=== PATIENT | female | born 1960 | race American Indian/Alaskan Native ===

== ENCOUNTER 2016-04-06 14:23 | Outpatient (CLI) | payer BC ==
--- NOTE | 2016-04-06 15:44 | Mammography Report ---
BILATERAL MAMMOGRAM: FINDINGS: The breasts are almost entirely fat (<25% glandular). No mass, distortion, suspicious calcification, or skin change is seen. The findings are unchanged compared to prior study of June 2013 CAD was utilized. IMPRESSION: Negative mammogram. There is no mammographic evidence of malignancy. RECOMMENDATION: Follow-up per ACS guidelines. BI-RADS CATEGORY: 1 = Negative ACR BI-RADS MAMMOGRAPHIC CODES: 0 = Needs additional imaging evaluation; 1 = Negative; 2 = Benign; 3 = Probably benign; 4 = Suspicious; 5 = Malignant; 6 = Known biopsy-proven malignancy COMMENT: 1. Dense breast tissue, i.e., adenosis, fibrocystic changes, etc., may obscure an underlying neoplasm. 2. Approximately 10% of cancers are not detected with mammography. 3. A negative mammography report should not delay biopsy if a clinically suspicious mass is present. COMMENT: Patient follow-up letters are generated in [employer] Everytime.
== END 2016-04-06 14:24 | disposition home or self-care (01) ==
LOC: MAMMO 14:23
PROVIDERS: ATTEND Internal Medicine
DX: Z12.31 Encounter for screening mammogram for malignant neoplasm of breast (principal)
CPT/HCPCS: 77067; G0202

== ENCOUNTER 2016-04-16 08:42 | Outpatient (CLI) | payer BC ==
--- NOTE | 2016-04-16 13:59 | Treadmill Report ---
REASON FOR STUDY: New onset premature ventricular contractions. The patient exercised for 6 minutes of a Jabari protocol, completing stage 2 and achieving 7 mets. Peak heart rate was 160 beats per minute. Peak blood pressure was 168 systolic. The test was stopped for fatigue. There was no chest pain. There were no ST changes of ischemia. On the baseline ECG, there were occasional isolated uniform PVCs, but with exercise, no significant dysrhythmias were noted. CONCLUSION: 1. No chest pain with exercise. 2. No ST changes of ischemia. 3. No significant dysrhythmias. 4. This is a negative exercise ECG test. JOB# [id number] ARELY/NTS
--- NOTE | 2016-04-17 09:43 | Echocardiography Report ---
Transthoracic Echocardiogram Indication: PVC's BP: 168/99 Findings Left Ventricle: The left ventricular chamber size is normal. Mild concentric left ventricular hypertrophy is observed. Global left ventricular wall motion and contractility are within normal limits. Global left ventricular systolic function is normal. The estimated ejection fraction is 55-60%. The left ventricular diastolic filling pattern is consistent with pseudonormalization. Left Atrium: The left atrium is mildly dilated. Right Ventricle: The right ventricle is not well visualized. The right ventricular cavity size is normal. The right ventricular global systolic function is normal. Right Atrium: The right atrium is not well visualized. The right atrial cavity size is normal. The interatrial septum appears normal. Aortic Valve: The aortic valve is not well visualized. The aortic valve structure is normal. The aortic valve leaflets are mildly thickened. There is trace of aortic regurgitation. There is no evidence of aortic stenosis. Mitral Valve: The mitral valve leaflets appear myxomatous. The mitral valve leaflets are mildly thickened. There is mild mitral valve prolapse. There is trace of mitral regurgitation. There is no evidence of mitral stenosis. Tricuspid Valve: The tricuspid valve leaflets are normal. There is trace tricuspid regurgitation. The right ventricular systolic pressure is calculated at 34 mmHg. There is evidence of mild pulmonary hypertension. There is no tricuspid stenosis. Pulmonic Valve: The pulmonic valve is not well visualized. Pericardium: There is no pericardial effusion. Aorta: There is no dilatation of the aortic root. Venous: The inferior vena cava is not visualized. Measurements Chambers MM Name Value Normal Range Ao root diameter (MM) 3.4 cm (2 - 3.7) LA dimension (AP) MM 4.2 cm (1.9 - 4) LA:Ao ratio (MM) 1.24 ratio - AV cusp separation (MM) 1.8 cm (1.5 - 2.6) Chambers 2D Name Value Normal Range RVIDd (AP) 2D 3.45 cm (0.9 - 2.6) IVSd (2D) 1.45 cm (0.6 - 1.1) LVPWd (2D) 1.43 cm (0.6 - 1.1) IVS:LVPW ratio (2D) 1.01 ratio - LVIDd (2D) 4.56 cm (3.7 - 5.6) LVIDs (2D) 2.96 cm (2 - 3.8) LV FS (Teichholz) (2D) 35.1 % - LV FS (cube) (2D) 35.1 % - EF Teichholz (2D) 64.5 % - LA dimension (AP) 2D 4.3 cm (1.9 - 4) Volumes/Mass Name Value Normal Range LA ESV SP 4CH (MOD) 36 ml - LA ESV SP 2CH (MOD) 35 ml - LA ESV BP (MOD) 36 ml - LA ESV BP (MOD) index 13.7 ml/m2 - Diastolic/Systolic Function Name Value Normal Range MV E-wave Vmax 0.8 m/sec - MV deceleration time 148 msec - MV A-wave Vmax 0.74 m/sec - MV E:A ratio 1.1 ratio - LV septal e' Vmax 0.06 m/sec - LV lateral e' Vmax 0.06 m/sec - LV E:e' septal ratio 12.7 ratio - LV E:e' lateral ratio 12.9 ratio - Aortic Valve Name Value Normal Range AV VTI 31.1 cm - AV mean gradient 5 mmHg - LVOT diameter 2.1 cm - LVOT VTI 18.4 cm - LVOT mean gradient 2 mmHg - SV LVOT 64 ml - CARINE (continuity VTI) 2.05 cm2 - Mitral Valve Name Value Normal Range MV PHT 47 msec - MVA (PHT) 4.68 cm2 - Tricuspid Valve Name Value Normal Range TR Vmax 2.77 m/sec - TR peak gradient 31 mmHg - RAP 3 mmHg - RVSP 34 mmHg - Pulmonic Valve/Qp:Qs Name Value Normal Range PV Vmax 0.95 m/sec - PV peak gradient 4 mmHg - PV acceleration time 109 msec -
== END 2016-04-16 08:43 | disposition home or self-care (01) ==
LOC: CARD 08:42
PROVIDERS: ATTEND Internal Medicine
DX: I49.3 Ventricular premature depolarization (principal)
CPT/HCPCS: 93017; 93306

== ENCOUNTER 2016-05-31 11:56 | Emergency (ER) | payer BC, OTHER ==
[2016-05-31 12:33] LABS: Basophils % (Auto) 0.7 % (0.0-1.8); Eosinophils % (Auto) 1.5 % (0.0-4.3); Hemoglobin 14.7 gm/dl (10.1-14.3); Mean Corpuscular HGB Conc 33 % (30-34); Mean Corpuscular Hemoglobin 29 pg (28-32); Mean Corpuscular Volume 87 fl (79-97); Platelet Count 171 K/mm3 (140-440); Red Blood Count 5.16 M/mm3 (3.65-5.03); Red Cell Distribution Width 14.3 % (13.2-15.2)
[2016-05-31 13:23] LABS: Anion Gap 16 mmol/L; BUN/Creatinine Ratio 15.71; Blood Urea Nitrogen 11 mg/dL (7-17); Carbon Dioxide 28 mmol/L (22-30); Glucose 116 mg/dL (65-100); Potassium 3.8 mmol/L (3.6-5.0); Sodium 141 mmol/L (137-145)
[2016-05-31] MEDS ORDERED: TORADOL IM ONE (17:12)
[2016-05-31 18:07] VITALS: BP 129/59
--- NOTE | 2016-05-31 19:47 | Emergency Department Report ---
HPI - General Chief Complaint: Chest Pain Time Seen by Provider: 05/31/16 16:55 - HPI HPI: The patient is a 55-year-old female presents for evaluation of chest pain. The patient reports chest pain since 10 AM, midsternal in location, aching in quality, 8/10 in severity, constant since onset. The patient says that she received a stress test 1 month ago which was unremarkable. The patient denies trauma to the chest wall, fever, cough, dyspnea, syncope, hemoptysis, unilateral leg swelling, oral contraceptive use, recent immobilization, history of DVT or PE, recent cancer. ED Past Medical Hx - Past Medical History Previous Medical History?: Yes Hx Hypertension: Yes Hx Arthritis: Yes Additional medical history: anemia, sleep apnea, low vit d., back pain/injury - Surgical History Past Surgical History?: Yes Additional Surgical History: lap band 2011& tubal ligation - Social History Smoking Status: Never Smoker Substance Use Type: None - Medications Home Medications: Home Medications Medication Instructions Recorded Confirmed Last Taken Type Acetaminophen [Tylenol] 500 mg PO Q4HR PRN 05/31/16 05/31/16 Unknown History Hydrochlorothiazide [HCTZ] 25 mg PO QDAY 05/31/16 05/31/16 Unknown History traMADol [Ultram 50 MG tab] 50 mg PO Q6HR PRN #12 tablet 05/31/16 Unknown Rx ED Review of Systems ROS: Stated complaint: CHEST PAIN Other details as noted in HPI Constitutional: denies: fever ENT: denies: throat or neck pain Respiratory: denies: cough, shortness of breath Cardiovascular: reports chest pain Endocrine: denies unexplained weight loss or gain Gastrointestinal: denies: abdominal pain, nausea Genitourinary: denies: dysuria Musculoskeletal: denies: leg swelling Skin: denies: rash Neurological: denies: headache Hematological/Lymphatic: denies: easy bleeding or easy bruising Psych: denies sadness or hopelessness Physical Exam - Physical Exam Vital Signs: Vital Signs 05/31/16 05/31/16 05/31/16 12:04 14:17 14:18 Temperature 97.7 F Pulse Rate 92 H 83 82 Respiratory 24 Rate Blood Pressure 151/103 164/88 O2 Sat by Pulse 98 97 Oximetry 05/31/16 05/31/16 05/31/16 14:19 14:21 14:23 Temperature Pulse Rate 88 88 88 Respiratory 25 H 23 24 Rate Blood Pressure 164/88 164/88 164/88 O2 Sat by Pulse 97 98 98 Oximetry 05/31/16 05/31/16 05/31/16 14:24 14:25 14:27 Temperature Pulse Rate 95 H 86 Respiratory 12 24 20 Rate Blood Pressure 164/88 164/88 O2 Sat by Pulse 98 98 99 Oximetry 05/31/16 05/31/16 05/31/16 14:29 14:31 14:33 Temperature Pulse Rate 85 85 82 Respiratory 21 23 21 Rate Blood Pressure 164/88 164/88 164/88 O2 Sat by Pulse 98 99 99 Oximetry 05/31/16 05/31/16 05/31/16 14:35 14:37 14:39 Temperature Pulse Rate 83 83 84 Respiratory 21 22 21 Rate Blood Pressure 164/88 164/88 164/88 O2 Sat by Pulse 99 100 99 Oximetry 05/31/16 05/31/16 05/31/16 14:41 14:43 14:45 Temperature Pulse Rate 93 H 86 85 Respiratory 20 13 18 Rate Blood Pressure 164/88 164/88 164/88 O2 Sat by Pulse 100 99 98 Oximetry 05/31/16 05/31/16 05/31/16 14:47 14:49 14:51 Temperature Pulse Rate 93 H 89 87 Respiratory 17 22 22 Rate Blood Pressure 164/88 164/88 164/88 O2 Sat by Pulse 96 96 97 Oximetry 05/31/16 05/31/16 05/31/16 14:53 14:55 14:57 Temperature Pulse Rate 88 105 H 85 Respiratory 23 18 18 Rate Blood Pressure 164/88 164/88 164/88 O2 Sat by Pulse 97 97 98 Oximetry 05/31/16 05/31/16 05/31/16 14:59 15:00 15:01 Temperature Pulse Rate 87 87 83 Respiratory 25 H 19 23 Rate Blood Pressure 164/88 144/83 144/83 O2 Sat by Pulse 97 99 98 Oximetry 05/31/16 05/31/16 05/31/16 15:03 15:05 15:07 Temperature Pulse Rate 79 87 82 Respiratory 16 13 21 Rate Blood Pressure 144/83 144/83 144/83 O2 Sat by Pulse 98 98 97 Oximetry 05/31/16 05/31/16 05/31/16 15:09 15:11 15:13 Temperature Pulse Rate 86 84 84 Respiratory 24 22 16 Rate Blood Pressure 144/83 144/83 144/83 O2 Sat by Pulse 97 97 98 Oximetry 05/31/16 05/31/16 05/31/16 15:15 15:17 15:19 Temperature Pulse Rate 81 81 82 Respiratory 18 20 21 Rate Blood Pressure 144/83 144/83 144/83 O2 Sat by Pulse 97 97 96 Oximetry 05/31/16 05/31/16 05/31/16 15:21 15:23 15:25 Temperature Pulse Rate 81 89 86 Respiratory 21 16 22 Rate Blood Pressure 144/83 144/83 144/83 O2 Sat by Pulse 97 96 95 Oximetry 05/31/16 05/31/16 05/31/16 15:26 15:27 15:29 Temperature Pulse Rate 86 85 85 Respiratory 15 21 19 Rate Blood Pressure 144/83 144/83 144/83 O2 Sat by Pulse 96 96 95 Oximetry 05/31/16 05/31/16 05/31/16 15:31 15:33 15:35 Temperature Pulse Rate 82 85 83 Respiratory 18 21 22 Rate Blood Pressure 144/83 144/83 144/83 O2 Sat by Pulse 97 97 97 Oximetry 05/31/16 05/31/16 05/31/16 15:37 15:39 15:41 Temperature Pulse Rate 80 82 88 Respiratory 24 23 21 Rate Blood Pressure 144/83 144/83 144/83 O2 Sat by Pulse 97 98 97 Oximetry 05/31/16 05/31/16 05/31/16 15:47 15:49 15:51 Temperature Pulse Rate 82 87 Respiratory 26 H 25 H Rate Blood Pressure 144/83 144/83 144/83 O2 Sat by Pulse 91 99 98 Oximetry 05/31/16 05/31/16 05/31/16 15:53 15:55 15:57 Temperature Pulse Rate 84 86 86 Respiratory 23 25 H 22 Rate Blood Pressure 144/83 144/83 144/83 O2 Sat by Pulse 97 97 97 Oximetry 05/31/16 05/31/16 05/31/16 15:59 16:00 16:01 Temperature Pulse Rate 84 86 89 Respiratory 19 23 19 Rate Blood Pressure 144/83 138/81 138/81 O2 Sat by Pulse 98 77 L 100 Oximetry 05/31/16 05/31/16 05/31/16 16:03 16:05 16:07 Temperature Pulse Rate 87 83 89 Respiratory 23 22 22 Rate Blood Pressure 138/81 138/81 138/81 O2 Sat by Pulse 100 100 100 Oximetry 05/31/16 05/31/16 05/31/16 16:09 16:11 16:13 Temperature Pulse Rate 78 83 80 Respiratory 24 21 18 Rate Blood Pressure 138/81 138/81 138/81 O2 Sat by Pulse 100 100 100 Oximetry 05/31/16 05/31/16 05/31/16 16:15 16:17 16:19 Temperature Pulse Rate 81 82 81 Respiratory 14 21 17 Rate Blood Pressure 138/81 138/81 138/81 O2 Sat by Pulse 100 100 98 Oximetry 05/31/16 05/31/16 05/31/16 16:21 16:23 16:25 Temperature Pulse Rate 86 90 88 Respiratory 19 11 L 11 L Rate Blood Pressure 138/81 138/81 138/81 O2 Sat by Pulse 98 97 98 Oximetry 05/31/16 05/31/16 05/31/16 16:27 16:29 16:31 Temperature Pulse Rate 83 80 86 Respiratory 14 19 21 Rate Blood Pressure 138/81 138/81 138/81 O2 Sat by Pulse 99 96 96 Oximetry 05/31/16 05/31/16 05/31/16 16:33 16:35 16:37 Temperature Pulse Rate 86 83 81 Respiratory 21 21 25 H Rate Blood Pressure 138/81 138/81 144/83 O2 Sat by Pulse 97 97 99 Oximetry 05/31/16 05/31/16 05/31/16 16:39 16:41 16:43 Temperature Pulse Rate 101 H 87 83 Respiratory 20 24 22 Rate Blood Pressure 144/83 144/83 144/83 O2 Sat by Pulse 98 99 99 Oximetry 05/31/16 05/31/16 05/31/16 16:45 16:47 16:49 Temperature Pulse Rate 82 81 88 Respiratory 20 22 23 Rate Blood Pressure 144/83 144/83 144/83 O2 Sat by Pulse 100 100 100 Oximetry 05/31/16 05/31/16 05/31/16 16:51 16:53 16:55 Temperature Pulse Rate 82 79 81 Respiratory 24 23 27 H Rate Blood Pressure 144/83 144/83 144/83 O2 Sat by Pulse 100 100 100 Oximetry 05/31/16 05/31/16 05/31/16 16:57 16:59 17:01 Temperature Pulse Rate 78 84 85 Respiratory 19 28 H 24 Rate Blood Pressure 144/83 144/83 129/59 O2 Sat by Pulse 100 98 94 Oximetry 05/31/16 05/31/16 05/31/16 17:03 17:05 17:07 Temperature Pulse Rate 83 80 86 Respiratory 24 23 21 Rate Blood Pressure 129/59 129/59 129/59 O2 Sat by Pulse 97 98 99 Oximetry 05/31/16 05/31/16 05/31/16 17:09 17:11 17:13 Temperature Pulse Rate 81 81 85 Respiratory 22 19 17 Rate Blood Pressure 129/59 129/59 129/59 O2 Sat by Pulse 99 98 98 Oximetry 05/31/16 05/31/16 05/31/16 17:15 17:17 17:19 Temperature Pulse Rate 99 H 97 H 90 Respiratory 20 15 22 Rate Blood Pressure 129/59 129/59 129/59 O2 Sat by Pulse 92 89 97 Oximetry 05/31/16 05/31/16 05/31/16 17:21 17:23 17:25 Temperature Pulse Rate 88 85 79 Respiratory 28 H 25 H 23 Rate Blood Pressure 129/59 129/59 129/59 O2 Sat by Pulse 99 99 99 Oximetry 05/31/16 05/31/16 05/31/16 17:27 17:29 17:31 Temperature Pulse Rate 96 H 91 H 86 Respiratory 15 13 13 Rate Blood Pressure 129/59 129/59 129/59 O2 Sat by Pulse 98 97 99 Oximetry 05/31/16 05/31/16 05/31/16 17:33 17:35 17:37 Temperature Pulse Rate 86 84 83 Respiratory 22 23 21 Rate Blood Pressure 129/59 129/59 129/59 O2 Sat by Pulse 96 98 99 Oximetry 05/31/16 05/31/16 05/31/16 17:39 17:41 17:43 Temperature Pulse Rate 85 83 90 Respiratory 23 22 21 Rate Blood Pressure 129/59 129/59 129/59 O2 Sat by Pulse 100 98 99 Oximetry 05/31/16 05/31/16 05/31/16 17:45 17:47 17:49 Temperature Pulse Rate 88 87 82 Respiratory 19 22 22 Rate Blood Pressure 129/59 129/59 129/59 O2 Sat by Pulse 98 98 99 Oximetry 05/31/16 05/31/16 05/31/16 17:51 17:53 17:55 Temperature Pulse Rate 90 87 86 Respiratory 24 22 21 Rate Blood Pressure 129/59 129/59 129/59 O2 Sat by Pulse 98 99 98 Oximetry 05/31/16 05/31/16 17:57 17:59 Temperature Pulse Rate 90 81 Respiratory 24 20 Rate Blood Pressure 129/59 129/59 O2 Sat by Pulse 95 97 Oximetry Physical Exam: General: well-nourished, well-developed, no acute distress Head: Normocephalic, atraumatic Eyes: normal sclera ENT: Mucous membranes are pink and moist Neck: trachea midline, neck supple, No neck stiffness, no cervical adenopathy Respiratory: Breath sounds equal bilaterally, no wheezing, rales, or rhonchi Cardio: S1 and S2 present, no murmurs, rubs, gallops, capillary refill is brisk Abdomen: Normoactive bowel sounds, soft abdomen, no tenderness Musc: No pitting edema Skin: No rash Neuro: no facial drooping, normal speech Psych: Normal affect ED Course Vital Signs 05/31/16 05/31/16 05/31/16 12:04 14:17 14:18 Temperature 97.7 F Pulse Rate 92 H 83 82 Respiratory 24 Rate Blood Pressure 151/103 164/88 O2 Sat by Pulse 98 97 Oximetry 05/31/16 05/31/16 05/31/16 14:19 14:21 14:23 Temperature Pulse Rate 88 88 88 Respiratory 25 H 23 24 Rate Blood Pressure 164/88 164/88 164/88 O2 Sat by Pulse 97 98 98 Oximetry 05/31/16 05/31/16 05/31/16 14:24 14:25 14:27 Temperature Pulse Rate 95 H 86 Respiratory 12 24 20 Rate Blood Pressure 164/88 164/88 O2 Sat by Pulse 98 98 99 Oximetry 05/31/16 05/31/16 05/31/16 14:29 14:31 14:33 Temperature Pulse Rate 85 85 82 Respiratory 21 23 21 Rate Blood Pressure 164/88 164/88 164/88 O2 Sat by Pulse 98 99 99 Oximetry 05/31/16 05/31/16 05/31/16 14:35 14:37 14:39 Temperature Pulse Rate 83 83 84 Respiratory 21 22 21 Rate Blood Pressure 164/88 164/88 164/88 O2 Sat by Pulse 99 100 99 Oximetry 05/31/16 05/31/16 05/31/16 14:41 14:43 14:45 Temperature Pulse Rate 93 H 86 85 Respiratory 20 13 18 Rate Blood Pressure 164/88 164/88 164/88 O2 Sat by Pulse 100 99 98 Oximetry 05/31/16 05/31/16 05/31/16 14:47 14:49 14:51 Temperature Pulse Rate 93 H 89 87 Respiratory 17 22 22 Rate Blood Pressure 164/88 164/88 164/88 O2 Sat by Pulse 96 96 97 Oximetry 05/31/16 05/31/16 05/31/16 14:53 14:55 14:57 Temperature Pulse Rate 88 105 H 85 Respiratory 23 18 18 Rate Blood Pressure 164/88 164/88 164/88 O2 Sat by Pulse 97 97 98 Oximetry 05/31/16 05/31/16 05/31/16 14:59 15:00 15:01 Temperature Pulse Rate 87 87 83 Respiratory 25 H 19 23 Rate Blood Pressure 164/88 144/83 144/83 O2 Sat by Pulse 97 99 98 Oximetry 05/31/16 05/31/16 05/31/16 15:03 15:05 15:07 Temperature Pulse Rate 79 87 82 Respiratory 16 13 21 Rate Blood Pressure 144/83 144/83 144/83 O2 Sat by Pulse 98 98 97 Oximetry 05/31/16 05/31/16 05/31/16 15:09 15:11 15:13 Temperature Pulse Rate 86 84 84 Respiratory 24 22 16 Rate Blood Pressure 144/83 144/83 144/83 O2 Sat by Pulse 97 97 98 Oximetry 05/31/16 05/31/16 05/31/16 15:15 15:17 15:19 Temperature Pulse Rate 81 81 82 Respiratory 18 20 21 Rate Blood Pressure 144/83 144/83 144/83 O2 Sat by Pulse 97 97 96 Oximetry 05/31/16 05/31/16 05/31/16 15:21 15:23 15:25 Temperature Pulse Rate 81 89 86 Respiratory 21 16 22 Rate Blood Pressure 144/83 144/83 144/83 O2 Sat by Pulse 97 96 95 Oximetry 05/31/16 05/31/16 05/31/16 15:26 15:27 15:29 Temperature Pulse Rate 86 85 85 Respiratory 15 21 19 Rate Blood Pressure 144/83 144/83 144/83 O2 Sat by Pulse 96 96 95 Oximetry 05/31/16 05/31/16 05/31/16 15:31 15:33 15:35 Temperature Pulse Rate 82 85 83 Respiratory 18 21 22 Rate Blood Pressure 144/83 144/83 144/83 O2 Sat by Pulse 97 97 97 Oximetry 05/31/16 05/31/16 05/31/16 15:37 15:39 15:41 Temperature Pulse Rate 80 82 88 Respiratory 24 23 21 Rate Blood Pressure 144/83 144/83 144/83 O2 Sat by Pulse 97 98 97 Oximetry 05/31/16 05/31/16 05/31/16 15:47 15:49 15:51 Temperature Pulse Rate 82 87 Respiratory 26 H 25 H Rate Blood Pressure 144/83 144/83 144/83 O2 Sat by Pulse 91 99 98 Oximetry 05/31/16 05/31/16 05/31/16 15:53 15:55 15:57 Temperature Pulse Rate 84 86 86 Respiratory 23 25 H 22 Rate Blood Pressure 144/83 144/83 144/83 O2 Sat by Pulse 97 97 97 Oximetry 05/31/16 05/31/16 05/31/16 15:59 16:00 16:01 Temperature Pulse Rate 84 86 89 Respiratory 19 23 19 Rate Blood Pressure 144/83 138/81 138/81 O2 Sat by Pulse 98 77 L 100 Oximetry 05/31/16 05/31/16 05/31/16 16:03 16:05 16:07 Temperature Pulse Rate 87 83 89 Respiratory 23 22 22 Rate Blood Pressure 138/81 138/81 138/81 O2 Sat by Pulse 100 100 100 Oximetry 05/31/16 05/31/16 05/31/16 16:09 16:11 16:13 Temperature Pulse Rate 78 83 80 Respiratory 24 21 18 Rate Blood Pressure 138/81 138/81 138/81 O2 Sat by Pulse 100 100 100 Oximetry 05/31/16 05/31/16 05/31/16 16:15 16:17 16:19 Temperature Pulse Rate 81 82 81 Respiratory 14 21 17 Rate Blood Pressure 138/81 138/81 138/81 O2 Sat by Pulse 100 100 98 Oximetry 05/31/16 05/31/16 05/31/16 16:21 16:23 16:25 Temperature Pulse Rate 86 90 88 Respiratory 19 11 L 11 L Rate Blood Pressure 138/81 138/81 138/81 O2 Sat by Pulse 98 97 98 Oximetry 05/31/16 05/31/16 05/31/16 16:27 16:29 16:31 Temperature Pulse Rate 83 80 86 Respiratory 14 19 21 Rate Blood Pressure 138/81 138/81 138/81 O2 Sat by Pulse 99 96 96 Oximetry 05/31/16 05/31/16 05/31/16 16:33 16:35 16:37 Temperature Pulse Rate 86 83 81 Respiratory 21 21 25 H Rate Blood Pressure 138/81 138/81 144/83 O2 Sat by Pulse 97 97 99 Oximetry 05/31/16 05/31/16 05/31/16 16:39 16:41 16:43 Temperature Pulse Rate 101 H 87 83 Respiratory 20 24 22 Rate Blood Pressure 144/83 144/83 144/83 O2 Sat by Pulse 98 99 99 Oximetry 05/31/16 05/31/16 05/31/16 16:45 16:47 16:49 Temperature Pulse Rate 82 81 88 Respiratory 20 22 23 Rate Blood Pressure 144/83 144/83 144/83 O2 Sat by Pulse 100 100 100 Oximetry 05/31/16 05/31/16 05/31/16 16:51 16:53 16:55 Temperature Pulse Rate 82 79 81 Respiratory 24 23 27 H Rate Blood Pressure 144/83 144/83 144/83 O2 Sat by Pulse 100 100 100 Oximetry 05/31/16 05/31/16 05/31/16 16:57 16:59 17:01 Temperature Pulse Rate 78 84 85 Respiratory 19 28 H 24 Rate Blood Pressure 144/83 144/83 129/59 O2 Sat by Pulse 100 98 94 Oximetry 05/31/16 05/31/16 05/31/16 17:03 17:05 17:07 Temperature Pulse Rate 83 80 86 Respiratory 24 23 21 Rate Blood Pressure 129/59 129/59 129/59 O2 Sat by Pulse 97 98 99 Oximetry 05/31/16 05/31/16 05/31/16 17:09 17:11 17:13 Temperature Pulse Rate 81 81 85 Respiratory 22 19 17 Rate Blood Pressure 129/59 129/59 129/59 O2 Sat by Pulse 99 98 98 Oximetry 05/31/16 05/31/16 05/31/16 17:15 17:17 17:19 Temperature Pulse Rate 99 H 97 H 90 Respiratory 20 15 22 Rate Blood Pressure 129/59 129/59 129/59 O2 Sat by Pulse 92 89 97 Oximetry 05/31/16 05/31/16 05/31/16 17:21 17:23 17:25 Temperature Pulse Rate 88 85 79 Respiratory 28 H 25 H 23 Rate Blood Pressure 129/59 129/59 129/59 O2 Sat by Pulse 99 99 99 Oximetry 05/31/16 05/31/16 05/31/16 17:27 17:29 17:31 Temperature Pulse Rate 96 H 91 H 86 Respiratory 15 13 13 Rate Blood Pressure 129/59 129/59 129/59 O2 Sat by Pulse 98 97 99 Oximetry 05/31/16 05/31/16 05/31/16 17:33 17:35 17:37 Temperature Pulse Rate 86 84 83 Respiratory 22 23 21 Rate Blood Pressure 129/59 129/59 129/59 O2 Sat by Pulse 96 98 99 Oximetry 05/31/16 05/31/16 05/31/16 17:39 17:41 17:43 Temperature Pulse Rate 85 83 90 Respiratory 23 22 21 Rate Blood Pressure 129/59 129/59 129/59 O2 Sat by Pulse 100 98 99 Oximetry 05/31/16 05/31/16 05/31/16 17:45 17:47 17:49 Temperature Pulse Rate 88 87 82 Respiratory 19 22 22 Rate Blood Pressure 129/59 129/59 129/59 O2 Sat by Pulse 98 98 99 Oximetry 05/31/16 05/31/16 05/31/16 17:51 17:53 17:55 Temperature Pulse Rate 90 87 86 Respiratory 24 22 21 Rate Blood Pressure 129/59 129/59 129/59 O2 Sat by Pulse 98 99 98 Oximetry 05/31/16 05/31/16 17:57 17:59 Temperature Pulse Rate 90 81 Respiratory 24 20 Rate Blood Pressure 129/59 129/59 O2 Sat by Pulse 95 97 Oximetry ED Medical Decision Making - Lab Data Result diagrams: 05/31/16 12:21 05/31/16 12:21 - Medical Decision Making The patient was seen and examined by myself. The patient is placed on a surveillance monitor and continuous pulse ox. On initial evaluation, the patient was found to be in no distress. EKG was negative for findings suggestive of acute cardiac infarct. Labs and imaging are obtained. The patient was given an IM dose of Toradol for her pain. Chest x-ray is negative for pneumothorax, focal consolidation, pulmonary vascular congestion, pleural effusion, or other obvious acute cardiopulmonary disease process. Lab results were non-concerning including levels of 2 sets of troponin, WBC, electrolytes, renal function. The patient was reevaluated and reported that their symptoms were markedly improved. As the patient has a KASI risk score less than 2, and a well's score less than 2, the patient is at low risk of ACS or pulmonary emboli etiology of their symptoms. The patient is stable for discharge with outpatient follow-up. The patient is given follow-up and return instructions. The patient expressed understanding and agreed with the plan. The patient is discharged in stable condition. Critical care attestation.: If time is entered above; I have spent that time in minutes in the direct care of this critically ill patient, excluding procedure time. ED Disposition Clinical Impression: Acute chest pain Disposition: DISCHARGED TO HOME OR SELFCARE Is pt being admited?: No Does the pt Need Aspirin: No Condition: Stable Instructions: Chest Pain (ED) Referrals: PRIMARY CAREMD [Primary Care Provider] - 3-5 Days Time of Disposition: 18:16
--- NOTE | 2016-06-01 08:59 | XRay Report ---
PORTABLE CHEST: INDICATION: Chest pain. COMPARISON: 07/19/2013 FINDINGS: Portable, frontal chest radiograph demonstrates stable cardiomediastinal silhouette. Slight greater crowding of the lung markings centrally, presumed technical. No large pleural effusions or CHF. EKG leads. Demineralized bones with few degenerative changes. CONCLUSION: No significant acute chest process or interval change, as described. Thank you for the opportunity to participate in this patient's care.
== END 2016-05-31 18:28 | disposition home or self-care (01) ==
LOC: ED 11:56
DX: R07.2 Precordial pain (principal); I10 Essential (primary) hypertension; M19.90 Unspecified osteoarthritis, unspecified site; D64.9 Anemia, unspecified
CPT/HCPCS: 36415; 71010; 80048; 84484; 85025; 93005; 93010; 96372; 99285; J1885

== ENCOUNTER 2017-04-11 13:30 | Outpatient (CLI) | payer BC ==
--- NOTE | 2017-04-12 14:17 | Mammography Report ---
BILATERAL DIGITAL SCREENING MAMMOGRAM with CAD: 04/11/17 13:30:00 CLINICAL: Routine screening. COMPARISON:04/06/16 FINDINGS: The breasts are almost entirely fatty. No mass, architectural distortion or suspicious calcifications. IMPRESSION: No mammographic evidence of malignancy. BI-RADS CATEGORY: 1 - - Negative RECOMMENDATION: Routine mammographic screening in one year. COMMENT: Patient follow-up letters are generated by our [employer] application.
== END 2017-04-11 13:31 | disposition home or self-care (01) ==
LOC: MAMMO 13:30
PROVIDERS: ATTEND Internal Medicine
DX: Z12.31 Encounter for screening mammogram for malignant neoplasm of breast (principal); I10 Essential (primary) hypertension
CPT/HCPCS: 77067

== ENCOUNTER 2017-04-30 08:24 | Outpatient (CLI) | payer BC ==
--- NOTE | 2017-04-30 10:01 | Ultrasound Report ---
ULTRASOUND PELVIC COMPLETE ULTRASOUND TRANSVAGINAL HISTORY: Fibroid tumor. COMPARISON: None. TECHNIQUE: Transabdominal and transvaginal ultrasound with color doppler interrogation. FINDINGS: Uterus: The uterus is anteverted and measures 12 x 6 x 7 cm. At least 4 uterine fibroids are identified. A 3.9 cm submucosal fibroid is identified in the anterior fundal region. A 2.9 cm intramural fibroid is identified in the posterior fundal region. A 2.3 cm intramural fibroid is identified in the superior fundus. A 1.5 cm subserosal fibroid is identified in the anterior wall. The cervix is unremarkable. Endometrium: Slightly displaced by fibroids but within normal limits otherwise. 8.7 mm in thickness. Right ovary: Not visualized. Left ovary: Not visualized. No pelvic fluid or mass is identified. Normal color doppler interrogation. IMPRESSION: Uterine fibroid disease as outlined above. The ovaries were not visualized.
== END 2017-04-30 08:25 | disposition home or self-care (01) ==
LOC: US 08:24
PROVIDERS: ATTEND Internal Medicine Hematology & Oncology
DX: D25.0 Submucous leiomyoma of uterus (principal); D25.1 Intramural leiomyoma of uterus; D25.2 Subserosal leiomyoma of uterus
CPT/HCPCS: 76830; 76856

== ENCOUNTER 2017-05-14 10:02 | Outpatient (CLI) | payer BC | END 2017-05-14 10:03 | disposition home or self-care (01) | LOC: LABHHL 10:02 | PROVIDERS: ATTEND Obstetrics & Gynecology | DX: Z01.419 Encounter for gynecological examination (general) (routine) without abnormal findings (principal) | CPT/HCPCS: 36415 ==

== ENCOUNTER 2017-11-24 10:07 | Emergency (ER) | payer BC ==
--- NOTE | 2017-11-24 11:25 | Emergency Department Report ---
ED General Adult HPI - General Chief complaint: Dizziness Stated complaint: DIZZY/HEAD ACHE Time Seen by Provider: 11/24/17 11:05 Source: patient Mode of arrival: Ambulatory Limitations: No Limitations - History of Present Illness Initial comments: Patient is a 57-year-old female past medical history of anemia and sleep apnea who presents with vertigo. Patient states that the vertigo started on last night it occurred after she was coughing. Says the dizziness is moderate moving makes it worse and being still makes it better. She states that she feels like the room is spinning around. She denies this ever happening to her before. She says for last 3 days she's been having a cough and a runny nose that have been going on. She denies having any sick contacts she states she is nauseous but she has not vomited. Patient drinks but does not smoke. 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 - Related Data Home Medications Medication Instructions Recorded Confirmed Last Taken Acetaminophen [Tylenol] 500 mg PO Q4HR PRN 05/31/16 05/31/16 Unknown hydroCHLOROthiazide [HCTZ] 25 mg PO QDAY 05/31/16 05/31/16 Unknown Previous Rx's Medication Instructions Recorded Last Taken Type traMADol [Ultram 50 MG tab] 50 mg PO Q6HR PRN #12 tablet 05/31/16 Unknown Rx Benzonatate [Tessalon Perles] 100 mg PO Q8HR PRN #30 capsule 11/24/17 Unknown Rx Meclizine HCl [Meclizine CHEW] 25 mg PO Q6H PRN #30 tab.chew 11/24/17 Unknown Rx Allergies Allergy/AdvReac Type Severity Reaction Status Date / Time No Known Allergies Allergy Unverified 12/03/12 00:05 ED Review of Systems ROS: Stated complaint: DIZZY/HEAD ACHE Other details as noted in HPI Constitutional: denies: chills, fever Eyes: denies: eye pain, eye discharge, vision change ENT: denies: ear pain, throat pain Respiratory: cough. denies: shortness of breath, wheezing Cardiovascular: denies: chest pain, palpitations Endocrine: no symptoms reported Gastrointestinal: denies: abdominal pain, nausea, diarrhea Genitourinary: denies: urgency, dysuria, discharge Musculoskeletal: denies: back pain, joint swelling, arthralgia Skin: denies: rash, lesions Neurological: vertigo. denies: headache, weakness, paresthesias Psychiatric: denies: anxiety, depression Hematological/Lymphatic: denies: easy bleeding, easy bruising ED Past Medical Hx - Past Medical History Hx Hypertension: Yes Hx Arthritis: Yes Additional medical history: anemia, sleep apnea, low vit d., back pain/injury - Surgical History Additional Surgical History: lap band 2011& tubal ligation - Social History Smoking Status: Former Smoker Substance Use Type: Alcohol - Medications Home Medications: Home Medications Medication Instructions Recorded Confirmed Last Taken Type Acetaminophen [Tylenol] 500 mg PO Q4HR PRN 05/31/16 05/31/16 Unknown History hydroCHLOROthiazide [HCTZ] 25 mg PO QDAY 05/31/16 05/31/16 Unknown History traMADol [Ultram 50 MG tab] 50 mg PO Q6HR PRN #12 tablet 05/31/16 Unknown Rx Benzonatate [Tessalon Perles] 100 mg PO Q8HR PRN #30 capsule 11/24/17 Unknown Rx Meclizine HCl [Meclizine CHEW] 25 mg PO Q6H PRN #30 tab.chew 11/24/17 Unknown Rx ED Physical Exam - General Limitations: No Limitations General appearance: alert, in no apparent distress - Head Head exam: Present: atraumatic, normocephalic - Eye Eye exam: Present: normal appearance - ENT ENT exam: Present: mucous membranes moist - Neck Neck exam: Present: normal inspection - Respiratory Respiratory exam: Present: normal lung sounds bilaterally. Absent: respiratory distress - Cardiovascular Cardiovascular Exam: Present: regular rate, normal rhythm. Absent: systolic murmur, diastolic murmur, rubs, gallop - GI/Abdominal GI/Abdominal exam: Present: soft, normal bowel sounds - Extremities Exam Extremities exam: Present: normal inspection - Back Exam Back exam: Present: normal inspection - Neurological Exam Neurological exam: Present: alert, oriented X3 - Psychiatric Psychiatric exam: Present: normal affect, normal mood - Skin Skin exam: Present: warm, dry, intact, normal color. Absent: rash ED Course Vital Signs 11/24/17 10:31 Temperature 97.9 F Pulse Rate 81 Blood Pressure 192/100 O2 Sat by Pulse 95 Oximetry - Reevaluation(s) Reevaluation #1: 11/24/17 13:25 Patient is feeling better I'll send patient home with oral meclizine. ED Medical Decision Making - Lab Data Result diagrams: 11/24/17 12:02 11/24/17 12:02 Lab Results 11/24/17 11/24/17 Range/Units 12:02 12:02 WBC 6.6 (4.5-11.0) K/mm3 RBC 5.21 H (3.65-5.03) M/mm3 Hgb 15.3 H (10.1-14.3) gm/dl Hct 45.9 H (30.3-42.9) % MCV 88 (79-97) fl MCH 29 (28-32) pg MCHC 33 (30-34) % RDW 13.4 (13.2-15.2) % Plt Count 175 (140-440) K/mm3 Lymph % (Auto) 30.1 (13.4-35.0) % [place] % (Auto) 6.9 (0.0-7.3) % Eos % (Auto) 1.8 (0.0-4.3) % Baso % (Auto) 0.4 (0.0-1.8) % Lymph # 2.0 (1.2-5.4) K/mm3 [place] # 0.5 (0.0-0.8) K/mm3 Eos # 0.1 (0.0-0.4) K/mm3 Baso # 0.0 (0.0-0.1) K/mm3 Seg Neutrophils % 60.8 (40.0-70.0) % Seg Neutrophils # 4.0 (1.8-7.7) K/mm3 Sodium 140 (137-145) mmol/L Potassium 4.4 (3.6-5.0) mmol/L Chloride 102.5 (98-107) mmol/L Carbon Dioxide 26 (22-30) mmol/L Anion Gap 16 mmol/L BUN 6 L (7-17) mg/dL Creatinine 0.5 L (0.7-1.2) mg/dL Estimated GFR > 60 ml/min BUN/Creatinine Ratio 12 % Glucose 101 H (65-100) mg/dL Calcium 9.1 (8.4-10.2) mg/dL Total Bilirubin 0.40 (0.1-1.2) mg/dL AST 15 (5-40) units/L ALT 12 (7-56) units/L Alkaline Phosphatase 75 (35-129) units/L Troponin T < 0.010 (0.00-0.029) ng/mL Total Protein 7.0 (6.3-8.2) g/dL Albumin 3.9 (3.9-5) g/dL Albumin/Globulin Ratio 1.3 % - EKG Data -: EKG Interpreted by Me - EKG Data 11/24/17 12:53 EKG shows normal sinus rhythm no ST segment elevations no T-wave inversion no axis deviation. - Medical Decision Making Chief Medical diagnosis: Benign positional vertigo Differential medical diagnosis: Pneumonia, bronchitis, non-STEMI I will get EKG, CBC, BMP, oral pain medication and oral meclizine I will also get chest x-ray and troponin Blood work and x-ray looked unremarkable I will send patient home with follow- up with primary care provider. Discussed plan with patient and patient agrees with plan additional verbal discharge instructions were given. Critical care attestation.: If time is entered above; I have spent that time in minutes in the direct care of this critically ill patient, excluding procedure time. ED Disposition Clinical Impression: Benign positional vertigo Qualifiers: Laterality: left Qualified Code(s): H81.12 - Benign paroxysmal vertigo, left ear URI (upper respiratory infection) Qualifiers: URI type: unspecified viral URI Qualified Code(s): J06.9 - Acute upper respiratory infection, unspecified Disposition: DC-01 TO HOME OR SELFCARE Is pt being admited?: No Does the pt Need Aspirin: No Condition: Stable Instructions: Benign Paroxysmal Positional Vertigo (ED) Prescriptions: Benzonatate [Tessalon Perles] 100 mg PO Q8HR PRN #30 capsule PRN Reason: Cough Meclizine HCl [Meclizine CHEW] 25 mg PO Q6H PRN #30 tab.chew PRN Reason: Dizziness Referrals: ANDREE GARCIA MD [Referring] - 3-5 Days MARTITA AYALA MD [Staff Physician] - 3-5 Days
[2017-11-24] MEDS ORDERED: ANTIVERT PO ONE (11:31)
[2017-11-24] MEDS ORDERED: LIDOCAINE VISCOUS 2% PO ONE (11:31)
[2017-11-24] MEDS ORDERED: TYLENOL PO ONE (11:38)
[2017-11-24] MEDS ORDERED: MOTRIN PO ONE (11:38)
[2017-11-24] MEDS ORDERED: ZOFRAN ODT PO ONE (11:41)
[2017-11-24 12:13] LABS: Basophils % (Auto) 0.4 % (0.0-1.8); Eosinophils # (Auto) 0.1 K/mm3 (0.0-0.4); Eosinophils % (Auto) 1.8 % (0.0-4.3); Hematocrit 45.9 % (30.3-42.9); Hemoglobin 15.3 gm/dl (10.1-14.3); Lymphocytes % (Auto) 30.1 % (13.4-35.0); Mean Corpuscular HGB Conc 33 % (30-34); Mean Corpuscular Hemoglobin 29 pg (28-32); Mean Corpuscular Volume 88 fl (79-97); Monocytes # (Auto) 0.5 K/mm3 (0.0-0.8); Monocytes % (Auto) 6.9 % (0.0-7.3); Platelet Count 175 K/mm3 (140-440); Red Blood Count 5.21 M/mm3 (3.65-5.03); Red Cell Distribution Width 13.4 % (13.2-15.2)
[2017-11-24 12:36] LABS: Alanine Aminotransferase 12 units/L (7-56); Albumin 3.9 g/dL (3.9-5); BUN/Creatinine Ratio 12; Blood Urea Nitrogen 6 mg/dL (7-17); Calcium 9.1 mg/dL (8.4-10.2); Hemolysis Index 16
[2017-11-24] MEDS ORDERED: VALIUM PO ONE (13:10)
[2017-11-24 13:45] VITALS: BP 180/93
--- NOTE | 2017-11-24 13:54 | XRay Report ---
FINAL REPORT EXAM: XR CHEST ROUTINE 2V HISTORY: cough TECHNIQUE: Frontal and lateral views of the chest. PRIORS: None currently available. FINDINGS: Cardiac silhouette is within normal limits. There is no effusion. There is no pneumothorax. There is no consolidation. Mild bilateral perihilar peribronchial thickening with subtle airspace opacities. There are no suspicious osseous lesions. Degenerative changes in both shoulders. IMPRESSION: Pulmonary findings may represent pneumonia, bronchiolitis/bronchitis, reactive airway disease, interstitial pneumonitis, or pulmonary vascular congestion. Bronchitis/bronchiolitis, interstitial pneumonitis, and pulmonary vascular congestion favored.
== END 2017-11-24 14:10 | disposition home or self-care (01) ==
LOC: ED 10:07
DX: H81.12 Benign paroxysmal vertigo, left ear (principal); J06.9 Acute upper respiratory infection, unspecified; I10 Essential (primary) hypertension; M19.90 Unspecified osteoarthritis, unspecified site; D64.9 Anemia, unspecified; Z87.891 Personal history of nicotine dependence; Z98.51 Tubal ligation status; Z79.899 Other long term (current) drug therapy
CPT/HCPCS: 36415; 71046; 80053; 84484; 85025; 93005; 93010; Q0162

== ENCOUNTER 2017-12-01 15:19 | Emergency (ER) | payer BC ==
[2017-12-01 15:30] VITALS: BP 141/81
[2017-12-01] MEDS ORDERED: ATROVENT IH ONE (15:58)
[2017-12-01] MEDS ORDERED: SOLU-Medrol IV ONE (15:58)
[2017-12-01] MEDS ORDERED: NACL 0.9% 1000 ML 1,000 ML IV ONE (15:58)
[2017-12-01] MEDS ORDERED: PROVENTIL IH ONE (15:58)
--- NOTE | 2017-12-01 16:44 | XRay Report ---
FINAL REPORT PROCEDURE: XR CHEST ROUTINE 2V TECHNIQUE: PA and lateral chest radiographs were obtained. CPT 61779 HISTORY: cough congestion COMPARISON: No prior studies are available for comparison. FINDINGS: Heart: Normal. Mediastinum/Vessels: Normal. Lungs/Pleural space: No infiltrate, effusion, or pneumothorax. Bony thorax: No acute osseous abnormality. Other: IMPRESSION: No radiographic evidence of acute abnormality.
--- NOTE | 2017-12-01 16:50 | Emergency Department Report ---
Blank Doc - Documentation Documentation: Patient is a 57-year-old [place]ian female who is presenting with some dizziness that she states feels like she is off balance as well as shortness of breath and cough. Patient states is worse after exerting herself. Patient was seen here approximately a week ago for a presumed sinus infection was given a Z-Rishabh meclizine for vertigo type symptoms as well as Tessalon Perles. Patient states she is no longer feeling of a spinning sensation but just doesn't feel 100% well since she is continuing to cough. Patient states cough is nonproductive. On focused physical exam the patient has diffuse wheeze and tachycardia. Patient was sent to the treatment room for IV fluids chest x-ray and nebulizer treatment. Patient will be reassessed.
--- NOTE | 2017-12-01 18:39 | Emergency Department Report ---
ED Asthma HPI - General Chief Complaint: Dizziness Stated Complaint: UNBALANCED/COUGHING Time Seen by Provider: 12/01/17 15:53 Source: patient Mode of arrival: Ambulatory Limitations: No Limitations - History of Present Illness Initial Comments: This is a 57-year-old female nontoxic, well nourished in appearance, no acute signs of distress presents to the ED with c/o of acute wheezing and shortness of breathe. Patient stated that she just finished a course of Z-evi and Meclizine for vertigo. Patient stated has some dizziness but vertigo symptoms has subsided. Patient stated that she has seasonal allergies to pollen and has been outside that might have triggered her symptoms. Patient stated has a nonproductive cough. Patient denies any sick contact. Patient denies any recent travels, long car, recent hospital stays. Patient denies any calf pain or calf tenderness. Patient denies any chest pain, short of breath, fever, chills, nausea, vomiting, hemoptysis, numbness, tingling, headache or stiff neck. Patient denies any drug allergies. MD Complaint: wheezing -: days(s) (1) Severity: mild Context: none known Associated Symptoms: dry cough - Related Data Current Asthma Therapy: none Home Medications Medication Instructions Recorded Confirmed Last Taken Acetaminophen [Tylenol] 500 mg PO Q4HR PRN 05/31/16 05/31/16 Unknown hydroCHLOROthiazide [HCTZ] 25 mg PO QDAY 05/31/16 05/31/16 Unknown Previous Rx's Medication Instructions Recorded Last Taken Type traMADol [Ultram 50 MG tab] 50 mg PO Q6HR PRN #12 tablet 05/31/16 Unknown Rx Benzonatate [Tessalon Perles] 100 mg PO Q8HR PRN #30 capsule 11/24/17 Unknown Rx Meclizine HCl [Meclizine CHEW] 25 mg PO Q6H PRN #30 tab.chew 11/24/17 Unknown Rx ALBUTEROL Inhaler(NF) [VENTOLIN 2 puff IH Q4H PRN #1 inha 12/01/17 Unknown Rx Inhaler(NF)] Prednisone [predniSONE 10 mg 10 mg PO .TAPER #1 tab.ds.pk 12/01/17 Unknown Rx (6-Day Pack, 21 Tabs)] Allergies Allergy/AdvReac Type Severity Reaction Status Date / Time No Known Allergies Allergy Unverified 12/03/12 00:05 ED Review of Systems ROS: Stated complaint: UNBALANCED/COUGHING Other details as noted in HPI Constitutional: denies: chills, fever Eyes: denies: eye pain, eye discharge, vision change ENT: denies: ear pain, throat pain Respiratory: shortness of breath, wheezing. denies: cough Cardiovascular: denies: chest pain, palpitations Endocrine: no symptoms reported Gastrointestinal: denies: abdominal pain, nausea, diarrhea Genitourinary: denies: urgency, dysuria, discharge Musculoskeletal: denies: back pain, joint swelling, arthralgia Skin: denies: rash, lesions Neurological: denies: headache, weakness, paresthesias Psychiatric: denies: anxiety, depression Hematological/Lymphatic: denies: easy bleeding, easy bruising ED Past Medical Hx - Past Medical History Hx Hypertension: Yes Hx Arthritis: Yes Additional medical history: anemia, sleep apnea, low vit d., back pain/injury, vertigo - Surgical History Additional Surgical History: lap band 2011& tubal ligation - Social History Smoking Status: Former Smoker Substance Use Type: Alcohol - Medications Home Medications: Home Medications Medication Instructions Recorded Confirmed Last Taken Type Acetaminophen [Tylenol] 500 mg PO Q4HR PRN 05/31/16 05/31/16 Unknown History hydroCHLOROthiazide [HCTZ] 25 mg PO QDAY 05/31/16 05/31/16 Unknown History traMADol [Ultram 50 MG tab] 50 mg PO Q6HR PRN #12 tablet 05/31/16 Unknown Rx Benzonatate [Tessalon Perles] 100 mg PO Q8HR PRN #30 capsule 11/24/17 Unknown Rx Meclizine HCl [Meclizine CHEW] 25 mg PO Q6H PRN #30 tab.chew 11/24/17 Unknown Rx ALBUTEROL Inhaler(NF) [VENTOLIN 2 puff IH Q4H PRN #1 inha 12/01/17 Unknown Rx Inhaler(NF)] Prednisone [predniSONE 10 mg 10 mg PO .TAPER #1 tab.ds.pk 12/01/17 Unknown Rx (6-Day Pack, 21 Tabs)] ED Physical Exam - General Limitations: No Limitations General appearance: alert, in no apparent distress - Head Head exam: Present: atraumatic, normocephalic - Eye Eye exam: Present: normal appearance Pupils: Present: normal accommodation - ENT ENT exam: Present: mucous membranes moist - Neck Neck exam: Present: normal inspection, full ROM. Absent: tenderness, meningismus, lymphadenopathy - Respiratory Respiratory exam: Present: normal lung sounds bilaterally, wheezes (bilateral upper and lower lobes). Absent: respiratory distress, rales, rhonchi, stridor, chest wall tenderness, accessory muscle use, decreased breath sounds, prolonged expiratory - Cardiovascular Cardiovascular Exam: Present: regular rate, normal rhythm, normal heart sounds. Absent: irregular rhythm, systolic murmur, diastolic murmur, rubs, gallop - GI/Abdominal GI/Abdominal exam: Present: soft, normal bowel sounds - Extremities Exam Extremities exam: Present: normal inspection, full ROM, normal capillary refill - Back Exam Back exam: Present: normal inspection, full ROM - Neurological Exam Neurological exam: Present: alert, oriented X3, normal gait - Psychiatric Psychiatric exam: Present: normal affect, normal mood - Skin Skin exam: Present: warm, dry, intact, normal color. Absent: rash ED Course Vital Signs 12/01/17 12/01/17 12/01/17 15:26 16:09 17:05 Temperature 99.3 F Pulse Rate 129 H Pulse Rate [ 101 H Posterior Bilateral Throughout] Respiratory 20 16 Rate Respiratory 20 Rate [Posterior Bilateral Throughout] Blood Pressure 141/81 O2 Sat by Pulse 94 Oximetry 12/01/17 18:23 Temperature Pulse Rate Pulse Rate [ 103 H Posterior Bilateral Throughout] Respiratory Rate Respiratory 20 Rate [Posterior Bilateral Throughout] Blood Pressure O2 Sat by Pulse Oximetry - Reevaluation(s) Reevaluation #1: 12/01/17 18:35 Patient is speaking in full sentences with no signs of distress noted. - Consultations Consultation #1: 12/01/17 18:40 Patient has been consulted with Wendy Romo about patient history, physical exam, and xray and examined and screened patient and agrees to ED plan of care and discharge plan of care. ED Medical Decision Making - Medical Decision Making This is a 57-year-old female that presents with asthma exacerbation. Patient is stable and was examined by me. Chest x-ray has been obtained and dictated by the radiologist within normal limits. Patient is notified of the x-ray report with no questions noted by the patient. Patient did receive breathing and steroids in the ED which patient the symptoms has resolved and subsided. Posttreatment and there is no wheezing upon auscultation. Patient is discharged with albuterol and prednisone. Patient was referred to Follow-up with a primary care doctor in 3-5 days or if symptoms worsen and continue return to emergency room as soon as possible. At time of discharge, the patient does not seem toxic or ill in appearance. No acute signs of distress noted. Patient agrees to discharge treatment plan of care. No further questions noted by the patient. This chart is dictated with using [employer] Critical care attestation.: If time is entered above; I have spent that time in minutes in the direct care of this critically ill patient, excluding procedure time. ED Disposition Clinical Impression: Asthma exacerbation Qualifiers: Asthma severity: mild Asthma persistence: unspecified Qualified Code(s): J45.901 - Unspecified asthma with (acute) exacerbation Disposition: - TO HOME OR SELFCARE Is pt being admited?: No Does the pt Need Aspirin: No Condition: Stable Instructions: Asthma (ED), Prednisone (By mouth), Albuterol (By breathing) Additional Instructions: Follow-up with a primary care doctor in 3-5 days or if symptoms worsen and continue return to emergency room as soon as possible. Prescriptions: ALBUTEROL Inhaler(NF) [VENTOLIN Inhaler(NF)] 2 puff IH Q4H PRN #1 inha PRN Reason: shortness of breathe Prednisone [predniSONE 10 mg (6-Day Pack, 21 Tabs)] 10 mg PO .TAPER #1 tab.ds.pk Referrals: PRIMARY CARE, [Primary Care Provider] - 3-5 Days LUCIANO HWANG MD [Staff Physician] - 3-5 Days [facility] [Outside] - 3-5 Days [facility] [Outside] - 3-5 Days Forms: Work/School Release Form(ED)
== END 2017-12-01 20:08 | disposition home or self-care (01) ==
LOC: ED 15:19
DX: J45.901 Unspecified asthma with (acute) exacerbation (principal); I10 Essential (primary) hypertension; M19.90 Unspecified osteoarthritis, unspecified site; Z87.891 Personal history of nicotine dependence; Z98.51 Tubal ligation status
CPT/HCPCS: 71046; 94644; 96361; 96374; 99283; J2930; J7030

== ENCOUNTER 2018-08-30 09:22 | Emergency (ER) | payer BC ==
[2018-08-30] MEDS ORDERED: NORMODYNE PO ONE (10:12)
[2018-08-30] MEDS ORDERED: ECOTRIN PO ONE (10:12)
--- NOTE | 2018-08-30 10:30 | Emergency Department Report ---
ED Headache HPI - General Chief Complaint: Nosebleed Stated Complaint: HEADACHE/(L)NOSE BLEED Time Seen by Provider: 08/30/18 10:11 Source: patient - History of Present Illness Initial Comments: Mrs. Acosta is a very pleasant 57-year-old female with history of hypertension, severe obesity who presents with left throbbing headache and minor nosebleed from the left nostril. She noticed a throbbing headache. She then developed brief nosebleed improved with pressure. Has had HTN 2-3 years. Takes HCTZ 25 mg daily. Followed by PCP Dr. Eden. Normal SBP 160 mm Hg. 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 Timing/Duration: 1 hour Quality: mild Head Injury Location: frontal, other (lab) Recent Head Trauma: occasional headaches Associated Symptoms: other (hypertension nosebleed) Allergies/Adverse Reactions: Allergies No Known Allergies Allergy (Verified 08/30/18 09:28) Home Medications: Ambulatory Orders Acetaminophen [Tylenol] 500 mg PO Q4HR PRN 05/31/16 hydroCHLOROthiazide [HCTZ] 25 mg PO QDAY 05/31/16 traMADol [Ultram 50 MG tab] 50 mg PO Q6HR PRN #12 tablet 05/31/16 Benzonatate [Tessalon Perles] 100 mg PO Q8HR PRN #30 capsule 11/24/17 Meclizine HCl [Meclizine CHEW] 25 mg PO Q6H PRN #30 tab.chew 11/24/17 ALBUTEROL Inhaler(NF) [VENTOLIN Inhaler(NF)] 2 puff IH Q4H PRN #1 inha 12/01/17 Prednisone [predniSONE 10 mg (6-Day Pack, 21 Tabs)] 10 mg PO .TAPER #1 tab.ds.pk 12/01/17 amLODIPine [Norvasc] 5 mg PO DAILY #30 tab 08/30/18 ED Review of Systems ROS: Stated complaint: HEADACHE/(L)NOSE BLEED Other details as noted in HPI Comment: All other systems reviewed and negative Constitutional: denies: fever, malaise Respiratory: denies: cough Cardiovascular: denies: chest pain ED Past Medical Hx - Past Medical History Previous Medical History?: Yes Hx Hypertension: Yes Hx Arthritis: Yes Additional medical history: anemia, sleep apnea, low vit d., back pain/injury,vertigo - Surgical History Additional Surgical History: lap band 2011& tubal ligation - Family History Family history: diabetes, hypertension - Social History Smoking Status: Never Smoker Substance Use Type: None - Medications Home Medications: Home Medications Medication Instructions Recorded Confirmed Last Taken Type Acetaminophen [Tylenol] 500 mg PO Q4HR PRN 05/31/16 05/31/16 Unknown History hydroCHLOROthiazide [HCTZ] 25 mg PO QDAY 05/31/16 05/31/16 Unknown History traMADol [Ultram 50 MG tab] 50 mg PO Q6HR PRN #12 tablet 05/31/16 Unknown Rx Benzonatate [Tessalon Perles] 100 mg PO Q8HR PRN #30 capsule 11/24/17 Unknown Rx Meclizine HCl [Meclizine CHEW] 25 mg PO Q6H PRN #30 tab.chew 11/24/17 Unknown Rx ALBUTEROL Inhaler(NF) [VENTOLIN 2 puff IH Q4H PRN #1 inha 12/01/17 Unknown Rx Inhaler(NF)] Prednisone [predniSONE 10 mg 10 mg PO .TAPER #1 tab.ds.pk 12/01/17 Unknown Rx (6-Day Pack, 21 Tabs)] amLODIPine [Norvasc] 5 mg PO DAILY #30 tab 08/30/18 Unknown Rx ED Physical Exam - General Limitations: No Limitations General appearance: alert, in no apparent distress - Head Head exam: Present: atraumatic, normocephalic - Eye Eye exam: Present: normal appearance - ENT ENT exam: Present: mucous membranes moist - Neck Neck exam: Present: normal inspection, full ROM - Respiratory Respiratory exam: Present: normal lung sounds bilaterally. Absent: respiratory distress, wheezes, rales, rhonchi - Cardiovascular Cardiovascular Exam: Present: regular rate, normal rhythm, normal heart sounds. Absent: systolic murmur, diastolic murmur, rubs, gallop - GI/Abdominal GI/Abdominal exam: Present: soft, normal bowel sounds. Absent: distended, tende rness, guarding, rebound - Extremities Exam Extremities exam: Present: normal inspection - Back Exam Back exam: Present: normal inspection - Neurological Exam Neurological exam: Present: alert, oriented X3 - Psychiatric Psychiatric exam: Present: normal affect, normal mood - Skin Skin exam: Present: warm, dry, intact, normal color. Absent: rash ED Course Vital Signs 08/30/18 08/30/18 09:25 09:28 Temperature 97.6 F 97.6 F Pulse Rate 75 77 Respiratory 16 18 Rate Blood Pressure 184/110 Blood Pressure 184/110 [Right] O2 Sat by Pulse 98 Oximetry ED Medical Decision Making - Medical Decision Making Mrs. Mckinley presents with hypertensive urgency, tension headache and left nosebleed. Given aspirin for headache. Given labetalol for elevated blood pressure. Prescribed amlodipine 5 mg tablets. Strongly encouraged blood pressure rechecked by her primary physician within 2 weeks. Discharged home in stable condition. Critical care attestation.: If time is entered above; I have spent that time in minutes in the direct care of this critically ill patient, excluding procedure time. ED Disposition Clinical Impression: Hypertensive urgency, Tension headache, Left-sided nosebleed Disposition: -01 TO HOME OR SELFCARE Is pt being admited?: No Does the pt Need Aspirin: No Condition: Stable Instructions: Hypertension (ED) Prescriptions: amLODIPine [Norvasc] 5 mg PO DAILY #30 tab Referrals: PRIMARY CARE, [Referring] - 3-5 Days Forms: Work/School Release Form(ED)
[2018-08-30 11:11] VITALS: BP 125/65
== END 2018-08-30 11:09 | disposition home or self-care (01) ==
LOC: ED 09:22
DX: I10 Essential (primary) hypertension (principal); G44.209 Tension-type headache, unspecified, not intractable; R04.0 Epistaxis; M19.90 Unspecified osteoarthritis, unspecified site; Z98.51 Tubal ligation status
CPT/HCPCS: 99282

== ENCOUNTER 2018-11-14 15:03 | Emergency (ER) | payer BC ==
--- NOTE | 2018-11-14 15:13 | Event Note ---
ED Screening Note ED Screening Note: cc r foot pain someone stepped on it ambulatory This initial assessment/diagnostic orders/clinical plan/treatment(s) is/are subject to change based on patients health status, clinical progression and re- assessment by fellow clinical providers in the ED. Further treatment and workup at subsequent clinical providers discretion. Patient/guardian urged not to elope from the ED as their condition may be serious if not clinically assessed and managed. Initial orders include: xray
[2018-11-14 15:18] VITALS: BP 162/96
--- NOTE | 2018-11-14 15:42 | XRay Report ---
RIGHT FOOT, 3 VIEWS INDICATION: pain great toe and foot p being stepped on. COMPARISON: None. IMPRESSION: Subtle nondisplaced fracture is identified in the distal aspect of the proximal phalanx of the right great toe. Extension to the interphalangeal joint is noted. The remaining bony structure s in the right foot are intact. Mild degenerative changes are noted in the midfoot. Prominent spurs a t the insertion site of the plantar fascia and Achilles tendon. The soft tissues are unremarkable. Signer Name: Rc Abdalla Jr, MD Signed: 11/14/2018 3:37 PM Workstation Name: [id number]
--- NOTE | 2018-11-14 16:04 | Emergency Department Report ---
ED Lower Extremity HPI - General Chief Complaint: Extremity Injury, Lower Stated Complaint: RT FOOT PAIN/SWELLING Time Seen by Provider: 11/14/18 15:12 Source: patient Mode of arrival: Ambulatory Limitations: No Limitations - History of Present Illness Initial Comments: Mrs. Acosta is a very pleasant 57-year-old female with history of hypertension who presents with right toe pain. She recently returned from a cruise with family. A stranger stepped on her right great toe. Severe throbbing pain. Pain is manageable with Tylenol. Pain is manageable at rest and elevation. Pain is worse with ambulation. MD Complaint: foot injury -: Sudden, days(s) (several days ago) Injury: Toes: Right Type of Injury: blunt Place: other (cruise vacation) Severity: moderate Severity scale (0 -10): 6 Improves With: immobilization, rest Worsens With: weight bearing Context: direct blow Treatments Prior to Arrival: other (elevation Tylenol) - Related Data Home Medications Medication Instructions Recorded Confirmed Last Taken Acetaminophen [Tylenol] 500 mg PO Q4HR PRN 05/31/16 05/31/16 Unknown hydroCHLOROthiazide [HCTZ] 25 mg PO QDAY 05/31/16 05/31/16 Unknown Previous Rx's Medication Instructions Recorded Last Taken Type traMADol [Ultram 50 MG tab] 50 mg PO Q6HR PRN #12 tablet 05/31/16 Unknown Rx Benzonatate [Tessalon Perles] 100 mg PO Q8HR PRN #30 capsule 11/24/17 Unknown Rx Meclizine HCl [Meclizine CHEW] 25 mg PO Q6H PRN #30 tab.chew 11/24/17 Unknown Rx ALBUTEROL Inhaler(NF) [VENTOLIN 2 puff IH Q4H PRN #1 inha 12/01/17 Unknown Rx Inhaler(NF)] Prednisone [predniSONE 10 mg 10 mg PO .TAPER #1 tab.ds.pk 12/01/17 Unknown Rx (6-Day Pack, 21 Tabs)] amLODIPine [Norvasc] 5 mg PO DAILY #30 tab 08/30/18 Unknown Rx Allergies Allergy/AdvReac Type Severity Reaction Status Date / Time No Known Allergies Allergy Verified 08/30/18 09:28 ED Review of Systems ROS: Stated complaint: RT FOOT PAIN/SWELLING Other details as noted in HPI Constitutional: denies: fever, malaise Musculoskeletal: denies: back pain, joint swelling Neurological: denies: numbness, paresthesias Hematological/Lymphatic: denies: easy bleeding ED Past Medical Hx - Past Medical History Previous Medical History?: Yes Hx Hypertension: Yes Hx Arthritis: Yes Additional medical history: anemia, sleep apnea, low vit d., back pain/injury,vertigo - Surgical History Past Surgical History?: Yes Additional Surgical History: lap band 2011& tubal ligation - Social History Smoking Status: Never Smoker Substance Use Type: Alcohol - Medications Home Medications: Home Medications Medication Instructions Recorded Confirmed Last Taken Type Acetaminophen [Tylenol] 500 mg PO Q4HR PRN 05/31/16 05/31/16 Unknown History hydroCHLOROthiazide [HCTZ] 25 mg PO QDAY 05/31/16 05/31/16 Unknown History traMADol [Ultram 50 MG tab] 50 mg PO Q6HR PRN #12 tablet 05/31/16 Unknown Rx Benzonatate [Tessalon Perles] 100 mg PO Q8HR PRN #30 capsule 11/24/17 Unknown Rx Meclizine HCl [Meclizine CHEW] 25 mg PO Q6H PRN #30 tab.chew 11/24/17 Unknown Rx ALBUTEROL Inhaler(NF) [VENTOLIN 2 puff IH Q4H PRN #1 inha 12/01/17 Unknown Rx Inhaler(NF)] Prednisone [predniSONE 10 mg 10 mg PO .TAPER #1 tab.ds.pk 12/01/17 Unknown Rx (6-Day Pack, 21 Tabs)] amLODIPine [Norvasc] 5 mg PO DAILY #30 tab 08/30/18 Unknown Rx ED Physical Exam - General Limitations: No Limitations General appearance: alert, in no apparent distress - Head Head exam: Present: atraumatic, normocephalic - Respiratory Respiratory exam: Absent: respiratory distress - Neurological Exam Neurological exam: Present: alert, oriented X3 - Psychiatric Psychiatric exam: Present: normal affect, normal mood - Skin Skin exam: Present: warm, dry, intact, normal color - Other Other exam information: right Toe: Intact skin no laceration no edema and no deformity right foot: warm intact skin, moves all 5 toes ED Course Vital Signs 11/14/18 15:15 Temperature 98.2 F Pulse Rate 96 H Respiratory 18 Rate Blood Pressure 162/96 O2 Sat by Pulse 96 Oximetry ED Lower Extremity MDM - Radiology Data Radiology results: report reviewed Nondisplaced proximal phalanx fracture extending to the interphalangeal joint right great toe according to radiologist report - Medical Decision Making Fracture of the proximal phalanx right great big toe: Recommended rest and ice limited ambulation. Referred to instructor looping as needed. Also Referred to orthopedist surgeon. Critical care attestation.: If time is entered above; I have spent that time in minutes in the direct care of this critically ill patient, excluding procedure time. ED Disposition Clinical Impression: Fracture of right great toe Disposition: DC-01 TO HOME OR SELFCARE Is pt being admited?: No Does the pt Need Aspirin: No Condition: Stable Instructions: Toe Fracture (ED) Referrals: MAINOR CAMILO MD [Staff Physician] - as needed DALY MERINO DPM [Staff Physician] - as needed Forms: Work/School Release Form(ED)
== END 2018-11-14 16:51 | disposition home or self-care (01) ==
LOC: ED 15:03
DX: S92.414A Nondisplaced fracture of proximal phalanx of right great toe, initial encounter for closed fracture (principal); I10 Essential (primary) hypertension; M19.90 Unspecified osteoarthritis, unspecified site; Z98.51 Tubal ligation status; Z86.2 Personal history of diseases of the blood and blood-forming organs and certain disorders involving the immune mechanism; Z79.899 Other long term (current) drug therapy; W50.0XXA Accidental hit or strike by another person, initial encounter; Y93.89 Activity, other specified; Y92.62 Dock or shipyard as the place of occurrence of the external cause; Y99.8 Other external cause status

== ENCOUNTER 2019-04-06 13:46 | Emergency (ER) | payer BC ==
[2019-04-06 13:54] VITALS: BP 154/72
[2019-04-06] MEDS ORDERED: diphenhydrAMINE 50 MG/ML VIAL IV ONE ×3 (13:57→14:03)
[2019-04-06] MEDS ORDERED: SODIUM CHLORIDE 0.9% 1000 ML 1,000 ML IV ONE (13:57)
[2019-04-06] MEDS ORDERED: dexAMETHasone 4 MG/ML VIAL IV ONE (13:57)
[2019-04-06] MEDS ORDERED: FAMOTIDINE 20 MG/2 ML INJ IV ONE (13:57)
--- NOTE | 2019-04-06 13:57 | Emergency Department Report ---
Blank Doc - Documentation Documentation: 58-year-old female that presents with allergic reaction after eating red lobst er. No angioedema. This initial assessment/diagnostic orders/clinical plan/treatment(s) is/are subject to change based on patient's health status, clinical progression and re- assessment by fellow clinical providers in the ED. Further treatment and workup at subsequent clinical providers discretion. Patient/guardians urged not to elope from the ED as their condition may be serious if not clinically assessed and managed. Initial orders include: 1- Patient sent to [facility] for further evaluation and treatment 2- treatment ordered
[2019-04-06] MEDS ORDERED: dexAMETHasone 20 MG/5 ML VIAL IV ONE (14:03)
--- NOTE | 2019-04-06 15:35 | Emergency Department Report ---
ED General Adult HPI - General Chief complaint: Allergic Reaction Stated complaint: POSS ALLERGIC REACTION Time Seen by Provider: 04/06/19 13:56 Source: patient Mode of arrival: Ambulatory Limitations: No Limitations - History of Present Illness Initial comments: She presents to the emergency department with a chief complaint of an allergic reaction just prior to arrival. Patient states she was he was a red lobster was she's down multiple times in the past when she began to notice hives to her face and itchy throat. Patient denies any issues with breathing or swallowing. -: Sudden Severity scale (0 -10): 0 Improves with: none Worsens with: none Associated Symptoms: denies other symptoms Treatments Prior to Arrival: none - Related Data Home Medications Medication Instructions Recorded Confirmed Last Taken Acetaminophen [Tylenol] 500 mg PO Q4HR PRN 05/31/16 05/31/16 Unknown hydroCHLOROthiazide [HCTZ] 25 mg PO QDAY 05/31/16 05/31/16 Unknown Previous Rx's Medication Instructions Recorded Last Taken Type traMADoL [Ultram 50 MG tab] 50 mg PO Q6HR PRN #12 tablet 05/31/16 Unknown Rx Benzonatate [Tessalon Perles] 100 mg PO Q8HR PRN #30 capsule 11/24/17 Unknown Rx Meclizine HCl [Meclizine CHEW] 25 mg PO Q6H PRN #30 tab.chew 11/24/17 Unknown Rx ALBUTEROL Inhaler(NF) [VENTOLIN 2 puff IH Q4H PRN #1 inha 12/01/17 Unknown Rx Inhaler(NF)] Prednisone [predniSONE 10 mg 10 mg PO .TAPER #1 tab.ds.pk 12/01/17 Unknown Rx (6-Day Pack, 21 Tabs)] amLODIPine 5 mg PO DAILY #30 tab 08/30/18 Unknown Rx EPINEPHrine [Epipen 2-Rishabh] 0.3 mg IJ ONCE PRN #1 auto.injct 04/06/19 Unknown Rx predniSONE [Deltasone] 20 mg PO DAILY #15 tablet 04/06/19 Unknown Rx Allergies Allergy/AdvReac Type Severity Reaction Status Date / Time No Known Allergies Allergy Verified 04/06/19 13:48 ED Review of Systems ROS: Stated complaint: POSS ALLERGIC REACTION Other details as noted in HPI Comment: All other systems reviewed and negative Constitutional: denies: chills, fever Eyes: denies: eye pain, eye discharge, vision change ENT: denies: ear pain, throat pain Respiratory: denies: cough, shortness of breath, wheezing Cardiovascular: denies: chest pain, palpitations Endocrine: no symptoms reported Gastrointestinal: denies: abdominal pain, nausea, diarrhea Genitourinary: denies: urgency, dysuria, discharge Musculoskeletal: denies: back pain, joint swelling, arthralgia Skin: denies: rash, lesions Neurological: denies: headache, weakness, paresthesias Psychiatric: denies: anxiety, depression Hematological/Lymphatic: denies: easy bleeding, easy bruising ED Past Medical Hx - Past Medical History Previous Medical History?: Yes Hx Hypertension: Yes Hx Arthritis: Yes Additional medical history: anemia, sleep apnea, low vit d., back pain/injury,vertigo - Surgical History Past Surgical History?: Yes Additional Surgical History: lap band 2011& tubal ligation - Social History Smoking Status: Never Smoker Substance Use Type: None - Medications Home Medications: Home Medications Medication Instructions Recorded Confirmed Last Taken Type Acetaminophen [Tylenol] 500 mg PO Q4HR PRN 05/31/16 05/31/16 Unknown History hydroCHLOROthiazide [HCTZ] 25 mg PO QDAY 05/31/16 05/31/16 Unknown History traMADoL [Ultram 50 MG tab] 50 mg PO Q6HR PRN #12 tablet 05/31/16 Unknown Rx Benzonatate [Tessalon Perles] 100 mg PO Q8HR PRN #30 capsule 11/24/17 Unknown Rx Meclizine HCl [Meclizine CHEW] 25 mg PO Q6H PRN #30 tab.chew 11/24/17 Unknown Rx ALBUTEROL Inhaler(NF) [VENTOLIN 2 puff IH Q4H PRN #1 inha 12/01/17 Unknown Rx Inhaler(NF)] Prednisone [predniSONE 10 mg 10 mg PO .TAPER #1 tab.ds.pk 12/01/17 Unknown Rx (6-Day Pack, 21 Tabs)] amLODIPine 5 mg PO DAILY #30 tab 08/30/18 Unknown Rx EPINEPHrine [Epipen 2-Rishabh] 0.3 mg IJ ONCE PRN #1 auto.injct 04/06/19 Unknown Rx predniSONE [Deltasone] 20 mg PO DAILY #15 tablet 04/06/19 Unknown Rx ED Physical Exam - General Limitations: No Limitations General appearance: alert, in no apparent distress - Head Head exam: Present: atraumatic, normocephalic - Eye Eye exam: Present: normal appearance, PERRL, EOMI - ENT ENT exam: Present: mucous membranes moist - Neck Neck exam: Present: normal inspection - Respiratory Respiratory exam: Present: normal lung sounds bilaterally. Absent: respiratory distress, wheezes, rales, rhonchi - Cardiovascular Cardiovascular Exam: Present: regular rate, normal rhythm. Absent: systolic murmur, diastolic murmur, rubs, gallop - GI/Abdominal GI/Abdominal exam: Present: soft, normal bowel sounds. Absent: distended, tenderness - Extremities Exam Extremities exam: Present: normal inspection - Back Exam Back exam: Present: normal inspection - Neurological Exam Neurological exam: Present: alert, oriented X3, CN II-XII intact. Absent: motor sensory deficit - Psychiatric Psychiatric exam: Present: normal affect, normal mood - Skin Skin exam: Present: warm, dry, intact, normal color, other (hives present to the face, trunk, arms) ED Course Vital Signs 04/06/19 13:53 Temperature 97.7 F Pulse Rate 106 H Respiratory 16 Rate Blood Pressure 154/72 O2 Sat by Pulse 97 Oximetry Critical care attestation.: If time is entered above; I have spent that time in minutes in the direct care of this critically ill patient, excluding procedure time. ED Disposition Clinical Impression: Allergic reaction Disposition: - TO HOME OR SELFCARE Is pt being admited?: No Does the pt Need Aspirin: No Condition: Stable Instructions: Allergies (ED), Food Allergy (ED), Anaphylaxis (ED) Additional Instructions: return if worse or if you began to have difficulty swallowing or breathing Prescriptions: predniSONE [Deltasone] 20 mg PO DAILY #15 tablet EPINEPHrine [Epipen 2-Rishabh] 0.3 mg IJ ONCE PRN #1 auto.injct PRN Reason: Allergic Reaction Referrals: PRIMARY CARE, [Primary Care Provider] - 3-5 Days RUBI MARLOW MD [Staff Physician] - 3-5 Days [facility] [Provider Group] - 3-5 Days [facility] [Provider Group] - 3-5 Days Time of Disposition: 15:48
== END 2019-04-06 16:09 | disposition home or self-care (01) ==
LOC: ED 13:46
DX: T78.40XA Allergy, unspecified, initial encounter (principal); I10 Essential (primary) hypertension; M19.90 Unspecified osteoarthritis, unspecified site; Z98.51 Tubal ligation status; Z79.899 Other long term (current) drug therapy; X58.XXXA Exposure to other specified factors, initial encounter
CPT/HCPCS: 96361; 96374; 96375; 99282; J1100; J1200; J7030

== ENCOUNTER 2019-04-27 07:46 | Outpatient (CLI) | payer BC ==
[2019-04-27 08:09] LABS: Hematocrit 45.9 % (30.3-42.9); Hemoglobin 15.4 gm/dl (10.1-14.3); Mean Corpuscular HGB Conc 34 % (30-34); Mean Corpuscular Volume 87 fl (79-97); Platelet Count 157 K/mm3 (140-440); Red Blood Count 5.28 M/mm3 (3.65-5.03); Red Cell Distribution Width 14.1 % (13.2-15.2)
[2019-04-27 08:25] LABS: Alanine Aminotransferase 19 units/L (7-56); BUN/Creatinine Ratio 14; Blood Urea Nitrogen 10 mg/dL (7-17); Calcium 9.5 mg/dL (8.4-10.2); Chol/HDL Ratio 4.11 %; HDL Cholesterol 53 mg/dL (40-59); Hemolysis Index 4; Iron 95 ug/dL (37-170); LDL Cholesterol,Direct 161 mg/dL (50-130)
[2019-04-27 08:31] LABS: Erythrocyte Sedimentation Rate 5 mm/Hr (0-20)
[2019-04-27 08:46] LABS: Free T4 (Free Thyroxine) 1.38 ng/dL (0.76-1.46)
== END 2019-04-27 07:47 | disposition home or self-care (01) ==
LOC: LAB 07:46
PROVIDERS: ATTEND Internal Medicine Hematology & Oncology
DX: Z00.00 Encounter for general adult medical examination without abnormal findings (principal)
CPT/HCPCS: 36415; 80053; 80061; 82306; 82607; 83036; 83540; 84439; 84443; 85027; 85652

== ENCOUNTER 2019-05-06 07:19 | Outpatient (CLI) | payer BC ==
--- NOTE | 2019-05-06 08:57 | XRay Report ---
CHEST 2 VIEWS INDICATION / CLINICAL INFORMATION: ROUTINE PHYSICAL. COMPARISON: Previous exam on 12/01/17. FINDINGS: SUPPORT DEVICES: None. HEART / MEDIASTINUM: No significant abnormality. LUNGS / PLEURA: No significant pulmonary or pleural abnormality. No pneumothorax. ADDITIONAL FINDINGS: No significant additional findings. IMPRESSION: 1. No acute findings. No significant change from the prior study. Signer Name: Garrison Hall MD Signed: 05/06/2019 8:53 AM Workstation Name: [id number]
--- NOTE | 2019-05-06 10:07 | Mammography Report ---
DIGITAL SCREENING MAMMOGRAM WITH CAD, 05/06/2019 INDICATION: Routine screening mammography. TECHNIQUE: Digital bilateral 2D mammography was obtained in the craniocaudal and mediolateral obliq ue projections. This examination was interpreted with the benefit of Computer-Aided Detection analysi s. COMPARISON: 04/11/2017 FINDINGS: Breast Density: The breasts are almost entirely fatty. There is no evidence of dominant mass, suspicious calcifications or architectural distortion in eithe r breast. IMPRESSION: No mammographic evidence of malignancy. Follow up recommendation: Routine yearly BI-RADS Category 1: Negative. A "normal" or negative report should not discourage follow up or biopsy of a clinically significant f inding. A written summary of these findings will be mailed to the patient. The patient will be entered into a mammography reporting system which will generate a reminder letter for the patient's next appointmen t at the appropriate interval. The [employer] recommends yearly mammograms starting at age 40 and continuing as l yeimy as a woman is in good health. Breast MRI is recommended for women with an approximate 20-25% or greater lifetime risk of breast cancer, including women with a strong family history of breast or ova christiano cancer or who have been treated for Hodgkin's disease. Signer Name: Max Muñoz MD Signed: 05/06/2019 10:03 AM Workstation Name: [id number]
== END 2019-05-06 07:20 | disposition home or self-care (01) ==
LOC: MAMMO 07:19
PROVIDERS: ATTEND Internal Medicine Hematology & Oncology
DX: Z12.31 Encounter for screening mammogram for malignant neoplasm of breast (principal); Z00.8 Encounter for other general examination
CPT/HCPCS: 71046; 77067

== ENCOUNTER 2019-09-11 12:32 | Outpatient (CLI) | payer BC ==
[2019-09-11 12:59] LABS: Hematocrit 42.3 % (30.3-42.9); Hemoglobin 14.1 gm/dl (10.1-14.3); Mean Corpuscular HGB Conc 33 % (30-34); Mean Corpuscular Volume 89 fl (79-97); Platelet Count 166 K/mm3 (140-440); Red Blood Count 4.78 M/mm3 (3.65-5.03)
[2019-09-11 13:21] LABS: Alanine Aminotransferase 14 units/L (7-56); BUN/Creatinine Ratio 19; Blood Urea Nitrogen 13 mg/dL (7-17); Hemolysis Index 3; LDL Cholesterol,Direct 149 mg/dL (50-130)
[2019-09-11 13:32] LABS: Chol/HDL Ratio 4.36 %; HDL Cholesterol 46 mg/dL (40-59)
[2019-09-15 12:32] LABS: Vitamin D, 25-OH, D2 29 ng/mL
== END 2019-09-11 12:33 | disposition home or self-care (01) ==
LOC: LAB 12:32
PROVIDERS: ATTEND Internal Medicine Hematology & Oncology
DX: Z00.00 Encounter for general adult medical examination without abnormal findings (principal)
CPT/HCPCS: 36415; 80053; 80061; 82306; 83036; 85027

== ENCOUNTER 2019-12-24 06:27 | Emergency (ER) | payer BC ==
[2019-12-24 06:35] VITALS: BP 174/98
[2019-12-24 06:59] LABS: Bacteria,Urine 2+ /HPF (Negative); Bilirubin,Urine NEG (Negative); Blood,Urine NEG (Negative); Color,Urine Yellow (Yellow); Mucus,Urine FEW /HPF; Protein,Urine <15 mg/dL mg/dL (Negative); Urobilinogen,Urine < 2.0 mg/dL (<2.0)
[2019-12-24] MEDS ORDERED: ONDANSETRON 4 MG/2 ML INJ IV ONE (07:14)
[2019-12-24] MEDS ORDERED: MORPHINE 4 MG/1 ML INJ IV ONE (07:14)
[2019-12-24] MEDS ORDERED: KETOROLAC 30 MG/1 ML INJ IV ONE (07:14)
--- NOTE | 2019-12-24 07:20 | Emergency Department Report ---
ED Back Pain/Injury HPI - General Chief Complaint: Urogenital-Female Stated Complaint: RT SIDE LOWER BACK PAIN Time Seen by Provider: 12/24/19 07:13 Source: patient Limitations: No Limitations - History of Present Illness Initial Comments: Is a very pleasant 59-year-old female who presents the emergency department the chief complaint of right-sided lower back pain over the past week. She reported this morning she noticed some hematuria. She has a past medical history of hyp ertension, sleep apnea and chronic lower back pain. She denies any associated fever, chills, night sweats, headache, dizziness, blurry vision, nausea,, diarrhea, chest pain, shortness of breath , saddle anasthesias, urinary or bowel incontinence, dysuria.. She does report one episode of hematuria this morning. She describes this as constant dull throbbing pain aggravated by certain movements and there are no alleviating factors other than lying in the supine position. Pain is worse when she gets up or down from a lying or sitting position. She rates as a 10 out of 10 in severity. - Related Data Home Medications Medication Instructions Recorded Confirmed Last Taken Acetaminophen [Tylenol] 500 mg PO Q4HR PRN 05/31/16 05/31/16 Unknown hydroCHLOROthiazide [HCTZ] 25 mg PO QDAY 05/31/16 05/31/16 Unknown Previous Rx's Medication Instructions Recorded Last Taken Type traMADoL [Ultram 50 MG tab] 50 mg PO Q6HR PRN #12 tablet 05/31/16 Unknown Rx Benzonatate [Tessalon Perles] 100 mg PO Q8HR PRN #30 capsule 11/24/17 Unknown Rx Meclizine HCl [Meclizine CHEW] 25 mg PO Q6H PRN #30 tab.chew 11/24/17 Unknown Rx ALBUTEROL Inhaler(NF) [VENTOLIN 2 puff IH Q4H PRN #1 inha 12/01/17 Unknown Rx Inhaler(NF)] Prednisone [predniSONE 10 mg 10 mg PO .TAPER #1 tab.ds.pk 12/01/17 Unknown Rx (6-Day Pack, 21 Tabs)] amLODIPine 5 mg PO DAILY #30 tab 08/30/18 Unknown Rx EPINEPHrine [Epipen 2-Rishabh] 0.3 mg IJ ONCE PRN #1 auto.injct 04/06/19 Unknown Rx predniSONE [Deltasone] 20 mg PO DAILY #15 tablet 04/06/19 Unknown Rx methOCARBAMOL [Robaxin TAB] 500 mg PO Q6H #20 tablet 12/24/19 Unknown Rx methylPREDNISolone [Medrol 4MG 4 mg PO DAILY #1 tab.ds.pk 12/24/19 Unknown Rx DOSEPAK (21 tabs)] traMADoL [Ultram 50 MG tab] 50 mg PO Q4HR PRN #12 tablet 12/24/19 Unknown Rx Allergies Allergy/AdvReac Type Severity Reaction Status Date / Time No Known Allergies Allergy Verified 04/06/19 13:48 ED Review of Systems ROS: Stated complaint: RT SIDE LOWER BACK PAIN Other details as noted in HPI Comment: All other systems reviewed and negative Constitutional: denies: chills, fever Eyes: denies: eye pain, eye discharge, vision change ENT: denies: ear pain, throat pain Respiratory: denies: cough, shortness of breath, wheezing Cardiovascular: denies: chest pain, palpitations Endocrine: no symptoms reported Gastrointestinal: denies: abdominal pain, nausea, diarrhea Genitourinary: as per HPI, hematuria. denies: urgency, dysuria, discharge Musculoskeletal: as per HPI, back pain. denies: joint swelling, arthralgia Skin: denies: rash, lesions Neurological: denies: headache, weakness, paresthesias Psychiatric: denies: anxiety, depression Hematological/Lymphatic: denies: easy bleeding, easy bruising ED Past Medical Hx - Past Medical History Hx Hypertension: Yes Hx Arthritis: Yes Hx Asthma: Yes Additional medical history: anemia, sleep apnea, low vit d., back pain/injury,vertigo - Surgical History Additional Surgical History: lap band 2011& tubal ligation - Social History Smoking Status: Never Smoker Substance Use Type: None - Medications Home Medications: Home Medications Medication Instructions Recorded Confirmed Last Taken Type Acetaminophen [Tylenol] 500 mg PO Q4HR PRN 05/31/16 05/31/16 Unknown History hydroCHLOROthiazide [HCTZ] 25 mg PO QDAY 05/31/16 05/31/16 Unknown History traMADoL [Ultram 50 MG tab] 50 mg PO Q6HR PRN #12 tablet 05/31/16 Unknown Rx Benzonatate [Tessalon Perles] 100 mg PO Q8HR PRN #30 capsule 11/24/17 Unknown Rx Meclizine HCl [Meclizine CHEW] 25 mg PO Q6H PRN #30 tab.chew 11/24/17 Unknown Rx ALBUTEROL Inhaler(NF) [VENTOLIN 2 puff IH Q4H PRN #1 inha 12/01/17 Unknown Rx Inhaler(NF)] Prednisone [predniSONE 10 mg 10 mg PO .TAPER #1 tab.ds.pk 12/01/17 Unknown Rx (6-Day Pack, 21 Tabs)] amLODIPine 5 mg PO DAILY #30 tab 08/30/18 Unknown Rx EPINEPHrine [Epipen 2-Rishabh] 0.3 mg IJ ONCE PRN #1 auto.injct 04/06/19 Unknown Rx predniSONE [Deltasone] 20 mg PO DAILY #15 tablet 04/06/19 Unknown Rx methOCARBAMOL [Robaxin TAB] 500 mg PO Q6H #20 tablet 12/24/19 Unknown Rx methylPREDNISolone [Medrol 4MG 4 mg PO DAILY #1 tab.ds.pk 12/24/19 Unknown Rx DOSEPAK (21 tabs)] traMADoL [Ultram 50 MG tab] 50 mg PO Q4HR PRN #12 tablet 12/24/19 Unknown Rx ED Physical Exam - General Limitations: No Limitations General appearance: alert, in no apparent distress - Head Head exam: Present: atraumatic, normocephalic - Eye Eye exam: Present: normal appearance, PERRL, EOMI Pupils: Present: normal accommodation - ENT ENT exam: Present: normal exam, normal orophraynx, mucous membranes moist - Neck Neck exam: Present: normal inspection, full ROM. Absent: tenderness, meningismus - Respiratory Respiratory exam: Present: normal lung sounds bilaterally. Absent: respiratory distress, wheezes, rales, rhonchi, stridor - Cardiovascular Cardiovascular Exam: Present: regular rate, normal rhythm, normal heart sounds. Absent: systolic murmur, diastolic murmur, rubs, gallop - GI/Abdominal GI/Abdominal exam: Present: soft, normal bowel sounds. Absent: distended, tenderness, guarding, rebound, rigid - Extremities Exam Extremities exam: Present: normal inspection, full ROM, normal capillary refill. Absent: tenderness, calf tenderness - Back Exam Back exam: Present: normal inspection, full ROM, other (Negative straight leg raise). Absent: tenderness, CVA tenderness (R), CVA tenderness (L) - Neurological Exam Neurological exam: Present: alert, oriented X3, CN II-XII intact, normal gait - Psychiatric Psychiatric exam: Present: normal affect, normal mood - Skin Skin exam: Present: warm, dry, intact, normal color. Absent: rash ED Course Vital Signs 12/24/19 12/24/19 12/24/19 06:34 07:27 07:28 Temperature 97.9 F Pulse Rate 90 Respiratory 18 18 18 Rate Blood Pressure 174/98 O2 Sat by Pulse 98 Oximetry - Reevaluation(s) Reevaluation #1: 12/24/19 08:40 On reevaluation patient was feeling much better. CAT scan returned unremarkable. Patient's pain has significantly improved. ED Medical Decision Making - Lab Data Result diagrams: 12/24/19 07:47 12/24/19 07:47 Lab Results 12/24/19 12/24/19 12/24/19 Range/Units 07:47 07:47 Unknown WBC 5.2 (4.5-11.0) K/mm3 RBC 5.11 H (3.65-5.03) M/mm3 Hgb 15.2 H (10.1-14.3) gm/dl Hct 45.2 H (30.3-42.9) % MCV 88 (79-97) fl MCH 30 (28-32) pg MCHC 34 (30-34) % RDW 14.2 (13.2-15.2) % Plt Count 153 (140-440) K/mm3 Lymph % (Auto) 41.0 H (13.4-35.0) % [place] % (Auto) 7.7 H (0.0-7.3) % Eos % (Auto) 1.0 (0.0-4.3) % Baso % (Auto) 0.5 (0.0-1.8) % Lymph # (Auto) 2.1 (1.2-5.4) K/mm3 [place] # (Auto) 0.4 (0.0-0.8) K/mm3 Eos # (Auto) 0.1 (0.0-0.4) K/mm3 Baso # (Auto) 0.0 (0.0-0.1) K/mm3 Seg Neutrophils % 49.8 (40.0-70.0) % Seg Neutrophils # 2.6 (1.8-7.7) K/mm3 Sodium 138 (137-145) mmol/L Potassium 4.2 (3.6-5.0) mmol/L Chloride 101.3 (98-107) mmol/L Carbon Dioxide 27 (22-30) mmol/L Anion Gap 14 mmol/L BUN 15 (7-17) mg/dL Creatinine 0.6 (0.6-1.2) mg/dL Estimated GFR > 60 ml/min BUN/Creatinine Ratio 25 % Glucose 108 H (65-100) mg/dL Calcium 9.2 (8.4-10.2) mg/dL Total Bilirubin 0.30 (0.1-1.2) mg/dL AST 16 (5-40) units/L ALT 16 (7-56) units/L Alkaline Phosphatase 71 (35-129) units/L Total Protein 6.3 (6.3-8.2) g/dL Albumin 3.9 (3.9-5) g/dL Albumin/Globulin Ratio 1.6 % Urine Color Yellow (Yellow) Urine Turbidity Slightly-cloudy (Clear) Urine pH 5.0 (5.0-7.0) Ur Specific [place] 1.018 (1.003-1.030) Urine Protein <15 mg/dl (Negative) mg/dL Urine Glucose (UA) Neg (Negative) mg/dL Urine Ketones Neg (Negative) mg/dL Urine Blood Neg (Negative) Urine Nitrite Neg (Negative) Urine Bilirubin Neg (Negative) Urine Urobilinogen < 2.0 (<2.0) mg/dL Ur Leukocyte Esterase Neg (Negative) Urine WBC (Auto) 4.0 (0.0-6.0) /HPF Urine RBC (Auto) 9.0 (0.0-6.0) /HPF U Epithel Cells (Auto) 9.0 (0-13.0) /HPF Urine Bacteria (Auto) 2+ (Negative) /HPF Urine Mucus Few /HPF - Radiology Data Radiology results: report reviewed, image reviewed Cat Scan Report Signed Patient: CHANEL BEE MR#: [id number] : 1960 Acct:[id number] Age/Sex: 59 / F ADM Date: 12/24/19 Loc: ED Attending Dr: Ordering Physician: DENNIS MORELOS Date of Service: 12/24/19 Procedure(s): CT abdomen pelvis wo con Accession Number(s): [id number] cc: DENNIS MORELOS CT ABDOMEN AND PELVIS WITHOUT CONTRAST HISTORY: right sided flank pain, hematuria. COMPARISON: None. TECHNIQUE: CT images of the abdomen and pelvis were obtained without administration of intravenous contrast. All CT scans at this location are performed using CT dose reduction for ALARA by means of automated exposure control. FINDINGS: Lungs/bones: Lung bases are clear. There are degenerative changes in the spine and pelvis with no acute osseous abnormality identified. Abdomen/pelvis: The kidneys both appear normal. Liver, spleen, pancreas, and adrenals are unremarkable. There is a gastric lap band which is well- positioned along the gastric cardia. The proximal GI tract is otherwise unremarkable. The urinary bladder is unremarkable. The uterus is lobulated likely representing underlying fibroid disease. No pelvic free fluid. No acute colonic abnormality identified. The terminal ileum and appendix appear normal. IMPRESSION: 1. No acute abnormality. Signer Name: Thaddeus Askew MD Signed: 12/24/2019 7:59 AM Workstation Name: [id number] Transcribed By: ABDIRAHMAN Dictated By: Thaddeus Askew MD Electronically Authenticated By: Thaddeus Askew MD Signed Date/Time: 12/24/19 0171 - Medical Decision Making Patient is nontoxic in no acute distress. Vital signs are stable. She had some flank pain on the right with hematuria. There was some mild hematuria noted in the urine and a CAT scan was ordered to rule out nephrolithiasis or other acute process and fortunately was negative. The patient's exam was consistent with musculoskeletal pain. She had a negative straight leg raise. No saddle anesthesia, no bowel or bladder incontinence making my suspicion for cauda equina syndrome or conus medullaris syndrome unlikely. She had no history of metastatic cancer and no lesions on the spine on the CT make this unlikely. She had no evidence of a AAA and no pulsatile masses in the abdomen or tearing or ripping pain to the back making AAA or abdominal aortic dissection less likely. She is postmenopausal making ectopic unlikely. She has clean urine otherwise making pyelonephritis less likely. She had no injury and a normal nonfocal neurologic exam making spinal epidural hematoma unlikely. She had no history of IV drug use or skin popping and no fever or elevated white blood cell count or any other infectious symptoms making spinal epidural abscess unlikely. Patient will be treated with muscle x-rays, pain medication, steroid and outpatient follow-up with orthopedics. Patient instructed to return the [facility] department any change or worsening symptoms. She verbalized understand the diagnosis, treatment and follow-up instructions and all her questions were answered. - Differential Diagnosis H&P, strain, nephrolithiasis, pyelonephritis Critical care attestation.: If time is entered above; I have spent that time in minutes in the direct care of this critically ill patient, excluding procedure time. ED Disposition Clinical Impression: Microscopic hematuria Acute lumbosacral myofascial strain Qualifiers: Encounter type: initial encounter Qualified Code(s): S39.012A - Strain of m uscle, fascia and tendon of lower back, initial encounter Disposition: TO HOME OR SELFCARE Is pt being admited?: No Condition: Stable Instructions: Acute Low Back Pain (ED) Prescriptions: methylPREDNISolone [Medrol 4MG DOSEPAK (21 tabs)] 4 mg PO DAILY #1 tab.ds.pk methOCARBAMOL [Robaxin TAB] 500 mg PO Q6H #20 tablet traMADoL [Ultram 50 MG tab] 50 mg PO Q4HR PRN #12 tablet PRN Reason: Pain Referrals: PRIMARY CARE,MD [Primary Care Provider] - 3-5 Days Forms: Work/School Release Form(ED) Time of Disposition: 08:44
--- NOTE | 2019-12-24 08:04 | Cat Scan Report ---
CT ABDOMEN AND PELVIS WITHOUT CONTRAST HISTORY: right sided flank pain, hematuria. COMPARISON: None. TECHNIQUE: CT images of the abdomen and pelvis were obtained without administration of intravenous co ntrast. All CT scans at this location are performed using CT dose reduction for ALARA by means of au tomated exposure control. FINDINGS: Lungs/bones: Lung bases are clear. There are degenerative changes in the spine and pelvis with no ac kenyetta osseous abnormality identified. Abdomen/pelvis: The kidneys both appear normal. Liver, spleen, pancreas, and adrenals are unremarkable. There is a gastric lap band which is well-pos itioned along the gastric cardia. The proximal GI tract is otherwise unremarkable. The urinary bladder is unremarkable. The uterus is lobulated likely representing underlying fibroid d isease. No pelvic free fluid. No acute colonic abnormality identified. The terminal ileum and appendi x appear normal. IMPRESSION: 1. No acute abnormality. Signer Name: Thaddeus Askew MD Signed: 12/24/2019 7:59 AM Workstation Name: [id number]
[2019-12-24 08:18] LABS: Basophils % (Auto) 0.5 % (0.0-1.8); Eosinophils # (Auto) 0.1 K/mm3 (0.0-0.4); Hematocrit 45.2 % (30.3-42.9); Hemoglobin 15.2 gm/dl (10.1-14.3); Lymphocytes # (Auto) 2.1 K/mm3 (1.2-5.4); Mean Corpuscular HGB Conc 34 % (30-34); Mean Corpuscular Volume 88 fl (79-97); Monocytes # (Auto) 0.4 K/mm3 (0.0-0.8); Monocytes % (Auto) 7.7 % (0.0-7.3); Platelet Count 153 K/mm3 (140-440); Red Blood Count 5.11 M/mm3 (3.65-5.03); Red Cell Distribution Width 14.2 % (13.2-15.2)
[2019-12-24 08:37] LABS: Alanine Aminotransferase 16 units/L (7-56); Albumin 3.9 g/dL (3.9-5); Blood Urea Nitrogen 15 mg/dL (7-17); Calcium 9.2 mg/dL (8.4-10.2); Hemolysis Index 8
[2019-12-24 08:40] LABS: BUN/Creatinine Ratio 25
== END 2019-12-24 09:00 | disposition home or self-care (01) ==
LOC: ED 06:27
DX: S39.012A Strain of muscle, fascia and tendon of lower back, initial encounter (principal); R31.29 Other microscopic hematuria; I10 Essential (primary) hypertension; M19.90 Unspecified osteoarthritis, unspecified site; J45.909 Unspecified asthma, uncomplicated; Z98.51 Tubal ligation status; Z79.899 Other long term (current) drug therapy; X58.XXXA Exposure to other specified factors, initial encounter; Y93.89 Activity, other specified; Y92.89 Other specified places as the place of occurrence of the external cause; Y99.8 Other external cause status
CPT/HCPCS: 36415; 74176; 80053; 81001; 85025; 96374; 96375; 99284; J1885; J2270; J2405

== ENCOUNTER 2020-02-01 09:55 | Outpatient (CLI) | payer BC ==
[2020-02-01 12:52] LABS: Bacteria,Urine 1+ /HPF (Negative); RBC,Urine < 1.0 /HPF (0.0-6.0)
--- NOTE | 2020-02-01 12:54 | Ultrasound Report ---
CLINICAL DATA: LEIOMYOMA OF UTERUS TECHNICAL DATA: Ultrasound, pelvic (nonobstetric), real-time with image documentation; transabdominal and transvagina l imaging with Doppler was performed. FINDINGS: The uterus measures 8.5 x 3.8 x 5.1 cm. The uterine architecture is heterogeneous without discrete ma ss. The endometrial lining is poorly visualized The right and left ovaries are of symmetric size and echogenicity. There are no ovarian or adnexal ma sses. Doppler imaging demonstrates normal vascular flow to both ovaries. There is no significant quantity of free fluid dependently within the pelvis. IMPRESSION: Abnormal appearance of the uterus as noted follow-up exam in 3 months is recommended for further eval uation GUIDELINES FOR IMAGING OF OVARIAN--ADNEXAL CYST: WOMEN OF REPRODUCTIVE AGE: 1. Cysts <=3 cm: Normal physiologic findings; at the discretion of the interpreting physician whether or not to describe them in the imaging report; do not need follow-up. 2. Cysts >3 and <=5 cm: Should be described in the imaging report with a statement that they are almo st certainly benign; do not need follow-up. 3. Cysts >5 and <=7 cm: Should be described in the imaging report with a statement that they are almo st certainly benign; yearly follow-up with US recommended. 4. Cysts >7 cm: Since these may be difficult to assess completely with US, further imaging with magne tic resonance (MR) or surgical evaluation should be considered. POSTMENOPAUSAL WOMEN: 1. Cysts <=1 cm: Are clinically inconsequential; at the discretion of the interpreting physician whet her or not to describe them in the imaging report; do not need follow-up. 2. Cysts >1 and <=7 cm: Should be described in the imaging report with statement that they are almost certainly benign; yearly follow-up, at least initially, with US recommended. Some practices may opt to increase the lower size threshold for follow-up from 1 cm to as high as 3 cm. One may opt to abraham nue follow-up annually or to decrease the frequency of follow-up once stability or decrease in size h as been confirmed. Cysts in the larger end of this range should still generally be followed on a regu lar basis. 3. Cysts >7 cm: Since these may be difficult to assess completely with US, further imaging with MR or surgical evaluation should be considered. Signer Name: Robert Wing MD Signed: 02/01/2020 12:49 PM Workstation Name: [id number]
[2020-02-01 13:23] LABS: Bilirubin,Urine NEG (Negative); Color,Urine Straw (Yellow)
[2020-02-01 13:24] LABS: Blood,Urine NEG (Negative); Protein,Urine <15 mg/dL mg/dL (Negative); Urobilinogen,Urine < 2.0 mg/dL (<2.0)
== END 2020-02-01 09:56 | disposition home or self-care (01) ==
LOC: US 09:55
PROVIDERS: ATTEND Internal Medicine Hematology & Oncology
DX: D25.9 Leiomyoma of uterus, unspecified (principal)
CPT/HCPCS: 76830; 76856; 81001

== ENCOUNTER 2020-02-11 00:06 | Inpatient (IN) | payer BC ==
[2020-02-11] MEDS ORDERED: ASPIRIN 325 MG TAB PO ONE (00:31)
--- NOTE | 2020-02-11 00:38 | Event Note ---
ED Screening Note Date of service: 02/11/20 Time: 00:37 ED Screening Note: 89-year-old -[place] female presents to the emergency room complaining of chest pain or shortness of breath. Patient reports that she tested positive for Covid today. It was noted that patient's oxygen level was around 92% and tachycardic at 127. This initial assessment/diagnostic orders/clinical plan/treatment(s) is/are subject to change based on patients health status, clinical progression and re-assessment by fellow clinical providers in the ED. Further treatment and workup at subsequent clinical providers discretion. Patient/guardian urged not to elope from the ED as their condition may be serious if not clinically assessed and managed. Initial orders include:
[2020-02-11 01:10] LABS: Basophils % (Auto) 0.6 % (0.0-1.8); Hemoglobin 13.9 gm/dl (10.1-14.3); Lymphocytes # (Auto) 1.7 K/mm3 (1.2-5.4); Lymphocytes % (Auto) 45.2 % (13.4-35.0); Mean Corpuscular HGB Conc 33 % (30-34); Mean Corpuscular Volume 87 fl (79-97); Monocytes # (Auto) 0.5 K/mm3 (0.0-0.8); Monocytes % (Auto) 13.9 % (0.0-7.3); Platelet Count 113 K/mm3 (140-440); Red Blood Count 4.81 M/mm3 (3.65-5.03); Red Cell Distribution Width 13.8 % (13.2-15.2)
--- NOTE | 2020-02-11 01:11 | XRay Report ---
CHEST 1 VIEW INDICATION / CLINICAL INFORMATION: Chest Pain. COMPARISON: 05/06/2019 FINDINGS: SUPPORT DEVICES: None. HEART / MEDIASTINUM: No significant abnormality. LUNGS / PLEURA: Mild interstitial prominence which appears to be chronic. No superimposed acute pulmo nary or pleural disease. No pneumothorax. ADDITIONAL FINDINGS: No significant additional findings. IMPRESSION: 1. No acute findings. No interval change. Signer Name: Sarah Ann MD Signed: 02/11/2020 1:06 AM Workstation Name: [email or web address]
[2020-02-11 01:20] LABS: BUN/Creatinine Ratio 8; Blood Urea Nitrogen 6 mg/dL (7-17); Calcium 8.7 mg/dL (8.4-10.2); Hemolysis Index 48
[2020-02-11] MEDS ORDERED: dexAMETHasone 4 MG/ML VIAL IV ONE (02:32)
[2020-02-11] MEDS ORDERED: SODIUM CHLORIDE 0.9% 1000 ML 1,000 ML IV ONE (02:32)
[2020-02-11] MEDS ORDERED: AZITHROMYCIN 500 MG in SODIUM CHLORIDE 0.9% 250ML 250 ML IV ONE (02:32)
[2020-02-11] MEDS ORDERED: cefTRIAXone/NS 2 GM/100 ML 2 GM/100 ML BAG IV ONE (02:32)
--- NOTE | 2020-02-11 02:38 | Emergency Department Report ---
ED General Adult HPI - General Chief complaint: Chest Pain Stated complaint: COVID+ SOB CHEST PAIN PUI?: No Time Seen by Provider: 02/11/20 02:28 Source: patient Mode of arrival: Ambulatory Limitations: No Limitations - History of Present Illness Initial comments: Patient is a 59-year-old female that presents emergency room with complaints of fever, cough, chest pain, Shortness of breath, Covid positive, hypoxia. Patient states she has a history of asthma and has a oxygen saturation monitor at home and states that her oxygen saturation was in the 80s and she was told by [employer] to come to the hospital to be evaluated for admission if her oxygen saturation dropped below 90. Patient states that her chest pain hakan rtness of breath are worsening. Patient states her fever is fluctuating. Patient states she was diagnosed 1 day ago with COVID-19. 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 Patient states her cough is worsening. Patient denies wheezing. Patient denies nausea and vomiting. Patient complains of loss of smell. -: Sudden, days(s) Location: chest Severity scale (0 -10): 4 Quality: aching, constant Consistency: constant Improves with: rest Worsens with: movement Associated Symptoms: chest pain, cough, fever/chills, loss of appetite, malaise, shortness of breath. denies: confusion, diaphoresis, headaches, nausea/vomiting, rash, seizure - Related Data Home Medications Medication Instructions Recorded Confirmed Last Taken Acetaminophen [Tylenol] 500 mg PO Q4HR PRN 05/31/16 05/31/16 Unknown hydroCHLOROthiazide [HCTZ] 25 mg PO QDAY 05/31/16 05/31/16 Unknown Previous Rx's Medication Instructions Recorded Last Taken Type traMADoL [Ultram 50 MG tab] 50 mg PO Q6HR PRN #12 tablet 05/31/16 Unknown Rx Benzonatate [Tessalon Perles] 100 mg PO Q8HR PRN #30 capsule 11/24/17 Unknown Rx Meclizine HCl [Meclizine CHEW] 25 mg PO Q6H PRN #30 tab.chew 11/24/17 Unknown Rx ALBUTEROL Inhaler(NF) [VENTOLIN 2 puff IH Q4H PRN #1 inha 12/01/17 Unknown Rx Inhaler(NF)] Prednisone [predniSONE 10 mg 10 mg PO .TAPER #1 tab.ds.pk 12/01/17 Unknown Rx (6-Day Pack, 21 Tabs)] amLODIPine 5 mg PO DAILY #30 tab 08/30/18 Unknown Rx EPINEPHrine [Epipen 2-Rishabh] 0.3 mg IJ ONCE PRN #1 auto.injct 04/06/19 Unknown Rx predniSONE [Deltasone] 20 mg PO DAILY #15 tablet 04/06/19 Unknown Rx methOCARBAMOL [Robaxin TAB] 500 mg PO Q6H #20 tablet 12/24/19 Unknown Rx methylPREDNISolone [Medrol 4MG 4 mg PO DAILY #1 tab.ds.pk 12/24/19 Unknown Rx DOSEPAK (21 tabs)] traMADoL [Ultram 50 MG tab] 50 mg PO Q4HR PRN #12 tablet 12/24/19 Unknown Rx Allergies Allergy/AdvReac Type Severity Reaction Status Date / Time No Known Allergies Allergy Verified 04/06/19 13:48 ED Review of Systems ROS: Stated complaint: COVID+ SOB CHEST PAIN Other details as noted in HPI Constitutional: chills, fever Eyes: denies: eye pain, eye discharge, vision change ENT: throat pain, congestion. denies: ear pain Respiratory: see HPI, cough, shortness of breath. denies: wheezing Cardiovascular: chest pain. denies: palpitations Endocrine: no symptoms reported Gastrointestinal: denies: abdominal pain, nausea, vomiting, diarrhea Genitourinary: denies: urgency, dysuria, discharge Musculoskeletal: denies: back pain, joint swelling, arthralgia Skin: denies: rash, lesions Neurological: denies: headache, weakness, paresthesias Psychiatric: denies: anxiety, depression Hematological/Lymphatic: denies: easy bleeding, easy bruising ED Past Medical Hx - Past Medical History Previous Medical History?: Yes Hx Hypertension: Yes Hx Arthritis: Yes Hx Asthma: Yes Additional medical history: anemia, sleep apnea, low vit d., back pain/injury,vertigo. obesity - Surgical History Past Surgical History?: Yes Additional Surgical History: lap band 2011& tubal ligation - Family History Family history: no significant - Social History Smoking Status: Never Smoker Substance Use Type: None - Medications Home Medications: Home Medications Medication Instructions Recorded Confirmed Last Taken Type Acetaminophen [Tylenol] 500 mg PO Q4HR PRN 05/31/16 05/31/16 Unknown History hydroCHLOROthiazide [HCTZ] 25 mg PO QDAY 05/31/16 05/31/16 Unknown History traMADoL [Ultram 50 MG tab] 50 mg PO Q6HR PRN #12 tablet 05/31/16 Unknown Rx Benzonatate [Tessalon Perles] 100 mg PO Q8HR PRN #30 capsule 11/24/17 Unknown Rx Meclizine HCl [Meclizine CHEW] 25 mg PO Q6H PRN #30 tab.chew 11/24/17 Unknown Rx ALBUTEROL Inhaler(NF) [VENTOLIN 2 puff IH Q4H PRN #1 inha 12/01/17 Unknown Rx Inhaler(NF)] Prednisone [predniSONE 10 mg 10 mg PO .TAPER #1 tab.ds.pk 12/01/17 Unknown Rx (6-Day Pack, 21 Tabs)] amLODIPine 5 mg PO DAILY #30 tab 08/30/18 Unknown Rx EPINEPHrine [Epipen 2-Rishabh] 0.3 mg IJ ONCE PRN #1 auto.injct 04/06/19 Unknown Rx predniSONE [Deltasone] 20 mg PO DAILY #15 tablet 04/06/19 Unknown Rx methOCARBAMOL [Robaxin TAB] 500 mg PO Q6H #20 tablet 12/24/19 Unknown Rx methylPREDNISolone [Medrol 4MG 4 mg PO DAILY #1 tab.ds.pk 12/24/19 Unknown Rx DOSEPAK (21 tabs)] traMADoL [Ultram 50 MG tab] 50 mg PO Q4HR PRN #12 tablet 12/24/19 Unknown Rx ED Physical Exam - General Limitations: No Limitations General appearance: alert, in distress - Head Head exam: Present: atraumatic, normocephalic - Eye Eye exam: Present: normal appearance - ENT ENT exam: Present: mucous membranes moist - Neck Neck exam: Present: normal inspection - Respiratory Respiratory exam: Present: respiratory distress, decreased breath sounds. Absent: wheezes, rales - Cardiovascular Cardiovascular Exam: Present: regular rate, normal rhythm. Absent: systolic murmur, diastolic murmur, rubs, gallop - GI/Abdominal GI/Abdominal exam: Present: soft, normal bowel sounds - Extremities Exam Extremities exam: Present: normal inspection - Back Exam Back exam: Present: normal inspection - Neurological Exam Neurological exam: Present: alert, oriented X3 - Psychiatric Psychiatric exam: Present: normal affect, normal mood - Skin Skin exam: Present: warm, dry, intact, normal color. Absent: rash ED Course - Reevaluation(s) Reevaluation #1: Patient was hypoxic and placed on 2 L and her oxygen improved. Patient states she feels better with the oxygen on. 02/11/20 02:35 Reevaluation #2: I discussed all results with patient. I discussed plan of care with patient. Patient agrees with plan of care and admission. Patient to be admitted to the hospitalist service. 02/11/20 02:41 - Consultations Consultation #1: Hospitalist consulted for admission. Hospitalist to admit patient. 02/11/20 02:42 Consultation #2: Infectious disease consult placed in the system. 02/11/20 02:42 ED Medical Decision Making - Lab Data Result diagrams: 02/11/20 00:45 02/11/20 00:45 - EKG Data -: EKG Interpreted by Me EKG shows normal: sinus rhythm, axis, intervals, QRS complexes, ST-T waves Rate: tachycardia - Radiology Data Radiology results: report reviewed, image reviewed interpreted by me: Chest x-ray: No pneumonia, no pneumothorax, no foreign body, no osseous findings, no acute findings - Medical Decision Making Patient is a 59-year-old female that presents emergency room with complaints of hypoxia, fever, Covid, shortness of breath, chest pain and loss of smell.. Patient has all the classic symptoms of Covid. Patient had a positive Covid yesterday. Patient symptoms started 2 or 3 days ago. Patient symptoms are worsening. Patient came to the hospital because her oxygen saturation was low at home. Patient monitors her oxygen saturation and she is a nose asthmatic. Patient is a employee of this hospital. Patient had labs done which were essentially unremarkable. Patient chest x-ray was negative. Patient EKG is negative. After initial evaluation, the patient was placed on oxygen and her oxygen improved. Patient prior to admission was given Zithromax, Rocephin and Decadron. Patient admitted to the hospitalist service for further evaluation and treatment. - Differential Diagnosis Covid, pneumonia, S OB, chest pain, hypoxia, respiratory failure Critical Care Time: Yes Critical care time in (mins) excluding proc time.: 35 Critical care attestation.: If time is entered above; I have spent that time in minutes in the direct care of this critically ill patient, excluding procedure time. Critical Care Time: 35 minutes ED Disposition Clinical Impression: Hypoxia, SOB (shortness of breath), Cough, COVID-19 Respiratory failure Qualifiers: Chronicity: acute Respiratory failure complication: hypoxia Qualified Code(s): J96.01 - Acute respiratory failure with hypoxia Chest pain Qualifiers: Chest pain type: unspecified Qualified Code(s): R07.9 - Chest pain, unspecified Fever Qualifiers: Fever type: unspecified Qualified Code(s): R50.9 - Fever, unspecified Disposition: DC-09 OP ADMIT IP TO THIS HOSP Is pt being admited?: Yes Does the pt Need Aspirin: No Condition: Critical Instructions: Chest Pain (ED) Time of Disposition: 03:15
[2020-02-11] MEDS ORDERED: POTASSIUM CHLORIDE ER 20 MEQ TAB PO ONE ×3 (02:45→04:08)
[2020-02-11] MEDS ORDERED: ASPIRIN 325 MG TAB ONE (02:50)
[2020-02-11] MEDS ORDERED: ONDANSETRON 4 MG/2 ML INJ IV PRN (03:04)
[2020-02-11] MEDS ORDERED: ALUM-MAG HYDROXIDE-SIMETHICONE 200-200-20MG/5ML ORAL LIQD 30 ML PO PRN (03:04)
[2020-02-11] MEDS ORDERED: MECLIZINE 25 MG TAB PO PRN (03:11)
[2020-02-11] MEDS ORDERED: BENZONATATE 100 MG CAP PO PRN (03:11)
--- NOTE | 2020-02-11 03:14 | History and Physical Report ---
History of Present Illness Date of examination: 02/10/20 Date of admission: 02/10/20 Chief complaint: Shortness of breath History of present illness: Patient is a 59-year-old female that presents emergency room with complaints of fever, cough, chest pain, Shortness of breath, Covid positive, hypoxia. Patient states she has a history of asthma and has a oxygen saturation monitor at home and states that her oxygen saturation was in the 80s and she was told by [facility] to come to the hospital to be evaluated for admission if her oxygen saturation dropped below 90. Patient states that her chest pain shortness of breath are worsening. Patient states her fever is fluctuating. Patient states she was diagnosed 1 day ago with COVID-19. 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 Patient states her cough is worsening. Patient denies wheezing. Patient denies nausea and vomiting. Patient complains of loss of smell. Patient seen at bedside in ED. reviewed lab, mar, and v/s. Elevated BP-resumed home BP med with amlodipine. patient seen on oxygen per N/C. She reports Hx asthma-no wheezing during assessment-was positive for covid-started on deca drone, ascorbic acid and zinc sulphate. ED Work up showed: WBC 3.7, Hemoglobin 13.9, platelet 113, Sodium 137, potassium 3.4 serum blood sugar 114, Troponine 0.010 Chesst x-ray -No acute Finding Past History Past Medical History: hypertension Past Surgical History: No surgical history Social history: no significant social history Family history: no significant family history Medications and Allergies Allergies Allergy/AdvReac Type Severity Reaction Status Date / Time No Known Allergies Allergy Verified 04/06/19 13:48 Home Medications Medication Instructions Recorded Confirmed Last Taken Type Acetaminophen [Tylenol] 500 mg PO Q4HR PRN 05/31/16 05/31/16 Unknown History hydroCHLOROthiazide [HCTZ] 25 mg PO QDAY 05/31/16 05/31/16 Unknown History traMADoL [Ultram 50 MG tab] 50 mg PO Q6HR PRN #12 tablet 05/31/16 Unknown Rx Benzonatate [Tessalon Perles] 100 mg PO Q8HR PRN #30 capsule 11/24/17 Unknown Rx Meclizine HCl [Meclizine CHEW] 25 mg PO Q6H PRN #30 tab.chew 11/24/17 Unknown Rx ALBUTEROL Inhaler(NF) [VENTOLIN 2 puff IH Q4H PRN #1 inha 12/01/17 Unknown Rx Inhaler(NF)] Prednisone [predniSONE 10 mg 10 mg PO .TAPER #1 tab.ds.pk 12/01/17 Unknown Rx (6-Day Pack, 21 Tabs)] amLODIPine 5 mg PO DAILY #30 tab 08/30/18 Unknown Rx EPINEPHrine [Epipen 2-Rishabh] 0.3 mg IJ ONCE PRN #1 auto.injct 04/06/19 Unknown Rx predniSONE [Deltasone] 20 mg PO DAILY #15 tablet 04/06/19 Unknown Rx methOCARBAMOL [Robaxin TAB] 500 mg PO Q6H #20 tablet 12/24/19 Unknown Rx methylPREDNISolone [Medrol 4MG 4 mg PO DAILY #1 tab.ds.pk 12/24/19 Unknown Rx DOSEPAK (21 tabs)] traMADoL [Ultram 50 MG tab] 50 mg PO Q4HR PRN #12 tablet 12/24/19 Unknown Rx Active Meds: Active Medications Acetaminophen (Tylenol) 650 mg PO Q6H PRN PRN Reason: Pain, Mild (1-3) Al Hydrox/Mg Hydrox/Simethicone (Alum-Mag Hydrox-Simeth [phone]/5ml) 15 ml PO Q4H PRN PRN Reason: Indigestion Sodium Chloride (Nacl 0.9% 1000 Ml) 1,000 mls @ 999 mls/hr IV BOLUS ONE Stop: 02/11/20 03:32 Last Admin: 02/11/20 03:07 Dose: 999 mls/hr Documented by: Azithromycin 500 mg/ Sodium (Chloride) 250 mls @ 250 mls/hr IV ONCE ONE; Protocol Stop: 02/11/20 03:31 Labetalol HCl (Labetalol) 10 mg IV ONCE ONE Stop: 02/11/20 03:05 Ondansetron HCl (Zofran) 4 mg IV Q4H PRN PRN Reason: Nausea And Vomiting Trazodone HCl (Desyrel) 50 mg PO QHS DIMAS Review of Systems Respiratory: cough, shortness of breath, congestion Exam - Constitutional General appearance: Present: mild distress, obese - EENT Eyes: Present: PERRL ENT: hearing intact, clear oral mucosa - Neck Neck: Present: supple, normal ROM - Respiratory Respiratory effort: normal Respiratory: bilateral: diminished - Cardiovascular Heart rate: 80 Heart Sounds: Present: S1 & S2. Absent: rub, click - Extremities Extremities: pulses symmetrical, No edema Peripheral Pulses: within normal limits - Abdominal General gastrointestinal: Present: soft, non-tender, non-distended, normal bowel sounds Female genitourinary: Present: normal - Integumentary Integumentary: Present: clear, warm, dry - Musculoskeletal Musculoskeletal: gait normal, strength equal bilaterally - Psychiatric Psychiatric: appropriate mood/affect, intact judgment & insight - Neurologic Neurologic: CNII-XII intact, moves all extremities - Allied Health Allied health notes reviewed: nursing HEART Score - HEART Score Troponin: Troponin T < 0.010 ng/mL (0.00-0.029) 02/11/20 00:45 Results - Labs CBC & Chem 7: 02/11/20 03:42 02/11/20 03:42 Labs: Abnormal lab results 02/11/20 02/11/20 Range/Units 00:45 00:45 WBC 3.7 L (4.5-11.0) K/mm3 Plt Count 113 L (140-440) K/mm3 Lymph % (Auto) 45.2 H (13.4-35.0) % [place] % (Auto) 13.9 H (0.0-7.3) % Seg Neutrophils # 1.5 L (1.8-7.7) K/mm3 Potassium 3.4 L (3.6-5.0) mmol/L BUN 6 L (7-17) mg/dL Glucose 114 H (65-100) mg/dL Assessment and Plan - Patient Problems (1) Suspected 2019 novel coronavirus infection Current Visit: Yes Status: Acute Plan to address problem: covid test-positive monitor inflammatory makers Airborne and contact isolation Ascorbic acid and zinc sulphate IV abx with Azithromycin ID consult Continue decagon (2) SOB (shortness of breath) Current Visit: Yes Status: Acute Plan to address problem: Likely 2/2 to covid infection Patient has hx of asthma-not wheezing on auscultation at assessment on oxygen supplement sat 97%-was at 80's at home per pt report Bronchodilators PRN and systemic steroid (3) Acute respiratory failure with hypoxia Current Visit: Yes Status: Acute Plan to address problem: ? cause viral/bacterial infection oxygen supplement-02 sat 97% Abx therapy ABGs and chest [id number] for acute finding (4) Cough Current Visit: Yes Status: Acute Plan to address problem: possibly due to covid 19 cough medicine (5) Essential (primary) hypertension Current Visit: Yes Status: Acute Plan to address problem: monitor blood pressure Resume home bp medicine Adjust if needed (6) Morbid obesity due to excess calories Current Visit: Yes Status: Acute Plan to address problem: Discussed lifestyle modification-healthy diet and weight management (7) DVT prophylaxis Current Visit: Yes Status: Acute Plan to address problem: SQH (8) Advance care planning Current Visit: Yes Status: Acute Plan to address problem: discussed plan of care Explained to patient her diagnosis. patient is full code
[2020-02-11 04:02] LABS: Basophils % (Auto) 0.4 % (0.0-1.8); Hematocrit 37.9 % (30.3-42.9); Hemoglobin 13.2 gm/dl (10.1-14.3); Lymphocytes # (Auto) 1.2 K/mm3 (1.2-5.4); Lymphocytes % (Auto) 38.3 % (13.4-35.0); Mean Corpuscular HGB Conc 35 % (30-34); Mean Corpuscular Volume 86 fl (79-97); Monocytes # (Auto) 0.5 K/mm3 (0.0-0.8); Monocytes % (Auto) 15.2 % (0.0-7.3); Platelet Count 109 K/mm3 (140-440); Red Blood Count 4.43 M/mm3 (3.65-5.03); Red Cell Distribution Width 14.4 % (13.2-15.2)
[2020-02-11 04:18] LABS: BUN/Creatinine Ratio 8; Blood Urea Nitrogen 6 mg/dL (7-17); Calcium 8.4 mg/dL (8.4-10.2); Hemolysis Index 0
[2020-02-11 04:21] LABS: C-Reactive Protein 2.9 mg/dL (0.00-1.30)
--- NOTE | 2020-02-11 07:54 | Consultation ---
History of Present Illness - Reason for Consult Consult date: 02/11/20 COVID-19 Requesting physician: LYNNETTE RIDDLE III - History of Present Illness 59 years old female with history of asthma admitted on due to a week history of fever, shortness of breath, cough, loss of smell, generalized malaise. Patient tested positive for COVID-19 a day before admission. Patient has a pulse oximeter at home which show sats down to 80s. In the ED, initial temperature, 98.3, HR 127, O2 sat 93%. Initial WBC 3.7, platelets 113, ferritin 221. D- dimer 136. Chest x-ray with no acute findings. Review of Systems: reviewed ED and H&P notes. Limited due to PPE conservation st rategy Past History Past Medical History: hypertension Past Surgical History: No surgical history Social history: no significant social history Family history: no significant family history Medications and Allergies Allergies Allergy/AdvReac Type Severity Reaction Status Date / Time No Known Allergies Allergy Verified 04/06/19 13:48 Home Medications Medication Instructions Recorded Confirmed Last Taken Type Acetaminophen [Tylenol] 500 mg PO Q4HR PRN 05/31/16 05/31/16 Unknown History hydroCHLOROthiazide [HCTZ] 25 mg PO QDAY 05/31/16 05/31/16 Unknown History traMADoL [Ultram 50 MG tab] 50 mg PO Q6HR PRN #12 tablet 05/31/16 Unknown Rx Benzonatate [Tessalon Perles] 100 mg PO Q8HR PRN #30 capsule 11/24/17 Unknown Rx Meclizine HCl [Meclizine CHEW] 25 mg PO Q6H PRN #30 tab.chew 11/24/17 Unknown Rx ALBUTEROL Inhaler(NF) [VENTOLIN 2 puff IH Q4H PRN #1 inha 12/01/17 Unknown Rx Inhaler(NF)] Prednisone [predniSONE 10 mg 10 mg PO .TAPER #1 tab.ds.pk 12/01/17 Unknown Rx (6-Day Pack, 21 Tabs)] amLODIPine 5 mg PO DAILY #30 tab 08/30/18 Unknown Rx EPINEPHrine [Epipen 2-Rishabh] 0.3 mg IJ ONCE PRN #1 auto.injct 04/06/19 Unknown Rx predniSONE [Deltasone] 20 mg PO DAILY #15 tablet 04/06/19 Unknown Rx methOCARBAMOL [Robaxin TAB] 500 mg PO Q6H #20 tablet 12/24/19 Unknown Rx methylPREDNISolone [Medrol 4MG 4 mg PO DAILY #1 tab.ds.pk 12/24/19 Unknown Rx DOSEPAK (21 tabs)] traMADoL [Ultram 50 MG tab] 50 mg PO Q4HR PRN #12 tablet 12/24/19 Unknown Rx Active Meds: Active Medications Acetaminophen (Tylenol) 650 mg PO Q6H PRN PRN Reason: Pain, Mild (1-3) Al Hydrox/Mg Hydrox/Simethicone (Alum-Mag Hydrox-Simeth [phone]/5ml) 15 ml PO Q4H PRN PRN Reason: Indigestion Albuterol (Proventil) 2.5 mg IH Q8HRT DIMAS Amlodipine Besylate (Amlodipine) 10 mg PO QDAY DIMAS Ascorbic Acid (Vitamin C) 500 mg PO BID DIMAS Benzonatate (Tessalon Perles) 100 mg PO Q8HR PRN PRN Reason: Nasal Congestion Enoxaparin Sodium (Enoxaparin) 40 mg SUB-Q QDAY@1000 DIMAS; Protocol Hydrochlorothiazide (Hctz) 25 mg PO QDAY DIMAS Azithromycin 500 mg/ Sodium (Chloride) 250 mls @ 250 mls/hr IV Q24H DIMAS; Protocol Meclizine HCl (Antivert) 25 mg PO Q8H PRN PRN Reason: Vertigo Ondansetron HCl (Zofran) 4 mg IV Q4H PRN PRN Reason: Nausea And Vomiting Trazodone HCl (Desyrel) 50 mg PO QHS DIMAS Zinc Sulfate (Zinc Sulfate) 220 mg PO QDAY DIMAS Physical Examination - Physical Exam Narrative exam: Physical Exam: reviewed ED and hospitalist notes, limited due to conservation of PPE and decrease risk of transmission. General appearance: limited due to conservation of PPE Eyes: limited due to conservation of PPE HENT: Atraumatic; limited due to conservation of PPE Lungs: limited due to conservation of PPE CV: limited due to conservation of PPE Abdomen: limited due to conservation of PPE Extremities: limited due to conservation of PPE Skin: limited due to conservation of PPE Psych: limited due to conservation of PPE Neuro: limited due to conservation of PPE - Constitutional Vitals: Vital Signs Temp Pulse Resp BP Pulse Ox 98.3 F 90 22 118/75 94 02/11/20 00:36 02/11/20 06:17 02/11/20 00:36 02/11/20 06:15 02/11/20 06:15 Temperature -Last 24 Hours Temperature 98.3 F Results - Labs CBC & Chem 7: 02/11/20 03:42 02/11/20 03:42 Labs: Abnormal lab results 02/11/20 02/11/20 02/11/20 Range/Units 00:45 00:45 03:42 WBC 3.7 L (4.5-11.0) K/mm3 MCHC (30-34) % Plt Count 113 L (140-440) K/mm3 Lymph % (Auto) 45.2 H (13.4-35.0) % [place] % (Auto) 13.9 H (0.0-7.3) % Seg Neutrophils # 1.5 L (1.8-7.7) K/mm3 Potassium 3.4 L (3.6-5.0) mmol/L BUN 6 L (7-17) mg/dL Glucose 114 H 106 H (65-100) mg/dL Ferritin (10.0-200.0) ng/mL C-Reactive Protein 2.90 H (0.00-1.30) mg/dL 02/11/20 02/11/20 02/11/20 Range/Units 03:42 03:42 03:42 WBC 3.0 L (4.5-11.0) K/mm3 MCHC 35 H (30-34) % Plt Count 109 L (140-440) K/mm3 Lymph % (Auto) 38.3 H (13.4-35.0) % [place] % (Auto) 15.2 H (0.0-7.3) % Seg Neutrophils # 1.4 L (1.8-7.7) K/mm3 Potassium 3.3 L (3.6-5.0) mmol/L BUN 6 L (7-17) mg/dL Glucose 107 H (65-100) mg/dL Ferritin 231.3 H (10.0-200.0) ng/mL C-Reactive Protein (0.00-1.30) mg/dL Assessment and Plan Cultures: Blood culture SARS CoV2 PCR positive as an outpatient Assessment: 59 years old female with history of asthma admitted on 02/11/2020 due to a week history of fever, shortness of breath, cough, loss of smell, generalized malaise: #COVID-19 infection: Markers mildly elevated. Chest x-ray without any acute findings. #Acute hypoxia: Patient reports sats down to 80s at home. O2 sat down to 92% here. Patient is on room air. #Thrombocytopenia: Likely due to COVID-19. Recommendations: -Start Dexamethasone 6 mg IV/PO daily for 10 days -Patient is not a candidate for remdesivir at this time given lack of sustained hypoxia -Monitor inflammatory markers - ferritin, Ddimer, CRP, LDH -Continue azithromycin, if procalcitonin procalcitonin <0.25 ng/mL okay to stop -Continue anticoagulation per System Protocol -Prone positioning as possible -Repeat chest X ray 24 hours -Obtain exercise pulse oximetry All laboratory, cultures and imaging were reviewed. Will follow Grace Jay MD Infectious Diseases [employer] [facility] ([facility] M [phone] O [phone]
[2020-02-11] MEDS: ASCORBIC ACID 500 MG TAB PO SCH ×2 (09:36→22:11)
[2020-02-11] MEDS: dexAMETHasone 4 MG/ML VIAL IV SCH (09:36)
[2020-02-11] MEDS: ENOXAPARIN 40 MG/0.4 ML INJ SUB-Q SCH (09:36)
[2020-02-11] MEDS: hydroCHLOROthiazide 25 MG TAB PO SCH (09:37)
[2020-02-11] MEDS: ZINC SULFATE 220 MG CAP PO SCH (09:37)
[2020-02-11] MEDS: amLODIPine 10 MG TAB PO SCH (09:37)
[2020-02-11] MEDS ORDERED: ENOXAPARIN 30 MG/0.3 ML INJ SUB-Q SCH (10:00)
--- NOTE | 2020-02-11 13:10 | Event Note ---
Date: 02/11/20 Patient was admitted early this morning with Covid positive pneumonia and hypoxia ID evaluation and recommendations noted and appreciated Patient is in strict contact isolation and PPE protocols strictly observed Patient complains of mild shortness of breath, vital signs reviewed Patient's medical records and current medications noted Continue with current management, follow inflammatory markers
[2020-02-11] MEDS: ALBUTEROL 2.5 MG/3 ML NEBU IH SCH ×2 (14:15→17:10)
[2020-02-11] MEDS: traZODone 50 MG TAB PO SCH (22:11)
[2020-02-12] MEDS: ALBUTEROL 2.5 MG/3 ML NEBU IH SCH ×3 (03:59→15:47)
[2020-02-12] MEDS ORDERED: AZITHROMYCIN 500 MG in SODIUM CHLORIDE 0.9% 250ML 250 ML IV SCH (06:00)
--- NOTE | 2020-02-12 09:50 | Progress Note ---
Assessment and Plan Assessment and plan: -- COVID-19 test positive Current Visit: Yes Status: Acute Plan to address problem: monitor inflammatory makers Airborne and contact isolation Ascorbic acid and zinc sulphate IV abx with Azithromycin Continue dexamethasone -- SOB (shortness of breath) Current Visit: Yes Status: Acute Plan to address problem: Likely 2/2 to covid infection Patient has hx of asthma-not wheezing on auscultation at assessment on oxygen supplement sat 97%-was at 80's at home per pt report Bronchodilators PRN and systemic steroid --Acute respiratory failure with hypoxia Current Visit: Yes Status: Acute Plan to address problem: Requiring BiPAP, oxygen supplement-02 sat 97% Abx therapy ABGs and chest [id number] for acute finding --Cough/acute bronchitis Current Visit: Yes Status: Acute Plan to address problem: possibly due to covid 19 cough medicine, supportive care --Essential (primary) hypertension Current Visit: Yes Status: Acute Plan to address problem: monitor blood pressure Resume home bp medicine Adjust if needed --Morbid obesity due to excess calories BMI 54.8 Current Visit: Yes Status: Acute Plan to address problem: Discussed lifestyle modification-healthy diet and weight management And medically stable -- DVT prophylaxis Current Visit: Yes Status: Acute Plan to address problem: SQH Lovenox --Advance care planning Current Visit: Yes Status: Acute Plan to address problem: patient is full code Brief history 59 years old orbitally obese female patient with history of asthma admitted on due to a week history of fever, shortness of breath, cough, loss of smell, generalized malaise. Patient tested positive for COVID-19 a day before admission. Patient has a pulse oximeter at home which show sats down to 80s. Patient is managed appropriately per COVID-19 protocols, patient is evaluated by ID, inflammatory markers are being followed. History Interval history: I have seen and examined the patient at the bedside this morning Isolation precautions, PPE protocol strictly followed Patient complains of shortness of breath Denies nausea vomiting Vital signs reviewed Hospitalist Physical - Constitutional Vitals: Temp Pulse Resp BP Pulse Ox 97.7 F 91 H 20 140/89 98 02/12/20 04:41 02/12/20 04:41 02/12/20 04:41 02/12/20 04:41 02/12/20 04:41 General appearance: Present: mild distress, obese (Morbidly obese), other (Mild shortness of breath) - EENT Eyes: Present: PERRL, EOM intact - Neck Neck: Present: supple, normal ROM - Respiratory Respiratory effort: normal Respiratory: bilateral: diminished, negative: rales, rhonchi, wheezing - Cardiovascular Rhythm: regular Heart Sounds: Present: S1 & S2 - Extremities Extremities: no ischemia, No edema - Abdominal General gastrointestinal: soft, non-tender, non-distended, normal bowel sounds - Integumentary Integumentary: Present: clear, warm - Psychiatric Psychiatric: appropriate mood/affect, cooperative - Neurologic Neurologic: moves all extremities HEART Score - HEART Score Troponin: Troponin T < 0.010 ng/mL (0.00-0.029) 02/11/20 07:44 Results - Labs CBC & Chem 7: 02/11/20 03:42 02/12/20 08:30 Labs: Laboratory Last Values WBC 3.0 K/mm3 (4.5-11.0) L 02/11/20 03:42 RBC 4.43 M/mm3 (3.65-5.03) 02/11/20 03:42 Hgb 13.2 gm/dl (10.1-14.3) 02/11/20 03:42 Hct 37.9 % (30.3-42.9) 02/11/20 03:42 MCV 86 fl (79-97) 02/11/20 03:42 MCH 30 pg (28-32) 02/11/20 03:42 MCHC 35 % (30-34) H 02/11/20 03:42 RDW 14.4 % (13.2-15.2) 02/11/20 03:42 Plt Count 109 K/mm3 (140-440) L 02/11/20 03:42 Lymph % (Auto) 38.3 % (13.4-35.0) H 02/11/20 03:42 Prentiss % (Auto) 15.2 % (0.0-7.3) H 02/11/20 03:42 Eos % (Auto) 0.0 % (0.0-4.3) 02/11/20 03:42 Baso % (Auto) 0.4 % (0.0-1.8) 02/11/20 03:42 Lymph # (Auto) 1.2 K/mm3 (1.2-5.4) 02/11/20 03:42 Prentiss # (Auto) 0.5 K/mm3 (0.0-0.8) 02/11/20 03:42 Eos # (Auto) 0.0 K/mm3 (0.0-0.4) 02/11/20 03:42 Baso # (Auto) 0.0 K/mm3 (0.0-0.1) 02/11/20 03:42 Seg Neutrophils % 46.1 % (40.0-70.0) 02/11/20 03:42 Seg Neutrophils # 1.4 K/mm3 (1.8-7.7) L 02/11/20 03:42 D-Dimer 136.19 ng/mlDDU (0-234) 02/11/20 03:42 Sodium 138 mmol/L (137-145) 02/11/20 03:42 Potassium 3.3 mmol/L (3.6-5.0) L 02/11/20 03:42 Chloride 100.7 mmol/L (98-107) 02/11/20 03:42 Carbon Dioxide 29 mmol/L (22-30) D 02/11/20 03:42 Anion Gap 12 mmol/L 02/11/20 03:42 BUN 6 mg/dL (7-17) L 02/11/20 03:42 Creatinine 0.8 mg/dL (0.6-1.2) 02/11/20 03:42 Estimated GFR > 60 ml/min 02/11/20 03:42 BUN/Creatinine Ratio 8 % 02/11/20 03:42 Glucose 106 mg/dL (65-100) H 02/11/20 03:42 Glucose 107 mg/dL (65-100) H 02/11/20 03:42 Calcium 8.4 mg/dL (8.4-10.2) 02/11/20 03:42 Ferritin 231.3 ng/mL (10.0-200.0) H 02/11/20 03:42 Lactate Dehydrogenase 137 units/L (91-180) 02/11/20 03:42 Troponin T < 0.010 ng/mL (0.00-0.029) 02/11/20 07:44 C-Reactive Protein 2.90 mg/dL (0.00-1.30) H 02/11/20 03:42 Procalcitonin < 0.05 ng/mL (<0.15) 02/11/20 08:12 Sutton/IV: Voiding Method Toilet IV Catheter Type [Left Forearm INT / Saline Lock ] Active Medications - Current Medications Current Medications: Generic Name Dose Route Start Last Admin Trade Name Freq PRN Reason Stop Dose Admin Acetaminophen 650 mg 02/11/20 03:04 Tylenol PO Q6H PRN Pain, Mild (1-3) Al Hydrox/Mg Hydrox/Simethicone 15 ml 02/11/20 03:04 Alum-Mag Hydrox-Simeth [phone]/5ml PO Q4H PRN Indigestion Albuterol 2.5 mg 02/11/20 08:00 02/12/20 09:07 Proventil IH 2.5 mg Q8HRT DIMAS Administration Amlodipine Besylate 10 mg 02/11/20 10:00 02/11/20 09:37 Amlodipine PO 10 mg QDAY DIMAS Administration Ascorbic Acid 500 mg 02/11/20 10:00 02/11/20 22:11 Vitamin C PO 500 mg BID DIMAS Administration Azithromycin 500 mg 02/12/20 10:00 Zithromax PO QDAY DIMAS Benzonatate 100 mg 02/11/20 03:11 Tessalon Perles PO Q8HR PRN Nasal Congestion Dexamethasone 6 mg 02/11/20 10:00 02/11/20 09:36 Decadron IV 02/20/20 10:01 6 mg Q24HR DIMAS Administration Enoxaparin Sodium 40 mg 02/11/20 10:00 02/11/20 09:36 Enoxaparin SUB-Q 40 mg QDAY@1000 DIMAS Administration Protocol Hydrochlorothiazide 25 mg 02/11/20 10:00 02/11/20 09:37 Hctz PO 25 mg QDAY DIMAS Administration Meclizine HCl 25 mg 02/11/20 03:11 Antivert PO Q8H PRN Vertigo Ondansetron HCl 4 mg 02/11/20 03:04 Zofran IV Q4H PRN Nausea And Vomiting Trazodone HCl 50 mg 02/11/20 22:00 02/11/20 22:11 Desyrel PO Not Given QHS DIMAS Zinc Sulfate 220 mg 02/11/20 10:00 02/11/20 09:37 Zinc Sulfate PO 220 mg QDAY DIMAS Administration
[2020-02-12] MEDS ORDERED: AZITHROMYCIN 250 MG TAB PO SCH (10:00)
[2020-02-12 10:10] LABS: Blood Urea Nitrogen 13 mg/dL (7-17); Calcium 9.1 mg/dL (8.4-10.2); Hemolysis Index 14
[2020-02-12 10:16] LABS: BUN/Creatinine Ratio 19
[2020-02-12] MEDS: ZINC SULFATE 220 MG CAP PO SCH (10:39)
[2020-02-12] MEDS: hydroCHLOROthiazide 25 MG TAB PO SCH (10:39)
[2020-02-12] MEDS: amLODIPine 10 MG TAB PO SCH (10:39)
[2020-02-12] MEDS: ASCORBIC ACID 500 MG TAB PO SCH ×2 (10:40→22:23)
[2020-02-12] MEDS: dexAMETHasone 4 MG/ML VIAL IV SCH (10:40)
[2020-02-12] MEDS: ENOXAPARIN 40 MG/0.4 ML INJ SUB-Q SCH (10:40)
[2020-02-12] MEDS: ACETAMINOPHEN 325 MG TAB PO PRN (16:30)
--- NOTE | 2020-02-12 16:43 | Progress Note ---
Assessment and Plan Cultures: Blood culture SARS CoV2 PCR positive as an outpatient Assessment: 59 years old female with history of asthma admitted on 02/11/2020 due to a week history of fever, shortness of breath, cough, loss of smell, generalized malaise: #COVID-19 infection: Markers mildly elevated. Chest x-ray without any acute findings. #Acute hypoxia: Patient reports sats down to 80s at home. O2 sat down to 92% here. Patient is on room air. #Thrombocytopenia: Likely due to COVID-19. Recommendations: -Start Dexamethasone 6 mg IV/PO daily for 10 days -Patient is not a candidate for remdesivir at this time given lack of sustained hypoxia -Monitor inflammatory markers - ferritin, Ddimer, CRP, LDH -Stop azithromycin - procalcitonin <0.25 ng/mL -Continue anticoagulation per System Protocol -Prone positioning as possible -Repeat chest X ray 24 hours -Obtain exercise pulse oximetry if normal okay to discharge All laboratory, cultures and imaging were reviewed. Will sign off please call if you have any question Grace Jay MD Infectious Diseases [employer] [facility] ([facility] ([facility]) M [phone] O [phone] Subjective Date of service: 02/12/20 Principal diagnosis: COVID Interval history: Remains on room air. Objective - Exam Narrative Exam: Physical Exam: reviewed ED and hospitalist notes, limited due to conservation of PPE and decrease risk of transmission. General appearance: limited due to conservation of PPE Eyes: limited due to conservation of PPE HENT: Atraumatic; limited due to conservation of PPE Lungs: limited due to conservation of PPE CV: limited due to conservation of PPE Abdomen: limited due to conservation of PPE Extremities: limited due to conservation of PPE Skin: limited due to conservation of PPE Psych: limited due to conservation of PPE Neuro: limited due to conservation of PPE - Constitutional Vitals: Vital Signs Temp Pulse Resp BP Pulse Ox 97.7 F 96 H 18 140/89 98 02/12/20 04:41 02/12/20 15:47 02/12/20 15:47 02/12/20 04:41 02/12/20 04:41 Temperature -Last 24 Hours Temperature 97.7 F Temperature 97.8 F Temperature 98.2 F - Labs CBC & Chem 7: 02/11/20 03:42 02/12/20 08:30 Labs: Abnormal lab results 02/12/20 Range/Units 08:30 Glucose 104 H (65-100) mg/dL
[2020-02-12] MEDS: traZODone 50 MG TAB PO SCH (22:23)
[2020-02-13] MEDS: ALBUTEROL 2.5 MG/3 ML NEBU IH SCH ×3 (00:27→15:53)
[2020-02-13 06:42] LABS: C-Reactive Protein 2.8 mg/dL (0.00-1.30)
[2020-02-13] MEDS: hydroCHLOROthiazide 25 MG TAB PO SCH (09:23)
[2020-02-13] MEDS: ENOXAPARIN 40 MG/0.4 ML INJ SUB-Q SCH (09:23)
[2020-02-13] MEDS: ACETAMINOPHEN 325 MG TAB PO PRN (09:23)
[2020-02-13] MEDS: ASCORBIC ACID 500 MG TAB PO SCH ×2 (09:23→22:06)
[2020-02-13] MEDS: amLODIPine 10 MG TAB PO SCH (09:23)
[2020-02-13] MEDS: ZINC SULFATE 220 MG CAP PO SCH (09:23)
[2020-02-13] MEDS: dexAMETHasone 4 MG/ML VIAL IV SCH (09:24)
--- NOTE | 2020-02-13 12:17 | Progress Note ---
Assessment and Plan Assessment and Plan -- COVID-19 test positive Current Visit: Yes Status: Acute Plan to address problem: monitor inflammatory makers Airborne and contact isolation Ascorbic acid and zinc sulphate Azithromycin stopped Continue IV dexamethasone -- SOB (shortness of breath) Current Visit: Yes Status: Acute Plan to address problem: Likely 2/2 to covid infection Patient has hx of asthma-not wheezing on auscultation at assessment on oxygen supplement sat 97%-was at 80's at home per pt report Bronchodilators PRN and systemic steroid --Acute respiratory failure with hypoxia Current Visit: Yes Status: Acute Plan to address problem: Requiring BiPAP, oxygen supplement-02 sat 97% Chest x-ray bilateral infiltrates --Cough/acute bronchitis Current Visit: Yes Status: Acute Plan to address problem: possibly due to covid 19 cough medicine, supportive care --Essential (primary) hypertension Current Visit: Yes Status: Acute Plan to address problem: monitor blood pressure Resume home bp medicine Adjust if needed --Morbid obesity due to excess calories BMI 54.8 Current Visit: Yes Status: Acute Plan to address problem: Discussed lifestyle modification-healthy diet and weight management And medically stable -- DVT prophylaxis Current Visit: Yes Status: Acute Plan to address problem: SQ Mariselnox Subjective Date of service: 02/13/20 Principal diagnosis: COVID pneumonia Interval history: 59 years old orbitally obese female patient with history of asthma admitted on due to a week history of fever, shortness of breath, cough, loss of smell, generalized malaise. Patient tested positive for COVID-19 a day before admission. Patient has a pulse oximeter at home which show sats down to 80s. Patient is managed appropriately per COVID-19 protocols, patient is evaluated by ID, inflammatory markers are being followed. 02/13/2020 Patient on 2 to 4 L nasal cannula oxygen Patient otherwise comfortable Objective - Constitutional Vitals: Vital Signs - 12hr 02/13/20 02/13/20 02/13/20 00:29 04:25 08:39 Temperature 98.2 F Pulse Rate 119 H Pulse Rate [ 90 108 H Anterior Bilateral Throughout] Respiratory 20 Rate Respiratory 18 20 Rate [Anterior Bilateral Throughout] Blood Pressure 108/64 O2 Sat by Pulse 97 Oximetry 02/13/20 10:47 Temperature 99.3 F Pulse Rate 116 H Pulse Rate [ Anterior Bilateral Throughout] Respiratory 24 Rate Respiratory Rate [Anterior Bilateral Throughout] Blood Pressure 91/36 O2 Sat by Pulse 94 Oximetry General appearance: Present: no acute distress, well-nourished - EENT Eyes: PERRL, EOM intact ENT: hearing intact, clear oral mucosa Ears: bilateral: normal - Neck Neck: supple, normal ROM - Respiratory Respiratory effort: normal Respiratory: bilateral: CTA, rhonchi (Scattered), wheezing (Scattered) - Breasts Breasts: normal - Cardiovascular Heart rate: 78 Rhythm: regular Heart Sounds: Present: S1 & S2. Absent: gallop, rub Extremities: no ischemia, pulses intact, No edema, normal color, Full ROM - Gastrointestinal General gastrointestinal: Present: soft, non-tender, non-distended, normal bowel sounds - Genitourinary Female genitourinary: normal - Integumentary Integumentary: clear, warm, dry - Musculoskeletal Musculoskeletal: 1, strength equal bilaterally - Neurologic Neurologic: moves all extremities - Psychiatric Psychiatric: memory intact, appropriate mood/affect, intact judgment & insight - Allied health notes Allied health notes reviewed: nursing, case management - Labs CBC & Chem 7: 02/11/20 03:42 02/14/20 07:20 Labs: Abnormal lab results 02/13/20 02/13/20 Range/Units 06:02 06:02 Ferritin 245.0 H (10.0-200.0) ng/mL C-Reactive Protein 2.80 H (0.00-1.30) mg/dL HEART Score - HEART Score Troponin: Troponin T < 0.010 ng/mL (0.00-0.029) 02/11/20 07:44
--- NOTE | 2020-02-13 17:11 | XRay Report ---
CHEST 1 VIEW INDICATION / CLINICAL INFORMATION: SOB. COMPARISON: 02/11/2020 FINDINGS: SUPPORT DEVICES: None. HEART / MEDIASTINUM: Stable. LUNGS / PLEURA: Low lung volumes with mild central interstitial haziness most predominant in the jasper hilar right lower lung. No significant effusion. No pneumothorax. ADDITIONAL FINDINGS: No significant additional findings. IMPRESSION: 1. Mild central interstitial prominence, worse at the right lung base. Findings could represent aspir ation, pneumonia, or edema. Recommend clinical correlation and continued follow-up as warranted. Signer Name: Jaxson Eldridge MD Signed: 02/13/2020 5:07 PM Workstation Name: [id number]
[2020-02-13] MEDS ORDERED: ALBUTEROL 2.5 MG/3 ML NEBU IH ONE (23:33)
[2020-02-14] MEDS ORDERED: ALBUTEROL 8.5 GM MDI INHALATION IH SCH
[2020-02-14 08:28] LABS: Alanine Aminotransferase 28 units/L (7-56); Albumin 3.3 g/dL (3.9-5); BUN/Creatinine Ratio 19; Blood Urea Nitrogen 13 mg/dL (7-17); Calcium 8.3 mg/dL (8.4-10.2); Hemolysis Index 1
[2020-02-14] MEDS: ALBUTEROL 8.5 GM MDI INHALATION IH SCH ×3 (08:59→23:33)
[2020-02-14] MEDS: ASCORBIC ACID 500 MG TAB PO SCH ×2 (09:25→21:27)
[2020-02-14] MEDS: ZINC SULFATE 220 MG CAP PO SCH (09:25)
[2020-02-14] MEDS: hydroCHLOROthiazide 25 MG TAB PO SCH (09:26)
[2020-02-14] MEDS: dexAMETHasone 4 MG/ML VIAL IV SCH (09:26)
[2020-02-14] MEDS: ENOXAPARIN 40 MG/0.4 ML INJ SUB-Q SCH (09:30)
[2020-02-14] MEDS: amLODIPine 10 MG TAB PO SCH (09:35)
--- NOTE | 2020-02-14 15:21 | Progress Note ---
Assessment and Plan Assessment and Plan -- COVID-19 test positive Current Visit: Yes Status: Acute Plan to address problem: monitor inflammatory makers Airborne and contact isolation Ascorbic acid and zinc sulphate Azithromycin stopped Continue IV dexamethasone Patient on 2 L nasal cannula oxygen Patient to get walk test today Possible discharge tomorrow if walk test is normal. If not on 2 L nasal cannula home oxygen -- SOB (shortness of breath) Current Visit: Yes Status: Acute Plan to address problem: Likely 2/2 to covid infection Patient has hx of asthma-not wheezing on auscultation at assessment on oxygen supplement sat 97%-was at 80's at home per pt report Bronchodilators PRN and systemic steroid --Acute respiratory failure with hypoxia Current Visit: Yes Status: Acute Plan to address problem: Requiring BiPAP, oxygen supplement-02 sat 97% Chest x-ray bilateral infiltrates --Cough/acute bronchitis Current Visit: Yes Status: Acute Plan to address problem: possibly due to covid 19 cough medicine, supportive care --Essential (primary) hypertension Current Visit: Yes Status: Acute Plan to address problem: monitor blood pressure Resume home bp medicine Adjust if needed --Morbid obesity due to excess calories BMI 54.8 Current Visit: Yes Status: Acute Plan to address problem: Discussed lifestyle modification-healthy diet and weight management And medically stable -- DVT prophylaxis Current Visit: Yes Status: Acute Plan to address problem: SQH Lovenox Subjective Date of service: 02/14/20 Principal diagnosis: COVID pneumonia Interval history: 59 years old orbitally obese female patient with history of asthma admitted on due to a week history of fever, shortness of breath, cough, loss of smell, generalized malaise. Patient tested positive for COVID-19 a day before admission. Patient has a pulse oximeter at home which show sats down to 80s. Patient is managed appropriately per COVID-19 protocols, patient is evaluated by ID, inflammatory markers are being followed. 02/13/2020 Patient on 2 to 4 L nasal cannula oxygen Patient otherwise comfortable 02/14/2020 Patient more comfortable Patient to get walk test today Planning for discharge tomorrow if walk test is normal or on home oxygen Objective - Constitutional Vitals: Vital Signs - 12hr 02/14/20 02/14/20 04:13 08:59 Temperature 98.6 F Pulse Rate [ 103 H Anterior Bilateral Throughout] Respiratory 20 Rate Respiratory 18 Rate [Anterior Bilateral Throughout] Blood Pressure 136/83 General appearance: Present: no acute distress, well-nourished - EENT Eyes: PERRL, EOM intact ENT: hearing intact, clear oral mucosa Ears: bilateral: normal - Neck Neck: supple, normal ROM - Respiratory Respiratory effort: normal Respiratory: bilateral: CTA - Breasts Breasts: normal - Cardiovascular Heart rate: 78 Rhythm: regular Heart Sounds: Present: S1 & S2. Absent: gallop, rub Extremities: pulses intact, No edema, normal color, Full ROM - Gastrointestinal General gastrointestinal: Present: soft, non-tender, non-distended, normal bowel sounds - Genitourinary Female genitourinary: normal - Integumentary Integumentary: clear, warm, dry - Musculoskeletal Musculoskeletal: 1, strength equal bilaterally - Neurologic Neurologic: moves all extremities - Psychiatric Psychiatric: memory intact, appropriate mood/affect, intact judgment & insight - Allied health notes Allied health notes reviewed: nursing, case management - Labs CBC & Chem 7: 02/11/20 03:42 02/14/20 07:20 Labs: Abnormal lab results 02/14/20 Range/Units 07:20 Potassium 3.3 L (3.6-5.0) mmol/L Glucose 104 H (65-100) mg/dL Calcium 8.3 L (8.4-10.2) mg/dL Total Protein 6.2 L (6.3-8.2) g/dL Albumin 3.3 L (3.9-5) g/dL HEART Score - HEART Score Troponin: Troponin T < 0.010 ng/mL (0.00-0.029) 02/11/20 07:44
[2020-02-14] MEDS: diphenhydrAMINE 25 MG CAP PO PRN (21:27)
[2020-02-15] MEDS: ACETAMINOPHEN 325 MG TAB PO PRN (00:52)
[2020-02-15] MEDS ORDERED: MORPHINE 2 MG/1 ML INJ IV ONE (01:15)
[2020-02-15] MEDS ORDERED: ALBUTEROL 8.5 GM MDI INHALATION IH SCH (03:05)
[2020-02-15] MEDS: ALBUTEROL 8.5 GM MDI INHALATION IH SCH ×3 (08:40→22:08)
[2020-02-15] MEDS: ENOXAPARIN 40 MG/0.4 ML INJ SUB-Q SCH (11:06)
[2020-02-15] MEDS: ASCORBIC ACID 500 MG TAB PO SCH ×2 (11:07→22:03)
[2020-02-15] MEDS: ZINC SULFATE 220 MG CAP PO SCH (11:07)
[2020-02-15] MEDS: dexAMETHasone 4 MG/ML VIAL IV SCH (11:08)
[2020-02-15] MEDS: amLODIPine 10 MG TAB PO SCH (11:22)
[2020-02-15] MEDS: hydroCHLOROthiazide 25 MG TAB PO SCH (11:22)
[2020-02-15] MEDS: DEXAMETHASONE 4 MG TAB PO SCH (13:13)
--- NOTE | 2020-02-15 17:49 | Progress Note ---
Assessment and Plan Assessment and Plan -- COVID-19 test positive Current Visit: Yes Status: Acute Plan to address problem: monitor inflammatory makers Airborne and contact isolation Ascorbic acid and zinc sulphate Azithromycin stopped Patient's oxygen requirements have increased from yesterday -- SOB (shortness of breath) Current Visit: Yes Status: Acute Plan to address problem: Likely 2/2 to covid infection Patient has hx of asthma-not wheezing on auscultation at assessment on oxygen supplement sat 97%-was at 80's at home per pt report Bronchodilators PRN and systemic steroid --Acute respiratory failure with hypoxia Current Visit: Yes Status: Acute Plan to address problem: Requiring BiPAP, oxygen supplement-02 sat 97% Chest x-ray bilateral infiltrates --Cough/acute bronchitis Current Visit: Yes Status: Acute Plan to address problem: possibly due to covid 19 cough medicine, supportive care --Essential (primary) hypertension Current Visit: Yes Status: Acute Plan to address problem: monitor blood pressure Resume home bp medicine Adjust if needed --Morbid obesity due to excess calories BMI 54.8 Current Visit: Yes Status: Acute Plan to address problem: Discussed lifestyle modification-healthy diet and weight management And medically stable -- DVT prophylaxis Current Visit: Yes Status: Acute Plan to address problem: SQH Lovenox Subjective Date of service: 02/15/20 Principal diagnosis: COVID pneumonia Interval history: 59 years old orbitally obese female patient with history of asthma admitted on due to a week history of fever, shortness of breath, cough, loss of smell, generalized malaise. Patient tested positive for COVID-19 a day before admission. Patient has a pulse oximeter at home which show sats down to 80s. Patient is managed appropriately per COVID-19 protocols, patient is evaluated by ID, inflammatory markers are being followed. 02/13/2020 Patient on 2 to 4 L nasal cannula oxygen Patient otherwise comfortable 02/14/2020 Patient more comfortable Patient to get walk test today Planning for discharge tomorrow if walk test is normal or on home oxygen 02/15/20 Patient was on 3 L yesterday and now on about 8 to 10 L Objective - Constitutional Vitals: Vital Signs - 12hr 02/15/20 02/15/20 02/15/20 08:40 11:15 11:22 Temperature Pulse Rate Pulse Rate [ 96 H Anterior Bilateral Throughout] Respiratory Rate Respiratory 20 Rate [Anterior Bilateral Throughout] Blood Pressure 126/65 126/65 O2 Sat by Pulse 98 Oximetry 02/15/20 02/15/20 16:33 17:33 Temperature 102.3 F H Pulse Rate 109 H Pulse Rate [ 112 H Anterior Bilateral Throughout] Respiratory 18 Rate Respiratory 20 Rate [Anterior Bilateral Throughout] Blood Pressure 128/62 O2 Sat by Pulse 90 Oximetry General appearance: Present: no acute distress, well-nourished - EENT Eyes: PERRL, EOM intact ENT: hearing intact, clear oral mucosa Ears: bilateral: normal - Neck Neck: supple, normal ROM - Respiratory Respiratory effort: normal Respiratory: bilateral: CTA - Breasts Breasts: normal - Cardiovascular Rhythm: regular Heart Sounds: Present: S1 & S2. Absent: gallop, rub Extremities: pulses intact, No edema, normal color, Full ROM - Gastrointestinal General gastrointestinal: Present: soft, non-tender, non-distended, normal bowel sounds - Genitourinary Female genitourinary: normal - Integumentary Integumentary: clear, warm, dry - Musculoskeletal Musculoskeletal: 1, strength equal bilaterally - Neurologic Neurologic: moves all extremities - Psychiatric Psychiatric: memory intact, appropriate mood/affect, intact judgment & insight - Labs CBC & Chem 7: 02/11/20 03:42 02/14/20 07:20 HEART Score - HEART Score Troponin: Troponin T < 0.010 ng/mL (0.00-0.029) 02/11/20 07:44
[2020-02-16] MEDS: ALBUTEROL 8.5 GM MDI INHALATION IH SCH ×4 (01:27→20:19)
[2020-02-16] MEDS: ASCORBIC ACID 500 MG TAB PO SCH ×2 (10:42→21:54)
[2020-02-16] MEDS: DEXAMETHASONE 4 MG TAB PO SCH (10:42)
[2020-02-16] MEDS: amLODIPine 10 MG TAB PO SCH (10:42)
[2020-02-16] MEDS: ENOXAPARIN 40 MG/0.4 ML INJ SUB-Q SCH (10:42)
[2020-02-16] MEDS: ZINC SULFATE 220 MG CAP PO SCH (10:42)
[2020-02-16] MEDS: hydroCHLOROthiazide 25 MG TAB PO SCH (10:42)
[2020-02-16] MEDS ORDERED: FUROSEMIDE 20 MG/2 ML INJ IV NR (11:00)
--- NOTE | 2020-02-16 11:00 | Consultation ---
History of Present Illness Consult date: 02/16/20 Requesting physician: BRANDON RUSH Reason for consult: hypoxemia, other (COVID) History of present illness: 59 y/o obese female, admitted to the hospital now for 5 days with COVID 19. Initially patient was only on 2 liters NC and stable. Yesterday her oxygen requirement increased from 3 liters to 40% venturi mask at 12 liters of flow. IMS asked us to evaluate. Patient was not examined in person to preserve PPE during the global pandemic of COVID 19. Past History Past Medical History: hypertension Past Surgical History: No surgical history Social history: no significant social history Family history: no significant family history Medications and Allergies Allergies Allergy/AdvReac Type Severity Reaction Status Date / Time No Known Allergies Allergy Verified 04/06/19 13:48 Home Medications Medication Instructions Recorded Confirmed Last Taken Type ALBUTEROL Inhaler(NF) [VENTOLIN 2 puff IH Q4H PRN #1 inha 12/01/17 02/11/20 Unknown Rx Inhaler(NF)] Cholecalciferol (Vitamin D3) 50,000 unit PO QWEEK 02/11/20 02/11/20 Unknown History [Vitamin D3 50,000UNIT CAP] Ibuprofen [Motrin] 800 mg PO Q8HR PRN 02/11/20 02/11/20 Unknown History Olmesartan/Hydrochlorothiazide 1 each PO QDAY 02/11/20 02/11/20 Unknown History [Olmesartan-Hctz 40-25 mg Tab] oxyCODONE /ACETAMINOPHEN [Percocet 1 tab PO Q6HR PRN 02/11/20 02/11/20 Unknown History 5/325] Active Meds: Active Medications Acetaminophen (Tylenol) 650 mg PO Q6H PRN PRN Reason: Pain, Mild (1-3) Last Admin: 02/15/20 00:52 Dose: 650 mg Documented by: Al Hydrox/Mg Hydrox/Simethicone (Alum-Mag Hydrox-Simeth 431-903-01yr/5ml) 15 ml PO Q4H PRN PRN Reason: Indigestion Albuterol (Proair) 2 puff IH TIDRT DIMAS Amlodipine Besylate (Amlodipine) 10 mg PO QDAY [facility] Last Admin: 02/16/20 10:42 Dose: 10 mg Documented by: Arformoterol Tartrate (Brovana Nebu) 15 mcg IH Q12HRT [facility] Ascorbic Acid (Vitamin C) 500 mg PO BID [facility] Last Admin: 02/16/20 10:42 Dose: 500 mg Documented by: Benzonatate (Tessalon Perles) 100 mg PO Q8HR PRN PRN Reason: Nasal Congestion Budesonide (Pulmicort) 0.5 mg IH Q12HRT [facility] Diphenhydramine HCl (Benadryl) 25 mg PO QHS PRN PRN Reason: Sleep Last Admin: 02/14/20 21:27 Dose: 25 mg Documented by: Enoxaparin Sodium (Enoxaparin) 40 mg SUB-Q QDAY@1000 DIMAS; Protocol Last Admin: 02/16/20 10:42 Dose: 40 mg Documented by: Furosemide (Lasix) 20 mg IV ONCE@1100 NR Stop: 02/16/20 14:00 Hydrochlorothiazide (Hctz) 25 mg PO QDAY [facility] Last Admin: 02/16/20 10:42 Dose: 25 mg Documented by: Meclizine HCl (Antivert) 25 mg PO Q8H PRN PRN Reason: Vertigo Methylprednisolone Sodium Succinate (Solu-Medrol) 60 mg IV Q6HR [facility] Ondansetron HCl (Zofran) 4 mg IV Q4H PRN PRN Reason: Nausea And Vomiting Last Admin: 02/15/20 01:04 Dose: 4 mg Documented by: Zinc Sulfate (Zinc Sulfate) 220 mg PO QDAY [facility] Last Admin: 02/16/20 10:42 Dose: 220 mg Documented by: Physical Examination Vital signs: Vital Signs Temp Pulse Resp BP Pulse Ox 98.3 F 127 H 22 151/94 93 02/11/20 00:36 02/11/20 00:36 02/11/20 00:36 02/11/20 00:36 02/11/20 00:36 Results - Laboratory Findings CBC and BMP: 02/11/20 03:42 02/14/20 07:20 PT/INR, D-dimer D-Dimer 142.82 ng/mlDDU (0-234) 02/13/20 06:02 Abnormal lab findings: Abnormal Labs 02/11/20 02/11/20 02/11/20 00:45 00:45 03:42 WBC 3.7 L MCHC Plt Count 113 L Lymph % (Auto) 45.2 H [place] % (Auto) 13.9 H Seg Neutrophils # 1.5 L Potassium 3.4 L BUN 6 L Glucose 114 H 106 H Calcium Ferritin C-Reactive Protein 2.90 H Total Protein Albumin 02/11/20 02/11/20 02/11/20 03:42 03:42 03:42 WBC 3.0 L MCHC 35 H Plt Count 109 L Lymph % (Auto) 38.3 H [place] % (Auto) 15.2 H Seg Neutrophils # 1.4 L Potassium 3.3 L BUN 6 L Glucose 107 H Calcium Ferritin 231.3 H C-Reactive Protein Total Protein Albumin 02/12/20 02/13/20 02/13/20 08:30 06:02 06:02 WBC MCHC Plt Count Lymph % (Auto) [place] % (Auto) Seg Neutrophils # Potassium BUN Glucose 104 H Calcium Ferritin 245.0 H C-Reactive Protein 2.80 H Total Protein Albumin 02/14/20 07:20 WBC MCHC Plt Count Lymph % (Auto) [place] % (Auto) Seg Neutrophils # Potassium 3.3 L BUN Glucose 104 H Calcium 8.3 L Ferritin C-Reactive Protein Total Protein 6.2 L Albumin 3.3 L Assessment and Plan 59 y/o morbidly obese female admitted with acute respiratory failure secondary to COVID 19 pneumonia and possible asthma exacerbation. 1. Given history of asthma, stopped dex and placed on solumedrol 60q6. Also added BID pulmicort and brovana therapy. patient will need to prone as tolerated during the day and sleep prone at night if possible 2. Ordered inflammatory markers for today 3. Repeat CXR 4. Patient does not have strict I/O but has taken in a lot of volume since a dmission. She does take HCTZ. Stopped this and ordered a 1 time dose of lasix for 1600 this afternoon to see if this helps O2 requirement 5. Asked IMS to ask ID to reconsider the use of Remdesiver given increase in oxygen requirement. 6. Guarded prognosis given obesity, asthma and now COVID 19 infection.
[2020-02-16 11:30] LABS: Hematocrit 42.5 % (30.3-42.9); Hemoglobin 14.2 gm/dl (10.1-14.3); Mean Corpuscular HGB Conc 33 % (30-34); Mean Corpuscular Volume 87 fl (79-97); Platelet Count 103 K/mm3 (140-440); Red Blood Count 4.87 M/mm3 (3.65-5.03); Red Cell Distribution Width 13.6 % (13.2-15.2)
[2020-02-16 11:55] LABS: Blood Urea Nitrogen 12 mg/dL (7-17); Calcium 8.8 mg/dL (8.4-10.2); Hemolysis Index 8
[2020-02-16 11:57] LABS: BUN/Creatinine Ratio 17
[2020-02-16 12:19] LABS: C-Reactive Protein 8.9 mg/dL (0.00-1.30)
[2020-02-16] MEDS: ARFORMOTEROL 15 MCG/2 ML NEBU IH SCH ×2 (13:26→20:18)
[2020-02-16] MEDS: BUDESONIDE 0.5 MG/2 ML NEBU IH SCH ×2 (13:26→20:18)
--- NOTE | 2020-02-16 13:53 | XRay Report ---
CHEST 1 VIEW INDICATION: Worsening Hypoxemia, COVID 19. COMPARISON: 02/13/2020 FINDINGS: Support devices: None. Heart: Within normal limits. Lungs/Pleura: Diffuse scattered bilateral lung opacities have developed since the previous exam. No p leural effusion or pneumothorax. Additional findings: None. IMPRESSION: Diffuse bilateral lung opacities have developed concerning for viral infection. Signer Name: Rc Abdalla Jr, MD Signed: 02/16/2020 1:49 PM Workstation Name: [id number]
[2020-02-16] MEDS: methylPREDNISolone Sod Succinate 125 MG/2 ML INJ IV SCH ×3 (14:17→22:00)
--- NOTE | 2020-02-16 15:43 | Progress Note ---
Assessment and Plan Cultures: SARS CoV2 PCR positive as an outpatient Assessment: 59 years old female with history of asthma admitted on 02/11/2020 due to a week history of fever, shortness of breath, cough, loss of smell, generalized malaise: #COVID-19 pneumonia b/l #Acute hypoxic respiratory failure: Worsening hypoxia. #Thrombocytopenia Recommendations: -Continue steroids for pulmonary -IV remdesivir started for 5 days -Monitor inflammatory markers - ferritin, Ddimer, CRP -Continue anticoagulation per System Protocol Lj Little MD, FACP [facility] O: [phone] F: [phone] Subjective Date of service: 02/16/20 Principal diagnosis: COVID pneumonia Interval history: Patient febrile. Now with increasing hypoxia. Infectious diseases reconsulted. Pulmonary also evaluated. Patient has been started on solumedrol. Objective - Exam Narrative Exam: Physical Exam (reviewed in chart due to PPE conservation and minimize risk of transmission) Constitutional: limited due to PPE conservation strategy Head, Ears, Nose: limited due to PPE conservation strategy Eyes: limited due to PPE conservation strategy Neck: limited due to PPE conservation strategy Oral: limited due to PPE conservation strategy Cardiovascular: limited due to PPE conservation strategy Respiratory: limited due to PPE conservation strategy GI: limited due to PPE conservation strategy Musculoskeletal: limited due to PPE conservation strategy Skin: limited due to PPE conservation strategy Hem/Lymphatic: limited due to PPE conservation strategy Psych: limited due to PPE conservation strategy Neurological: limited due to PPE conservation strategy - Constitutional Vitals: Vital Signs Temp Pulse Resp BP Pulse Ox 97.7 F 112 H 20 149/67 95 02/15/20 22:14 02/16/20 13:18 02/16/20 13:18 02/16/20 10:42 02/16/20 07:40 Temperature -Last 24 Hours Temperature 97.7 F Temperature 96.1 F Temperature 102.3 F - Labs CBC & Chem 7: 02/16/20 11:09 02/16/20 11:09 Labs: Abnormal lab results 02/16/20 02/16/20 02/16/20 Range/Units 11:09 11:09 11:09 Plt Count 103 L (140-440) K/mm3 Chloride 96.4 L (98-107) mmol/L Carbon Dioxide 35 H (22-30) mmol/L Glucose 124 H (65-100) mg/dL Ferritin 352.2 H (10.0-200.0) ng/mL Lactate Dehydrogenase (91-180) units/L C-Reactive Protein (0.00-1.30) mg/dL 02/16/20 Range/Units 11:09 Plt Count (140-440) K/mm3 Chloride (98-107) mmol/L Carbon Dioxide (22-30) mmol/L Glucose (65-100) mg/dL Ferritin (10.0-200.0) ng/mL Lactate Dehydrogenase 253 H (91-180) units/L C-Reactive Protein 8.90 H (0.00-1.30) mg/dL - Imaging and cardiology Chest x-ray: report reviewed, image reviewed (b/l pneumonia)
[2020-02-16] MEDS ORDERED: REMDESIVIR 100 MG VIAL IV ONE (16:00)
[2020-02-16] MEDS ORDERED: REMDESIVIR 200 MG in SODIUM CHLORIDE 0.9% 250ML 250 ML IV ONE (16:00)
[2020-02-16] MEDS ORDERED: SODIUM CHLORIDE 0.9% 50 ML IVPB IV SCH (16:00)
--- NOTE | 2020-02-16 16:03 | Progress Note ---
Assessment and Plan Assessment and plan: 59-year-old morbidly obese female with a medical history of asthma admitted with chief complaint of fever, shortness of breath, cough and loss of smell. Patient had tested positive for COVID-19 a day prior to presentation. While at home, her oxygen saturation fell to the 80s so she presented to the hospital for evaluation. Here in the ER, she was started on dexamethasone and admitted to the hospital. 02/12. Slight improvement noted. ID recommendations appreciated 02/13-. Plan to get a walk test patient desaturated she was placed on oxygen. 02/15. Patient remains on high oxygen-8 L. ID consulted as patient will need remdesivir. Pulmonology consulted as well. She denies any chest pain or palpitations. Elevated D-dimer noted. Ultrasound lower extremity Dopplers ordered. -- COVID-19 test positive Current Visit: Yes Status: Acute Plan to address problem: Dexamethasone switched to Solu-Medrol 60 every 6 Pulmonology recommendations appreciated ID reconsulted and patient started on remdesivir Continue to monitor inflammatory makers Airborne and contact isolation Ascorbic acid and zinc sulphate --Acute respiratory failure with hypoxia Current Visit: Yes Status: Acute Plan to address problem: On 8 L of oxygen COVID-19 treatment --Essential (primary) hypertension Current Visit: Yes Status: Acute Plan to address problem: Continue to monitor blood pressure closely --Morbid obesity due to excess calories BMI 54.8 Current Visit: Yes Status: Acute Plan to address problem: Discussed lifestyle modification-healthy diet and weight management And medically stable -- DVT prophylaxis Current Visit: Yes Status: Acute Plan to address problem: SQH Lovenox History Interval history: Patient seen and examined at bedside this morning On 8 L of oxygen ID and pulmonology consulted Hospitalist Physical - Physical exam Narrative exam: VITAL SIGNS: Reviewed. GENERAL: Awake and alert on response to questions HEAD: No signs of head trauma. EYES: Pupils are equal. Extraocular motions intact. EARS: Hearing grossly intact. MOUTH: Oropharynx is normal. NECK: No adenopathy, no JVD. CHEST: Slight wheeze CARDIAC: Regular rate and rhythm. S1 and S2, without murmurs, gallops, or rubs. VASCULAR: No Edema. Peripheral pulses normal and equal in all extremities. ABDOMEN: Soft, non tender and non distended. No rebound or guarding, and no masses palpated. Bowel Sounds normal. MUSCULOSKELETAL: Good range of motion of all major joints. Extremities without clubbing, cyanosis or edema. NEUROLOGIC EXAM: Alert and oriented x3. No focal neurologic deficits PSYCHIATRIC: Stable mood SKIN: No obvious lesions - Constitutional Vitals: Temp Pulse Resp BP Pulse Ox 97.7 F 112 H 20 149/67 95 02/15/20 22:14 02/16/20 13:18 02/16/20 13:18 02/16/20 10:42 02/16/20 07:40 HEART Score - HEART Score Troponin: Troponin T < 0.010 ng/mL (0.00-0.029) 02/11/20 07:44 Results - Labs CBC & Chem 7: 02/16/20 11:09 02/16/20 11:09 Labs: Laboratory Last Values WBC 8.0 K/mm3 (4.5-11.0) 02/16/20 11:09 RBC 4.87 M/mm3 (3.65-5.03) 02/16/20 11:09 Hgb 14.2 gm/dl (10.1-14.3) 02/16/20 11:09 Hct 42.5 % (30.3-42.9) 02/16/20 11:09 MCV 87 fl (79-97) 02/16/20 11:09 MCH 29 pg (28-32) 02/16/20 11:09 MCHC 33 % (30-34) 02/16/20 11:09 RDW 13.6 % (13.2-15.2) 02/16/20 11:09 Plt Count 103 K/mm3 (140-440) L 02/16/20 11:09 Lymph % (Auto) 38.3 % (13.4-35.0) H 02/11/20 03:42 [place] % (Auto) 15.2 % (0.0-7.3) H 02/11/20 03:42 Eos % (Auto) 0.0 % (0.0-4.3) 02/11/20 03:42 Baso % (Auto) 0.4 % (0.0-1.8) 02/11/20 03:42 Lymph # (Auto) 1.2 K/mm3 (1.2-5.4) 02/11/20 03:42 [place] # (Auto) 0.5 K/mm3 (0.0-0.8) 02/11/20 03:42 Eos # (Auto) 0.0 K/mm3 (0.0-0.4) 02/11/20 03:42 Baso # (Auto) 0.0 K/mm3 (0.0-0.1) 02/11/20 03:42 Seg Neutrophils % 46.1 % (40.0-70.0) 02/11/20 03:42 Seg Neutrophils # 1.4 K/mm3 (1.8-7.7) L 02/11/20 03:42 D-Dimer 149.43 ng/mlDDU (0-234) 02/16/20 11:09 Sodium 137 mmol/L (137-145) 02/16/20 11:09 Potassium 3.8 mmol/L (3.6-5.0) 02/16/20 11:09 Chloride 96.4 mmol/L (98-107) L 02/16/20 11:09 Carbon Dioxide 35 mmol/L (22-30) H 02/16/20 11:09 Anion Gap 9 mmol/L 02/16/20 11:09 BUN 12 mg/dL (7-17) 02/16/20 11:09 Creatinine 0.7 mg/dL (0.6-1.2) 02/16/20 11:09 Estimated GFR > 60 ml/min 02/16/20 11:09 BUN/Creatinine Ratio 17 % 02/16/20 11:09 Glucose 124 mg/dL (65-100) H 02/16/20 11:09 Calcium 8.8 mg/dL (8.4-10.2) 02/16/20 11:09 Ferritin 352.2 ng/mL (10.0-200.0) H 02/16/20 11:09 Total Bilirubin 0.20 mg/dL (0.1-1.2) 02/14/20 07:20 AST 24 units/L (5-40) 02/14/20 07:20 ALT 28 units/L (7-56) 02/14/20 07:20 Alkaline Phosphatase 43 units/L (35-129) 02/14/20 07:20 Lactate Dehydrogenase 253 units/L (91-180) H 02/16/20 11:09 Troponin T < 0.010 ng/mL (0.00-0.029) 02/11/20 07:44 C-Reactive Protein 8.90 mg/dL (0.00-1.30) H 02/16/20 11:09 NT-Pro-B Natriuret Pep 12.94 pg/mL (0-900) 02/16/20 11:09 Total Protein 6.2 g/dL (6.3-8.2) L 02/14/20 07:20 Albumin 3.3 g/dL (3.9-5) L 02/14/20 07:20 Albumin/Globulin Ratio 1.1 % 02/14/20 07:20 Procalcitonin < 0.05 ng/mL (<0.15) 02/11/20 08:12 [place]/IV: Voiding Method Toilet IV Catheter Type [Right INT / Saline Lock Forearm] IV Catheter Type [Left Forearm INT / Saline Lock ] Active Medications - Current Medications Current Medications: Generic Name Dose Route Start Last Admin Trade Name Freq PRN Reason Stop Dose Admin Acetaminophen 650 mg 02/11/20 03:04 02/15/20 00:52 Tylenol PO 650 mg Q6H PRN Administration Pain, Mild (1-3) Al Hydrox/Mg Hydrox/Simethicone 15 ml 02/11/20 03:04 Alum-Mag Hydrox-Simeth [phone]/5ml PO Q4H PRN Indigestion Albuterol 2 puff 02/16/20 14:00 02/16/20 13:16 Proair IH 2 1000units TIDRT DIMAS Administration Amlodipine Besylate 10 mg 02/11/20 10:00 02/16/20 10:42 Amlodipine PO 10 mg QDAY DIMAS Administration Arformoterol Tartrate 15 mcg 02/16/20 11:00 02/16/20 13:26 Brovana Nebu IH Not Given Q12HRT DIMAS Ascorbic Acid 500 mg 02/11/20 10:00 02/16/20 10:42 Vitamin C PO 500 mg BID DIMAS Administration Benzonatate 100 mg 02/11/20 03:11 Tessalon Perles PO Q8HR PRN Nasal Congestion Budesonide 0.5 mg 02/16/20 11:00 02/16/20 13:26 Pulmicort IH Not Given Q12HRT [facility] Diphenhydramine HCl 25 mg 02/13/20 16:20 02/14/20 21:27 Benadryl PO 25 mg QHS PRN Administration Sleep Enoxaparin Sodium 40 mg 02/11/20 10:00 02/16/20 10:42 Enoxaparin SUB-Q 40 mg QDAY@1000 DIMAS Administration Protocol Hydrochlorothiazide 25 mg 02/11/20 10:00 02/16/20 10:42 Hctz PO 25 mg QDAY DIMAS Administration REMDESIVIR 200 mg/ Sodium 250 mls @ 500 mls/hr 02/16/20 16:00 Chloride IV 02/16/20 16:29 ONCE ONE REMDESIVIR 100 mg/ Sodium 250 mls @ 500 mls/hr 02/17/20 21:00 Chloride IV 02/20/20 21:29 Q24HR@2100 [facility] Meclizine HCl 25 mg 02/11/20 03:11 Antivert PO Q8H PRN Vertigo Methylprednisolone Sodium Succinate 60 mg 02/16/20 12:00 02/16/20 14:17 Solu-Medrol IV Not Given Q6HR [facility] Ondansetron HCl 4 mg 02/11/20 03:04 02/15/20 01:04 Zofran IV 4 mg Q4H PRN Administration Nausea And Vomiting Sodium Chloride 50 ml 02/16/20 16:00 Nacl 0.9% IV 02/20/20 16:01 Q24H [facility] Zinc Sulfate 220 mg 02/11/20 10:00 02/16/20 10:42 Zinc Sulfate PO 220 mg QDAY DIMAS Administration
--- NOTE | 2020-02-16 17:28 | Vascular Lab Report ---
DUPLEX DOPPLER LOWER EXTREMITY VEINS, BILATERAL INDICATION / CLINICAL INFORMATION: DVT. TECHNIQUE: Duplex doppler imaging was performed through the veins of both lower extremities using venous katey deyanira and other maneuvers. COMPARISON: None available. FINDINGS: RIGHT COMMON FEMORAL VEIN: Negative. RIGHT FEMORAL VEIN: Negative. RIGHT POPLITEAL VEIN: Negative. RIGHT CALF VEINS: Negative. LEFT COMMON FEMORAL VEIN: Negative. LEFT FEMORAL VEIN: Negative. LEFT POPLITEAL VEIN: Negative. LEFT CALF VEINS: Negative. ADDITIONAL FINDINGS: None. IMPRESSION: 1. No sonographic evidence for DVT in either lower extremity. Signer Name: Pernell Zaidi MD FACIsamar Signed: 02/16/2020 5:27 PM Workstation Name: [id number]
[2020-02-16] MEDS: ACETAMINOPHEN 325 MG TAB PO PRN (17:50)
[2020-02-17] MEDS: methylPREDNISolone Sod Succinate 125 MG/2 ML INJ IV SCH ×4 (03:37→17:58)
[2020-02-17] MEDS: ARFORMOTEROL 15 MCG/2 ML NEBU IH SCH ×2 (08:50→20:48)
[2020-02-17] MEDS: BUDESONIDE 0.5 MG/2 ML NEBU IH SCH ×2 (08:50→20:48)
[2020-02-17] MEDS: ALBUTEROL 8.5 GM MDI INHALATION IH SCH ×3 (08:52→20:59)
[2020-02-17] MEDS: ASCORBIC ACID 500 MG TAB PO SCH ×2 (10:24→21:54)
[2020-02-17] MEDS: ZINC SULFATE 220 MG CAP PO SCH (10:24)
[2020-02-17] MEDS: amLODIPine 10 MG TAB PO SCH (10:25)
[2020-02-17] MEDS: hydroCHLOROthiazide 25 MG TAB PO SCH (10:25)
[2020-02-17] MEDS: ENOXAPARIN 40 MG/0.4 ML INJ SUB-Q SCH (10:25)
--- NOTE | 2020-02-17 12:15 | Progress Note ---
Assessment and Plan 59 y/o morbidly obese female admitted with acute respiratory failure secondary to COVID 19 pneumonia and possible asthma exacerbation. 1. Continue High Dose steroids and BID pulmicort brovan therapy. Along with PPV at night given history of DARIANA 2. Remdesivir and proning if possible during the day. 3. Please order labs today to evaluate renal function. If normal, would suggest another dose of IV lasix. 4. WEan FiO2 for sats >88% 5. Guarded prognosis given obesity, asthma and now COVID 19 infection. Subjective Date of service: 02/17/20 Principal diagnosis: COVID pneumonia Interval history: CXR worsening since admission. Likely related to covid. ID following. Inflammatory markers did increase but not by much. Remains hypoxic. I/O still not strict. Did get started on remdesivir yesterday. Objective Vital Signs - 12hr 02/17/20 04:21 Temperature 98.7 F Pulse Rate 80 Respiratory 18 Rate Blood Pressure 123/58 O2 Sat by Pulse 90 Oximetry CBC and BMP: 02/16/20 11:09 02/16/20 11:09 ABG, PT/INR, D-dimer: PT/INR, D-dimer D-Dimer 149.43 ng/mlDDU (0-234) 02/16/20 11:09 Abnormal lab findings: Abnormal Labs 02/11/20 02/11/20 02/11/20 00:45 00:45 03:42 WBC 3.7 L MCHC Plt Count 113 L Lymph % (Auto) 45.2 H [place] % (Auto) 13.9 H Seg Neutrophils # 1.5 L Potassium 3.4 L Chloride Carbon Dioxide BUN 6 L Glucose 114 H 106 H Calcium Ferritin Lactate Dehydrogenase C-Reactive Protein 2.90 H Total Protein Albumin 02/11/20 02/11/20 02/11/20 03:42 03:42 03:42 WBC 3.0 L MCHC 35 H Plt Count 109 L Lymph % (Auto) 38.3 H [place] % (Auto) 15.2 H Seg Neutrophils # 1.4 L Potassium 3.3 L Chloride Carbon Dioxide BUN 6 L Glucose 107 H Calcium Ferritin 231.3 H Lactate Dehydrogenase C-Reactive Protein Total Protein Albumin 02/12/20 02/13/20 02/13/20 08:30 06:02 06:02 WBC MCHC Plt Count Lymph % (Auto) [place] % (Auto) Seg Neutrophils # Potassium Chloride Carbon Dioxide BUN Glucose 104 H Calcium Ferritin 245.0 H Lactate Dehydrogenase C-Reactive Protein 2.80 H Total Protein Albumin 02/14/20 02/16/20 02/16/20 07:20 11:09 11:09 WBC MCHC Plt Count 103 L Lymph % (Auto) [place] % (Auto) Seg Neutrophils # Potassium 3.3 L Chloride 96.4 L Carbon Dioxide 35 H BUN Glucose 104 H 124 H Calcium 8.3 L Ferritin Lactate Dehydrogenase C-Reactive Protein Total Protein 6.2 L Albumin 3.3 L 02/16/20 02/16/20 11:09 11:09 WBC MCHC Plt Count Lymph % (Auto) [place] % (Auto) Seg Neutrophils # Potassium Chloride Carbon Dioxide BUN Glucose Calcium Ferritin 352.2 H Lactate Dehydrogenase 253 H C-Reactive Protein 8.90 H Total Protein Albumin
--- NOTE | 2020-02-17 12:36 | Progress Note ---
Assessment and Plan Assessment and plan: 59-year-old morbidly obese female with a medical history of asthma admitted with chief complaint of fever, shortness of breath, cough and loss of smell. Patient had tested positive for COVID-19 a day prior to presentation. While at home, her oxygen saturation fell to the 80s so she presented to the hospital for evaluation. Here in the ER, she was started on dexamethasone and admitted to the hospital. 02/12. Slight improvement noted. ID recommendations appreciated 02/13-. Plan to get a walk test patient desaturated she was placed on oxygen. 02/15. Patient remains on high oxygen-8 L. ID consulted as patient will need remdesivir. Pulmonology consulted as well. She denies any chest pain or palpitations. Elevated D-dimer noted. Ultrasound lower extremity Dopplers ordered. 02/16. Remains on high oxygen. Pulmonology advised recommendations appreciated. Ultrasound lower extremity negative for DVT. Awaiting a.m. labs -- COVID-19 PNA Current Visit: Yes Status: Acute Plan to address problem: Solu-Medrol 60 mg every 6 Hours Continue remdesivir ID and pulmonology recommendations appreciated Continue to monitor inflammatory makers Airborne and contact isolation Ascorbic acid and zinc sulphate --Acute respiratory failure with hypoxia Current Visit: Yes Status: Acute Plan to address problem: Continue oxygen supplementation Lasix as needed COVID-19 treatment --Essential (primary) hypertension Current Visit: Yes Status: Acute Plan to address problem: Continue to monitor blood pressure closely --Morbid obesity due to excess calories BMI 54.8 Current Visit: Yes Status: Acute Plan to address problem: Discussed lifestyle modification-healthy diet and weight management And medically stable -- DVT prophylaxis Current Visit: Yes Status: Acute Plan to address problem: SQH Lovenox History Interval history: Patient seen and examined at bedside this morning She mentions that she is breathing better after Lasix Still on oxygen supplementation Hospitalist Physical - Physical exam Narrative exam: VITAL SIGNS: Reviewed. GENERAL: Awake and alert on response to questions HEAD: No signs of head trauma. EYES: Pupils are equal. Extraocular motions intact. EARS: Hearing grossly intact. MOUTH: Oropharynx is normal. NECK: No adenopathy, no JVD. CHEST: Diminished breath sounds. Some rales in the bases CARDIAC: Regular rate and rhythm. S1 and S2, without murmurs, gallops, or rubs. VASCULAR: No Edema. Peripheral pulses normal and equal in all extremities. ABDOMEN: Soft, non tender and non distended. No rebound or guarding, and no masses palpated. Bowel Sounds normal. MUSCULOSKELETAL: Good range of motion of all major joints. Extremities without clubbing, cyanosis or edema. NEUROLOGIC EXAM: Alert and oriented x3. No focal neurologic deficits PSYCHIATRIC: Stable mood SKIN: No obvious lesions - Constitutional Vitals: Temp Pulse Resp BP Pulse Ox 98.7 F 80 18 123/58 90 02/17/20 04:21 02/17/20 04:21 02/17/20 04:21 02/17/20 04:21 02/17/20 04:21 HEART Score - HEART Score Troponin: Troponin T < 0.010 ng/mL (0.00-0.029) 02/11/20 07:44 Results - Labs CBC & Chem 7: 02/16/20 11:09 02/16/20 11:09 Labs: Laboratory Last Values WBC 8.0 K/mm3 (4.5-11.0) 02/16/20 11:09 RBC 4.87 M/mm3 (3.65-5.03) 02/16/20 11:09 Hgb 14.2 gm/dl (10.1-14.3) 02/16/20 11:09 Hct 42.5 % (30.3-42.9) 02/16/20 11:09 MCV 87 fl (79-97) 02/16/20 11:09 MCH 29 pg (28-32) 02/16/20 11:09 MCHC 33 % (30-34) 02/16/20 11:09 RDW 13.6 % (13.2-15.2) 02/16/20 11:09 Plt Count 103 K/mm3 (140-440) L 02/16/20 11:09 Lymph % (Auto) 38.3 % (13.4-35.0) H 02/11/20 03:42 Towner % (Auto) 15.2 % (0.0-7.3) H 02/11/20 03:42 Eos % (Auto) 0.0 % (0.0-4.3) 02/11/20 03:42 Baso % (Auto) 0.4 % (0.0-1.8) 02/11/20 03:42 Lymph # (Auto) 1.2 K/mm3 (1.2-5.4) 02/11/20 03:42 Towner # (Auto) 0.5 K/mm3 (0.0-0.8) 02/11/20 03:42 Eos # (Auto) 0.0 K/mm3 (0.0-0.4) 02/11/20 03:42 Baso # (Auto) 0.0 K/mm3 (0.0-0.1) 02/11/20 03:42 Seg Neutrophils % 46.1 % (40.0-70.0) 02/11/20 03:42 Seg Neutrophils # 1.4 K/mm3 (1.8-7.7) L 02/11/20 03:42 D-Dimer 149.43 ng/mlDDU (0-234) 02/16/20 11:09 Sodium 137 mmol/L (137-145) 02/16/20 11:09 Potassium 3.8 mmol/L (3.6-5.0) 02/16/20 11:09 Chloride 96.4 mmol/L (98-107) L 02/16/20 11:09 Carbon Dioxide 35 mmol/L (22-30) H 02/16/20 11:09 Anion Gap 9 mmol/L 02/16/20 11:09 BUN 12 mg/dL (7-17) 02/16/20 11:09 Creatinine 0.7 mg/dL (0.6-1.2) 02/16/20 11:09 Estimated GFR > 60 ml/min 02/16/20 11:09 BUN/Creatinine Ratio 17 % 02/16/20 11:09 Glucose 124 mg/dL (65-100) H 02/16/20 11:09 Calcium 8.8 mg/dL (8.4-10.2) 02/16/20 11:09 Ferritin 352.2 ng/mL (10.0-200.0) H 02/16/20 11:09 Total Bilirubin 0.20 mg/dL (0.1-1.2) 02/14/20 07:20 AST 24 units/L (5-40) 02/14/20 07:20 ALT 28 units/L (7-56) 02/14/20 07:20 Alkaline Phosphatase 43 units/L (35-129) 02/14/20 07:20 Lactate Dehydrogenase 253 units/L (91-180) H 02/16/20 11:09 Troponin T < 0.010 ng/mL (0.00-0.029) 02/11/20 07:44 C-Reactive Protein 8.90 mg/dL (0.00-1.30) H 02/16/20 11:09 NT-Pro-B Natriuret Pep 12.94 pg/mL (0-900) 02/16/20 11:09 Total Protein 6.2 g/dL (6.3-8.2) L 02/14/20 07:20 Albumin 3.3 g/dL (3.9-5) L 02/14/20 07:20 Albumin/Globulin Ratio 1.1 % 02/14/20 07:20 Procalcitonin < 0.05 ng/mL (<0.15) 02/11/20 08:12 Sutton/IV: Voiding Method Toilet IV Catheter Type [Right INT / Saline Lock Forearm] IV Catheter Type [Left Forearm INT / Saline Lock ] Active Medications - Current Medications Current Medications: Generic Name Dose Route Start Last Admin Trade Name Freq PRN Reason Stop Dose Admin Acetaminophen 650 mg 02/11/20 03:04 02/16/20 17:50 Tylenol PO 650 mg Q6H PRN Administration Pain, Mild (1-3) Al Hydrox/Mg Hydrox/Simethicone 15 ml 02/11/20 03:04 Alum-Mag Hydrox-Simeth [id number]/5ml PO Q4H PRN Indigestion Albuterol 2 puff 02/16/20 14:00 02/17/20 08:52 Proair IH 2 puff TIDRT DIMAS Administration Amlodipine Besylate 10 mg 02/11/20 10:00 02/17/20 10:25 Amlodipine PO 10 mg QDAY DIMAS Administration Arformoterol Tartrate 15 mcg 02/16/20 11:00 02/17/20 08:50 Brovana Nebu IH 15 mcg Q12HRT DIMAS Administration Ascorbic Acid 500 mg 02/11/20 10:00 02/17/20 10:24 Vitamin C PO 500 mg BID DIMAS Administration Benzonatate 100 mg 02/11/20 03:11 Tessalon Perles PO Q8HR PRN Nasal Congestion Budesonide 0.5 mg 02/16/20 11:00 02/17/20 08:50 Pulmicort IH 0.5 mg Q12HRT DIMAS Administration Diphenhydramine HCl 25 mg 02/13/20 16:20 02/14/20 21:27 Benadryl PO 25 mg QHS PRN Administration Sleep Enoxaparin Sodium 40 mg 02/11/20 10:00 02/17/20 10:25 Enoxaparin SUB-Q 40 mg QDAY@1000 [facility] Administration Protocol Hydrochlorothiazide 25 mg 02/11/20 10:00 02/17/20 10:25 Hctz PO 25 mg QDAY [facility] Administration REMDESIVIR 100 mg/ Sodium 250 mls @ 500 mls/hr 02/17/20 21:00 Chloride IV 02/20/20 21:29 Q24HR@2100 [facility] Meclizine HCl 25 mg 02/11/20 03:11 Antivert PO Q8H PRN Vertigo Methylprednisolone Sodium Succinate 60 mg 02/16/20 12:00 02/17/20 05:53 Solu-Medrol IV 60 mg Q6HR [facility] Administration Ondansetron HCl 4 mg 02/11/20 03:04 02/15/20 01:04 Zofran IV 4 mg Q4H PRN Administration Nausea And Vomiting Sodium Chloride 50 ml 02/17/20 21:00 Nacl 0.9% IV 02/20/20 21:01 Q24HR@2100 [facility] Zinc Sulfate 220 mg 02/11/20 10:00 02/17/20 10:24 Zinc Sulfate PO 220 mg QDAY DIMAS Administration
--- NOTE | 2020-02-17 14:28 | Progress Note ---
Assessment and Plan Cultures: SARS CoV2 PCR positive as an outpatient Assessment: 59 years old female with history of asthma admitted on 02/11/2020 due to a week history of fever, shortness of breath, cough, loss of smell, generalized malaise: #COVID-19 pneumonia b/l #Acute hypoxic respiratory failure: Worsening hypoxia. #Thrombocytopenia Recommendations: -Continue steroids as per pulmonary -IV remdesivir, D2 -Monitor inflammatory markers - ferritin, Ddimer, CRP -Continue anticoagulation per System Protocol Lj Little MD, FACP [facility] ([facility] O: [phone] F: [phone] Subjective Date of service: 02/17/20 Principal diagnosis: COVID pneumonia Interval history: Patient afebrile. remains on oxygen. Objective - Exam Narrative Exam: Physical Exam (reviewed in chart due to PPE conservation and minimize risk of transmission) Constitutional: limited due to PPE conservation strategy Head, Ears, Nose: limited due to PPE conservation strategy Eyes: limited due to PPE conservation strategy Neck: limited due to PPE conservation strategy Oral: limited due to PPE conservation strategy Cardiovascular: limited due to PPE conservation strategy Respiratory: limited due to PPE conservation strategy GI: limited due to PPE conservation strategy Musculoskeletal: limited due to PPE conservation strategy Skin: limited due to PPE conservation strategy Hem/Lymphatic: limited due to PPE conservation strategy Psych: limited due to PPE conservation strategy Neurological: limited due to PPE conservation strategy - Constitutional Vitals: Vital Signs Temp Pulse Resp BP Pulse Ox 98.7 F 80 18 123/58 90 02/17/20 04:21 02/17/20 04:21 02/17/20 04:21 02/17/20 04:21 02/17/20 04:21 Temperature -Last 24 Hours Temperature 98.7 F Temperature 98.9 F - Labs CBC & Chem 7: 02/16/20 11:09 02/16/20 11:09
[2020-02-17 17:28] LABS: Hematocrit 43.8 % (30.3-42.9); Hemoglobin 14.6 gm/dl (10.1-14.3); Mean Corpuscular HGB Conc 33 % (30-34); Mean Corpuscular Volume 87 fl (79-97); Platelet Count 124 K/mm3 (140-440); Red Blood Count 5.03 M/mm3 (3.65-5.03); Red Cell Distribution Width 13.6 % (13.2-15.2)
[2020-02-17] MEDS ORDERED: IPRATROPIUM/ALBUTEROL SULFATE 3 ML AMPUL.NEB IH ONE (20:33)
[2020-02-17] MEDS: ACETAMINOPHEN 325 MG TAB PO PRN (21:54)
[2020-02-17] MEDS: REMDESIVIR 100 MG in SODIUM CHLORIDE 0.9% 250ML 250 ML IV SCH (21:54)
[2020-02-17 22:17] LABS: Band Neutrophils # (Manual) 0.2 K/mm3; Basophils % (Manual) 0 % (0.0-1.8); Eosinophils % (Manual) 0 % (0.0-4.3); Total Cells Counted 100
[2020-02-17 22:21] LABS: Ovalocytes Rare; Platelet Estimate Consistent w Auto
[2020-02-18] MEDS: SODIUM CHLORIDE 0.9% 50 ML IVPB IV SCH ×2 (01:38→22:17)
[2020-02-18] MEDS: methylPREDNISolone Sod Succinate 125 MG/2 ML INJ IV SCH ×5 (01:42→23:49)
[2020-02-18] MEDS: BUDESONIDE 0.5 MG/2 ML NEBU IH SCH ×2 (08:52→20:50)
[2020-02-18] MEDS: ARFORMOTEROL 15 MCG/2 ML NEBU IH SCH ×2 (08:53→20:50)
[2020-02-18] MEDS: ALBUTEROL 8.5 GM MDI INHALATION IH SCH ×3 (08:53→20:49)
[2020-02-18 09:01] LABS: Alanine Aminotransferase 49 units/L (7-56); Albumin 3.4 g/dL (3.9-5); Blood Urea Nitrogen 17 mg/dL (7-17); Calcium 9.1 mg/dL (8.4-10.2); Hemolysis Index 0
[2020-02-18 09:03] LABS: BUN/Creatinine Ratio 24
[2020-02-18] MEDS: amLODIPine 10 MG TAB PO SCH (10:28)
[2020-02-18] MEDS: ENOXAPARIN 40 MG/0.4 ML INJ SUB-Q SCH (10:28)
[2020-02-18] MEDS: hydroCHLOROthiazide 25 MG TAB PO SCH (10:28)
[2020-02-18] MEDS: ASCORBIC ACID 500 MG TAB PO SCH ×2 (10:28→22:18)
[2020-02-18] MEDS: ACETAMINOPHEN 325 MG TAB PO PRN ×2 (10:28→22:18)
[2020-02-18] MEDS: ZINC SULFATE 220 MG CAP PO SCH (10:28)
[2020-02-18] MEDS ORDERED: FUROSEMIDE 40 MG/4 ML INJ IV ONE ×2 (11:07→12:49)
--- NOTE | 2020-02-18 11:50 | Progress Note ---
Assessment and Plan Cultures: SARS CoV2 PCR positive as an outpatient Assessment: 59 years old female with history of asthma admitted on 02/11/2020 due to a week history of fever, shortness of breath, cough, loss of smell, generalized malaise: #COVID-19 pneumonia b/l #Acute hypoxic respiratory failure: Worsening hypoxia, on BiPAP #Thrombocytopenia Recommendations: -Continue steroids as per pulmonary -IV remdesivir, D3 -Monitor inflammatory markers - ferritin, Ddimer, CRP -Continue anticoagulation per System Protocol Lj Little MD, FACP [facility] ([facility] O: [phone] F: [phone] Subjective Date of service: 02/18/20 Principal diagnosis: COVID pneumonia Interval history: Patient afebrile. Moved to [facility]. Now on BiPAP. Objective - Exam Narrative Exam: Physical Exam (reviewed in chart due to PPE conservation and minimize risk of transmission) Constitutional: limited due to PPE conservation strategy Head, Ears, Nose: limited due to PPE conservation strategy Eyes: limited due to PPE conservation strategy Neck: limited due to PPE conservation strategy Oral: limited due to PPE conservation strategy Cardiovascular: limited due to PPE conservation strategy Respiratory: limited due to PPE conservation strategy GI: limited due to PPE conservation strategy Musculoskeletal: limited due to PPE conservation strategy Skin: limited due to PPE conservation strategy Hem/Lymphatic: limited due to PPE conservation strategy Psych: limited due to PPE conservation strategy Neurological: limited due to PPE conservation strategy - Constitutional Vitals: Vital Signs Temp Pulse Resp BP Pulse Ox 98.2 F 83 29 H 152/73 96 02/18/20 08:00 02/18/20 11:00 02/18/20 11:00 02/18/20 11:00 02/18/20 11:00 Temperature -Last 24 Hours Temperature 98.2 F Temperature 97.7 F Temperature 98.1 F Temperature 97.5 F - Labs CBC & Chem 7: 02/17/20 17:00 02/18/20 07:31 Labs: Abnormal lab results 02/17/20 02/17/20 02/18/20 Range/Units 17:00 22:20 07:31 WBC 11.2 H (4.5-11.0) K/mm3 Hgb 14.6 H (10.1-14.3) gm/dl Hct 43.8 H (30.3-42.9) % Plt Count 124 L (140-440) K/mm3 Seg Neuts % (Manual) 93.0 H (40.0-70.0) % Lymphocytes % (Manual) 3.0 L (13.4-35.0) % Seg Neutrophils # Man 10.4 H (1.8-7.7) K/mm3 Lymphocytes # (Manual) 0.3 L (1.2-5.4) K/mm3 POC ABG pO2 79.9 L (83-108) mmHg ABG Sodium 134.4 L (136.0-145.0) mmol/L ABG Potassium 3.0 L (3.40-4.50) mmol/L ABG Glucose 253 H (65-95) mg/dL Carbon Dioxide 34 H (22-30) mmol/L Glucose 171 H (65-100) mg/dL Ferritin (10.0-200.0) ng/mL C-Reactive Protein 7.10 H (0.00-1.30) mg/dL Albumin 3.4 L (3.9-5) g/dL Arterial Blood Glucose 253 H (65-95) mg/dL 02/18/20 Range/Units 07:31 WBC (4.5-11.0) K/mm3 Hgb (10.1-14.3) gm/dl Hct (30.3-42.9) % Plt Count (140-440) K/mm3 Seg Neuts % (Manual) (40.0-70.0) % Lymphocytes % (Manual) (13.4-35.0) % Seg Neutrophils # Man (1.8-7.7) K/mm3 Lymphocytes # (Manual) (1.2-5.4) K/mm3 POC ABG pO2 (83-108) mmHg ABG Sodium (136.0-145.0) mmol/L ABG Potassium (3.40-4.50) mmol/L ABG Glucose (65-95) mg/dL Carbon Dioxide (22-30) mmol/L Glucose (65-100) mg/dL Ferritin 465.7 H (10.0-200.0) ng/mL C-Reactive Protein (0.00-1.30) mg/dL Albumin (3.9-5) g/dL Arterial Blood Glucose (65-95) mg/dL
--- NOTE | 2020-02-18 12:53 | Progress Note ---
Assessment and Plan 59 y/o morbidly obese female admitted with acute respiratory failure secondary to COVID 19 pneumonia and possible asthma exacerbation. 1. Continue High Dose steroids and BID pulmicort brovan therapy. Along with PPV at night given history of DARIANA 2. Remdesivir and proning if possible during the day. 3. IV lasix today, will reassess again tomorrow. 4. Wean FiO2 for sats >88% 5. Guarded prognosis given obesity, asthma and now COVID 19 infection. Subjective Date of service: 02/18/20 Principal diagnosis: COVID pneumonia Interval history: Transferred to I[facility] given increased oxygen requirement. Now on HFNC at 25 and 90 with sat of 94. Remainder is negative. Objective Vital Signs - 12hr 02/18/20 02/18/20 02/18/20 01:00 01:56 02:00 Temperature 97.7 F Pulse Rate 92 H 85 Pulse Rate [ Bilateral Throughout] Respiratory 28 H 24 Rate Respiratory Rate [Bilateral Throughout] Blood Pressure 130/68 128/68 O2 Sat by Pulse 96 96 Oximetry 02/18/20 02/18/20 02/18/20 03:00 03:34 04:00 Temperature Pulse Rate 77 74 87 Pulse Rate [ Bilateral Throughout] Respiratory 24 21 Rate Respiratory Rate [Bilateral Throughout] Blood Pressure 121/69 118/80 O2 Sat by Pulse 97 99 Oximetry 02/18/20 02/18/20 02/18/20 04:27 05:00 06:00 Temperature Pulse Rate 98 H 71 71 Pulse Rate [ Bilateral Throughout] Respiratory 28 H 22 26 H Rate Respiratory Rate [Bilateral Throughout] Blood Pressure 127/63 117/64 O2 Sat by Pulse 98 95 97 Oximetry 02/18/20 02/18/20 02/18/20 06:03 07:00 08:00 Temperature 98.2 F Pulse Rate 81 82 Pulse Rate [ Bilateral Throughout] Respiratory 26 H 29 H 39 H Rate Respiratory Rate [Bilateral Throughout] Blood Pressure 135/74 142/80 O2 Sat by Pulse 97 93 97 Oximetry 02/18/20 02/18/20 02/18/20 08:54 08:55 08:56 Temperature Pulse Rate Pulse Rate [ 75 Bilateral Throughout] Respiratory Rate Respiratory 25 H Rate [Bilateral Throughout] Blood Pressure O2 Sat by Pulse 95 95 Oximetry 02/18/20 02/18/20 02/18/20 09:00 10:00 11:00 Temperature Pulse Rate 76 87 83 Pulse Rate [ Bilateral Throughout] Respiratory 29 H 32 H 29 H Rate Respiratory Rate [Bilateral Throughout] Blood Pressure 124/73 124/73 152/73 O2 Sat by Pulse 98 94 96 Oximetry 02/18/20 12:00 Temperature 97.9 F Pulse Rate 77 Pulse Rate [ Bilateral Throughout] Respiratory 26 H Rate Respiratory Rate [Bilateral Throughout] Blood Pressure 152/73 O2 Sat by Pulse 96 Oximetry CBC and BMP: 02/17/20 17:00 02/18/20 07:31 ABG, PT/INR, D-dimer: ABG ABG pH 7.435 (7.320-7.450) 02/17/20 22:20 POC ABG pCO2 41.4 mmHg (32.0-48.0) 02/17/20 22:20 POC ABG pO2 79.9 mmHg (83-108) L 02/17/20 22:20 POC ABG HCO3 27.2 02/17/20 22:20 PT/INR, D-dimer D-Dimer 149.43 ng/mlDDU (0-234) 02/16/20 11:09 Abnormal lab findings: Abnormal Labs 02/11/20 02/11/20 02/11/20 00:45 00:45 03:42 WBC 3.7 L Hgb Hct MCHC Plt Count 113 L Lymph % (Auto) 45.2 H Saline % (Auto) 13.9 H Seg Neuts % (Manual) Lymphocytes % (Manual) Seg Neutrophils # 1.5 L Seg Neutrophils # Man Lymphocytes # (Manual) POC ABG pO2 ABG Sodium ABG Potassium ABG Glucose Potassium 3.4 L Chloride Carbon Dioxide BUN 6 L Glucose 114 H 106 H Calcium Ferritin Lactate Dehydrogenase C-Reactive Protein 2.90 H Total Protein Albumin Arterial Blood Glucose 02/11/20 02/11/20 02/11/20 03:42 03:42 03:42 WBC 3.0 L Hgb Hct MCHC 35 H Plt Count 109 L Lymph % (Auto) 38.3 H Saline % (Auto) 15.2 H Seg Neuts % (Manual) Lymphocytes % (Manual) Seg Neutrophils # 1.4 L Seg Neutrophils # Man Lymphocytes # (Manual) POC ABG pO2 ABG Sodium ABG Potassium ABG Glucose Potassium 3.3 L Chloride Carbon Dioxide BUN 6 L Glucose 107 H Calcium Ferritin 231.3 H Lactate Dehydrogenase C-Reactive Protein Total Protein Albumin Arterial Blood Glucose 02/12/20 02/13/20 02/13/20 08:30 06:02 06:02 WBC Hgb Hct MCHC Plt Count Lymph % (Auto) Saline % (Auto) Seg Neuts % (Manual) Lymphocytes % (Manual) Seg Neutrophils # Seg Neutrophils # Man Lymphocytes # (Manual) POC ABG pO2 ABG Sodium ABG Potassium ABG Glucose Potassium Chloride Carbon Dioxide BUN Glucose 104 H Calcium Ferritin 245.0 H Lactate Dehydrogenase C-Reactive Protein 2.80 H Total Protein Albumin Arterial Blood Glucose 02/14/20 02/16/20 02/16/20 07:20 11:09 11:09 WBC Hgb Hct MCHC Plt Count 103 L Lymph % (Auto) Saline % (Auto) Seg Neuts % (Manual) Lymphocytes % (Manual) Seg Neutrophils # Seg Neutrophils # Man Lymphocytes # (Manual) POC ABG pO2 ABG Sodium ABG Potassium ABG Glucose Potassium 3.3 L Chloride 96.4 L Carbon Dioxide 35 H BUN Glucose 104 H 124 H Calcium 8.3 L Ferritin Lactate Dehydrogenase C-Reactive Protein Total Protein 6.2 L Albumin 3.3 L Arterial Blood Glucose 02/16/20 02/16/20 02/17/20 11:09 11:09 17:00 WBC 11.2 H Hgb 14.6 H Hct 43.8 H MCHC Plt Count 124 L Lymph % (Auto) Saline % (Auto) Seg Neuts % (Manual) 93.0 H Lymphocytes % (Manual) 3.0 L Seg Neutrophils # Seg Neutrophils # Man 10.4 H Lymphocytes # (Manual) 0.3 L POC ABG pO2 ABG Sodium ABG Potassium ABG Glucose Potassium Chloride Carbon Dioxide BUN Glucose Calcium Ferritin 352.2 H Lactate Dehydrogenase 253 H C-Reactive Protein 8.90 H Total Protein Albumin Arterial Blood Glucose 02/17/20 02/18/20 02/18/20 22:20 07:31 07:31 WBC Hgb Hct MCHC Plt Count Lymph % (Auto) Saline % (Auto) Seg Neuts % (Manual) Lymphocytes % (Manual) Seg Neutrophils # Seg Neutrophils # Man Lymphocytes # (Manual) POC ABG pO2 79.9 L ABG Sodium 134.4 L ABG Potassium 3.0 L ABG Glucose 253 H Potassium Chloride Carbon Dioxide 34 H BUN Glucose 171 H Calcium Ferritin 465.7 H Lactate Dehydrogenase C-Reactive Protein 7.10 H Total Protein Albumin 3.4 L Arterial Blood Glucose 253 H
--- NOTE | 2020-02-18 12:55 | Progress Note ---
Assessment and Plan Assessment and plan: 59-year-old morbidly obese female with a medical history of asthma admitted with chief complaint of fever, shortness of breath, cough and loss of smell. Patient had tested positive for COVID-19 a day prior to presentation. While at home, her oxygen saturation fell to the 80s so she presented to the hospital for evaluation. Here in the ER, she was started on dexamethasone and admitted to the hospital. 02/12. Slight improvement noted. ID recommendations appreciated 02/13-. Plan to get a walk test patient desaturated she was placed on oxygen. 02/15. Patient remains on high oxygen-8 L. ID consulted as patient will need remdesivir. Pulmonology consulted as well. She denies any chest pain or palpitations. Elevated D-dimer noted. Ultrasound lower extremity Dopplers ordered. 02/16. Remains on high oxygen. Pulmonology advised recommendations appreciated. Ultrasound lower extremity negative for DVT. Awaiting a.m. labs 02/17. Had increased work of breathing yesterday so she was transferred to the [facility] on BiPAP. Lasix 40 mg IV ordered this morning. Still on Solu-Medrol and r emdesivir. ID and pulmonology following Problems -- COVID-19 PNA Current Visit: Yes Status: Acute Plan to address problem: Solu-Medrol 60 mg every 6 Hours Continue remdesivir ID and pulmonology recommendations appreciated Continue to monitor inflammatory makers Airborne and contact isolation Ascorbic acid and zinc sulphate --Acute respiratory failure with hypoxia Current Visit: Yes Status: Acute Plan to address problem: Continue oxygen supplementation Lasix as needed COVID-19 treatment --Essential (primary) hypertension Current Visit: Yes Status: Acute Plan to address problem: Continue to monitor blood pressure closely --Morbid obesity due to excess calories BMI 54.8 Current Visit: Yes Status: Acute Plan to address problem: Discussed lifestyle modification-healthy diet and weight management And medically stable -- DVT prophylaxis Current Visit: Yes Status: Acute Plan to address problem: SQH Lovenox History Interval history: Patient seen and examined at bedside this morning Had increased work of breathing so she was transferred to the [facility] on BiPAP Labs reviewed Hospitalist Physical - Physical exam Narrative exam: VITAL SIGNS: Reviewed. GENERAL: Awake and alert on response to questions HEAD: No signs of head trauma. EYES: Pupils are equal. Extraocular motions intact. EARS: Hearing grossly intact. MOUTH: Oropharynx is normal. NECK: No adenopathy, no JVD. CHEST: Diminished breath sounds. Some rales in the bases CARDIAC: Regular rate and rhythm. S1 and S2, without murmurs, gallops, or rubs. VASCULAR: No Edema. Peripheral pulses normal and equal in all extremities. ABDOMEN: Soft, non tender and non distended. No rebound or guarding, and no masses palpated. Bowel Sounds normal. MUSCULOSKELETAL: Good range of motion of all major joints. Extremities without clubbing, cyanosis or edema. NEUROLOGIC EXAM: Alert and oriented x3. No focal neurologic deficits PSYCHIATRIC: Stable mood SKIN: No obvious lesions - Constitutional Vitals: Temp Pulse Resp BP Pulse Ox 97.9 F 77 26 H 152/73 96 02/18/20 12:00 02/18/20 12:00 02/18/20 12:00 02/18/20 12:00 02/18/20 12:00 HEART Score - HEART Score Troponin: Troponin T < 0.010 ng/mL (0.00-0.029) 02/11/20 07:44 Results - Labs CBC & Chem 7: 02/17/20 17:00 02/18/20 07:31 Labs: Laboratory Last Values WBC 11.2 K/mm3 (4.5-11.0) H 02/17/20 17:00 RBC 5.03 M/mm3 (3.65-5.03) 02/17/20 17:00 Hgb 14.6 gm/dl (10.1-14.3) H 02/17/20 17:00 Hct 43.8 % (30.3-42.9) H 02/17/20 17:00 MCV 87 fl (79-97) 02/17/20 17:00 MCH 29 pg (28-32) 02/17/20 17:00 MCHC 33 % (30-34) 02/17/20 17:00 RDW 13.6 % (13.2-15.2) 02/17/20 17:00 Plt Count 124 K/mm3 (140-440) L 02/17/20 17:00 Lymph % (Auto) Not Reportable 02/17/20 17:00 [place] % (Auto) Not Reportable 02/17/20 17:00 Eos % (Auto) Not Reportable 02/17/20 17:00 Baso % (Auto) Not Reportable 02/17/20 17:00 Lymph # (Auto) Not Reportable 02/17/20 17:00 [place] # (Auto) Not Reportable 02/17/20 17:00 Eos # (Auto) Not Reportable 02/17/20 17:00 Baso # (Auto) Not Reportable 02/17/20 17:00 Add Manual Diff Complete 02/17/20 17:00 Total Counted 100 02/17/20 17:00 Seg Neutrophils % 46.1 % (40.0-70.0) 02/11/20 03:42 Seg Neuts % (Manual) 93.0 % (40.0-70.0) H 02/17/20 17:00 Band Neutrophils % 2.0 % 02/17/20 17:00 Lymphocytes % (Manual) 3.0 % (13.4-35.0) L 02/17/20 17:00 Reactive Lymphs % (Man) 0 % 02/17/20 17:00 Monocytes % (Manual) 2.0 % (0.0-7.3) 02/17/20 17:00 Eosinophils % (Manual) 0 % (0.0-4.3) 02/17/20 17:00 Basophils % (Manual) 0 % (0.0-1.8) 02/17/20 17:00 Metamyelocytes % 0 % 02/17/20 17:00 Myelocytes % 0 % 02/17/20 17:00 Promyelocytes % 0 % 02/17/20 17:00 Blast Cells % 0 % 02/17/20 17:00 Nucleated RBC % Not Reportable 02/17/20 17:00 Seg Neutrophils # Not Reportable 02/17/20 17:00 Seg Neutrophils # Man 10.4 K/mm3 (1.8-7.7) H 02/17/20 17:00 Band Neutrophils # 0.2 K/mm3 02/17/20 17:00 Lymphocytes # (Manual) 0.3 K/mm3 (1.2-5.4) L 02/17/20 17:00 Abs React Lymphs (Man) 0.0 K/mm3 02/17/20 17:00 Monocytes # (Manual) 0.2 K/mm3 (0.0-0.8) 02/17/20 17:00 Eosinophils # (Manual) 0.0 K/mm3 (0.0-0.4) 02/17/20 17:00 Basophils # (Manual) 0.0 K/mm3 (0.0-0.1) 02/17/20 17:00 Metamyelocytes # 0.0 K/mm3 02/17/20 17:00 Myelocytes # 0.0 K/mm3 02/17/20 17:00 Promyelocytes # 0.0 K/mm3 02/17/20 17:00 Blast Cells # 0.0 K/mm3 02/17/20 17:00 WBC Morphology Not Reportable 02/17/20 17:00 Hypersegmented Neuts Not Reportable 02/17/20 17:00 Hyposegmented Neuts Not Reportable 02/17/20 17:00 Hypogranular Neuts Not Reportable 02/17/20 17:00 Smudge Cells Not Reportable 02/17/20 17:00 Toxic Granulation Not Reportable 02/17/20 17:00 Toxic Vacuolation Not Reportable 02/17/20 17:00 Dohle Bodies Not Reportable 02/17/20 17:00 Pelger-Huet Anomaly Not Reportable 02/17/20 17:00 Ashkan Rods Not Reportable 02/17/20 17:00 Platelet Estimate Consistent w auto 02/17/20 17:00 Clumped Platelets Not Reportable 02/17/20 17:00 Plt Clumps, EDTA Not Reportable 02/17/20 17:00 Large Platelets Not Reportable 02/17/20 17:00 Giant Platelets Not Reportable 02/17/20 17:00 Platelet Satelliting Not Reportable 02/17/20 17:00 Plt Morphology Comment Not Reportable 02/17/20 17:00 RBC Morphology Not Reportable 02/17/20 17:00 Dimorphic RBCs Not Reportable 02/17/20 17:00 Polychromasia Not Reportable 02/17/20 17:00 Hypochromasia Not Reportable 02/17/20 17:00 Poikilocytosis Not Reportable 02/17/20 17:00 Anisocytosis Not Reportable 02/17/20 17:00 Microcytosis Not Reportable 02/17/20 17:00 Macrocytosis Not Reportable 02/17/20 17:00 Spherocytes Not Reportable 02/17/20 17:00 Pappenheimer Bodies Not Reportable 02/17/20 17:00 Sickle Cells Not Reportable 02/17/20 17:00 Target Cells Not Reportable 02/17/20 17:00 Tear Drop Cells Not Reportable 02/17/20 17:00 Ovalocytes Rare 02/17/20 17:00 Helmet Cells Not Reportable 02/17/20 17:00 [place] Bodies Not Reportable 02/17/20 17:00 [place] Rings Not Reportable 02/17/20 17:00 [place] Cells Not Reportable 02/17/20 17:00 Bite Cells Not Reportable 02/17/20 17:00 Crenated Cell Not Reportable 02/17/20 17:00 Elliptocytes Not Reportable 02/17/20 17:00 Acanthocytes (Spur) Not Reportable 02/17/20 17:00 Rouleaux Not Reportable 02/17/20 17:00 Hemoglobin C Crystals Not Reportable 02/17/20 17:00 Schistocytes Not Reportable 02/17/20 17:00 Malaria parasites Not Reportable 02/17/20 17:00 Hossein Bodies Not Reportable 02/17/20 17:00 Hem Pathologist Commnt No 02/17/20 17:00 D-Dimer 149.43 ng/mlDDU (0-234) 02/16/20 11:09 ABG pH 7.435 (7.320-7.450) 02/17/20 22:20 POC ABG pCO2 41.4 mmHg (32.0-48.0) 02/17/20 22:20 POC ABG pO2 79.9 mmHg (83-108) L 02/17/20 22:20 POC ABG HCO3 27.2 02/17/20 22:20 POC ABG Base Excess 2.7 02/17/20:20 ABG Hemoglobin 14.8 (12.0-17.5) 02/17/20 22:20 ABG Oxyhemoglobin 95.6 (94-98) 02/17/20:20 ABG Methemoglobin 0 (0.0-1.5) 02/17/20 22:20 ABG Sodium 134.4 mmol/L (136.0-145.0) L 02/17/20 22:20 ABG Potassium 3.0 mmol/L (3.40-4.50) L 02/17/20 22:20 ABG Chloride 99.0 mmol/L (98-107) 02/17/20 22:20 ABG Glucose 253 mg/dL (65-95) H 02/17/20 22:20 Carboxyhemoglobin 0.5 (0.5-1.5) 02/17/20 22:20 FiO2 100 02/17/20 22:20 Sodium 141 mmol/L (137-145) 02/18/20 07:31 Potassium 3.7 mmol/L (3.6-5.0) 02/18/20 07:31 Chloride 98.7 mmol/L (98-107) 02/18/20 07:31 Carbon Dioxide 34 mmol/L (22-30) H 02/18/20 07:31 Anion Gap 12 mmol/L 02/18/20 07:31 BUN 17 mg/dL (7-17) 02/18/20 07:31 Creatinine 0.7 mg/dL (0.6-1.2) 02/18/20 07:31 Estimated GFR > 60 ml/min 02/18/20 07:31 BUN/Creatinine Ratio 24 % 02/18/20 07:31 Glucose 171 mg/dL (65-100) H 02/18/20 07:31 Calcium 9.1 mg/dL (8.4-10.2) 02/18/20 07:31 Ferritin 465.7 ng/mL (10.0-200.0) H 02/18/20 07:31 Total Bilirubin 0.20 mg/dL (0.1-1.2) 02/18/20 07:31 AST 30 units/L (5-40) 02/18/20 07:31 ALT 49 units/L (7-56) 02/18/20 07:31 Alkaline Phosphatase 44 units/L (35-129) 02/18/20 07:31 Lactate Dehydrogenase 253 units/L (91-180) H 02/16/20 11:09 Troponin T < 0.010 ng/mL (0.00-0.029) 02/11/20 07:44 C-Reactive Protein 7.10 mg/dL (0.00-1.30) H 02/18/20 07:31 NT-Pro-B Natriuret Pep 12.94 pg/mL (0-900) 02/16/20 11:09 Total Protein 7.0 g/dL (6.3-8.2) 02/18/20 07:31 Albumin 3.4 g/dL (3.9-5) L 02/18/20 07:31 Albumin/Globulin Ratio 0.9 % 02/18/20 07:31 Procalcitonin < 0.05 ng/mL (<0.15) 02/11/20 08:12 Arterial Blood Glucose 253 mg/dL (65-95) H 02/17/20 22:20 Arterial Blood Ionized Calcium 4.6 mg/dL (4.6-5.3) 02/17/20 22:20 [place]/IV: Voiding Method External Female Catheter IV Catheter Type [Left Hand] INT / Saline Lock IV Catheter Type [Right INT / Saline Lock Forearm] IV Catheter Type [Left Forearm INT / Saline Lock ] Active Medications - Current Medications Current Medications: Generic Name Dose Route Start Last Admin Trade Name Freq PRN Reason Stop Dose Admin Acetaminophen 650 mg 02/11/20 03:04 02/18/20 10:28 Tylenol PO 650 mg Q6H PRN Administration Pain, Mild (1-3) Al Hydrox/Mg Hydrox/Simethicone 15 ml 02/11/20 03:04 Alum-Mag Hydrox-Simeth [id number]/5ml PO Q4H PRN Indigestion Albuterol 2 puff 02/16/20 14:00 02/18/20 08:53 Proair IH 2 puff TIDRT DIMAS Administration Amlodipine Besylate 10 mg 02/11/20 10:00 02/18/20 10:28 Amlodipine PO 10 mg QDAY DIMAS Administration Arformoterol Tartrate 15 mcg 02/16/20 11:00 02/18/20 08:53 Brovana Nebu IH 15 mcg Q12HRT DIMAS Administration Ascorbic Acid 500 mg 02/11/20 10:00 02/18/20 10:28 Vitamin C PO 500 mg BID DIMAS Administration Benzonatate 100 mg 02/11/20 03:11 Tessalon Perles PO Q8HR PRN Nasal Congestion Budesonide 0.5 mg 02/16/20 11:00 02/18/20 08:52 Pulmicort IH 0.5 mg Q12HRT DIMAS Administration Diphenhydramine HCl 25 mg 02/13/20 16:20 02/14/20 21:27 Benadryl PO 25 mg QHS PRN Administration Sleep Enoxaparin Sodium 40 mg 02/11/20 10:00 02/18/20 10:28 Enoxaparin SUB-Q 40 mg QDAY@1000 DIMAS Administration Protocol Hydrochlorothiazide 25 mg 02/11/20 10:00 02/18/20 10:28 Hctz PO 25 mg QDAY DIMAS Administration REMDESIVIR 100 mg/ Sodium 250 mls @ 500 mls/hr 02/17/20 21:00 02/17/20 21:54 Chloride IV 02/20/20 21:29 500 mls/hr Q24HR@2100 DIMAS Administration Meclizine HCl 25 mg 02/11/20 03:11 Antivert PO Q8H PRN Vertigo Methylprednisolone Sodium Succinate 60 mg 02/16/20 12:00 02/18/20 11:04 Solu-Medrol IV 60 mg Q6HR DIMAS Administration Ondansetron HCl 4 mg 02/11/20 03:04 02/15/20 01:04 Zofran IV 4 mg Q4H PRN Administration Nausea And Vomiting Sodium Chloride 50 ml 02/17/20 21:00 02/18/20 01:38 Nacl 0.9% IV 02/20/20 21:01 Not Given Q24HR@2100 [facility] Zinc Sulfate 220 mg 02/11/20 10:00 02/18/20 10:28 Zinc Sulfate PO 220 mg QDAY DIMAS Administration
[2020-02-18] MEDS: REMDESIVIR 100 MG in SODIUM CHLORIDE 0.9% 250ML 250 ML IV SCH (22:17)
[2020-02-18] MEDS: MAGIC MOUTHWASH 30ML PO SCH (23:00)
[2020-02-19] MEDS: methylPREDNISolone Sod Succinate 125 MG/2 ML INJ IV SCH ×3 (05:06→18:56)
[2020-02-19 05:44] LABS: Basophils % (Auto) 0.2 % (0.0-1.8); Hematocrit 42.9 % (30.3-42.9); Hemoglobin 14.4 gm/dl (10.1-14.3); Lymphocytes # (Auto) 0.9 K/mm3 (1.2-5.4); Lymphocytes % (Auto) 6.6 % (13.4-35.0); Mean Corpuscular HGB Conc 34 % (30-34); Mean Corpuscular Volume 87 fl (79-97); Monocytes # (Auto) 0.5 K/mm3 (0.0-0.8); Monocytes % (Auto) 3.7 % (0.0-7.3); Platelet Count 162 K/mm3 (140-440); Red Blood Count 4.92 M/mm3 (3.65-5.03); Red Cell Distribution Width 13.6 % (13.2-15.2)
[2020-02-19 06:14] LABS: Alanine Aminotransferase 61 units/L (7-56); Blood Urea Nitrogen 23 mg/dL (7-17); Hemolysis Index 21
[2020-02-19 06:16] LABS: BUN/Creatinine Ratio 33
[2020-02-19] MEDS ORDERED: POTASSIUM CHLORIDE ER 20 MEQ TAB PO SCH (08:09)
[2020-02-19] MEDS: BUDESONIDE 0.5 MG/2 ML NEBU IH SCH ×2 (08:38→20:55)
[2020-02-19] MEDS: ARFORMOTEROL 15 MCG/2 ML NEBU IH SCH ×2 (08:38→20:55)
[2020-02-19] MEDS: ALBUTEROL 8.5 GM MDI INHALATION IH SCH ×3 (08:39→20:55)
[2020-02-19] MEDS: amLODIPine 10 MG TAB PO SCH (10:06)
[2020-02-19] MEDS: ZINC SULFATE 220 MG CAP PO SCH (10:06)
[2020-02-19] MEDS: ASCORBIC ACID 500 MG TAB PO SCH ×2 (10:07→21:11)
[2020-02-19] MEDS: ENOXAPARIN 40 MG/0.4 ML INJ SUB-Q SCH (10:07)
[2020-02-19] MEDS: ACETAMINOPHEN 325 MG TAB PO PRN (10:07)
--- NOTE | 2020-02-19 10:55 | Progress Note ---
Assessment and Plan 59 y/o morbidly obese female admitted with acute respiratory failure secondary to COVID 19 pneumonia and possible asthma exacerbation. 1. Continue High Dose steroids and BID pulmicort brovan therapy. Along with PPV at night given history of DARIANA 2. Remdesivir and proning if possible during the day. 3. Hold IV lasix today, reassess for tomorrow. Please check at least a chemistry again tomorrow 4. Wean FiO2 for sats >88% 5. Guarded prognosis given obesity, asthma and now COVID 19 infection. Subjective Date of service: 02/19/20 Principal diagnosis: COVID pneumonia Interval history: No acute events. RT was able to wean the HFNC some. I/O not strict but appears to have tolerated lasix therapy on yesterday. K is low this am. Will replace. Remainder is negative. Objective Vital Signs - 12hr 02/18/20 02/18/20 02/18/20 23:00 23:14 23:38 Temperature 97.4 F L Pulse Rate 74 75 Pulse Rate [ Bilateral Throughout] Pulse Rate [ From Monitor] Respiratory 23 27 H Rate Respiratory Rate [Bilateral Throughout] Blood Pressure 131/78 115/64 O2 Sat by Pulse 97 95 Oximetry 02/18/20 02/19/20 02/19/20 23:46 00:00 00:04 Temperature Pulse Rate 83 84 83 Pulse Rate [ Bilateral Throughout] Pulse Rate [ 83 From Monitor] Respiratory 26 H 26 H 27 H Rate Respiratory Rate [Bilateral Throughout] Blood Pressure 137/75 131/78 O2 Sat by Pulse 95 92 95 Oximetry 02/19/20 02/19/20 02/19/20 01:00 02:00 03:00 Temperature Pulse Rate 77 73 71 Pulse Rate [ Bilateral Throughout] Pulse Rate [ From Monitor] Respiratory 24 24 25 H Rate Respiratory Rate [Bilateral Throughout] Blood Pressure 115/67 113/71 120/74 O2 Sat by Pulse 92 92 92 Oximetry 02/19/20 02/19/20 02/19/20 03:58 04:00 04:26 Temperature 97.6 F Pulse Rate 71 68 Pulse Rate [ Bilateral Throughout] Pulse Rate [ 71 From Monitor] Respiratory 24 22 Rate Respiratory Rate [Bilateral Throughout] Blood Pressure 123/79 O2 Sat by Pulse 95 95 Oximetry 02/19/20 02/19/20 02/19/20 05:00 06:00 06:38 Temperature Pulse Rate 72 70 Pulse Rate [ Bilateral Throughout] Pulse Rate [ From Monitor] Respiratory 16 25 H Rate Respiratory Rate [Bilateral Throughout] Blood Pressure 135/78 125/74 O2 Sat by Pulse 95 91 94 Oximetry 02/19/20 02/19/20 02/19/20 07:01 08:00 08:39 Temperature 97.6 F Pulse Rate 95 H 88 Pulse Rate [ Bilateral Throughout] Pulse Rate [ From Monitor] Respiratory 35 H 23 Rate Respiratory Rate [Bilateral Throughout] Blood Pressure 140/90 138/84 O2 Sat by Pulse 94 90 94 Oximetry 02/19/20 02/19/20 02/19/20 09:00 10:06 10:10 Temperature Pulse Rate 88 91 H Pulse Rate [ 85 Bilateral Throughout] Pulse Rate [ From Monitor] Respiratory 25 H Rate Respiratory 22 Rate [Bilateral Throughout] Blood Pressure 133/72 131/71 O2 Sat by Pulse 95 94 Oximetry CBC and BMP: 02/19/20 05:15 02/19/20 05:15 ABG, PT/INR, D-dimer: ABG ABG pH 7.435 (7.320-7.450) 02/17/20 22:20 POC ABG pCO2 41.4 mmHg (32.0-48.0) 02/17/20 22:20 POC ABG pO2 79.9 mmHg (83-108) L 02/17/20 22:20 POC ABG HCO3 27.2 02/17/20 22:20 PT/INR, D-dimer D-Dimer 149.43 ng/mlDDU (0-234) 02/16/20 11:09 Abnormal lab findings: Abnormal Labs 02/11/20 02/11/20 02/11/20 00:45 00:45 03:42 WBC 3.7 L Hgb Hct MCHC Plt Count 113 L Lymph % (Auto) 45.2 H [place] % (Auto) 13.9 H Lymph # (Auto) Seg Neutrophils % Seg Neuts % (Manual) Lymphocytes % (Manual) Seg Neutrophils # 1.5 L Seg Neutrophils # Man Lymphocytes # (Manual) POC ABG pO2 ABG Sodium ABG Potassium ABG Glucose Potassium 3.4 L Chloride Carbon Dioxide BUN 6 L Glucose 114 H 106 H Calcium Ferritin ALT Lactate Dehydrogenase C-Reactive Protein 2.90 H Total Protein Albumin Arterial Blood Glucose 02/11/20 02/11/20 02/11/20 03:42 03:42 03:42 WBC 3.0 L Hgb Hct MCHC 35 H Plt Count 109 L Lymph % (Auto) 38.3 H [place] % (Auto) 15.2 H Lymph # (Auto) Seg Neutrophils % Seg Neuts % (Manual) Lymphocytes % (Manual) Seg Neutrophils # 1.4 L Seg Neutrophils # Man Lymphocytes # (Manual) POC ABG pO2 ABG Sodium ABG Potassium ABG Glucose Potassium 3.3 L Chloride Carbon Dioxide BUN 6 L Glucose 107 H Calcium Ferritin 231.3 H ALT Lactate Dehydrogenase C-Reactive Protein Total Protein Albumin Arterial Blood Glucose 02/12/20 02/13/20 02/13/20 08:30 06:02 06:02 WBC Hgb Hct MCHC Plt Count Lymph % (Auto) [place] % (Auto) Lymph # (Auto) Seg Neutrophils % Seg Neuts % (Manual) Lymphocytes % (Manual) Seg Neutrophils # Seg Neutrophils # Man Lymphocytes # (Manual) POC ABG pO2 ABG Sodium ABG Potassium ABG Glucose Potassium Chloride Carbon Dioxide BUN Glucose 104 H Calcium Ferritin 245.0 H ALT Lactate Dehydrogenase C-Reactive Protein 2.80 H Total Protein Albumin Arterial Blood Glucose 02/14/20 02/16/20 02/16/20 07:20 11:09 11:09 WBC Hgb Hct MCHC Plt Count 103 L Lymph % (Auto) [place] % (Auto) Lymph # (Auto) Seg Neutrophils % Seg Neuts % (Manual) Lymphocytes % (Manual) Seg Neutrophils # Seg Neutrophils # Man Lymphocytes # (Manual) POC ABG pO2 ABG Sodium ABG Potassium ABG Glucose Potassium 3.3 L Chloride 96.4 L Carbon Dioxide 35 H BUN Glucose 104 H 124 H Calcium 8.3 L Ferritin ALT Lactate Dehydrogenase C-Reactive Protein Total Protein 6.2 L Albumin 3.3 L Arterial Blood Glucose 02/16/20 02/16/20 02/17/20 11:09 11:09 17:00 WBC 11.2 H Hgb 14.6 H Hct 43.8 H MCHC Plt Count 124 L Lymph % (Auto) [place] % (Auto) Lymph # (Auto) Seg Neutrophils % Seg Neuts % (Manual) 93.0 H Lymphocytes % (Manual) 3.0 L Seg Neutrophils # Seg Neutrophils # Man 10.4 H Lymphocytes # (Manual) 0.3 L POC ABG pO2 ABG Sodium ABG Potassium ABG Glucose Potassium Chloride Carbon Dioxide BUN Glucose Calcium Ferritin 352.2 H ALT Lactate Dehydrogenase 253 H C-Reactive Protein 8.90 H Total Protein Albumin Arterial Blood Glucose 02/17/20 02/18/20 02/18/20 22:20 07:31 07:31 WBC Hgb Hct MCHC Plt Count Lymph % (Auto) [place] % (Auto) Lymph # (Auto) Seg Neutrophils % Seg Neuts % (Manual) Lymphocytes % (Manual) Seg Neutrophils # Seg Neutrophils # Man Lymphocytes # (Manual) POC ABG pO2 79.9 L ABG Sodium 134.4 L ABG Potassium 3.0 L ABG Glucose 253 H Potassium Chloride Carbon Dioxide 34 H BUN Glucose 171 H Calcium Ferritin 465.7 H ALT Lactate Dehydrogenase C-Reactive Protein 7.10 H Total Protein Albumin 3.4 L Arterial Blood Glucose 253 H 02/19/20 02/19/20 05:15 05:15 WBC 14.3 H Hgb 14.4 H Hct MCHC Plt Count Lymph % (Auto) 6.6 L [place] % (Auto) Lymph # (Auto) 0.9 L Seg Neutrophils % 89.5 H Seg Neuts % (Manual) Lymphocytes % (Manual) Seg Neutrophils # 12.8 H Seg Neutrophils # Man Lymphocytes # (Manual) POC ABG pO2 ABG Sodium ABG Potassium ABG Glucose Potassium 3.5 L Chloride Carbon Dioxide BUN 23 H Glucose 163 H Calcium Ferritin ALT 61 H Lactate Dehydrogenase C-Reactive Protein Total Protein Albumin 3.0 L Arterial Blood Glucose
--- NOTE | 2020-02-19 12:08 | Progress Note ---
Assessment and Plan Cultures: SARS CoV2 PCR positive as an outpatient Assessment: 59 years old female with history of asthma admitted on 02/11/2020 due to a week history of fever, shortness of breath, cough, loss of smell, generalized malaise: #COVID-19 pneumonia b/l #Acute hypoxic respiratory failure: hypoxia requiring BiPAP/HFNC. #Thrombocytopenia: improved Recommendations: -Continue steroids as per pulmonary -IV remdesivir, D4 -Monitor inflammatory markers - ferritin, Ddimer, CRP -Continue anticoagulation per System Protocol -f/u COVID IgG Lj Little MD, FACP [facility] ([facility] O: [phone] F: [phone] Subjective Date of service: 02/19/20 Principal diagnosis: COVID pneumonia Interval history: Patient afebrile. Remains on HFNC. Objective - Exam Narrative Exam: Physical Exam (reviewed in chart due to PPE conservation and minimize risk of transmission) Constitutional: limited due to PPE conservation strategy Head, Ears, Nose: limited due to PPE conservation strategy Eyes: limited due to PPE conservation strategy Neck: limited due to PPE conservation strategy Oral: limited due to PPE conservation strategy Cardiovascular: limited due to PPE conservation strategy Respiratory: limited due to PPE conservation strategy GI: limited due to PPE conservation strategy Musculoskeletal: limited due to PPE conservation strategy Skin: limited due to PPE conservation strategy Hem/Lymphatic: limited due to PPE conservation strategy Psych: limited due to PPE conservation strategy Neurological: limited due to PPE conservation strategy - Constitutional Vitals: Vital Signs Temp Pulse Resp BP Pulse Ox 97.6 F 87 24 131/81 94 02/19/20 08:00 02/19/20 11:00 02/19/20 11:00 02/19/20 11:00 02/19/20 11:00 Temperature -Last 24 Hours Temperature 97.6 F Temperature 97.6 F Temperature 97.4 F Temperature 97.4 F Temperature 97.4 F - Labs CBC & Chem 7: 02/19/20 05:15 02/19/20 05:15 Labs: Abnormal lab results 02/19/20 02/19/20 Range/Units 05:15 05:15 WBC 14.3 H (4.5-11.0) K/mm3 Hgb 14.4 H (10.1-14.3) gm/dl Lymph % (Auto) 6.6 L (13.4-35.0) % Lymph # (Auto) 0.9 L (1.2-5.4) K/mm3 Seg Neutrophils % 89.5 H (40.0-70.0) % Seg Neutrophils # 12.8 H (1.8-7.7) K/mm3 Potassium 3.5 L (3.6-5.0) mmol/L BUN 23 H (7-17) mg/dL Glucose 163 H (65-100) mg/dL ALT 61 H (7-56) units/L Albumin 3.0 L (3.9-5) g/dL
[2020-02-19] MEDS: MAGIC MOUTHWASH 30ML PO SCH ×3 (12:31→20:27)
--- NOTE | 2020-02-19 15:43 | Progress Note ---
Assessment and Plan Assessment and plan: 59-year-old morbidly obese female with a medical history of asthma admitted with chief complaint of fever, shortness of breath, cough and loss of smell. Patient had tested positive for COVID-19 a day prior to presentation. While at home, her oxygen saturation fell to the 80s so she presented to the hospital for evaluation. Here in the ER, she was started on dexamethasone and admitted to the hospital. 02/12. Slight improvement noted. ID recommendations appreciated 02/13-. Plan to get a walk test patient desaturated she was placed on oxygen. 02/15. Patient remains on high oxygen-8 L. ID consulted as patient will need remdesivir. Pulmonology consulted as well. She denies any chest pain or palpitations. Elevated D-dimer noted. Ultrasound lower extremity Dopplers ordered. 02/16. Remains on high oxygen. Pulmonology advised recommendations appreciated. Ultrasound lower extremity negative for DVT. Awaiting a.m. labs 02/17. Had increased work of breathing yesterday so she was transferred to the [facility] on BiPAP. Lasix 40 mg IV ordered this morning. Still on Solu-Medrol and r emdesivir. ID and pulmonology following 02/18. On high flow nasal cannula with sats in the 90s. Still on Solu-Medrol and remdesivir. Labs reviewed. Continue to monitor Problems -- COVID-19 PNA Current Visit: Yes Status: Acute Plan to address problem: Solu-Medrol Continue remdesivir ID and pulmonology recommendations appreciated Continue to monitor inflammatory makers Airborne and contact isolation Ascorbic acid and zinc sulphate Prone positioning as much as possible/as tolerated --Acute respiratory failure with hypoxia Current Visit: Yes Status: Acute Plan to address problem: Continue oxygen supplementation Lasix as needed COVID-19 treatment --Essential (primary) hypertension Current Visit: Yes Status: Acute Plan to address problem: Continue to monitor blood pressure closely --Morbid obesity due to excess calories BMI 54.8 Current Visit: Yes Status: Acute Plan to address problem: Discussed lifestyle modification-healthy diet and weight management And medically stable -- DVT prophylaxis Current Visit: Yes Status: Acute Plan to address problem: SQH Lovenox History Interval history: Patient seen and examined at bedside this morning No new complaints but still gets dyspneic with minimal ambulation Labs reviewed Hospitalist Physical - Physical exam Narrative exam: VITAL SIGNS: Reviewed. GENERAL: Awake and alert on response to questions HEAD: No signs of head trauma. EYES: Pupils are equal. Extraocular motions intact. EARS: Hearing grossly intact. MOUTH: Oropharynx is normal. NECK: No adenopathy, no JVD. CHEST: Diminished breath sounds. Some rales in the bases CARDIAC: Regular rate and rhythm. S1 and S2, without murmurs, gallops, or rubs. VASCULAR: No Edema. Peripheral pulses normal and equal in all extremities. ABDOMEN: Soft, non tender and non distended. No rebound or guarding, and no masses palpated. Bowel Sounds normal. MUSCULOSKELETAL: Good range of motion of all major joints. Extremities without clubbing, cyanosis or edema. NEUROLOGIC EXAM: Alert and oriented x3. No focal neurologic deficits PSYCHIATRIC: Stable mood SKIN: No obvious lesions - Constitutional Vitals: Temp Pulse Resp BP Pulse Ox 97.6 F 96 H 25 H 118/65 90 02/19/20 08:00 02/19/20 15:00 02/19/20 15:00 02/19/20 15:00 02/19/20 15:00 HEART Score - HEART Score Troponin: Troponin T < 0.010 ng/mL (0.00-0.029) 02/11/20 07:44 Results - Labs CBC & Chem 7: 02/19/20 05:15 02/19/20 05:15 Labs: Laboratory Last Values WBC 14.3 K/mm3 (4.5-11.0) H 02/19/20 05:15 RBC 4.92 M/mm3 (3.65-5.03) 02/19/20 05:15 Hgb 14.4 gm/dl (10.1-14.3) H 02/19/20 05:15 Hct 42.9 % (30.3-42.9) 02/19/20 05:15 MCV 87 fl (79-97) 02/19/20 05:15 MCH 29 pg (28-32) 02/19/20 05:15 MCHC 34 % (30-34) 02/19/20 05:15 RDW 13.6 % (13.2-15.2) 02/19/20 05:15 Plt Count 162 K/mm3 (140-440) 02/19/20 05:15 Lymph % (Auto) 6.6 % (13.4-35.0) L 02/19/20 05:15 [place] % (Auto) 3.7 % (0.0-7.3) 02/19/20 05:15 Eos % (Auto) 0.0 % (0.0-4.3) 02/19/20 05:15 Baso % (Auto) 0.2 % (0.0-1.8) 02/19/20 05:15 Lymph # (Auto) 0.9 K/mm3 (1.2-5.4) L 02/19/20 05:15 [place] # (Auto) 0.5 K/mm3 (0.0-0.8) 02/19/20 05:15 Eos # (Auto) 0.0 K/mm3 (0.0-0.4) 02/19/20 05:15 Baso # (Auto) 0.0 K/mm3 (0.0-0.1) 02/19/20 05:15 Add Manual Diff Complete 02/17/20 17:00 Total Counted 100 02/17/20 17:00 Seg Neutrophils % 89.5 % (40.0-70.0) H 02/19/20 05:15 Seg Neuts % (Manual) 93.0 % (40.0-70.0) H 02/17/20 17:00 Band Neutrophils % 2.0 % 02/17/20 17:00 Lymphocytes % (Manual) 3.0 % (13.4-35.0) L 02/17/20 17:00 Reactive Lymphs % (Man) 0 % 02/17/20 17:00 Monocytes % (Manual) 2.0 % (0.0-7.3) 02/17/20 17:00 Eosinophils % (Manual) 0 % (0.0-4.3) 02/17/20 17:00 Basophils % (Manual) 0 % (0.0-1.8) 02/17/20 17:00 Metamyelocytes % 0 % 02/17/20 17:00 Myelocytes % 0 % 02/17/20 17:00 Promyelocytes % 0 % 02/17/20 17:00 Blast Cells % 0 % 02/17/20 17:00 Nucleated RBC % Not Reportable 02/17/20 17:00 Seg Neutrophils # 12.8 K/mm3 (1.8-7.7) H 02/19/20 05:15 Seg Neutrophils # Man 10.4 K/mm3 (1.8-7.7) H 02/17/20 17:00 Band Neutrophils # 0.2 K/mm3 02/17/20 17:00 Lymphocytes # (Manual) 0.3 K/mm3 (1.2-5.4) L 02/17/20 17:00 Abs React Lymphs (Man) 0.0 K/mm3 02/17/20 17:00 Monocytes # (Manual) 0.2 K/mm3 (0.0-0.8) 02/17/20 17:00 Eosinophils # (Manual) 0.0 K/mm3 (0.0-0.4) 02/17/20 17:00 Basophils # (Manual) 0.0 K/mm3 (0.0-0.1) 02/17/20 17:00 Metamyelocytes # 0.0 K/mm3 02/17/20 17:00 Myelocytes # 0.0 K/mm3 02/17/20 17:00 Promyelocytes # 0.0 K/mm3 02/17/20 17:00 Blast Cells # 0.0 K/mm3 02/17/20 17:00 WBC Morphology Not Reportable 02/17/20 17:00 Hypersegmented Neuts Not Reportable 02/17/20 17:00 Hyposegmented Neuts Not Reportable 02/17/20 17:00 Hypogranular Neuts Not Reportable 02/17/20 17:00 Smudge Cells Not Reportable 02/17/20 17:00 Toxic Granulation Not Reportable 02/17/20 17:00 Toxic Vacuolation Not Reportable 02/17/20 17:00 Dohle Bodies Not Reportable 02/17/20 17:00 Pelger-Huet Anomaly Not Reportable 02/17/20 17:00 Ashkan Rods Not Reportable 02/17/20 17:00 Platelet Estimate Consistent w auto 02/17/20 17:00 Clumped Platelets Not Reportable 02/17/20 17:00 Plt Clumps, EDTA Not Reportable 02/17/20 17:00 Large Platelets Not Reportable 02/17/20 17:00 Giant Platelets Not Reportable 02/17/20 17:00 Platelet Satelliting Not Reportable 02/17/20 17:00 Plt Morphology Comment Not Reportable 02/17/20 17:00 RBC Morphology Not Reportable 02/17/20 17:00 Dimorphic RBCs Not Reportable 02/17/20 17:00 Polychromasia Not Reportable 02/17/20 17:00 Hypochromasia Not Reportable 02/17/20 17:00 Poikilocytosis Not Reportable 02/17/20 17:00 Anisocytosis Not Reportable 02/17/20 17:00 Microcytosis Not Reportable 02/17/20 17:00 Macrocytosis Not Reportable 02/17/20 17:00 Spherocytes Not Reportable 02/17/20 17:00 Pappenheimer Bodies Not Reportable 02/17/20 17:00 Sickle Cells Not Reportable 02/17/20 17:00 Target Cells Not Reportable 02/17/20 17:00 Tear Drop Cells Not Reportable 02/17/20 17:00 Ovalocytes Rare 02/17/20 17:00 Helmet Cells Not Reportable 02/17/20 17:00 [place] Bodies Not Reportable 02/17/20 17:00 [place] Rings Not Reportable 02/17/20 17:00 [place] Cells Not Reportable 02/17/20 17:00 Bite Cells Not Reportable 02/17/20 17:00 Crenated Cell Not Reportable 02/17/20 17:00 Elliptocytes Not Reportable 02/17/20 17:00 Acanthocytes (Spur) Not Reportable 02/17/20 17:00 Rouleaux Not Reportable 02/17/20 17:00 Hemoglobin C Crystals Not Reportable 02/17/20 17:00 Schistocytes Not Reportable 02/17/20 17:00 Malaria parasites Not Reportable 02/17/20 17:00 Hossein Bodies Not Reportable 02/17/20 17:00 Hem Pathologist Commnt No 02/17/20 17:00 D-Dimer 149.43 ng/mlDDU (0-234) 02/16/20 11:09 ABG pH 7.435 (7.320-7.450) 02/17/20 22:20 POC ABG pCO2 41.4 mmHg (32.0-48.0) 02/17/20 22:20 POC ABG pO2 79.9 mmHg (83-108) L 02/17/20 22:20 POC ABG HCO3 27.2 02/17/20 22:20 POC ABG Base Excess 2.7 02/17/20 22:20 ABG Hemoglobin 14.8 (12.0-17.5) 02/17/20 22:20 ABG Oxyhemoglobin 95.6 (94-98) 02/17/20 22:20 ABG Methemoglobin 0 (0.0-1.5) 02/17/20 22:20 ABG Sodium 134.4 mmol/L (136.0-145.0) L 02/17/20 22:20 ABG Potassium 3.0 mmol/L (3.40-4.50) L 02/17/20 22:20 ABG Chloride 99.0 mmol/L (98-107) 02/17/20 22:20 ABG Glucose 253 mg/dL (65-95) H 02/17/20 22:20 Carboxyhemoglobin 0.5 (0.5-1.5) 02/17/20 22:20 FiO2 100 02/17/20 22:20 Sodium 141 mmol/L (137-145) 02/19/20 05:15 Potassium 3.5 mmol/L (3.6-5.0) L 02/19/20 05:15 Chloride 99.6 mmol/L (98-107) 02/19/20 05:15 Carbon Dioxide 27 mmol/L (22-30) D 02/19/20 05:15 Anion Gap 18 mmol/L 02/19/20 05:15 BUN 23 mg/dL (7-17) H 02/19/20 05:15 Creatinine 0.7 mg/dL (0.6-1.2) 02/19/20 05:15 Estimated GFR > 60 ml/min 02/19/20 05:15 BUN/Creatinine Ratio 33 % 02/19/20 05:15 Glucose 163 mg/dL (65-100) H 02/19/20 05:15 Calcium 9.0 mg/dL (8.4-10.2) 02/19/20 05:15 Ferritin 465.7 ng/mL (10.0-200.0) H 02/18/20 07:31 Total Bilirubin 0.20 mg/dL (0.1-1.2) 02/19/20 05:15 AST 38 units/L (5-40) 02/19/20 05:15 ALT 61 units/L (7-56) H 02/19/20 05:15 Alkaline Phosphatase 47 units/L (35-129) 02/19/20 05:15 Lactate Dehydrogenase 253 units/L (91-180) H 02/16/20 11:09 Troponin T < 0.010 ng/mL (0.00-0.029) 02/11/20 07:44 C-Reactive Protein 7.10 mg/dL (0.00-1.30) H 02/18/20 07:31 NT-Pro-B Natriuret Pep 75.85 pg/mL (0-900) 02/19/20 05:15 Total Protein 6.3 g/dL (6.3-8.2) 02/19/20 05:15 Albumin 3.0 g/dL (3.9-5) L 02/19/20 05:15 Albumin/Globulin Ratio 0.9 % 02/19/20 05:15 Procalcitonin < 0.05 ng/mL (<0.15) 02/11/20 08:12 Arterial Blood Glucose 253 mg/dL (65-95) H 02/17/20 22:20 Arterial Blood Ionized Calcium 4.6 mg/dL (4.6-5.3) 02/17/20 22:20 [place]/IV: Voiding Method Toilet IV Catheter Type [Left Hand] INT / Saline Lock IV Catheter Type [Right INT / Saline Lock Forearm] IV Catheter Type [Left Forearm INT / Saline Lock ] Active Medications - Current Medications Current Medications: Generic Name Dose Route Start Last Admin Trade Name Freq PRN Reason Stop Dose Admin Acetaminophen 650 mg 02/11/20 03:04 02/19/20 10:07 Tylenol PO 650 mg Q6H PRN Administration Pain, Mild (1-3) Al Hydrox/Mg Hydrox/Simethicone 15 ml 02/11/20 03:04 Alum-Mag Hydrox-Simeth 406-574-19on/5ml PO Q4H PRN Indigestion Albuterol 2 puff 02/16/20 14:00 02/19/20 14:52 Proair IH 2 puff TIDRT DIMAS Administration Amlodipine Besylate 10 mg 02/11/20 10:00 02/19/20 10:06 Amlodipine PO 10 mg QDAY DIMAS Administration Arformoterol Tartrate 15 mcg 02/16/20 11:00 02/19/20 08:38 Brovana Nebu IH 15 mcg Q12HRT DIMAS Administration Ascorbic Acid 500 mg 02/11/20 10:00 02/19/20 10:07 Vitamin C PO 500 mg BID DIMAS Administration Benzonatate 100 mg 02/11/20 03:11 Tessalon Perles PO Q8HR PRN Nasal Congestion Budesonide 0.5 mg 02/16/20 11:00 02/19/20 08:38 Pulmicort IH 0.5 mg Q12HRT DIMAS Administration Diphenhydramine HCl 25 mg 02/13/20 16:20 02/14/20 21:27 Benadryl PO 25 mg QHS PRN Administration Sleep Enoxaparin Sodium 40 mg 02/11/20 10:00 02/19/20 10:07 Enoxaparin SUB-Q 40 mg QDAY@1000 DIMAS Administration Protocol REMDESIVIR 100 mg/ Sodium 250 mls @ 500 mls/hr 02/17/20 21:00 02/18/20 22:17 Chloride IV 02/20/20 21:29 500 mls/hr Q24HR@2100 DIMAS Administration Lidocaine HCl 15 ml 02/18/20 23:00 02/19/20 12:31 Magic Mouthwash PO 15 ml TID DIMAS Administration Meclizine HCl 25 mg 02/11/20 03:11 Antivert PO Q8H PRN Vertigo Methylprednisolone Sodium Succinate 60 mg 02/16/20 12:00 02/19/20 12:29 Solu-Medrol IV 60 mg Q6HR DIMAS Administration Ondansetron HCl 4 mg 02/11/20 03:04 02/15/20 01:04 Zofran IV 4 mg Q4H PRN Administration Nausea And Vomiting Sodium Chloride 50 ml 02/17/20 21:00 02/18/20 22:17 Nacl 0.9% IV 02/20/20 21:01 50 ml Q24HR@2100 DIMAS Administration Zinc Sulfate 220 mg 02/11/20 10:00 02/19/20 10:06 Zinc Sulfate PO 220 mg QDAY DIMAS Administration Nutrition/Malnutrition Assess - Dietary Evaluation Nutrition/Malnutrition Findings: Nutrition Notes Start: 02/18/20 14:20 Freq: Status: Active Protocol: Document 11/19/20 14:20 EN (Rec: 02/18/20 14:29 EN [email or web address]) Co-Sign 02/18/20 14:20 LP Nutrition Notes Need for Assessment generated from: LOS Initial or Follow up Assessment Current Diagnosis Hypertension,Respiratory Failure Other Pertinent Diagnosis COVID+ Current Diet Cardiac Labs/Tests Glu 171 Pertinent Medications Solu-medrol Height 5 ft 8 in Weight 158 kg [place] Body Weight (kg) 63.63 BMI 52.9 Weight Status Obese Subjective/Other Information Pt screened for LOS. Per RN, pt eating well with good appetitie. RN states that pt eats what she wants from the trays provided and that she does not have any GI symptoms. Pt does not have difficulty chewing or swallowing. Per chart, pt consuming 50% of meals. Percent of energy/protein needs met: 54%/48% Burn Absent Trauma Absent GI Symptoms None Food Allergy No Current % PO Fair (50-74%) Minimum of two criteria No physical signs of malnutrition #1 Nutrition Diagnosis Inadequate oral intake Etiology COVID-19 positive and respiratory failure As Evidenced by Signs and Symptoms Pt consuming 50% of meals Is patient on ventilator? No Is Patient Ambulatory and/or Out of Bed No REE-([facility]-confined to bed) 2647.968 Kcal/Kg value to use for calculation 13 Approximate Energy Requirements Using 4 kcal/Kg Calculation Used for Recommendations Kcal/kg Additional Notes Protein: 0.8-1.0 g/kg AdBW of 110.8kg (89-111g) Fluid: 1 ml/kcal Nutrition Intervention Change Diet Order: Continue cardiac diet Goal #1 Meet 75% of energy and protein needs with PO Anticipated Discharge Needs: Cardiac diet Follow-Up By: 02/22/20 Additional Comments F/u for intakes and nutrition hx
[2020-02-19] MEDS: REMDESIVIR 100 MG in SODIUM CHLORIDE 0.9% 250ML 250 ML IV SCH (21:07)
[2020-02-19] MEDS: SODIUM CHLORIDE 0.9% 50 ML IVPB IV SCH (21:07)
[2020-02-19] MEDS: diphenhydrAMINE 25 MG CAP PO PRN (21:15)
[2020-02-20] MEDS: methylPREDNISolone Sod Succinate 125 MG/2 ML INJ IV SCH ×5 (00:13→23:21)
[2020-02-20 05:14] LABS: Basophils % (Auto) 0.2 % (0.0-1.8); Eosinophils % (Auto) 0.2 % (0.0-4.3); Hematocrit 42.2 % (30.3-42.9); Hemoglobin 14.3 gm/dl (10.1-14.3); Lymphocytes % (Auto) 7.6 % (13.4-35.0); Mean Corpuscular HGB Conc 34 % (30-34); Mean Corpuscular Volume 86 fl (79-97); Monocytes # (Auto) 0.7 K/mm3 (0.0-0.8); Monocytes % (Auto) 5.4 % (0.0-7.3); Platelet Count 175 K/mm3 (140-440); Red Blood Count 4.89 M/mm3 (3.65-5.03); Red Cell Distribution Width 13.7 % (13.2-15.2)
[2020-02-20 05:43] LABS: Alanine Aminotransferase 69 units/L (7-56); Albumin 3.2 g/dL (3.9-5); Blood Urea Nitrogen 21 mg/dL (7-17); Calcium 8.7 mg/dL (8.4-10.2); Hemolysis Index 42
[2020-02-20 05:55] LABS: BUN/Creatinine Ratio 30
[2020-02-20] MEDS: MAGIC MOUTHWASH 30ML PO SCH ×3 (09:16→21:11)
[2020-02-20] MEDS: amLODIPine 10 MG TAB PO SCH (09:17)
[2020-02-20] MEDS: ENOXAPARIN 40 MG/0.4 ML INJ SUB-Q SCH (09:17)
[2020-02-20] MEDS: ASCORBIC ACID 500 MG TAB PO SCH ×2 (09:17→21:12)
[2020-02-20] MEDS: ZINC SULFATE 220 MG CAP PO SCH (09:17)
[2020-02-20] MEDS: ARFORMOTEROL 15 MCG/2 ML NEBU IH SCH ×2 (09:29→20:55)
[2020-02-20] MEDS: ALBUTEROL 8.5 GM MDI INHALATION IH SCH ×3 (09:29→20:50)
[2020-02-20] MEDS: BUDESONIDE 0.5 MG/2 ML NEBU IH SCH ×2 (09:29→20:55)
[2020-02-20] MEDS ORDERED: FUROSEMIDE 40 MG/4 ML INJ IV SCH (12:07)
--- NOTE | 2020-02-20 12:09 | Progress Note ---
Assessment and Plan 59 y/o morbidly obese female admitted with acute respiratory failure secondary to COVID 19 pneumonia and possible asthma exacerbation. 1. Continue High Dose steroids and BID pulmicort brovana therapy. Along with PPV at night given history of DARIANA 2. Remdesivir and proning if possible during the day. 3. Chemistry is good. Will give lasix 40 IV today. 4. Wean FiO2 for sats >88% 5. Guarded prognosis given obesity, asthma and now COVID 19 infection. Subjective Date of service: 02/20/20 Principal diagnosis: COVID pneumonia Interval history: No acute events. Down to 20 liters and 70%. Sats in the high 90's. Objective Vital Signs - 12hr 02/20/20 02/20/20 02/20/20 01:00 02:00 03:00 Temperature Pulse Rate 80 69 69 Pulse Rate [ Anterior Bilateral Throughout] Pulse Rate [ From Monitor] Respiratory 27 H 23 22 Rate Respiratory Rate [Anterior Bilateral Throughout] Blood Pressure 106/70 119/69 118/68 O2 Sat by Pulse 89 92 92 Oximetry 02/20/20 02/20/20 02/20/20 03:04 04:00 05:00 Temperature 98.8 F Pulse Rate 74 68 Pulse Rate [ Anterior Bilateral Throughout] Pulse Rate [ 82 From Monitor] Respiratory 26 H 26 H Rate Respiratory Rate [Anterior Bilateral Throughout] Blood Pressure 132/76 134/68 O2 Sat by Pulse 97 95 Oximetry 02/20/20 02/20/20 02/20/20 06:00 07:00 08:00 Temperature 98.3 F Pulse Rate 67 70 Pulse Rate [ Anterior Bilateral Throughout] Pulse Rate [ 91 H From Monitor] Respiratory 24 27 H 14 Rate Respiratory Rate [Anterior Bilateral Throughout] Blood Pressure 127/69 129/72 O2 Sat by Pulse 97 93 97 Oximetry 02/20/20 02/20/20 02/20/20 08:01 09:01 09:17 Temperature Pulse Rate 91 H 85 86 Pulse Rate [ Anterior Bilateral Throughout] Pulse Rate [ From Monitor] Respiratory 14 25 H Rate Respiratory Rate [Anterior Bilateral Throughout] Blood Pressure 94/64 130/73 130/73 O2 Sat by Pulse 97 96 Oximetry 02/20/20 02/20/20 02/20/20 09:29 09:35 10:01 Temperature Pulse Rate 120 H Pulse Rate [ 102 H 93 H Anterior Bilateral Throughout] Pulse Rate [ From Monitor] Respiratory 27 H Rate Respiratory 20 20 Rate [Anterior Bilateral Throughout] Blood Pressure 148/67 O2 Sat by Pulse 97 94 Oximetry 02/20/20 11:00 Temperature Pulse Rate 96 H Pulse Rate [ Anterior Bilateral Throughout] Pulse Rate [ From Monitor] Respiratory 22 Rate Respiratory Rate [Anterior Bilateral Throughout] Blood Pressure 135/80 O2 Sat by Pulse 96 Oximetry CBC and BMP: 02/20/20 04:07 02/20/20 04:07 ABG, PT/INR, D-dimer: ABG ABG pH 7.435 (7.320-7.450) 02/17/20 22:20 POC ABG pCO2 41.4 mmHg (32.0-48.0) 02/17/20 22:20 POC ABG pO2 79.9 mmHg (83-108) L 02/17/20 22:20 POC ABG HCO3 27.2 02/17/20 22:20 PT/INR, D-dimer D-Dimer 149.43 ng/mlDDU (0-234) 02/16/20 11:09 Abnormal lab findings: Abnormal Labs 02/11/20 02/11/20 02/11/20 00:45 00:45 03:42 WBC 3.7 L Hgb Hct MCHC Plt Count 113 L Lymph % (Auto) 45.2 H [place] % (Auto) 13.9 H Lymph # (Auto) Seg Neutrophils % Seg Neuts % (Manual) Lymphocytes % (Manual) Seg Neutrophils # 1.5 L Seg Neutrophils # Man Lymphocytes # (Manual) POC ABG pO2 ABG Sodium ABG Potassium ABG Glucose Potassium 3.4 L Chloride Carbon Dioxide BUN 6 L Glucose 114 H 106 H Calcium Ferritin ALT Lactate Dehydrogenase C-Reactive Protein 2.90 H Total Protein Albumin Arterial Blood Glucose SARS-CoV-2 IgG Ab 02/11/20 02/11/20 02/11/20 03:42 03:42 03:42 WBC 3.0 L Hgb Hct MCHC 35 H Plt Count 109 L Lymph % (Auto) 38.3 H [place] % (Auto) 15.2 H Lymph # (Auto) Seg Neutrophils % Seg Neuts % (Manual) Lymphocytes % (Manual) Seg Neutrophils # 1.4 L Seg Neutrophils # Man Lymphocytes # (Manual) POC ABG pO2 ABG Sodium ABG Potassium ABG Glucose Potassium 3.3 L Chloride Carbon Dioxide BUN 6 L Glucose 107 H Calcium Ferritin 231.3 H ALT Lactate Dehydrogenase C-Reactive Protein Total Protein Albumin Arterial Blood Glucose SARS-CoV-2 IgG Ab 02/12/20 02/13/20 02/13/20 08:30 06:02 06:02 WBC Hgb Hct MCHC Plt Count Lymph % (Auto) [place] % (Auto) Lymph # (Auto) Seg Neutrophils % Seg Neuts % (Manual) Lymphocytes % (Manual) Seg Neutrophils # Seg Neutrophils # Man Lymphocytes # (Manual) POC ABG pO2 ABG Sodium ABG Potassium ABG Glucose Potassium Chloride Carbon Dioxide BUN Glucose 104 H Calcium Ferritin 245.0 H ALT Lactate Dehydrogenase C-Reactive Protein 2.80 H Total Protein Albumin Arterial Blood Glucose SARS-CoV-2 IgG Ab 02/14/20 02/16/20 02/16/20 07:20 11:09 11:09 WBC Hgb Hct MCHC Plt Count 103 L Lymph % (Auto) [place] % (Auto) Lymph # (Auto) Seg Neutrophils % Seg Neuts % (Manual) Lymphocytes % (Manual) Seg Neutrophils # Seg Neutrophils # Man Lymphocytes # (Manual) POC ABG pO2 ABG Sodium ABG Potassium ABG Glucose Potassium 3.3 L Chloride 96.4 L Carbon Dioxide 35 H BUN Glucose 104 H 124 H Calcium 8.3 L Ferritin ALT Lactate Dehydrogenase C-Reactive Protein Total Protein 6.2 L Albumin 3.3 L Arterial Blood Glucose SARS-CoV-2 IgG Ab 02/16/20 02/16/20 02/17/20 11:09 11:09 17:00 WBC 11.2 H Hgb 14.6 H Hct 43.8 H MCHC Plt Count 124 L Lymph % (Auto) [place] % (Auto) Lymph # (Auto) Seg Neutrophils % Seg Neuts % (Manual) 93.0 H Lymphocytes % (Manual) 3.0 L Seg Neutrophils # Seg Neutrophils # Man 10.4 H Lymphocytes # (Manual) 0.3 L POC ABG pO2 ABG Sodium ABG Potassium ABG Glucose Potassium Chloride Carbon Dioxide BUN Glucose Calcium Ferritin 352.2 H ALT Lactate Dehydrogenase 253 H C-Reactive Protein 8.90 H Total Protein Albumin Arterial Blood Glucose SARS-CoV-2 IgG Ab 02/17/20 02/18/20 02/18/20 22:20 07:31 07:31 WBC Hgb Hct MCHC Plt Count Lymph % (Auto) [place] % (Auto) Lymph # (Auto) Seg Neutrophils % Seg Neuts % (Manual) Lymphocytes % (Manual) Seg Neutrophils # Seg Neutrophils # Man Lymphocytes # (Manual) POC ABG pO2 79.9 L ABG Sodium 134.4 L ABG Potassium 3.0 L ABG Glucose 253 H Potassium Chloride Carbon Dioxide 34 H BUN Glucose 171 H Calcium Ferritin 465.7 H ALT Lactate Dehydrogenase C-Reactive Protein 7.10 H Total Protein Albumin 3.4 L Arterial Blood Glucose 253 H SARS-CoV-2 IgG Ab 02/19/20 02/19/20 02/20/20 05:15 05:15 04:07 WBC 14.3 H 12.6 H Hgb 14.4 H Hct MCHC Plt Count Lymph % (Auto) 6.6 L 7.6 L [place] % (Auto) Lymph # (Auto) 0.9 L 1.0 L Seg Neutrophils % 89.5 H 86.6 H Seg Neuts % (Manual) Lymphocytes % (Manual) Seg Neutrophils # 12.8 H 10.9 H Seg Neutrophils # Man Lymphocytes # (Manual) POC ABG pO2 ABG Sodium ABG Potassium ABG Glucose Potassium 3.5 L Chloride Carbon Dioxide BUN 23 H Glucose 163 H Calcium Ferritin ALT 61 H Lactate Dehydrogenase C-Reactive Protein Total Protein Albumin 3.0 L Arterial Blood Glucose SARS-CoV-2 IgG Ab 02/20/20 02/20/20 04:07 04:07 WBC Hgb Hct MCHC Plt Count Lymph % (Auto) [place] % (Auto) Lymph # (Auto) Seg Neutrophils % Seg Neuts % (Manual) Lymphocytes % (Manual) Seg Neutrophils # Seg Neutrophils # Man Lymphocytes # (Manual) POC ABG pO2 ABG Sodium ABG Potassium ABG Glucose Potassium Chloride Carbon Dioxide BUN 21 H Glucose 192 H Calcium Ferritin ALT 69 H Lactate Dehydrogenase C-Reactive Protein Total Protein 5.7 L Albumin 3.2 L Arterial Blood Glucose SARS-CoV-2 IgG Ab Reactive A
--- NOTE | 2020-02-20 12:31 | Progress Note ---
Assessment and Plan Assessment and plan: 59-year-old morbidly obese female with a medical history of asthma admitted with chief complaint of fever, shortness of breath, cough and loss of smell. Patient had tested positive for COVID-19 a day prior to presentation. While at home, her oxygen saturation fell to the 80s so she presented to the hospital for evaluation. Here in the ER, she was started on dexamethasone and admitted to the hospital. 02/12. Slight improvement noted. ID recommendations appreciated 02/13-. Plan to get a walk test patient desaturated she was placed on oxygen. 02/15. Patient remains on high oxygen-8 L. ID consulted as patient will need remdesivir. Pulmonology consulted as well. She denies any chest pain or palpitations. Elevated D-dimer noted. Ultrasound lower extremity Dopplers ordered. 02/16. Remains on high oxygen. Pulmonology advised recommendations appreciated. Ultrasound lower extremity negative for DVT. Awaiting a.m. labs 02/17. Had increased work of breathing yesterday so she was transferred to the [facility] on BiPAP. Lasix 40 mg IV ordered this morning. Still on Solu-Medrol and r emdesivir. ID and pulmonology following 02/18. On high flow nasal cannula with sats in the 90s. Still on Solu-Medrol and remdesivir. Labs reviewed. Continue to monitor 02/19. States her breathing is better. Now on 70% oxygen. On steroids. She has antibodies to COVID-19 so does not qualify for convalescent plasma. ID and pulmonology on board Problems -- COVID-19 PNA Current Visit: Yes Status: Acute Plan to address problem: Solu-Medrol Continue remdesivir ID and pulmonology recommendations appreciated Continue to monitor inflammatory makers Airborne and contact isolation Ascorbic acid and zinc sulphate Prone positioning advised --Acute respiratory failure with hypoxia Current Visit: Yes Status: Acute Plan to address problem: Continue oxygen supplementation Lasix as needed COVID-19 treatment --Essential (primary) hypertension Current Visit: Yes Status: Acute Plan to address problem: Continue to monitor blood pressure closely --Morbid obesity due to excess calories BMI 54.8 Current Visit: Yes Status: Acute Plan to address problem: Discussed lifestyle modification-healthy diet and weight management And medically stable -- DVT prophylaxis Current Visit: Yes Status: Acute Plan to address problem: SQH Lovenox History Interval history: Patient seen and examined at bedside this morning No new complaints but still gets dyspneic with minimal ambulation Labs reviewed Hospitalist Physical - Physical exam Narrative exam: VITAL SIGNS: Reviewed. GENERAL: Awake and alert on response to questions HEAD: No signs of head trauma. EYES: Pupils are equal. Extraocular motions intact. EARS: Hearing grossly intact. MOUTH: Oropharynx is normal. NECK: No adenopathy, no JVD. CHEST: Diminished breath sounds. Some rales in the bases CARDIAC: Regular rate and rhythm. S1 and S2, without murmurs, gallops, or rubs. VASCULAR: No Edema. Peripheral pulses normal and equal in all extremities. ABDOMEN: Soft, non tender and non distended. No rebound or guarding, and no masses palpated. Bowel Sounds normal. MUSCULOSKELETAL: Good range of motion of all major joints. Extremities without clubbing, cyanosis or edema. NEUROLOGIC EXAM: Alert and oriented x3. No focal neurologic deficits PSYCHIATRIC: Stable mood SKIN: No obvious lesions - Constitutional Vitals: Temp Pulse Resp BP Pulse Ox 98.3 F 94 H 19 135/80 99 02/20/20 08:00 02/20/20 12:04 02/20/20 12:04 02/20/20 11:00 02/20/20 12:04 General appearance: Present: no acute distress, well-nourished HEART Score - HEART Score Troponin: Troponin T < 0.010 ng/mL (0.00-0.029) 02/11/20 07:44 Results - Labs CBC & Chem 7: 02/20/20 04:07 02/20/20 04:07 Labs: Laboratory Last Values WBC 12.6 K/mm3 (4.5-11.0) H 02/20/20 04:07 RBC 4.89 M/mm3 (3.65-5.03) 02/20/20 04:07 Hgb 14.3 gm/dl (10.1-14.3) 02/20/20 04:07 Hct 42.2 % (30.3-42.9) 02/20/20 04:07 MCV 86 fl (79-97) 02/20/20 04:07 MCH 29 pg (28-32) 02/20/20 04:07 MCHC 34 % (30-34) 02/20/20 04:07 RDW 13.7 % (13.2-15.2) 02/20/20 04:07 Plt Count 175 K/mm3 (140-440) 02/20/20 04:07 Lymph % (Auto) 7.6 % (13.4-35.0) L 02/20/20 04:07 Hale % (Auto) 5.4 % (0.0-7.3) 02/20/20 04:07 Eos % (Auto) 0.2 % (0.0-4.3) 02/20/20 04:07 Baso % (Auto) 0.2 % (0.0-1.8) 02/20/20 04:07 Lymph # (Auto) 1.0 K/mm3 (1.2-5.4) L 02/20/20 04:07 Hale # (Auto) 0.7 K/mm3 (0.0-0.8) 02/20/20 04:07 Eos # (Auto) 0.0 K/mm3 (0.0-0.4) 02/20/20 04:07 Baso # (Auto) 0.0 K/mm3 (0.0-0.1) 02/20/20 04:07 Add Manual Diff Complete 02/17/20 17:00 Total Counted 100 02/17/20 17:00 Seg Neutrophils % 86.6 % (40.0-70.0) H 02/20/20 04:07 Seg Neuts % (Manual) 93.0 % (40.0-70.0) H 02/17/20 17:00 Band Neutrophils % 2.0 % 02/17/20 17:00 Lymphocytes % (Manual) 3.0 % (13.4-35.0) L 02/17/20 17:00 Reactive Lymphs % (Man) 0 % 02/17/20 17:00 Monocytes % (Manual) 2.0 % (0.0-7.3) 02/17/20 17:00 Eosinophils % (Manual) 0 % (0.0-4.3) 02/17/20 17:00 Basophils % (Manual) 0 % (0.0-1.8) 02/17/20 17:00 Metamyelocytes % 0 % 02/17/20 17:00 Myelocytes % 0 % 02/17/20 17:00 Promyelocytes % 0 % 02/17/20 17:00 Blast Cells % 0 % 02/17/20 17:00 Nucleated RBC % Not Reportable 02/17/20 17:00 Seg Neutrophils # 10.9 K/mm3 (1.8-7.7) H 02/20/20 04:07 Seg Neutrophils # Man 10.4 K/mm3 (1.8-7.7) H 02/17/20 17:00 Band Neutrophils # 0.2 K/mm3 02/17/20 17:00 Lymphocytes # (Manual) 0.3 K/mm3 (1.2-5.4) L 02/17/20 17:00 Abs React Lymphs (Man) 0.0 K/mm3 02/17/20 17:00 Monocytes # (Manual) 0.2 K/mm3 (0.0-0.8) 02/17/20 17:00 Eosinophils # (Manual) 0.0 K/mm3 (0.0-0.4) 02/17/20 17:00 Basophils # (Manual) 0.0 K/mm3 (0.0-0.1) 02/17/20 17:00 Metamyelocytes # 0.0 K/mm3 02/17/20 17:00 Myelocytes # 0.0 K/mm3 02/17/20 17:00 Promyelocytes # 0.0 K/mm3 02/17/20 17:00 Blast Cells # 0.0 K/mm3 02/17/20 17:00 WBC Morphology Not Reportable 02/17/20 17:00 Hypersegmented Neuts Not Reportable 02/17/20 17:00 Hyposegmented Neuts Not Reportable 02/17/20 17:00 Hypogranular Neuts Not Reportable 02/17/20 17:00 Smudge Cells Not Reportable 02/17/20 17:00 Toxic Granulation Not Reportable 02/17/20 17:00 Toxic Vacuolation Not Reportable 02/17/20 17:00 Dohle Bodies Not Reportable 02/17/20 17:00 Pelger-Huet Anomaly Not Reportable 02/17/20 17:00 Ashkan Rods Not Reportable 02/17/20 17:00 Platelet Estimate Consistent w auto 02/17/20 17:00 Clumped Platelets Not Reportable 02/17/20 17:00 Plt Clumps, EDTA Not Reportable 02/17/20 17:00 Large Platelets Not Reportable 02/17/20 17:00 Giant Platelets Not Reportable 02/17/20 17:00 Platelet Satelliting Not Reportable 02/17/20 17:00 Plt Morphology Comment Not Reportable 02/17/20 17:00 RBC Morphology Not Reportable 02/17/20 17:00 Dimorphic RBCs Not Reportable 02/17/20 17:00 Polychromasia Not Reportable 02/17/20 17:00 Hypochromasia Not Reportable 02/17/20 17:00 Poikilocytosis Not Reportable 02/17/20 17:00 Anisocytosis Not Reportable 02/17/20 17:00 Microcytosis Not Reportable 02/17/20 17:00 Macrocytosis Not Reportable 02/17/20 17:00 Spherocytes Not Reportable 02/17/20 17:00 Pappenheimer Bodies Not Reportable 02/17/20 17:00 Sickle Cells Not Reportable 02/17/20 17:00 Target Cells Not Reportable 02/17/20 17:00 Tear Drop Cells Not Reportable 02/17/20 17:00 Ovalocytes Rare 02/17/20 17:00 Helmet Cells Not Reportable 02/17/20 17:00 [place] Bodies Not Reportable 02/17/20 17:00 [place] Rings Not Reportable 02/17/20 17:00 [place] Cells Not Reportable 02/17/20 17:00 Bite Cells Not Reportable 02/17/20 17:00 Crenated Cell Not Reportable 02/17/20 17:00 Elliptocytes Not Reportable 02/17/20 17:00 Acanthocytes (Spur) Not Reportable 02/17/20 17:00 Rouleaux Not Reportable 02/17/20 17:00 Hemoglobin C Crystals Not Reportable 02/17/20 17:00 Schistocytes Not Reportable 02/17/20 17:00 Malaria parasites Not Reportable 02/17/20 17:00 Hossein Bodies Not Reportable 02/17/20 17:00 Hem Pathologist Commnt No 02/17/20 17:00 D-Dimer 149.43 ng/mlDDU (0-234) 02/16/20 11:09 ABG pH 7.435 (7.320-7.450) 02/17/20 22:20 POC ABG pCO2 41.4 mmHg (32.0-48.0) 02/17/20 22:20 POC ABG pO2 79.9 mmHg (83-108) L 02/17/20 22:20 POC ABG HCO3 27.2 02/17/20 22:20 POC ABG Base Excess 2.7 02/17/20 22:20 ABG Hemoglobin 14.8 (12.0-17.5) 02/17/20 22:20 ABG Oxyhemoglobin 95.6 (94-98) 02/17/20 22:20 ABG Methemoglobin 0 (0.0-1.5) 02/17/20 22:20 ABG Sodium 134.4 mmol/L (136.0-145.0) L 02/17/20 22:20 ABG Potassium 3.0 mmol/L (3.40-4.50) L 02/17/20 22:20 ABG Chloride 99.0 mmol/L (98-107) 02/17/20 22:20 ABG Glucose 253 mg/dL (65-95) H 02/17/20 22:20 Carboxyhemoglobin 0.5 (0.5-1.5) 02/17/20 22:20 FiO2 100 02/17/20 22:20 Sodium 141 mmol/L (137-145) 02/20/20 04:07 Potassium 4.1 mmol/L (3.6-5.0) 02/20/20 04:07 Chloride 101.8 mmol/L (98-107) 02/20/20 04:07 Carbon Dioxide 27 mmol/L (22-30) 02/20/20 04:07 Anion Gap 16 mmol/L 02/20/20 04:07 BUN 21 mg/dL (7-17) H 02/20/20 04:07 Creatinine 0.7 mg/dL (0.6-1.2) 02/20/20 04:07 Estimated GFR > 60 ml/min 02/20/20 04:07 BUN/Creatinine Ratio 30 % 02/20/20 04:07 Glucose 192 mg/dL (65-100) H 02/20/20 04:07 Calcium 8.7 mg/dL (8.4-10.2) 02/20/20 04:07 Ferritin 465.7 ng/mL (10.0-200.0) H 02/18/20 07:31 Total Bilirubin 0.20 mg/dL (0.1-1.2) 02/20/20 04:07 AST 32 units/L (5-40) 02/20/20 04:07 ALT 69 units/L (7-56) H 02/20/20 04:07 Alkaline Phosphatase 49 units/L (35-129) 02/20/20 04:07 Lactate Dehydrogenase 253 units/L (91-180) H 02/16/20 11:09 Troponin T < 0.010 ng/mL (0.00-0.029) 02/11/20 07:44 C-Reactive Protein 7.10 mg/dL (0.00-1.30) H 02/18/20 07:31 NT-Pro-B Natriuret Pep 75.85 pg/mL (0-900) 02/19/20 05:15 Total Protein 5.7 g/dL (6.3-8.2) L 02/20/20 04:07 Albumin 3.2 g/dL (3.9-5) L 02/20/20 04:07 Albumin/Globulin Ratio 1.3 % 02/20/20 04:07 Procalcitonin < 0.05 ng/mL (<0.15) 02/11/20 08:12 Arterial Blood Glucose 253 mg/dL (65-95) H 02/17/20 22:20 Arterial Blood Ionized Calcium 4.6 mg/dL (4.6-5.3) 02/17/20 22:20 SARS-CoV-2 IgG Ab Reactive (NonReactive) A 02/20/20 04:07 Sutton/IV: Voiding Method Toilet IV Catheter Type [Left Hand] INT / Saline Lock IV Catheter Type [Right INT / Saline Lock Forearm] IV Catheter Type [Left Forearm INT / Saline Lock ] Active Medications - Current Medications Current Medications: Generic Name Dose Route Start Last Admin Trade Name Freq PRN Reason Stop Dose Admin Acetaminophen 650 mg 02/11/20 03:04 02/19/20 10:07 Tylenol PO 650 mg Q6H PRN Administration Pain, Mild (1-3) Al Hydrox/Mg Hydrox/Simethicone 15 ml 02/11/20 03:04 Alum-Mag Hydrox-Simeth 009-726-30uq/5ml PO Q4H PRN Indigestion Albuterol 2 puff 02/16/20 14:00 02/20/20 09:29 Proair IH 2 puff TIDRT DIMAS Administration Amlodipine Besylate 10 mg 02/11/20 10:00 02/20/20 09:17 Amlodipine PO 10 mg QDAY DIMAS Administration Arformoterol Tartrate 15 mcg 02/16/20 11:00 02/20/20 09:29 Brovana Nebu IH 15 mcg Q12HRT DIMAS Administration Ascorbic Acid 500 mg 02/11/20 10:00 02/20/20 09:17 Vitamin C PO 500 mg BID DIMAS Administration Benzonatate 100 mg 02/11/20 03:11 Tessalon Perles PO Q8HR PRN Nasal Congestion Budesonide 0.5 mg 02/16/20 11:00 02/20/20 09:29 Pulmicort IH 0.5 mg Q12HRT DIMAS Administration Diphenhydramine HCl 25 mg 02/13/20 16:20 02/19/20 21:15 Benadryl PO 25 mg QHS PRN Administration Sleep Enoxaparin Sodium 40 mg 02/11/20 10:00 02/20/20 09:17 Enoxaparin SUB-Q 40 mg QDAY@1000 DIMAS Administration Protocol Furosemide 40 mg 02/20/20 12:07 Lasix IV 02/20/20 14:07 ONCE DIMAS REMDESIVIR 100 mg/ Sodium 250 mls @ 500 mls/hr 02/17/20 21:00 02/19/20 21:07 Chloride IV 02/20/20 21:29 500 mls/hr Q24HR@2100 DIMAS Administration Lidocaine HCl 15 ml 02/18/20 23:00 02/20/20 09:16 Magic Mouthwash PO 15 ml TID DIMAS Administration Meclizine HCl 25 mg 02/11/20 03:11 Antivert PO Q8H PRN Vertigo Methylprednisolone Sodium Succinate 60 mg 02/16/20 12:00 02/20/20 11:45 Solu-Medrol IV 60 mg Q6HR DIMAS Administration Ondansetron HCl 4 mg 02/11/20 03:04 02/15/20 01:04 Zofran IV 4 mg Q4H PRN Administration Nausea And Vomiting Sodium Chloride 50 ml 02/17/20 21:00 02/19/20 21:07 Nacl 0.9% IV 02/20/20 21:01 50 ml Q24HR@2100 DIMAS Administration Zinc Sulfate 220 mg 02/11/20 10:00 02/20/20 09:17 Zinc Sulfate PO 220 mg QDAY DIMAS Administration Nutrition/Malnutrition Assess - Dietary Evaluation Nutrition/Malnutrition Findings: Nutrition Notes Start: 02/18/20 14:20 Freq: Status: Active Protocol: Document 02/18/20 14:20 EN (Rec: 02/18/20 14:29 EN [email or web address]) Co-Sign 02/18/20 14:20 LP Nutrition Notes Need for Assessment generated from: LOS Initial or Follow up Assessment Current Diagnosis Hypertension,Respiratory Failure Other Pertinent Diagnosis COVID+ Current Diet Cardiac Labs/Tests Glu 171 Pertinent Medications Solu-medrol Height 5 ft 8 in Weight 158 kg [place] Body Weight (kg) 63.63 BMI 52.9 Weight Status Obese Subjective/Other Information Pt screened for LOS. Per RN, pt eating well with good appetitie. RN states that pt eats what she wants from the trays provided and that she does not have any GI symptoms. Pt does not have difficulty chewing or swallowing. Per chart, pt consuming 50% of meals. Percent of energy/protein needs met: 54%/48% Burn Absent Trauma Absent GI Symptoms None Food Allergy No Current % PO Fair (50-74%) Minimum of two criteria No physical signs of malnutrition #1 Nutrition Diagnosis Inadequate oral intake Etiology COVID-19 positive and respiratory failure As Evidenced by Signs and Symptoms Pt consuming 50% of meals Is patient on ventilator? No Is Patient Ambulatory and/or Out of Bed No REE-([facility]-confined to bed) 2647.968 Kcal/Kg value to use for calculation 13 Approximate Energy Requirements Using 2053 kcal/Kg Calculation Used for Recommendations Kcal/kg Additional Notes Protein: 0.8-1.0 g/kg AdBW of 110.8kg (89-111g) Fluid: 1 ml/kcal Nutrition Intervention Change Diet Order: Continue cardiac diet Goal #1 Meet 75% of energy and protein needs with PO Anticipated Discharge Needs: Cardiac diet Follow-Up By: 02/22/20 Additional Comments F/u for intakes and nutrition hx
[2020-02-20] MEDS: REMDESIVIR 100 MG in SODIUM CHLORIDE 0.9% 250ML 250 ML IV SCH (21:11)
[2020-02-20] MEDS: SODIUM CHLORIDE 0.9% 50 ML IVPB IV SCH (21:12)
[2020-02-21] MEDS: methylPREDNISolone Sod Succinate 125 MG/2 ML INJ IV SCH ×4 (06:08→23:15)
[2020-02-21] MEDS: MAGIC MOUTHWASH 30ML PO SCH ×3 (08:42→21:21)
[2020-02-21 08:58] LABS: Basophils % (Auto) 0.1 % (0.0-1.8); Hematocrit 46.5 % (30.3-42.9); Hemoglobin 15.2 gm/dl (10.1-14.3); Lymphocytes # (Auto) 0.9 K/mm3 (1.2-5.4); Lymphocytes % (Auto) 6.4 % (13.4-35.0); Mean Corpuscular HGB Conc 33 % (30-34); Mean Corpuscular Volume 88 fl (79-97); Monocytes # (Auto) 0.5 K/mm3 (0.0-0.8); Monocytes % (Auto) 3.5 % (0.0-7.3); Platelet Count 207 K/mm3 (140-440); Red Blood Count 5.28 M/mm3 (3.65-5.03); Red Cell Distribution Width 13.5 % (13.2-15.2)
[2020-02-21] MEDS: BUDESONIDE 0.5 MG/2 ML NEBU IH SCH ×2 (09:20→19:47)
[2020-02-21] MEDS: ARFORMOTEROL 15 MCG/2 ML NEBU IH SCH ×2 (09:20→19:47)
[2020-02-21 09:21] LABS: Alanine Aminotransferase 55 units/L (7-56); BUN/Creatinine Ratio 33; Blood Urea Nitrogen 20 mg/dL (7-17); Hemolysis Index 24
[2020-02-21] MEDS: ALBUTEROL 8.5 GM MDI INHALATION IH SCH ×3 (09:21→20:02)
[2020-02-21] MEDS: ENOXAPARIN 40 MG/0.4 ML INJ SUB-Q SCH (10:47)
[2020-02-21] MEDS: ASCORBIC ACID 500 MG TAB PO SCH ×2 (10:47→21:21)
[2020-02-21] MEDS: amLODIPine 10 MG TAB PO SCH (10:47)
[2020-02-21] MEDS: ZINC SULFATE 220 MG CAP PO SCH (10:47)
--- NOTE | 2020-02-21 11:39 | Progress Note ---
Assessment and Plan 59 y/o morbidly obese female admitted with acute respiratory failure secondary to COVID 19 pneumonia and possible asthma exacerbation. 1. Continue High Dose steroids and BID pulmicort brovana therapy. Along with PPV at night given history of DARIANA 2. Remdesivir and proning if possible during the day. 3. K low, hold on lasix today and assess tomorrow. 4. Wean FiO2 for sats >88% 5. Guarded prognosis given obesity, asthma and now COVID 19 infection. Subjective Date of service: 02/21/20 Principal diagnosis: COVID pneumonia Interval history: Down to 50% and 20 liters. Good sats. Tolerated lasix on yesterday. Objective Vital Signs - 12hr 02/21/20 02/21/20 02/21/20 00:00 00:05 00:19 Temperature Pulse Rate 84 86 84 Pulse Rate [ Anterior Bilateral Throughout] Pulse Rate [ 87 From Monitor] Respiratory 25 H 24 Rate Respiratory Rate [Anterior Bilateral Throughout] Blood Pressure 123/80 123/80 O2 Sat by Pulse 93 95 Oximetry 02/21/20 02/21/20 02/21/20 01:00 02:00 03:01 Temperature Pulse Rate 75 77 91 H Pulse Rate [ Anterior Bilateral Throughout] Pulse Rate [ From Monitor] Respiratory 23 21 21 Rate Respiratory Rate [Anterior Bilateral Throughout] Blood Pressure 108/67 129/79 102/53 O2 Sat by Pulse 91 95 97 Oximetry 02/21/20 02/21/20 02/21/20 03:50 04:00 04:25 Temperature 98.2 F Pulse Rate 73 73 75 Pulse Rate [ Anterior Bilateral Throughout] Pulse Rate [ 75 From Monitor] Respiratory 24 26 H Rate Respiratory Rate [Anterior Bilateral Throughout] Blood Pressure 102/53 123/71 O2 Sat by Pulse 96 98 Oximetry 02/21/20 02/21/20 02/21/20 05:00 06:00 07:01 Temperature Pulse Rate 71 78 93 H Pulse Rate [ Anterior Bilateral Throughout] Pulse Rate [ From Monitor] Respiratory 24 21 Rate Respiratory Rate [Anterior Bilateral Throughout] Blood Pressure 124/76 118/85 118/85 O2 Sat by Pulse 98 97 Oximetry 02/21/20 02/21/20 02/21/20 08:00 09:20 09:30 Temperature 98.3 F Pulse Rate Pulse Rate [ 98 H 96 H Anterior Bilateral Throughout] Pulse Rate [ From Monitor] Respiratory Rate Respiratory 20 20 Rate [Anterior Bilateral Throughout] Blood Pressure O2 Sat by Pulse 97 Oximetry 02/21/20 10:47 Temperature Pulse Rate 95 H Pulse Rate [ Anterior Bilateral Throughout] Pulse Rate [ From Monitor] Respiratory Rate Respiratory Rate [Anterior Bilateral Throughout] Blood Pressure 130/64 O2 Sat by Pulse Oximetry CBC and BMP: 02/21/20 08:30 02/21/20 08:30 ABG, PT/INR, D-dimer: ABG ABG pH 7.435 (7.320-7.450) 02/17/20 22:20 POC ABG pCO2 41.4 mmHg (32.0-48.0) 02/17/20 22:20 POC ABG pO2 79.9 mmHg (83-108) L 02/17/20: POC ABG HCO3 27.2 02/17/20 22:20 PT/INR, D-dimer D-Dimer 149.43 ng/mlDDU (0-234) 02/16/20 11:09 Abnormal lab findings: Abnormal Labs 02/11/20 02/11/20 02/11/20 00:45 00:45 03:42 WBC 3.7 L RBC Hgb Hct MCHC Plt Count 113 L Lymph % (Auto) 45.2 H Butts % (Auto) 13.9 H Lymph # (Auto) Seg Neutrophils % Seg Neuts % (Manual) Lymphocytes % (Manual) Seg Neutrophils # 1.5 L Seg Neutrophils # Man Lymphocytes # (Manual) POC ABG pO2 ABG Sodium ABG Potassium ABG Glucose Potassium 3.4 L Chloride Carbon Dioxide BUN 6 L Glucose 114 H 106 H Calcium Ferritin ALT Lactate Dehydrogenase C-Reactive Protein 2.90 H Total Protein Albumin Arterial Blood Glucose SARS-CoV-2 IgG Ab 02/11/20 02/11/20 02/11/20 03:42 03:42 03:42 WBC 3.0 L RBC Hgb Hct MCHC 35 H Plt Count 109 L Lymph % (Auto) 38.3 H Butts % (Auto) 15.2 H Lymph # (Auto) Seg Neutrophils % Seg Neuts % (Manual) Lymphocytes % (Manual) Seg Neutrophils # 1.4 L Seg Neutrophils # Man Lymphocytes # (Manual) POC ABG pO2 ABG Sodium ABG Potassium ABG Glucose Potassium 3.3 L Chloride Carbon Dioxide BUN 6 L Glucose 107 H Calcium Ferritin 231.3 H ALT Lactate Dehydrogenase C-Reactive Protein Total Protein Albumin Arterial Blood Glucose SARS-CoV-2 IgG Ab 02/12/20 02/13/20 02/13/20 08:30 06:02 06:02 WBC RBC Hgb Hct MCHC Plt Count Lymph % (Auto) Butts % (Auto) Lymph # (Auto) Seg Neutrophils % Seg Neuts % (Manual) Lymphocytes % (Manual) Seg Neutrophils # Seg Neutrophils # Man Lymphocytes # (Manual) POC ABG pO2 ABG Sodium ABG Potassium ABG Glucose Potassium Chloride Carbon Dioxide BUN Glucose 104 H Calcium Ferritin 245.0 H ALT Lactate Dehydrogenase C-Reactive Protein 2.80 H Total Protein Albumin Arterial Blood Glucose SARS-CoV-2 IgG Ab 02/14/20 02/16/20 02/16/20 07:20 11:09 11:09 WBC RBC Hgb Hct MCHC Plt Count 103 L Lymph % (Auto) Butts % (Auto) Lymph # (Auto) Seg Neutrophils % Seg Neuts % (Manual) Lymphocytes % (Manual) Seg Neutrophils # Seg Neutrophils # Man Lymphocytes # (Manual) POC ABG pO2 ABG Sodium ABG Potassium ABG Glucose Potassium 3.3 L Chloride 96.4 L Carbon Dioxide 35 H BUN Glucose 104 H 124 H Calcium 8.3 L Ferritin ALT Lactate Dehydrogenase C-Reactive Protein Total Protein 6.2 L Albumin 3.3 L Arterial Blood Glucose SARS-CoV-2 IgG Ab 02/16/20 02/16/20 02/17/20 11:09 11:09 17:00 WBC 11.2 H RBC Hgb 14.6 H Hct 43.8 H MCHC Plt Count 124 L Lymph % (Auto) Butts % (Auto) Lymph # (Auto) Seg Neutrophils % Seg Neuts % (Manual) 93.0 H Lymphocytes % (Manual) 3.0 L Seg Neutrophils # Seg Neutrophils # Man 10.4 H Lymphocytes # (Manual) 0.3 L POC ABG pO2 ABG Sodium ABG Potassium ABG Glucose Potassium Chloride Carbon Dioxide BUN Glucose Calcium Ferritin 352.2 H ALT Lactate Dehydrogenase 253 H C-Reactive Protein 8.90 H Total Protein Albumin Arterial Blood Glucose SARS-CoV-2 IgG Ab 02/17/20 02/18/20 02/18/20 22:20 07:31 07:31 WBC RBC Hgb Hct MCHC Plt Count Lymph % (Auto) Butts % (Auto) Lymph # (Auto) Seg Neutrophils % Seg Neuts % (Manual) Lymphocytes % (Manual) Seg Neutrophils # Seg Neutrophils # Man Lymphocytes # (Manual) POC ABG pO2 79.9 L ABG Sodium 134.4 L ABG Potassium 3.0 L ABG Glucose 253 H Potassium Chloride Carbon Dioxide 34 H BUN Glucose 171 H Calcium Ferritin 465.7 H ALT Lactate Dehydrogenase C-Reactive Protein 7.10 H Total Protein Albumin 3.4 L Arterial Blood Glucose 253 H SARS-CoV-2 IgG Ab 02/19/20 02/19/20 02/20/20 05:15 05:15 04:07 WBC 14.3 H 12.6 H RBC Hgb 14.4 H Hct MCHC Plt Count Lymph % (Auto) 6.6 L 7.6 L Butts % (Auto) Lymph # (Auto) 0.9 L 1.0 L Seg Neutrophils % 89.5 H 86.6 H Seg Neuts % (Manual) Lymphocytes % (Manual) Seg Neutrophils # 12.8 H 10.9 H Seg Neutrophils # Man Lymphocytes # (Manual) POC ABG pO2 ABG Sodium ABG Potassium ABG Glucose Potassium 3.5 L Chloride Carbon Dioxide BUN 23 H Glucose 163 H Calcium Ferritin ALT 61 H Lactate Dehydrogenase C-Reactive Protein Total Protein Albumin 3.0 L Arterial Blood Glucose SARS-CoV-2 IgG Ab 02/20/20 02/20/20 02/21/20 04:07 04:07 08:30 WBC 13.6 H RBC 5.28 H Hgb 15.2 H Hct 46.5 H MCHC Plt Count Lymph % (Auto) 6.4 L Butts % (Auto) Lymph # (Auto) 0.9 L Seg Neutrophils % 90.0 H Seg Neuts % (Manual) Lymphocytes % (Manual) Seg Neutrophils # 12.2 H Seg Neutrophils # Man Lymphocytes # (Manual) POC ABG pO2 ABG Sodium ABG Potassium ABG Glucose Potassium Chloride Carbon Dioxide BUN 21 H Glucose 192 H Calcium Ferritin ALT 69 H Lactate Dehydrogenase C-Reactive Protein Total Protein 5.7 L Albumin 3.2 L Arterial Blood Glucose SARS-CoV-2 IgG Ab Reactive A 02/21/20 08:30 WBC RBC Hgb Hct MCHC Plt Count Lymph % (Auto) Butts % (Auto) Lymph # (Auto) Seg Neutrophils % Seg Neuts % (Manual) Lymphocytes % (Manual) Seg Neutrophils # Seg Neutrophils # Man Lymphocytes # (Manual) POC ABG pO2 ABG Sodium ABG Potassium ABG Glucose Potassium 3.5 L Chloride 97.8 L Carbon Dioxide 33 H BUN 20 H Glucose 230 H Calcium Ferritin ALT Lactate Dehydrogenase C-Reactive Protein Total Protein Albumin 3.0 L Arterial Blood Glucose SARS-CoV-2 IgG Ab
--- NOTE | 2020-02-21 15:29 | Progress Note ---
Assessment and Plan Assessment and plan: 59-year-old morbidly obese female with a medical history of asthma admitted with chief complaint of fever, shortness of breath, cough and loss of smell. Patient had tested positive for COVID-19 a day prior to presentation. While at home, her oxygen saturation fell to the 80s so she presented to the hospital for evaluation. Here in the ER, she was started on dexamethasone and admitted to the hospital. 02/12. Slight improvement noted. ID recommendations appreciated 02/13-. Plan to get a walk test patient desaturated she was placed on oxygen. 02/15. Patient remains on high oxygen-8 L. ID consulted as patient will need remdesivir. Pulmonology consulted as well. She denies any chest pain or palpitations. Elevated D-dimer noted. Ultrasound lower extremity Dopplers ordered. 02/16. Remains on high oxygen. Pulmonology advised recommendations appreciated. Ultrasound lower extremity negative for DVT. Awaiting a.m. labs 02/17. Had increased work of breathing yesterday so she was transferred to the [facility] on BiPAP. Lasix 40 mg IV ordered this morning. Still on Solu-Medrol and r emdesivir. ID and pulmonology following 02/18. On high flow nasal cannula with sats in the 90s. Still on Solu-Medrol and remdesivir. Labs reviewed. Continue to monitor 02/19. States her breathing is better. Now on 70% oxygen. On steroids. She has antibodies to COVID-19 so does not qualify for convalescent plasma. ID and pulmonology on board 02/20. On 50% oxygen and 20L. Feels better today. Labs reviewed. Problems -- COVID-19 PNA Current Visit: Yes Status: Acute Plan to address problem: Solu-Medrol Continue remdesivir ID and pulmonology recommendations appreciated Continue to monitor inflammatory makers Airborne and contact isolation Ascorbic acid and zinc sulphate Prone positioning advised --Acute respiratory failure with hypoxia Current Visit: Yes Status: Acute Plan to address problem: Continue oxygen supplementation Lasix as needed COVID-19 treatment --Essential (primary) hypertension Current Visit: Yes Status: Acute Plan to address problem: Continue to monitor blood pressure closely --Morbid obesity due to excess calories BMI 54.8 Current Visit: Yes Status: Acute Plan to address problem: Discussed lifestyle modification-healthy diet and weight management And medically stable -- DVT prophylaxis Current Visit: Yes Status: Acute Plan to address problem: JEREMY Brennan History Interval history: Patient seen and examined at bedside this morning She feels better today On 50% and 20L of oxygen Labs reviewed Hospitalist Physical - Physical exam Narrative exam: VITAL SIGNS: Reviewed. GENERAL: Awake and alert on response to questions HEAD: No signs of head trauma. EYES: Pupils are equal. Extraocular motions intact. EARS: Hearing grossly intact. MOUTH: Oropharynx is normal. NECK: No adenopathy, no JVD. CHEST: Mostly clear CARDIAC: Regular rate and rhythm. S1 and S2, without murmurs, gallops, or rubs. VASCULAR: No Edema. Peripheral pulses normal and equal in all extremities. ABDOMEN: Soft, non tender and non distended. No rebound or guarding, and no masses palpated. Bowel Sounds normal. MUSCULOSKELETAL: Good range of motion of all major joints. Extremities without clubbing, cyanosis or edema. NEUROLOGIC EXAM: Alert and oriented x3. No focal neurologic deficits PSYCHIATRIC: Stable mood SKIN: No obvious lesions - Constitutional Vitals: Temp Pulse Resp BP Pulse Ox 97.9 F 97 H 20 124/79 96 02/21/20 12:00 02/21/20 14:01 02/21/20 14:01 02/21/20 14:00 02/21/20 14:01 HEART Score - HEART Score Troponin: Troponin T < 0.010 ng/mL (0.00-0.029) 02/11/20 07:44 Results - Labs CBC & Chem 7: 02/21/20 08:30 02/21/20 08:30 Labs: Laboratory Last Values WBC 13.6 K/mm3 (4.5-11.0) H 02/21/20 08:30 RBC 5.28 M/mm3 (3.65-5.03) H 02/21/20 08:30 Hgb 15.2 gm/dl (10.1-14.3) H 02/21/20 08:30 Hct 46.5 % (30.3-42.9) H 02/21/20 08:30 MCV 88 fl (79-97) 02/21/20 08:30 MCH 29 pg (28-32) 02/21/20 08:30 MCHC 33 % (30-34) 02/21/20 08:30 RDW 13.5 % (13.2-15.2) 02/21/20 08:30 Plt Count 207 K/mm3 (140-440) 02/21/20 08:30 Lymph % (Auto) 6.4 % (13.4-35.0) L 02/21/20 08:30 [place] % (Auto) 3.5 % (0.0-7.3) 02/21/20 08:30 Eos % (Auto) 0.0 % (0.0-4.3) 02/21/20 08:30 Baso % (Auto) 0.1 % (0.0-1.8) 02/21/20 08:30 Lymph # (Auto) 0.9 K/mm3 (1.2-5.4) L 02/21/20 08:30 [place] # (Auto) 0.5 K/mm3 (0.0-0.8) 02/21/20 08:30 Eos # (Auto) 0.0 K/mm3 (0.0-0.4) 02/21/20 08:30 Baso # (Auto) 0.0 K/mm3 (0.0-0.1) 02/21/20 08:30 Add Manual Diff Complete 02/17/20 17:00 Total Counted 100 02/17/20 17:00 Seg Neutrophils % 90.0 % (40.0-70.0) H 02/21/20 08:30 Seg Neuts % (Manual) 93.0 % (40.0-70.0) H 02/17/20 17:00 Band Neutrophils % 2.0 % 02/17/20 17:00 Lymphocytes % (Manual) 3.0 % (13.4-35.0) L 02/17/20 17:00 Reactive Lymphs % (Man) 0 % 02/17/20 17:00 Monocytes % (Manual) 2.0 % (0.0-7.3) 02/17/20 17:00 Eosinophils % (Manual) 0 % (0.0-4.3) 02/17/20 17:00 Basophils % (Manual) 0 % (0.0-1.8) 02/17/20 17:00 Metamyelocytes % 0 % 02/17/20 17:00 Myelocytes % 0 % 02/17/20 17:00 Promyelocytes % 0 % 02/17/20 17:00 Blast Cells % 0 % 02/17/20 17:00 Nucleated RBC % Not Reportable 02/17/20 17:00 Seg Neutrophils # 12.2 K/mm3 (1.8-7.7) H 02/21/20 08:30 Seg Neutrophils # Man 10.4 K/mm3 (1.8-7.7) H 02/17/20 17:00 Band Neutrophils # 0.2 K/mm3 02/17/20 17:00 Lymphocytes # (Manual) 0.3 K/mm3 (1.2-5.4) L 02/17/20 17:00 Abs React Lymphs (Man) 0.0 K/mm3 02/17/20 17:00 Monocytes # (Manual) 0.2 K/mm3 (0.0-0.8) 02/17/20 17:00 Eosinophils # (Manual) 0.0 K/mm3 (0.0-0.4) 02/17/20 17:00 Basophils # (Manual) 0.0 K/mm3 (0.0-0.1) 02/17/20 17:00 Metamyelocytes # 0.0 K/mm3 02/17/20 17:00 Myelocytes # 0.0 K/mm3 02/17/20 17:00 Promyelocytes # 0.0 K/mm3 02/17/20 17:00 Blast Cells # 0.0 K/mm3 02/17/20 17:00 WBC Morphology Not Reportable 02/17/20 17:00 Hypersegmented Neuts Not Reportable 02/17/20 17:00 Hyposegmented Neuts Not Reportable 02/17/20 17:00 Hypogranular Neuts Not Reportable 02/17/20 17:00 Smudge Cells Not Reportable 02/17/20 17:00 Toxic Granulation Not Reportable 02/17/20 17:00 Toxic Vacuolation Not Reportable 02/17/20 17:00 Dohle Bodies Not Reportable 02/17/20 17:00 Pelger-Huet Anomaly Not Reportable 02/17/20 17:00 Ashkan Rods Not Reportable 02/17/20 17:00 Platelet Estimate Consistent w auto 02/17/20 17:00 Clumped Platelets Not Reportable 02/17/20 17:00 Plt Clumps, EDTA Not Reportable 02/17/20 17:00 Large Platelets Not Reportable 02/17/20 17:00 Giant Platelets Not Reportable 02/17/20 17:00 Platelet Satelliting Not Reportable 02/17/20 17:00 Plt Morphology Comment Not Reportable 02/17/20 17:00 RBC Morphology Not Reportable 02/17/20 17:00 Dimorphic RBCs Not Reportable 02/17/20 17:00 Polychromasia Not Reportable 02/17/20 17:00 Hypochromasia Not Reportable 02/17/20 17:00 Poikilocytosis Not Reportable 02/17/20 17:00 Anisocytosis Not Reportable 02/17/20 17:00 Microcytosis Not Reportable 02/17/20 17:00 Macrocytosis Not Reportable 02/17/20 17:00 Spherocytes Not Reportable 02/17/20 17:00 Pappenheimer Bodies Not Reportable 02/17/20 17:00 Sickle Cells Not Reportable 02/17/20 17:00 Target Cells Not Reportable 02/17/20 17:00 Tear Drop Cells Not Reportable 02/17/20 17:00 Ovalocytes Rare 02/17/20 17:00 Helmet Cells Not Reportable 02/17/20 17:00 Prather-Greer Bodies Not Reportable 02/17/20 17:00 [place] Rings Not Reportable 02/17/20 17:00 Blake Cells Not Reportable 02/17/20 17:00 Bite Cells Not Reportable 02/17/20 17:00 Crenated Cell Not Reportable 02/17/20 17:00 Elliptocytes Not Reportable 02/17/20 17:00 Acanthocytes (Spur) Not Reportable 02/17/20 17:00 Rouleaux Not Reportable 02/17/20 17:00 Hemoglobin C Crystals Not Reportable 02/17/20 17:00 Schistocytes Not Reportable 02/17/20 17:00 Malaria parasites Not Reportable 02/17/20 17:00 Hossein Bodies Not Reportable 02/17/20 17:00 Hem Pathologist Commnt No 02/17/20 17:00 D-Dimer 149.43 ng/mlDDU (0-234) 02/16/20 11:09 ABG pH 7.435 (7.320-7.450) 02/17/20 22:20 POC ABG pCO2 41.4 mmHg (32.0-48.0) 02/17/20 22:20 POC ABG pO2 79.9 mmHg (83-108) L 02/17/20 22:20 POC ABG HCO3 27.2 02/17/20 22:20 POC ABG Base Excess 2.7 02/17/20 22:20 ABG Hemoglobin 14.8 (12.0-17.5) 02/17/20 22:20 ABG Oxyhemoglobin 95.6 (94-98) 02/17/20 22:20 ABG Methemoglobin 0 (0.0-1.5) 02/17/20 22:20 ABG Sodium 134.4 mmol/L (136.0-145.0) L 02/17/20 22: ABG Potassium 3.0 mmol/L (3.40-4.50) L 02/17/20 22:20 ABG Chloride 99.0 mmol/L (98-107) 02/17/20 22: ABG Glucose 253 mg/dL (65-95) H 02/17/20 22:20 Carboxyhemoglobin 0.5 (0.5-1.5) 02/17/20 22:20 FiO2 100 02/17/20 22:20 Sodium 141 mmol/L (137-145) 02/21/20 08:30 Potassium 3.5 mmol/L (3.6-5.0) L 02/21/20 08:30 Chloride 97.8 mmol/L (98-107) L 02/21/20 08:30 Carbon Dioxide 33 mmol/L (22-30) H 02/21/20 08:30 Anion Gap 14 mmol/L 02/21/20 08:30 BUN 20 mg/dL (7-17) H 02/21/20 08:30 Creatinine 0.6 mg/dL (0.6-1.2) 02/21/20 08:30 Estimated GFR > 60 ml/min 02/21/20 08:30 BUN/Creatinine Ratio 33 % 02/21/20 08:30 Glucose 230 mg/dL (65-100) H 02/21/20 08:30 Calcium 9.0 mg/dL (8.4-10.2) 02/21/20 08:30 Ferritin 465.7 ng/mL (10.0-200.0) H 02/18/20 07:31 Total Bilirubin 0.30 mg/dL (0.1-1.2) 02/21/20 08:30 AST 18 units/L (5-40) 02/21/20 08:30 ALT 55 units/L (7-56) 02/21/20 08:30 Alkaline Phosphatase 49 units/L (35-129) 02/21/20 08:30 Lactate Dehydrogenase 253 units/L (91-180) H 02/16/20 11:09 Troponin T < 0.010 ng/mL (0.00-0.029) 02/11/20 07:44 C-Reactive Protein 7.10 mg/dL (0.00-1.30) H 02/18/20 07:31 NT-Pro-B Natriuret Pep 75.85 pg/mL (0-900) 02/19/20 05:15 Total Protein 6.5 g/dL (6.3-8.2) 02/21/20 08:30 Albumin 3.0 g/dL (3.9-5) L 02/21/20 08:30 Albumin/Globulin Ratio 0.9 % 02/21/20 08:30 Procalcitonin < 0.05 ng/mL (<0.15) 02/11/20 08:12 Arterial Blood Glucose 253 mg/dL (65-95) H 02/17/20 22:20 Arterial Blood Ionized Calcium 4.6 mg/dL (4.6-5.3) 02/17/20 22:20 SARS-CoV-2 IgG Ab Reactive (NonReactive) A 02/20/20 04:07 Sutton/IV: Voiding Method Toilet IV Catheter Type [Right Wrist] INT / Saline Lock IV Catheter Type [Left Hand] INT / Saline Lock IV Catheter Type [Right INT / Saline Lock Forearm] IV Catheter Type [Left Forearm INT / Saline Lock ] Active Medications - Current Medications Current Medications: Generic Name Dose Route Start Last Admin Trade Name Freq PRN Reason Stop Dose Admin Acetaminophen 650 mg 02/11/20 03:04 02/19/20 10:07 Tylenol PO 650 mg Q6H PRN Administration Pain, Mild (1-3) Al Hydrox/Mg Hydrox/Simethicone 15 ml 02/11/20 03:04 Alum-Mag Hydrox-Simeth 256-806-18oc/5ml PO Q4H PRN Indigestion Albuterol 2 puff 02/16/20 14:00 02/21/20 14:01 Proair IH 2 puff TIDRT DIMAS Administration Amlodipine Besylate 10 mg 02/11/20 10:00 02/21/20 10:47 Amlodipine PO 10 mg QDAY DIMAS Administration Arformoterol Tartrate 15 mcg 02/16/20 11:00 02/21/20 09:20 Brovana Nebu IH 15 mcg Q12HRT DIMAS Administration Ascorbic Acid 500 mg 02/11/20 10:00 02/21/20 10:47 Vitamin C PO 500 mg BID DIMAS Administration Benzonatate 100 mg 02/11/20 03:11 Tessalon Perles PO Q8HR PRN Nasal Congestion Budesonide 0.5 mg 02/16/20 11:00 02/21/20 09:20 Pulmicort IH 0.5 mg Q12HRT DIMAS Administration Diphenhydramine HCl 25 mg 02/13/20 16:20 02/19/20 21:15 Benadryl PO 25 mg QHS PRN Administration Sleep Enoxaparin Sodium 40 mg 02/11/20 10:00 02/21/20 10:47 Enoxaparin SUB-Q 40 mg QDAY@1000 DIMAS Administration Protocol Lidocaine HCl 15 ml 02/18/20 23:00 02/21/20 13:58 Magic Mouthwash PO 15 ml TID DIMAS Administration Meclizine HCl 25 mg 02/11/20 03:11 Antivert PO Q8H PRN Vertigo Methylprednisolone Sodium Succinate 60 mg 02/16/20 12:00 02/21/20 12:30 Solu-Medrol IV 60 mg Q6HR DIMAS Administration Ondansetron HCl 4 mg 02/11/20 03:04 02/15/20 01:04 Zofran IV 4 mg Q4H PRN Administration Nausea And Vomiting Zinc Sulfate 220 mg 02/11/20 10:00 02/21/20 10:47 Zinc Sulfate PO 220 mg QDAY DMIAS Administration Nutrition/Malnutrition Assess - Dietary Evaluation Nutrition/Malnutrition Findings: Nutrition Notes Start: 02/18/20 14:20 Freq: Status: Active Protocol: Document 02/18/20 14:20 EN (Rec: 02/18/20 14:29 EN [email or web address]) Co-Sign 02/18/20 14:20 LP Nutrition Notes Need for Assessment generated from: LOS Initial or Follow up Assessment Current Diagnosis Hypertension,Respiratory Failure Other Pertinent Diagnosis COVID+ Current Diet Cardiac Labs/Tests Glu 171 Pertinent Medications Solu-medrol Height 5 ft 8 in Weight [address] [place] Body Weight (kg) 63.63 BMI 52.9 Weight Status Obese Subjective/Other Information Pt screened for LOS. Per RN, pt eating well with good appetitie. RN states that pt eats what she wants from the trays provided and that she does not have any GI symptoms. Pt does not have difficulty chewing or swallowing. Per chart, pt consuming 50% of meals. Percent of energy/protein needs met: 54%/48% Burn Absent Trauma Absent GI Symptoms None Food Allergy No Current % PO Fair (50-74%) Minimum of two criteria No physical signs of malnutrition #1 Nutrition Diagnosis Inadequate oral intake Etiology COVID-19 positive and respiratory failure As Evidenced by Signs and Symptoms Pt consuming 50% of meals Is patient on ventilator? No Is Patient Ambulatory and/or Out of Bed No REE-([place]-confined to bed) 2647.968 Kcal/Kg value to use for calculation 13 Approximate Energy Requirements Using 2053 kcal/Kg Calculation Used for Recommendations Kcal/kg Additional Notes Protein: 0.8-1.0 g/kg AdBW of 110.8kg (89-111g) Fluid: 1 ml/kcal Nutrition Intervention Change Diet Order: Continue cardiac diet Goal #1 Meet 75% of energy and protein needs with PO Anticipated Discharge Needs: Cardiac diet Follow-Up By: 02/22/20 Additional Comments F/u for intakes and nutrition hx
[2020-02-21] MEDS: diphenhydrAMINE 25 MG CAP PO PRN (21:29)
[2020-02-22] MEDS: methylPREDNISolone Sod Succinate 125 MG/2 ML INJ IV SCH ×4 (06:47→23:42)
[2020-02-22 07:35] LABS: Hematocrit 42.6 % (30.3-42.9); Hemoglobin 14.4 gm/dl (10.1-14.3); Mean Corpuscular HGB Conc 34 % (30-34); Mean Corpuscular Volume 87 fl (79-97); Platelet Count 195 K/mm3 (140-440); Red Blood Count 4.89 M/mm3 (3.65-5.03); Red Cell Distribution Width 13.6 % (13.2-15.2)
[2020-02-22 07:55] LABS: Alanine Aminotransferase 53 units/L (7-56); Albumin 3.1 g/dL (3.9-5); Blood Urea Nitrogen 19 mg/dL (7-17); Calcium 8.8 mg/dL (8.4-10.2); Hemolysis Index 20
[2020-02-22 08:10] LABS: BUN/Creatinine Ratio 32
[2020-02-22] MEDS: ZINC SULFATE 220 MG CAP PO SCH (10:22)
[2020-02-22] MEDS: amLODIPine 10 MG TAB PO SCH (10:22)
[2020-02-22] MEDS: ENOXAPARIN 40 MG/0.4 ML INJ SUB-Q SCH (10:22)
[2020-02-22] MEDS: ASCORBIC ACID 500 MG TAB PO SCH ×2 (10:22→21:20)
[2020-02-22] MEDS: MAGIC MOUTHWASH 30ML PO SCH ×3 (10:34→19:58)
[2020-02-22 10:59] LABS: Basophils % (Manual) 0 % (0.0-1.8); Eosinophils % (Manual) 0 % (0.0-4.3); Total Cells Counted 100
[2020-02-22 11:02] LABS: Platelet Estimate Consistent w Auto; Tear Drop Cells Few
[2020-02-22 11:03] LABS: Poikilocytosis Few
[2020-02-22] MEDS: BUDESONIDE 0.5 MG/2 ML NEBU IH SCH ×2 (12:31→20:00)
[2020-02-22] MEDS: ALBUTEROL 8.5 GM MDI INHALATION IH SCH ×2 (12:33→20:00)
[2020-02-22] MEDS: ARFORMOTEROL 15 MCG/2 ML NEBU IH SCH ×2 (12:33→20:00)
--- NOTE | 2020-02-22 13:08 | Progress Note ---
Assessment and Plan 59 y/o morbidly obese female admitted with acute respiratory failure secondary to COVID 19 pneumonia and possible asthma exacerbation. 1. Starting tomorrow, please change steroids to 60q8. COntinue Pulmicort and brovana and PPV at night. 2. Remdesivir is done, continue to prone as tolerated. 3. Given improvement in oxygen, hold on lasix today. Will reasses again tomorrow for use. 4. Wean FiO2 for sats >88% 5. Guarded prognosis given obesity, asthma and now COVID 19 infection. stable now, please transfer back to floor. Subjective Date of service: 02/22/20 Principal diagnosis: COVID pneumonia Interval history: Patient, now down to 5 liters NC with good sats. Objective Vital Signs - 12hr 02/22/20 02/22/20 02/22/20 02:00 03:00 03:26 Temperature Pulse Rate 71 75 69 Pulse Rate [ Anterior Bilateral Throughout] Pulse Rate [ Bilateral Throughout] Respiratory 25 H 25 H 23 Rate Respiratory Rate [Anterior Bilateral Throughout] Respiratory Rate [Bilateral Throughout] Blood Pressure 121/68 119/69 115/69 O2 Sat by Pulse 97 98 97 Oximetry 02/22/20 02/22/20 02/22/20 04:00 04:31 05:00 Temperature 98.1 F Pulse Rate 88 82 76 Pulse Rate [ Anterior Bilateral Throughout] Pulse Rate [ Bilateral Throughout] Respiratory 32 H 26 H Rate Respiratory Rate [Anterior Bilateral Throughout] Respiratory Rate [Bilateral Throughout] Blood Pressure 119/69 126/78 O2 Sat by Pulse 99 94 Oximetry 02/22/20 02/22/20 02/22/20 06:00 07:00 08:00 Temperature 97.4 F L Pulse Rate 73 79 79 Pulse Rate [ Anterior Bilateral Throughout] Pulse Rate [ Bilateral Throughout] Respiratory 24 28 H 27 H Rate Respiratory Rate [Anterior Bilateral Throughout] Respiratory Rate [Bilateral Throughout] Blood Pressure 133/78 116/66 116/66 O2 Sat by Pulse 94 96 92 Oximetry 02/22/20 02/22/20 02/22/20 09:00 10:00 11:00 Temperature Pulse Rate 103 H 95 H 87 Pulse Rate [ Anterior Bilateral Throughout] Pulse Rate [ Bilateral Throughout] Respiratory 18 39 H Rate Respiratory Rate [Anterior Bilateral Throughout] Respiratory Rate [Bilateral Throughout] Blood Pressure 132/81 124/73 120/69 O2 Sat by Pulse 98 96 96 Oximetry 02/22/20 02/22/20 12:30 12:57 Temperature Pulse Rate Pulse Rate [ 117 H Anterior Bilateral Throughout] Pulse Rate [ 122 H Bilateral Throughout] Respiratory Rate Respiratory 22 Rate [Anterior Bilateral Throughout] Respiratory 17 Rate [Bilateral Throughout] Blood Pressure O2 Sat by Pulse 97 Oximetry CBC and BMP: 02/22/20 06:46 02/22/20 06:46 ABG, PT/INR, D-dimer: ABG ABG pH 7.435 (7.320-7.450) 02/17/20 22:20 POC ABG pCO2 41.4 mmHg (32.0-48.0) 02/17/20 22:20 POC ABG pO2 79.9 mmHg (83-108) L 02/17/20 22:20 POC ABG HCO3 27.2 02/17/20 22:20 PT/INR, D-dimer D-Dimer 149.43 ng/mlDDU (0-234) 02/16/20 11:09 Abnormal lab findings: Abnormal Labs 02/11/20 02/11/20 02/11/20 00:45 00:45 03:42 WBC 3.7 L RBC Hgb Hct MCHC Plt Count 113 L Lymph % (Auto) 45.2 H [place] % (Auto) 13.9 H Lymph # (Auto) Seg Neutrophils % Seg Neuts % (Manual) Lymphocytes % (Manual) Seg Neutrophils # 1.5 L Seg Neutrophils # Man Lymphocytes # (Manual) POC ABG pO2 ABG Sodium ABG Potassium ABG Glucose Potassium 3.4 L Chloride Carbon Dioxide BUN 6 L Glucose 114 H 106 H Calcium Ferritin ALT Lactate Dehydrogenase C-Reactive Protein 2.90 H Total Protein Albumin Arterial Blood Glucose SARS-CoV-2 IgG Ab 02/11/20 02/11/20 02/11/20 03:42 03:42 03:42 WBC 3.0 L RBC Hgb Hct MCHC 35 H Plt Count 109 L Lymph % (Auto) 38.3 H [place] % (Auto) 15.2 H Lymph # (Auto) Seg Neutrophils % Seg Neuts % (Manual) Lymphocytes % (Manual) Seg Neutrophils # 1.4 L Seg Neutrophils # Man Lymphocytes # (Manual) POC ABG pO2 ABG Sodium ABG Potassium ABG Glucose Potassium 3.3 L Chloride Carbon Dioxide BUN 6 L Glucose 107 H Calcium Ferritin 231.3 H ALT Lactate Dehydrogenase C-Reactive Protein Total Protein Albumin Arterial Blood Glucose SARS-CoV-2 IgG Ab 02/12/20 02/13/20 02/13/20 08:30 06:02 06:02 WBC RBC Hgb Hct MCHC Plt Count Lymph % (Auto) [place] % (Auto) Lymph # (Auto) Seg Neutrophils % Seg Neuts % (Manual) Lymphocytes % (Manual) Seg Neutrophils # Seg Neutrophils # Man Lymphocytes # (Manual) POC ABG pO2 ABG Sodium ABG Potassium ABG Glucose Potassium Chloride Carbon Dioxide BUN Glucose 104 H Calcium Ferritin 245.0 H ALT Lactate Dehydrogenase C-Reactive Protein 2.80 H Total Protein Albumin Arterial Blood Glucose SARS-CoV-2 IgG Ab 02/14/20 02/16/20 02/16/20 07:20 11:09 11:09 WBC RBC Hgb Hct MCHC Plt Count 103 L Lymph % (Auto) [place] % (Auto) Lymph # (Auto) Seg Neutrophils % Seg Neuts % (Manual) Lymphocytes % (Manual) Seg Neutrophils # Seg Neutrophils # Man Lymphocytes # (Manual) POC ABG pO2 ABG Sodium ABG Potassium ABG Glucose Potassium 3.3 L Chloride 96.4 L Carbon Dioxide 35 H BUN Glucose 104 H 124 H Calcium 8.3 L Ferritin ALT Lactate Dehydrogenase C-Reactive Protein Total Protein 6.2 L Albumin 3.3 L Arterial Blood Glucose SARS-CoV-2 IgG Ab 02/16/20 02/16/20 02/17/20 11:09 11:09 17:00 WBC 11.2 H RBC Hgb 14.6 H Hct 43.8 H MCHC Plt Count 124 L Lymph % (Auto) [place] % (Auto) Lymph # (Auto) Seg Neutrophils % Seg Neuts % (Manual) 93.0 H Lymphocytes % (Manual) 3.0 L Seg Neutrophils # Seg Neutrophils # Man 10.4 H Lymphocytes # (Manual) 0.3 L POC ABG pO2 ABG Sodium ABG Potassium ABG Glucose Potassium Chloride Carbon Dioxide BUN Glucose Calcium Ferritin 352.2 H ALT Lactate Dehydrogenase 253 H C-Reactive Protein 8.90 H Total Protein Albumin Arterial Blood Glucose SARS-CoV-2 IgG Ab 02/17/20 02/18/20 02/18/20 22:20 07:31 07:31 WBC RBC Hgb Hct MCHC Plt Count Lymph % (Auto) [place] % (Auto) Lymph # (Auto) Seg Neutrophils % Seg Neuts % (Manual) Lymphocytes % (Manual) Seg Neutrophils # Seg Neutrophils # Man Lymphocytes # (Manual) POC ABG pO2 79.9 L ABG Sodium 134.4 L ABG Potassium 3.0 L ABG Glucose 253 H Potassium Chloride Carbon Dioxide 34 H BUN Glucose 171 H Calcium Ferritin 465.7 H ALT Lactate Dehydrogenase C-Reactive Protein 7.10 H Total Protein Albumin 3.4 L Arterial Blood Glucose 253 H SARS-CoV-2 IgG Ab 02/19/20 02/19/20 02/20/20 05:15 05:15 04:07 WBC 14.3 H 12.6 H RBC Hgb 14.4 H Hct MCHC Plt Count Lymph % (Auto) 6.6 L 7.6 L [place] % (Auto) Lymph # (Auto) 0.9 L 1.0 L Seg Neutrophils % 89.5 H 86.6 H Seg Neuts % (Manual) Lymphocytes % (Manual) Seg Neutrophils # 12.8 H 10.9 H Seg Neutrophils # Man Lymphocytes # (Manual) POC ABG pO2 ABG Sodium ABG Potassium ABG Glucose Potassium 3.5 L Chloride Carbon Dioxide BUN 23 H Glucose 163 H Calcium Ferritin ALT 61 H Lactate Dehydrogenase C-Reactive Protein Total Protein Albumin 3.0 L Arterial Blood Glucose SARS-CoV-2 IgG Ab 02/20/20 02/20/20 02/21/20 04:07 04:07 08:30 WBC 13.6 H RBC 5.28 H Hgb 15.2 H Hct 46.5 H MCHC Plt Count Lymph % (Auto) 6.4 L [place] % (Auto) Lymph # (Auto) 0.9 L Seg Neutrophils % 90.0 H Seg Neuts % (Manual) Lymphocytes % (Manual) Seg Neutrophils # 12.2 H Seg Neutrophils # Man Lymphocytes # (Manual) POC ABG pO2 ABG Sodium ABG Potassium ABG Glucose Potassium Chloride Carbon Dioxide BUN 21 H Glucose 192 H Calcium Ferritin ALT 69 H Lactate Dehydrogenase C-Reactive Protein Total Protein 5.7 L Albumin 3.2 L Arterial Blood Glucose SARS-CoV-2 IgG Ab Reactive A 02/21/20 02/22/20 02/22/20 08:30 06:46 06:46 WBC 14.5 H RBC Hgb 14.4 H Hct MCHC Plt Count Lymph % (Auto) [place] % (Auto) Lymph # (Auto) Seg Neutrophils % Seg Neuts % (Manual) 91.0 H Lymphocytes % (Manual) 7.0 L Seg Neutrophils # Seg Neutrophils # Man 13.2 H Lymphocytes # (Manual) 1.0 L POC ABG pO2 ABG Sodium ABG Potassium ABG Glucose Potassium 3.5 L Chloride 97.8 L Carbon Dioxide 33 H 34 H BUN 20 H 19 H Glucose 230 H 186 H Calcium Ferritin ALT Lactate Dehydrogenase C-Reactive Protein Total Protein 5.4 L Albumin 3.0 L 3.1 L Arterial Blood Glucose SARS-CoV-2 IgG Ab
--- NOTE | 2020-02-22 17:12 | Progress Note ---
Assessment and Plan Assessment and plan: 59-year-old morbidly obese female with a medical history of asthma admitted with chief complaint of fever, shortness of breath, cough and loss of smell. Patient had tested positive for COVID-19 a day prior to presentation. While at home, her oxygen saturation fell to the 80s so she presented to the hospital for evaluation. Here in the ER, she was started on dexamethasone and admitted to the hospital. 02/12. Slight improvement noted. ID recommendations appreciated 02/13-. Plan to get a walk test patient desaturated she was placed on oxygen. 02/15. Patient remains on high oxygen-8 L. ID consulted as patient will need remdesivir. Pulmonology consulted as well. She denies any chest pain or palpitations. Elevated D-dimer noted. Ultrasound lower extremity Dopplers ordered. 02/16. Remains on high oxygen. Pulmonology advised recommendations appreciated. Ultrasound lower extremity negative for DVT. Awaiting a.m. labs 02/17. Had increased work of breathing yesterday so she was transferred to the [facility] on BiPAP. Lasix 40 mg IV ordered this morning. Still on Solu-Medrol and r emdesivir. ID and pulmonology following 02/18. On high flow nasal cannula with sats in the 90s. Still on Solu-Medrol and remdesivir. Labs reviewed. Continue to monitor 02/19. States her breathing is better. Now on 70% oxygen. On steroids. She has antibodies to COVID-19 so does not qualify for convalescent plasma. ID and pulmonology on board 02/20. On 50% oxygen and 20L. Feels better today. Labs reviewed. 02/21. Significantly improved. On 5L oxygen. Taper steroids tomorrow. Pulm recs appreciated. She requested for a repeat COVID-19 test before she gets transferred. Repeat test is still positive. Problems -- COVID-19 PNA Current Visit: Yes Status: Acute Plan to address problem: Solu-Medrol taper from tomorrow Completed remdesivir ID and pulmonology recommendations appreciated Continue to monitor inflammatory makers Airborne and contact isolation Ascorbic acid and zinc sulphate Prone positioning advised --Acute respiratory failure with hypoxia Current Visit: Yes Status: Acute Plan to address problem: Continue oxygen supplementation Lasix as needed COVID-19 treatment --Essential (primary) hypertension Current Visit: Yes Status: Acute Plan to address problem: Continue to monitor blood pressure closely --Morbid obesity due to excess calories BMI 54.8 Current Visit: Yes Status: Acute Plan to address problem: Discussed lifestyle modification-healthy diet and weight management And medically stable -- DVT prophylaxis Current Visit: Yes Status: Acute Plan to address problem: JEREMY Sherx History Interval history: Patient seen and examined at bedside this morning She feels much better today On 5L oxygen. She requests for a repeat COVID test prior to transfer to med/surg Labs reviewed Hospitalist Physical - Physical exam Narrative exam: VITAL SIGNS: Reviewed. GENERAL: Awake and alert on response to questions HEAD: No signs of head trauma. EYES: Pupils are equal. Extraocular motions intact. EARS: Hearing grossly intact. MOUTH: Oropharynx is normal. NECK: No adenopathy, no JVD. CHEST: Mostly clear CARDIAC: Regular rate and rhythm. S1 and S2, without murmurs, gallops, or rubs. VASCULAR: No Edema. Peripheral pulses normal and equal in all extremities. ABDOMEN: Soft, non tender and non distended. No rebound or guarding, and no masses palpated. Bowel Sounds normal. MUSCULOSKELETAL: Good range of motion of all major joints. Extremities without clubbing, cyanosis or edema. NEUROLOGIC EXAM: Alert and oriented x3. No focal neurologic deficits PSYCHIATRIC: Stable mood SKIN: No obvious lesions - Constitutional Vitals: Temp Pulse Resp BP Pulse Ox 97.4 F L 117 H 22 120/69 97 02/22/20 08:00 02/22/20 12:30 02/22/20 12:30 02/22/20 11:00 02/22/20 12:57 HEART Score - HEART Score Troponin: Troponin T < 0.010 ng/mL (0.00-0.029) 02/11/20 07:44 Results - Labs CBC & Chem 7: 02/22/20 06:46 02/22/20 06:46 Labs: Laboratory Last Values WBC 14.5 K/mm3 (4.5-11.0) H 02/22/20 06:46 RBC 4.89 M/mm3 (3.65-5.03) 02/22/20 06:46 Hgb 14.4 gm/dl (10.1-14.3) H 02/22/20 06:46 Hct 42.6 % (30.3-42.9) 02/22/20 06:46 MCV 87 fl (79-97) 02/22/20 06:46 MCH 29 pg (28-32) 02/22/20 06:46 MCHC 34 % (30-34) 02/22/20 06:46 RDW 13.6 % (13.2-15.2) 02/22/20 06:46 Plt Count 195 K/mm3 (140-440) 02/22/20 06:46 Lymph % (Auto) 6.4 % (13.4-35.0) L 02/21/20 08:30 [place] % (Auto) 3.5 % (0.0-7.3) 02/21/20 08:30 Eos % (Auto) 0.0 % (0.0-4.3) 02/21/20 08:30 Baso % (Auto) 0.1 % (0.0-1.8) 02/21/20 08:30 Lymph # (Auto) 0.9 K/mm3 (1.2-5.4) L 02/21/20 08:30 [place] # (Auto) 0.5 K/mm3 (0.0-0.8) 02/21/20 08:30 Eos # (Auto) 0.0 K/mm3 (0.0-0.4) 02/21/20 08:30 Baso # (Auto) 0.0 K/mm3 (0.0-0.1) 02/21/20 08:30 Add Manual Diff Complete 02/22/20 06:46 Total Counted 100 02/22/20 06:46 Seg Neutrophils % 90.0 % (40.0-70.0) H 02/21/20 08:30 Seg Neuts % (Manual) 91.0 % (40.0-70.0) H 02/22/20 06:46 Band Neutrophils % 0 % 02/22/20 06:46 Lymphocytes % (Manual) 7.0 % (13.4-35.0) L 02/22/20 06:46 Reactive Lymphs % (Man) 0 % 02/22/20 06:46 Monocytes % (Manual) 2.0 % (0.0-7.3) 02/22/20 06:46 Eosinophils % (Manual) 0 % (0.0-4.3) 02/22/20 06:46 Basophils % (Manual) 0 % (0.0-1.8) 02/22/20 06:46 Metamyelocytes % 0 % 02/22/20 06:46 Myelocytes % 0 % 02/22/20 06:46 Promyelocytes % 0 % 02/22/20 06:46 Blast Cells % 0 % 02/22/20 06:46 Nucleated RBC % Not Reportable 02/22/20 06:46 Seg Neutrophils # 12.2 K/mm3 (1.8-7.7) H 02/21/20 08:30 Seg Neutrophils # Man 13.2 K/mm3 (1.8-7.7) H 02/22/20 06:46 Band Neutrophils # 0.0 K/mm3 02/22/20 06:46 Lymphocytes # (Manual) 1.0 K/mm3 (1.2-5.4) L 02/22/20 06:46 Abs React Lymphs (Man) 0.0 K/mm3 02/22/20 06:46 Monocytes # (Manual) 0.3 K/mm3 (0.0-0.8) 02/22/20 06:46 Eosinophils # (Manual) 0.0 K/mm3 (0.0-0.4) 02/22/20 06:46 Basophils # (Manual) 0.0 K/mm3 (0.0-0.1) 02/22/20 06:46 Metamyelocytes # 0.0 K/mm3 02/22/20 06:46 Myelocytes # 0.0 K/mm3 02/22/20 06:46 Promyelocytes # 0.0 K/mm3 02/22/20 06:46 Blast Cells # 0.0 K/mm3 02/22/20 06:46 WBC Morphology Not Reportable 02/22/20 06:46 Hypersegmented Neuts Not Reportable 02/22/20 06:46 Hyposegmented Neuts Not Reportable 02/22/20 06:46 Hypogranular Neuts Not Reportable 02/22/20 06:46 Smudge Cells Not Reportable 02/22/20 06:46 Toxic Granulation Not Reportable 02/22/20 06:46 Toxic Vacuolation Not Reportable 02/22/20 06:46 Dohle Bodies Not Reportable 02/22/20 06:46 Pelger-Huet Anomaly Not Reportable 02/22/20 06:46 Ashkan Rods Not Reportable 02/22/20 06:46 Platelet Estimate Consistent w auto 02/22/20 06:46 Clumped Platelets Not Reportable 02/22/20 06:46 Plt Clumps, EDTA Not Reportable 02/22/20 06:46 Large Platelets Not Reportable 02/22/20 06:46 Giant Platelets Not Reportable 02/22/20 06:46 Platelet Satelliting Not Reportable 02/22/20 06:46 Plt Morphology Comment Not Reportable 02/22/20 06:46 RBC Morphology Not Reportable 02/22/20 06:46 Dimorphic RBCs Not Reportable 02/22/20 06:46 Polychromasia Not Reportable 02/22/20 06:46 Hypochromasia Not Reportable 02/22/20 06:46 Poikilocytosis Few 02/22/20 06:46 Anisocytosis Not Reportable 02/22/20 06:46 Microcytosis Not Reportable 02/22/20 06:46 Macrocytosis Not Reportable 02/22/20 06:46 Spherocytes Not Reportable 02/22/20 06:46 Pappenheimer Bodies Not Reportable 02/22/20 06:46 Sickle Cells Not Reportable 02/22/20 06:46 Target Cells Not Reportable 02/22/20 06:46 Tear Drop Cells Few 02/22/20 06:46 Ovalocytes Not Reportable 02/22/20 06:46 Helmet Cells Not Reportable 02/22/20 06:46 [place] Bodies Not Reportable 02/22/20 06:46 [place] Rings Not Reportable 02/22/20 06:46 [place] Cells Not Reportable 02/22/20 06:46 Bite Cells Not Reportable 02/22/20 06:46 Crenated Cell Not Reportable 02/22/20 06:46 Elliptocytes Not Reportable 02/22/20 06:46 Acanthocytes (Spur) Not Reportable 02/22/20 06:46 Rouleaux Not Reportable 02/22/20 06:46 Hemoglobin C Crystals Not Reportable 02/22/20 06:46 Schistocytes Not Reportable 02/22/20 06:46 Malaria parasites Not Reportable 02/22/20 06:46 Hossein Bodies Not Reportable 02/22/20 06:46 Hem Pathologist Commnt No 02/22/20 06:46 D-Dimer 149.43 ng/mlDDU (0-234) 02/16/20 11:09 ABG pH 7.435 (7.320-7.450) 02/17/20 22:20 POC ABG pCO2 41.4 mmHg (32.0-48.0) 02/17/20 22:20 POC ABG pO2 79.9 mmHg (83-108) L 02/17/20 22:20 POC ABG HCO3 27.2 02/17/20 22:20 POC ABG Base Excess 2.7 02/17/20 22:20 ABG Hemoglobin 14.8 (12.0-17.5) 02/17/20 22:20 ABG Oxyhemoglobin 95.6 (94-98) 02/17/20 22:20 ABG Methemoglobin 0 (0.0-1.5) 02/17/20 22:20 ABG Sodium 134.4 mmol/L (136.0-145.0) L 02/17/20 22:20 ABG Potassium 3.0 mmol/L (3.40-4.50) L 02/17/20 22:20 ABG Chloride 99.0 mmol/L (98-107) 02/17/20 22:20 ABG Glucose 253 mg/dL (65-95) H 02/17/20 22:20 Carboxyhemoglobin 0.5 (0.5-1.5) 02/17/20 22:20 FiO2 100 02/17/20 22:20 Sodium 139 mmol/L (137-145) 02/22/20 06:46 Potassium 4.0 mmol/L (3.6-5.0) 02/22/20 06:46 Chloride 99.1 mmol/L (98-107) 02/22/20 06:46 Carbon Dioxide 34 mmol/L (22-30) H 02/22/20 06:46 Anion Gap 10 mmol/L 02/22/20 06:46 BUN 19 mg/dL (7-17) H 02/22/20 06:46 Creatinine 0.6 mg/dL (0.6-1.2) 02/22/20 06:46 Estimated GFR > 60 ml/min 02/22/20 06:46 BUN/Creatinine Ratio 32 % 02/22/20 06:46 Glucose 186 mg/dL (65-100) H 02/22/20 06:46 Calcium 8.8 mg/dL (8.4-10.2) 02/22/20 06:46 Ferritin 465.7 ng/mL (10.0-200.0) H 02/18/20 07:31 Total Bilirubin 0.40 mg/dL (0.1-1.2) 02/22/20 06:46 AST 20 units/L (5-40) 02/22/20 06:46 ALT 53 units/L (7-56) 02/22/20 06:46 Alkaline Phosphatase 46 units/L (35-129) 02/22/20 06:46 Lactate Dehydrogenase 253 units/L (91-180) H 02/16/20 11:09 Troponin T < 0.010 ng/mL (0.00-0.029) 02/11/20 07:44 C-Reactive Protein 7.10 mg/dL (0.00-1.30) H 02/18/20 07:31 NT-Pro-B Natriuret Pep 75.85 pg/mL (0-900) 02/19/20 05:15 Total Protein 5.4 g/dL (6.3-8.2) L 02/22/20 06:46 Albumin 3.1 g/dL (3.9-5) L 02/22/20 06:46 Albumin/Globulin Ratio 1.3 % 02/22/20 06:46 Procalcitonin < 0.05 ng/mL (<0.15) 02/11/20 08:12 Arterial Blood Glucose 253 mg/dL (65-95) H 02/17/20 22:20 Arterial Blood Ionized Calcium 4.6 mg/dL (4.6-5.3) 02/17/20 22:20 Coronavirus (PCR) Positive (Negative) A 02/22/20 Unknown SARS-CoV-2 IgG Ab Reactive (NonReactive) A 02/20/20 04:07 [place]/IV: Voiding Method Toilet IV Catheter Type [Right Wrist] INT / Saline Lock IV Catheter Type [Left Hand] INT / Saline Lock IV Catheter Type [Right INT / Saline Lock Forearm] IV Catheter Type [Left Forearm INT / Saline Lock ] Active Medications - Current Medications Current Medications: Generic Name Dose Route Start Last Admin Trade Name Freq PRN Reason Stop Dose Admin Acetaminophen 650 mg 02/11/20 03:04 02/19/20 10:07 Tylenol PO 650 mg Q6H PRN Administration Pain, Mild (1-3) Al Hydrox/Mg Hydrox/Simethicone 15 ml 02/11/20 03:04 Alum-Mag Hydrox-Simeth [phone]/5ml PO Q4H PRN Indigestion Albuterol 2 puff 02/16/20 14:00 02/22/20 12:33 Proair IH 2 puff TIDRT DIMAS Administration Amlodipine Besylate 10 mg 02/11/20 10:00 02/22/20 10:22 Amlodipine PO 10 mg QDAY DIMAS Administration Arformoterol Tartrate 15 mcg 02/16/20 11:00 02/22/20 12:33 Brovana Nebu IH 15 mcg Q12HRT DIMAS Administration Ascorbic Acid 500 mg 02/11/20 10:00 02/22/20 10:22 Vitamin C PO 500 mg BID DIMAS Administration Benzonatate 100 mg 02/11/20 03:11 Tessalon Perles PO Q8HR PRN Nasal Congestion Budesonide 0.5 mg 02/16/20 11:00 02/22/20 12:31 Pulmicort IH 0.5 mg Q12HRT DIMAS Administration Diphenhydramine HCl 25 mg 02/13/20 16:20 02/21/20 21:29 Benadryl PO 25 mg QHS PRN Administration Sleep Enoxaparin Sodium 40 mg 02/11/20 10:00 02/22/20 10:22 Enoxaparin SUB-Q 40 mg QDAY@1000 DIMAS Administration Protocol Methylprednisolone Sodium 100 mls @ 200 mls/hr 02/23/20 08:00 Succinate 60 mg/ Sodium IV Chloride Q8HR DIMAS Lidocaine HCl 15 ml 02/18/20 23:00 02/22/20 13:12 Magic Mouthwash PO 15 ml TID DIMAS Administration Meclizine HCl 25 mg 02/11/20 03:11 Antivert PO Q8H PRN Vertigo Methylprednisolone Sodium Succinate 60 mg 02/16/20 12:00 02/22/20 13:12 Solu-Medrol IV 02/23/20 00:00 60 mg Q6HR DIMAS Administration Ondansetron HCl 4 mg 02/11/20 03:04 02/15/20 01:04 Zofran IV 4 mg Q4H PRN Administration Nausea And Vomiting Zinc Sulfate 220 mg 02/11/20 10:00 02/22/20 10:22 Zinc Sulfate PO 220 mg QDAY DIMAS Administration Nutrition/Malnutrition Assess - Dietary Evaluation Nutrition/Malnutrition Findings: Nutrition Notes Start: 02/18/20 14:20 Freq: Status: Active Protocol: Document 02/22/20 14:09 LP (Rec: 02/22/20 14:13 LP [id number]) Nutrition Notes Initial or Follow up Reassessment Current Diagnosis Hypertension,Respiratory Failure Other Pertinent Diagnosis COVID+ Current Diet Cardiac Labs/Tests Reviewed Pertinent Medications Reviewed Height 5 ft 8 in Weight 158 kg [place] Body Weight (kg) 63.63 BMI 52.9 Weight Status Obese Subjective/Other Information Pt did not answer phone. Noted consuming 75-100% of meals. Percent of energy/protein needs met: 96%/96% GI Symptoms None Food Allergy No Current % PO Good (75-100%) Minimum of two criteria No physical signs of malnutrition #1 Nutrition Diagnosis Inadequate oral intake As Evidenced by Signs and Symptoms Pt consuming 75-100% of meals Diagnosis Progress(for reassessment Improved documentation) Is patient on ventilator? No Is Patient Ambulatory and/or Out of Bed No REE-([place]-confined to bed) 2647.968 Kcal/Kg value to use for calculation 11 Approximate Energy Requirements Using 1738 kcal/Kg Calculation Used for Recommendations Kcal/kg Additional Notes Protein: 0.8-1.0 g/kg AdBW of 110.8kg (89-111g) Fluid: 1 ml/kcal Nutrition Intervention Change Diet Order: Continue cardiac diet Goal #1 Meet 75% of energy and protein needs with PO Anticipated Discharge Needs: Cardiac diet Follow-Up By: 02/29/20 Additional Comments Follow for stable intakes
--- NOTE | 2020-02-22 18:58 | Progress Note ---
Assessment and Plan Cultures: SARS CoV2 PCR positive as an outpatient Assessment: 59 years old female with history of asthma admitted on 02/11/2020 due to a week history of fever, shortness of breath, cough, loss of smell, generalized malaise: #COVID-19 pneumonia b/l #Acute hypoxic respiratory failure: hypoxia requiring nasal cannula now. Improving. #Thrombocytopenia: improved Recommendations: -Continue steroids as per pulmonary -Completed remdesivir -Monitor inflammatory markers - ferritin, Ddimer, CRP -Continue anticoagulation per System Protocol -COVID IgG positive, not a candidate for Covid convalescent plasma -Leukocytosis likely secondary to steroids. Alex Maradiaga MD [facility], [place], [facility] ([facility]) O: [phone] F: [phone] Subjective Date of service: 02/22/20 Principal diagnosis: COVID pneumonia Interval history: Afebrile, white count stable at 14.5. No other acute changes. Currently on high flow nasal cannula 5 L/min Objective - Exam Narrative Exam: Physical exam deferred due to PPE conservation strategy. Please refer to primary team's note. - Constitutional Vitals: Vital Signs Temp Pulse Resp BP Pulse Ox 98.5 F 96 H 30 H 140/80 97 02/22/20 16:00 02/22/20 18:00 02/22/20 18:00 02/22/20 18:00 02/22/20 18:00 Temperature -Last 24 Hours Temperature 98.5 F Temperature 98.4 F Temperature 97.4 F Temperature 98.1 F Temperature 98.7 F Temperature 98.2 F - Labs CBC & Chem 7: 02/22/20 06:46 02/22/20 06:46 Labs: Abnormal lab results 02/22/20 02/22/20 02/22/20 Range/Units 06:46 06:46 Unknown WBC 14.5 H (4.5-11.0) K/mm3 Hgb 14.4 H (10.1-14.3) gm/dl Seg Neuts % (Manual) 91.0 H (40.0-70.0) % Lymphocytes % (Manual) 7.0 L (13.4-35.0) % Seg Neutrophils # Man 13.2 H (1.8-7.7) K/mm3 Lymphocytes # (Manual) 1.0 L (1.2-5.4) K/mm3 Carbon Dioxide 34 H (22-30) mmol/L BUN 19 H (7-17) mg/dL Glucose 186 H (65-100) mg/dL Total Protein 5.4 L (6.3-8.2) g/dL Albumin 3.1 L (3.9-5) g/dL Coronavirus (PCR) Positive A (Negative)
[2020-02-23] MEDS: ALBUTEROL 8.5 GM MDI INHALATION IH SCH ×3 (04:24→14:45)
[2020-02-23] MEDS: methylPREDNISolone Sod Succinate 125 MG/2 ML INJ IV SCH ×3 (05:33→21:16)
[2020-02-23] MEDS ORDERED: methylPREDNISolone Sod Suc 60 MG in SODIUM CHLORIDE 0.9% 100 ML IV SCH (08:00)
[2020-02-23] MEDS ORDERED: FUROSEMIDE 20 MG/2 ML INJ IV SCH (08:10)
--- NOTE | 2020-02-23 08:10 | Progress Note ---
Assessment and Plan 59 y/o morbidly obese female admitted with acute respiratory failure secondary to COVID 19 pneumonia and possible asthma exacerbation. 1. Continue steroids at 60q8 through tomorrow then drop to 40q8. COntinue Pulmicort and brovana and PPV at night. 2. Remdesivir is done, continue to prone as tolerated. 3. Labs not checked today but lasix has helped with oxygen requirement I believe. I held yesterday. Will give 20mg IV today one time dosing. 4. Wean FiO2 for sats >88% 5. Guarded prognosis given obesity, asthma and now COVID 19 infection. stable now, please transfer back to floor. Will speak with new [facility] physician starting today about this. Subjective Date of service: 02/23/20 Principal diagnosis: COVID pneumonia Interval history: No acute events. Wore bipap last night. Vitals stable, no distress. Not transferred yesterday, but steroids were dropped to q8 dosing. Objective Vital Signs - 12hr 02/22/20 02/22/20 02/22/20 21:00 22:00 22:53 Temperature 97.6 F Pulse Rate 83 73 Pulse Rate [ From Monitor] Respiratory 23 24 Rate Blood Pressure 132/79 136/76 O2 Sat by Pulse 90 97 Oximetry 02/22/20 02/22/20 02/22/20 23:00 23:43 23:48 Temperature Pulse Rate 68 71 70 Pulse Rate [ From Monitor] Respiratory 21 27 H 22 Rate Blood Pressure 136/82 136/82 136/82 O2 Sat by Pulse 98 97 97 Oximetry 02/23/20 02/23/20 02/23/20 00:00 01:00 02:00 Temperature Pulse Rate 68 66 66 Pulse Rate [ 68 From Monitor] Respiratory 21 21 21 Rate Blood Pressure 136/82 124/71 123/66 O2 Sat by Pulse 96 97 96 Oximetry 02/23/20 02/23/20 02/23/20 03:00 03:53 04:00 Temperature 97.2 F L Pulse Rate 66 72 Pulse Rate [ 72 From Monitor] Respiratory 31 H 23 Rate Blood Pressure 122/76 123/81 O2 Sat by Pulse 96 99 Oximetry 02/23/20 02/23/20 02/23/20 05:38 06:00 07:00 Temperature Pulse Rate 105 H 97 H 74 Pulse Rate [ From Monitor] Respiratory 23 25 H 23 Rate Blood Pressure 123/81 122/71 122/71 O2 Sat by Pulse 94 96 Oximetry CBC and BMP: 02/22/20 06:46 02/22/20 06:46 ABG, PT/INR, D-dimer: ABG ABG pH 7.435 (7.320-7.450) 02/17/20 22:20 POC ABG pCO2 41.4 mmHg (32.0-48.0) 02/17/20 22:20 POC ABG pO2 79.9 mmHg (83-108) L 02/17/20 22:20 POC ABG HCO3 27.2 02/17/20 22:20 PT/INR, D-dimer D-Dimer 149.43 ng/mlDDU (0-234) 02/16/20 11:09 Abnormal lab findings: Abnormal Labs 02/11/20 02/11/20 02/11/20 00:45 00:45 03:42 WBC 3.7 L RBC Hgb Hct MCHC Plt Count 113 L Lymph % (Auto) 45.2 H [place] % (Auto) 13.9 H Lymph # (Auto) Seg Neutrophils % Seg Neuts % (Manual) Lymphocytes % (Manual) Seg Neutrophils # 1.5 L Seg Neutrophils # Man Lymphocytes # (Manual) POC ABG pO2 ABG Sodium ABG Potassium ABG Glucose Potassium 3.4 L Chloride Carbon Dioxide BUN 6 L Glucose 114 H 106 H Calcium Ferritin ALT Lactate Dehydrogenase C-Reactive Protein 2.90 H Total Protein Albumin Arterial Blood Glucose Coronavirus (PCR) SARS-CoV-2 IgG Ab 02/11/20 02/11/20 02/11/20 03:42 03:42 03:42 WBC 3.0 L RBC Hgb Hct MCHC 35 H Plt Count 109 L Lymph % (Auto) 38.3 H [place] % (Auto) 15.2 H Lymph # (Auto) Seg Neutrophils % Seg Neuts % (Manual) Lymphocytes % (Manual) Seg Neutrophils # 1.4 L Seg Neutrophils # Man Lymphocytes # (Manual) POC ABG pO2 ABG Sodium ABG Potassium ABG Glucose Potassium 3.3 L Chloride Carbon Dioxide BUN 6 L Glucose 107 H Calcium Ferritin 231.3 H ALT Lactate Dehydrogenase C-Reactive Protein Total Protein Albumin Arterial Blood Glucose Coronavirus (PCR) SARS-CoV-2 IgG Ab 02/12/20 02/13/20 02/13/20 08:30 06:02 06:02 WBC RBC Hgb Hct MCHC Plt Count Lymph % (Auto) [place] % (Auto) Lymph # (Auto) Seg Neutrophils % Seg Neuts % (Manual) Lymphocytes % (Manual) Seg Neutrophils # Seg Neutrophils # Man Lymphocytes # (Manual) POC ABG pO2 ABG Sodium ABG Potassium ABG Glucose Potassium Chloride Carbon Dioxide BUN Glucose 104 H Calcium Ferritin 245.0 H ALT Lactate Dehydrogenase C-Reactive Protein 2.80 H Total Protein Albumin Arterial Blood Glucose Coronavirus (PCR) SARS-CoV-2 IgG Ab 02/14/20 02/16/20 02/16/20 07:20 11:09 11:09 WBC RBC Hgb Hct MCHC Plt Count 103 L Lymph % (Auto) [place] % (Auto) Lymph # (Auto) Seg Neutrophils % Seg Neuts % (Manual) Lymphocytes % (Manual) Seg Neutrophils # Seg Neutrophils # Man Lymphocytes # (Manual) POC ABG pO2 ABG Sodium ABG Potassium ABG Glucose Potassium 3.3 L Chloride 96.4 L Carbon Dioxide 35 H BUN Glucose 104 H 124 H Calcium 8.3 L Ferritin ALT Lactate Dehydrogenase C-Reactive Protein Total Protein 6.2 L Albumin 3.3 L Arterial Blood Glucose Coronavirus (PCR) SARS-CoV-2 IgG Ab 02/16/20 02/16/20 02/17/20 11:09 11:09 17:00 WBC 11.2 H RBC Hgb 14.6 H Hct 43.8 H MCHC Plt Count 124 L Lymph % (Auto) [place] % (Auto) Lymph # (Auto) Seg Neutrophils % Seg Neuts % (Manual) 93.0 H Lymphocytes % (Manual) 3.0 L Seg Neutrophils # Seg Neutrophils # Man 10.4 H Lymphocytes # (Manual) 0.3 L POC ABG pO2 ABG Sodium ABG Potassium ABG Glucose Potassium Chloride Carbon Dioxide BUN Glucose Calcium Ferritin 352.2 H ALT Lactate Dehydrogenase 253 H C-Reactive Protein 8.90 H Total Protein Albumin Arterial Blood Glucose Coronavirus (PCR) SARS-CoV-2 IgG Ab 02/17/20 02/18/20 02/18/20 22:20 07:31 07:31 WBC RBC Hgb Hct MCHC Plt Count Lymph % (Auto) [place] % (Auto) Lymph # (Auto) Seg Neutrophils % Seg Neuts % (Manual) Lymphocytes % (Manual) Seg Neutrophils # Seg Neutrophils # Man Lymphocytes # (Manual) POC ABG pO2 79.9 L ABG Sodium 134.4 L ABG Potassium 3.0 L ABG Glucose 253 H Potassium Chloride Carbon Dioxide 34 H BUN Glucose 171 H Calcium Ferritin 465.7 H ALT Lactate Dehydrogenase C-Reactive Protein 7.10 H Total Protein Albumin 3.4 L Arterial Blood Glucose 253 H Coronavirus (PCR) SARS-CoV-2 IgG Ab 02/19/20 02/19/20 02/20/20 05:15 05:15 04:07 WBC 14.3 H 12.6 H RBC Hgb 14.4 H Hct MCHC Plt Count Lymph % (Auto) 6.6 L 7.6 L [place] % (Auto) Lymph # (Auto) 0.9 L 1.0 L Seg Neutrophils % 89.5 H 86.6 H Seg Neuts % (Manual) Lymphocytes % (Manual) Seg Neutrophils # 12.8 H 10.9 H Seg Neutrophils # Man Lymphocytes # (Manual) POC ABG pO2 ABG Sodium ABG Potassium ABG Glucose Potassium 3.5 L Chloride Carbon Dioxide BUN 23 H Glucose 163 H Calcium Ferritin ALT 61 H Lactate Dehydrogenase C-Reactive Protein Total Protein Albumin 3.0 L Arterial Blood Glucose Coronavirus (PCR) SARS-CoV-2 IgG Ab 02/20/20 02/20/20 02/21/20 04:07 04:07 08:30 WBC 13.6 H RBC 5.28 H Hgb 15.2 H Hct 46.5 H MCHC Plt Count Lymph % (Auto) 6.4 L [place] % (Auto) Lymph # (Auto) 0.9 L Seg Neutrophils % 90.0 H Seg Neuts % (Manual) Lymphocytes % (Manual) Seg Neutrophils # 12.2 H Seg Neutrophils # Man Lymphocytes # (Manual) POC ABG pO2 ABG Sodium ABG Potassium ABG Glucose Potassium Chloride Carbon Dioxide BUN 21 H Glucose 192 H Calcium Ferritin ALT 69 H Lactate Dehydrogenase C-Reactive Protein Total Protein 5.7 L Albumin 3.2 L Arterial Blood Glucose Coronavirus (PCR) SARS-CoV-2 IgG Ab Reactive A 02/21/20 02/22/20 02/22/20 08:30 06:46 06:46 WBC 14.5 H RBC Hgb 14.4 H Hct MCHC Plt Count Lymph % (Auto) [place] % (Auto) Lymph # (Auto) Seg Neutrophils % Seg Neuts % (Manual) 91.0 H Lymphocytes % (Manual) 7.0 L Seg Neutrophils # Seg Neutrophils # Man 13.2 H Lymphocytes # (Manual) 1.0 L POC ABG pO2 ABG Sodium ABG Potassium ABG Glucose Potassium 3.5 L Chloride 97.8 L Carbon Dioxide 33 H 34 H BUN 20 H 19 H Glucose 230 H 186 H Calcium Ferritin ALT Lactate Dehydrogenase C-Reactive Protein Total Protein 5.4 L Albumin 3.0 L 3.1 L Arterial Blood Glucose Coronavirus (PCR) SARS-CoV-2 IgG Ab 02/22/20 Unknown WBC RBC Hgb Hct MCHC Plt Count Lymph % (Auto) [place] % (Auto) Lymph # (Auto) Seg Neutrophils % Seg Neuts % (Manual) Lymphocytes % (Manual) Seg Neutrophils # Seg Neutrophils # Man Lymphocytes # (Manual) POC ABG pO2 ABG Sodium ABG Potassium ABG Glucose Potassium Chloride Carbon Dioxide BUN Glucose Calcium Ferritin ALT Lactate Dehydrogenase C-Reactive Protein Total Protein Albumin Arterial Blood Glucose Coronavirus (PCR) Positive A SARS-CoV-2 IgG Ab
[2020-02-23] MEDS: BUDESONIDE 0.5 MG/2 ML NEBU IH SCH ×2 (08:22→21:40)
[2020-02-23] MEDS: ARFORMOTEROL 15 MCG/2 ML NEBU IH SCH ×2 (08:23→21:40)
[2020-02-23] MEDS: amLODIPine 10 MG TAB PO SCH (10:19)
[2020-02-23] MEDS: MAGIC MOUTHWASH 30ML PO SCH ×4 (10:19→21:17)
[2020-02-23] MEDS: ASCORBIC ACID 500 MG TAB PO SCH ×2 (10:19→21:17)
[2020-02-23] MEDS: ENOXAPARIN 40 MG/0.4 ML INJ SUB-Q SCH (10:20)
[2020-02-23] MEDS: ZINC SULFATE 220 MG CAP PO SCH (10:20)
[2020-02-23 14:38] LABS: Hematocrit 43.5 % (30.3-42.9); Hemoglobin 14.8 gm/dl (10.1-14.3); Mean Corpuscular HGB Conc 34 % (30-34); Mean Corpuscular Volume 86 fl (79-97); Platelet Count 236 K/mm3 (140-440); Red Blood Count 5.07 M/mm3 (3.65-5.03); Red Cell Distribution Width 13.6 % (13.2-15.2)
[2020-02-23 14:54] LABS: Alanine Aminotransferase 45 units/L (7-56); Albumin 3.2 g/dL (3.9-5); BUN/Creatinine Ratio 28; Blood Urea Nitrogen 25 mg/dL (7-17); Calcium 9.2 mg/dL (8.4-10.2); Hemolysis Index 5
[2020-02-23 15:23] LABS: Basophils % (Manual) 0 % (0.0-1.8); Eosinophils % (Manual) 0 % (0.0-4.3); Myelocytes # (Manual) 0.2 K/mm3; Total Cells Counted 100
[2020-02-23 15:26] LABS: Schistocytes Few
[2020-02-23 15:27] LABS: Platelet Estimate Consistent w Auto
--- NOTE | 2020-02-23 15:43 | Progress Note ---
Assessment and Plan Cultures: SARS CoV2 PCR positive as an outpatient Assessment: 59 years old female with history of asthma admitted on 02/11/2020 due to a week history of fever, shortness of breath, cough, loss of smell, generalized malaise: #COVID-19 pneumonia b/l #Acute hypoxic respiratory failure: hypoxia requiring nasal cannula now. Improving. #Thrombocytopenia: improved Recommendations: -Continue steroids as per pulmonary -Completed remdesivir -Monitor inflammatory markers - ferritin, Ddimer, CRP -Continue anticoagulation per System Protocol -COVID IgG positive, not a candidate for Covid convalescent plasma -Leukocytosis likely secondary to steroids. -Repeat procalcitonin in morning. Alex Maradiaga MD [facility] ([facility]) O: [phone] F: [phone] Subjective Date of service: 02/23/20 Principal diagnosis: COVID pneumonia Interval history: Afebrile, white count now 16.5. Moved out of [facility], now on floors. Currently on 3 L nasal cannula. Objective - Exam Narrative Exam: Physical exam deferred due to PPE conservation strategy. Please refer to primary team's note. - Constitutional Vitals: Vital Signs Temp Pulse Resp BP Pulse Ox 97.9 F 95 H 20 161/86 97 02/23/20 12:00 02/23/20 14:50 02/23/20 14:50 02/23/20 13:00 02/23/20 13:00 Temperature -Last 24 Hours Temperature 97.9 F Temperature 97.4 F Temperature 97.2 F Temperature 97.6 F Temperature 97.4 F Temperature 98.5 F - Labs CBC & Chem 7: 02/23/20 14:16 02/23/20 14:16 Labs: Abnormal lab results 02/23/20 02/23/20 Range/Units 14:16 14:16 WBC 16.5 H (4.5-11.0) K/mm3 RBC 5.07 H (3.65-5.03) M/mm3 Hgb 14.8 H (10.1-14.3) gm/dl Hct 43.5 H (30.3-42.9) % Seg Neuts % (Manual) 87.0 H (40.0-70.0) % Lymphocytes % (Manual) 10.0 L (13.4-35.0) % Seg Neutrophils # Man 14.4 H (1.8-7.7) K/mm3 Sodium 133 L (137-145) mmol/L Chloride 93.1 L (98-107) mmol/L Carbon Dioxide 31 H (22-30) mmol/L BUN 25 H (7-17) mg/dL Glucose 240 H (65-100) mg/dL Total Protein 5.9 L (6.3-8.2) g/dL Albumin 3.2 L (3.9-5) g/dL
--- NOTE | 2020-02-23 17:07 | Progress Note ---
Assessment and Plan Assessment and plan: -- COVID-19 PNA Current Visit: Yes Status: Acute Plan to address problem: Solu-Medrol taper from tomorrow Completed remdesivir ID and pulmonology recommendations appreciated Continue to monitor inflammatory makers Airborne and contact isolation Ascorbic acid and zinc sulphate Prone positioning advised --Acute respiratory failure with hypoxia Current Visit: Yes Status: Acute Plan to address problem: Continue oxygen supplementation Lasix as needed COVID-19 treatment --Essential (primary) hypertension Current Visit: Yes Status: Acute Plan to address problem: Continue to monitor blood pressure closely --Morbid obesity due to excess calories BMI 54.8 Current Visit: Yes Status: Acute Plan to address problem: Discussed lifestyle modification-healthy diet and weight management And medically stable -- DVT prophylaxis Current Visit: Yes Status: Acute Plan to address problem: SQH Lovenox 02/12. Slight improvement noted. ID recommendations appreciated 02/13-. Plan to get a walk test patient desaturated she was placed on oxygen. 02/15. Patient remains on high oxygen-8 L. ID consulted as patient will need remdesivir. Pulmonology consulted as well. She denies any chest pain or palpitations. Elevated D-dimer noted. Ultrasound lower extremity Dopplers ordered. 02/16. Remains on high oxygen. Pulmonology advised recommendations appreciated. Ultrasound lower extremity negative for DVT. Awaiting a.m. labs 02/17. Had increased work of breathing yesterday so she was transferred to the [facility] on BiPAP. Lasix 40 mg IV ordered this morning. Still on Solu-Medrol and remdesivir. ID and pulmonology following 02/18. On high flow nasal cannula with sats in the 90s. Still on Solu-Medrol and remdesivir. Labs reviewed. Continue to monitor 02/19. States her breathing is better. Now on 70% oxygen. On steroids. She has antibodies to COVID-19 so does not qualify for convalescent plasma. ID and pulmonology on board 02/20. On 50% oxygen and 20L. Feels better today. Labs reviewed. 02/21. Significantly improved. On 5L oxygen. Taper steroids tomorrow. Pulm recs appreciated. She requested for a repeat COVID-19 test before she gets transferred. Repeat test is still positive. 02/22. On 3L oxygen. Taper steroids. Pulm recs appreciated. History Interval history: 59-year-old morbidly obese female with a medical history of asthma admitted with chief complaint of fever, shortness of breath, cough and loss of smell. Patient had tested positive for COVID-19 a day prior to presentation. While at home, her oxygen saturation fell to the 80s so she presented to the hospital for evaluation. Here in the ER, she was started on dexamethasone and admitted to the hospital. Hospitalist Physical - Constitutional Vitals: Temp Pulse Resp BP Pulse Ox 97.9 F 95 H 20 161/86 97 02/23/20 12:00 02/23/20 14:50 02/23/20 14:50 02/23/20 13:00 02/23/20 13:00 General appearance: Present: no acute distress, well-nourished - EENT Eyes: Present: PERRL, EOM intact ENT: hearing intact, clear oral mucosa, dentition normal - Neck Neck: Present: supple, normal ROM - Respiratory Respiratory effort: normal Respiratory: bilateral: CTA - Cardiovascular Rhythm: regular Heart Sounds: Present: S1 & S2. Absent: gallop, rub - Extremities Extremities: no ischemia, No edema, Full ROM - Abdominal General gastrointestinal: soft, non-tender, non-distended, normal bowel sounds - Integumentary Integumentary: Present: clear, warm, dry - Neurologic Neurologic: CNII-XII intact, moves all extremities HEART Score - HEART Score Troponin: Troponin T < 0.010 ng/mL (0.00-0.029) 02/11/20 07:44 Results - Labs CBC & Chem 7: 02/23/20 14:16 02/23/20 14:16 Labs: Laboratory Last Values WBC 16.5 K/mm3 (4.5-11.0) H 02/23/20 14:16 RBC 5.07 M/mm3 (3.65-5.03) H 02/23/20 14:16 Hgb 14.8 gm/dl (10.1-14.3) H 02/23/20 14:16 Hct 43.5 % (30.3-42.9) H 02/23/20 14:16 MCV 86 fl (79-97) 02/23/20 14:16 MCH 29 pg (28-32) 02/23/20 14:16 MCHC 34 % (30-34) 02/23/20 14:16 RDW 13.6 % (13.2-15.2) 02/23/20 14:16 Plt Count 236 K/mm3 (140-440) 02/23/20 14:16 Lymph % (Auto) 6.4 % (13.4-35.0) L 02/21/20 08:30 [place] % (Auto) 3.5 % (0.0-7.3) 02/21/20 08:30 Eos % (Auto) 0.0 % (0.0-4.3) 02/21/20 08:30 Baso % (Auto) 0.1 % (0.0-1.8) 02/21/20 08:30 Lymph # (Auto) 0.9 K/mm3 (1.2-5.4) L 02/21/20 08:30 [place] # (Auto) 0.5 K/mm3 (0.0-0.8) 02/21/20 08:30 Eos # (Auto) 0.0 K/mm3 (0.0-0.4) 02/21/20 08:30 Baso # (Auto) 0.0 K/mm3 (0.0-0.1) 02/21/20 08:30 Add Manual Diff Complete 02/23/20 14:16 Total Counted 100 02/23/20 14:16 Seg Neutrophils % 90.0 % (40.0-70.0) H 02/21/20 08:30 Seg Neuts % (Manual) 87.0 % (40.0-70.0) H 02/23/20 14:16 Band Neutrophils % 0 % 02/23/20 14:16 Lymphocytes % (Manual) 10.0 % (13.4-35.0) L 02/23/20 14:16 Reactive Lymphs % (Man) 0 % 02/23/20 14:16 Monocytes % (Manual) 2.0 % (0.0-7.3) 02/23/20 14:16 Eosinophils % (Manual) 0 % (0.0-4.3) 02/23/20 14:16 Basophils % (Manual) 0 % (0.0-1.8) 02/23/20 14:16 Metamyelocytes % 0 % 02/23/20 14:16 Myelocytes % 1.0 % 02/23/20 14:16 Promyelocytes % 0 % 02/23/20 14:16 Blast Cells % 0 % 02/23/20 14:16 Nucleated RBC % Not Reportable 02/23/20 14:16 Seg Neutrophils # 12.2 K/mm3 (1.8-7.7) H 02/21/20 08:30 Seg Neutrophils # Man 14.4 K/mm3 (1.8-7.7) H 02/23/20 14:16 Band Neutrophils # 0.0 K/mm3 02/23/20 14:16 Lymphocytes # (Manual) 1.7 K/mm3 (1.2-5.4) 02/23/20 14:16 Abs React Lymphs (Man) 0.0 K/mm3 02/23/20 14:16 Monocytes # (Manual) 0.3 K/mm3 (0.0-0.8) 02/23/20 14:16 Eosinophils # (Manual) 0.0 K/mm3 (0.0-0.4) 02/23/20 14:16 Basophils # (Manual) 0.0 K/mm3 (0.0-0.1) 02/23/20 14:16 Metamyelocytes # 0.0 K/mm3 02/23/20 14:16 Myelocytes # 0.2 K/mm3 02/23/20 14:16 Promyelocytes # 0.0 K/mm3 02/23/20 14:16 Blast Cells # 0.0 K/mm3 02/23/20 14:16 WBC Morphology Not Reportable 02/23/20 14:16 Hypersegmented Neuts Not Reportable 02/23/20 14:16 Hyposegmented Neuts Not Reportable 02/23/20 14:16 Hypogranular Neuts Not Reportable 02/23/20 14:16 Smudge Cells Not Reportable 02/23/20 14:16 Toxic Granulation Not Reportable 02/23/20 14:16 Toxic Vacuolation Not Reportable 02/23/20 14:16 Dohle Bodies Not Reportable 02/23/20 14:16 Pelger-Huet Anomaly Not Reportable 02/23/20 14:16 Ashkan Rods Not Reportable 02/23/20 14:16 Platelet Estimate Consistent w auto 02/23/20 14:16 Clumped Platelets Not Reportable 02/23/20 14:16 Plt Clumps, EDTA Not Reportable 02/23/20 14:16 Large Platelets Not Reportable 02/23/20 14:16 Giant Platelets Not Reportable 02/23/20 14:16 Platelet Satelliting Not Reportable 02/23/20 14:16 Plt Morphology Comment Not Reportable 02/23/20 14:16 RBC Morphology Not Reportable 02/23/20 14:16 Dimorphic RBCs Not Reportable 02/23/20 14:16 Polychromasia Not Reportable 02/23/20 14:16 Hypochromasia Not Reportable 02/23/20 14:16 Poikilocytosis Not Reportable 02/23/20 14:16 Anisocytosis Not Reportable 02/23/20 14:16 Microcytosis Not Reportable 02/23/20 14:16 Macrocytosis Not Reportable 02/23/20 14:16 Spherocytes Not Reportable 02/23/20 14:16 Pappenheimer Bodies Not Reportable 02/23/20 14:16 Sickle Cells Not Reportable 02/23/20 14:16 Target Cells Not Reportable 02/23/20 14:16 Tear Drop Cells Not Reportable 02/23/20 14:16 Ovalocytes Not Reportable 02/23/20 14:16 Helmet Cells Not Reportable 02/23/20 14:16 [place] Bodies Not Reportable 02/23/20 14:16 [place] Rings Not Reportable 02/23/20 14:16 [place] Cells Not Reportable 02/23/20 14:16 Bite Cells Not Reportable 02/23/20 14:16 Crenated Cell Not Reportable 02/23/20 14:16 Elliptocytes Not Reportable 02/23/20 14:16 Acanthocytes (Spur) Not Reportable 02/23/20 14:16 Rouleaux Not Reportable 02/23/20 14:16 Hemoglobin C Crystals Not Reportable 02/23/20 14:16 Schistocytes Few 02/23/20 14:16 Malaria parasites Not Reportable 02/23/20 14:16 Hossein Bodies Not Reportable 02/23/20 14:16 Hem Pathologist Commnt No 02/23/20 14:16 D-Dimer 149.43 ng/mlDDU (0-234) 02/16/20 11:09 ABG pH 7.435 (7.320-7.450) 02/17/20 22:20 POC ABG pCO2 41.4 mmHg (32.0-48.0) 02/17/20 22:20 POC ABG pO2 79.9 mmHg (83-108) L 02/17/20 22:20 POC ABG HCO3 27.2 02/17/20 22:20 POC ABG Base Excess 2.7 02/17/20 22:20 ABG Hemoglobin 14.8 (12.0-17.5) 02/17/20 22:20 ABG Oxyhemoglobin 95.6 (94-98) 02/17/20 22:20 ABG Methemoglobin 0 (0.0-1.5) 02/17/20 22:20 ABG Sodium 134.4 mmol/L (136.0-145.0) L 02/17/20 22:20 ABG Potassium 3.0 mmol/L (3.40-4.50) L 02/17/20 22:20 ABG Chloride 99.0 mmol/L (98-107) 02/17/20 22:20 ABG Glucose 253 mg/dL (65-95) H 02/17/20 22:20 Carboxyhemoglobin 0.5 (0.5-1.5) 02/17/20 22:20 FiO2 100 02/17/20 22:20 Sodium 133 mmol/L (137-145) L 02/23/20 14:16 Potassium 3.9 mmol/L (3.6-5.0) 02/23/20 14:16 Chloride 93.1 mmol/L (98-107) L 02/23/20 14:16 Carbon Dioxide 31 mmol/L (22-30) H 02/23/20 14:16 Anion Gap 13 mmol/L 02/23/20 14:16 BUN 25 mg/dL (7-17) H 02/23/20 14:16 Creatinine 0.9 mg/dL (0.6-1.2) 02/23/20 14:16 Estimated GFR > 60 ml/min 02/23/20 14:16 BUN/Creatinine Ratio 28 % 02/23/20 14:16 Glucose 240 mg/dL (65-100) H 02/23/20 14:16 Calcium 9.2 mg/dL (8.4-10.2) 02/23/20 14:16 Ferritin 465.7 ng/mL (10.0-200.0) H 02/18/20 07:31 Total Bilirubin 0.40 mg/dL (0.1-1.2) 02/23/20 14:16 AST 13 units/L (5-40) 02/23/20 14:16 ALT 45 units/L (7-56) 02/23/20 14:16 Alkaline Phosphatase 49 units/L (35-129) 02/23/20 14:16 Lactate Dehydrogenase 253 units/L (91-180) H 02/16/20 11:09 Troponin T < 0.010 ng/mL (0.00-0.029) 02/11/20 07:44 C-Reactive Protein 7.10 mg/dL (0.00-1.30) H 02/18/20 07:31 NT-Pro-B Natriuret Pep 75.85 pg/mL (0-900) 02/19/20 05:15 Total Protein 5.9 g/dL (6.3-8.2) L 02/23/20 14:16 Albumin 3.2 g/dL (3.9-5) L 02/23/20 14:16 Albumin/Globulin Ratio 1.2 % 02/23/20 14:16 Procalcitonin < 0.05 ng/mL (<0.15) 02/11/20 08:12 Arterial Blood Glucose 253 mg/dL (65-95) H 02/17/20 22:20 Arterial Blood Ionized Calcium 4.6 mg/dL (4.6-5.3) 02/17/20 22:20 Coronavirus (PCR) Positive (Negative) A 02/22/20 Unknown SARS-CoV-2 IgG Ab Reactive (NonReactive) A 02/20/20 04:07 [place]/IV: Voiding Method Toilet IV Catheter Type [Right Wrist] INT / Saline Lock IV Catheter Type [Left Hand] INT / Saline Lock IV Catheter Type [Right INT / Saline Lock Forearm] IV Catheter Type [Left Forearm INT / Saline Lock ] Active Medications - Current Medications Current Medications: Generic Name Dose Route Start Last Admin Trade Name Freq PRN Reason Stop Dose Admin Acetaminophen 650 mg 02/11/20 03:04 02/19/20 10:07 Tylenol PO 650 mg Q6H PRN Administration Pain, Mild (1-3) Al Hydrox/Mg Hydrox/Simethicone 15 ml 02/11/20 03:04 Alum-Mag Hydrox-Simeth [phone]/5ml PO Q4H PRN Indigestion Amlodipine Besylate 10 mg 02/11/20 10:00 02/23/20 10:19 Amlodipine PO 10 mg QDAY DIMAS Administration Arformoterol Tartrate 15 mcg 02/16/20 11:00 02/23/20 08:23 Brovana Nebu IH 15 mcg Q12HRT DIMAS Administration Ascorbic Acid 500 mg 02/11/20 10:00 02/23/20 10:19 Vitamin C PO 500 mg BID DIMAS Administration Benzonatate 100 mg 02/11/20 03:11 Tessalon Perles PO Q8HR PRN Nasal Congestion Budesonide 0.5 mg 02/16/20 11:00 02/23/20 08:22 Pulmicort IH 0.5 mg Q12HRT DIMAS Administration Diphenhydramine HCl 25 mg 02/13/20 16:20 02/21/20 21:29 Benadryl PO 25 mg QHS PRN Administration Sleep Enoxaparin Sodium 40 mg 02/11/20 10:00 02/23/20 10:20 Enoxaparin SUB-Q 40 mg QDAY@1000 DIMAS Administration Protocol Lidocaine HCl 15 ml 02/18/20 23:00 02/23/20 13:49 Magic Mouthwash PO 15 ml TID DIMAS Administration Meclizine HCl 25 mg 02/11/20 03:11 Antivert PO Q8H PRN Vertigo Methylprednisolone Sodium Succinate 60 mg 02/23/20 06:00 02/23/20 13:48 Solu-Medrol IV 60 mg Q8HR DIMAS Administration Ondansetron HCl 4 mg 02/11/20 03:04 02/15/20 01:04 Zofran IV 4 mg Q4H PRN Administration Nausea And Vomiting Zinc Sulfate 220 mg 02/11/20 10:00 02/23/20 10:20 Zinc Sulfate PO 220 mg QDAY DIMAS Administration Nutrition/Malnutrition Assess - Dietary Evaluation Nutrition/Malnutrition Findings: Nutrition Notes Start: 02/18/20 14:20 Freq: Status: Active Protocol: Document 02/22/20 14:09 LP (Rec: 02/22/20 14:13 LP [id number]) Nutrition Notes Initial or Follow up Reassessment Current Diagnosis Hypertension,Respiratory Failure Other Pertinent Diagnosis COVID+ Current Diet Cardiac Labs/Tests Reviewed Pertinent Medications Reviewed Height 5 ft 8 in Weight 158 kg [place] Body Weight (kg) 63.63 BMI 52.9 Weight Status Obese Subjective/Other Information Pt did not answer phone. Noted consuming 75-100% of meals. Percent of energy/protein needs met: 96%/96% GI Symptoms None Food Allergy No Current % PO Good (75-100%) Minimum of two criteria No physical signs of malnutrition #1 Nutrition Diagnosis Inadequate oral intake As Evidenced by Signs and Symptoms Pt consuming 75-100% of meals Diagnosis Progress(for reassessment Improved documentation) Is patient on ventilator? No Is Patient Ambulatory and/or Out of Bed No REE-([facility]-confined to bed) 2647.968 Kcal/Kg value to use for calculation 11 Approximate Energy Requirements Using 1738 kcal/Kg Calculation Used for Recommendations Kcal/kg Additional Notes Protein: 0.8-1.0 g/kg AdBW of 110.8kg (89-111g) Fluid: 1 ml/kcal Nutrition Intervention Change Diet Order: Continue cardiac diet Goal #1 Meet 75% of energy and protein needs with PO Anticipated Discharge Needs: Cardiac diet Follow-Up By: 02/29/20 Additional Comments Follow for stable intakes
[2020-02-24] MEDS: methylPREDNISolone Sod Succinate 125 MG/2 ML INJ IV SCH ×3 (05:39→21:51)
[2020-02-24 06:25] LABS: Basophils % (Auto) 0.1 % (0.0-1.8); Hemoglobin 13.4 gm/dl (10.1-14.3); Lymphocytes # (Auto) 0.8 K/mm3 (1.2-5.4); Mean Corpuscular HGB Conc 33 % (30-34); Mean Corpuscular Volume 87 fl (79-97); Monocytes # (Auto) 0.6 K/mm3 (0.0-0.8); Monocytes % (Auto) 4.6 % (0.0-7.3); Platelet Count 209 K/mm3 (140-440); Red Blood Count 4.74 M/mm3 (3.65-5.03); Red Cell Distribution Width 13.5 % (13.2-15.2)
[2020-02-24 06:42] LABS: Alanine Aminotransferase 37 units/L (7-56); Albumin 2.9 g/dL (3.9-5); Blood Urea Nitrogen 22 mg/dL (7-17); Calcium 8.8 mg/dL (8.4-10.2); Hemolysis Index 5
[2020-02-24 06:46] LABS: BUN/Creatinine Ratio 31
[2020-02-24] MEDS: MAGIC MOUTHWASH 30ML PO SCH ×3 (08:21→21:50)
[2020-02-24] MEDS: BUDESONIDE 0.5 MG/2 ML NEBU IH SCH ×2 (08:27→20:44)
[2020-02-24] MEDS: ARFORMOTEROL 15 MCG/2 ML NEBU IH SCH ×2 (08:27→20:44)
[2020-02-24] MEDS: ENOXAPARIN 40 MG/0.4 ML INJ SUB-Q SCH (09:36)
[2020-02-24] MEDS: amLODIPine 10 MG TAB PO SCH (09:37)
[2020-02-24] MEDS: ACETAMINOPHEN 325 MG TAB PO PRN (09:37)
[2020-02-24] MEDS: ZINC SULFATE 220 MG CAP PO SCH (09:37)
[2020-02-24] MEDS: ASCORBIC ACID 500 MG TAB PO SCH ×2 (09:37→21:50)
--- NOTE | 2020-02-24 11:46 | Progress Note ---
Assessment and Plan 59 y/o morbidly obese female admitted with acute respiratory failure secondary to COVID 19 pneumonia and possible asthma exacerbation. 1. Drop steroids to 40q8 or 60 daily starting tomorrow. Will need walk test prior to discharge and will need steroid taper over 2 weeks time 2. Remdesivir is done, continue to prone as tolerated. 3. Continue wean oxygen, please see number 1 4. Hopeful discharge soon in the next 24-48 hours. Subjective Date of service: 02/24/20 Principal diagnosis: COVID pneumonia Interval history: Down to 3 liters NC with good sats. Objective Vital Signs - 12hr 02/24/20 02/24/20 02/24/20 04:40 04:47 08:28 Temperature 98 F Pulse Rate 66 74 Pulse Rate [ 95 H Bilateral Throughout] Respiratory 15 20 Rate Respiratory 20 Rate [Bilateral Throughout] Blood Pressure Blood Pressure 137/80 [Left] O2 Sat by Pulse 97 97 Oximetry 02/24/20 02/24/20 08:32 09:37 Temperature Pulse Rate 109 H Pulse Rate [ Bilateral Throughout] Respiratory Rate Respiratory Rate [Bilateral Throughout] Blood Pressure 118/79 Blood Pressure [Left] O2 Sat by Pulse 95 Oximetry CBC and BMP: 02/24/20 05:57 02/24/20 05:57 ABG, PT/INR, D-dimer: ABG ABG pH 7.435 (7.320-7.450) 02/17/20 22:20 POC ABG pCO2 41.4 mmHg (32.0-48.0) 02/17/20 22:20 POC ABG pO2 79.9 mmHg (83-108) L 02/17/20 22:20 POC ABG HCO3 27.2 02/17/20 22:20 PT/INR, D-dimer D-Dimer 149.43 ng/mlDDU (0-234) 02/16/20 11:09 Abnormal lab findings: Abnormal Labs 02/11/20 02/11/20 02/11/20 00:45 00:45 03:42 WBC 3.7 L RBC Hgb Hct MCHC Plt Count 113 L Lymph % (Auto) 45.2 H [place] % (Auto) 13.9 H Lymph # (Auto) Seg Neutrophils % Seg Neuts % (Manual) Lymphocytes % (Manual) Seg Neutrophils # 1.5 L Seg Neutrophils # Man Lymphocytes # (Manual) POC ABG pO2 ABG Sodium ABG Potassium ABG Glucose Sodium Potassium 3.4 L Chloride Carbon Dioxide BUN 6 L Glucose 114 H 106 H Calcium Ferritin ALT Lactate Dehydrogenase C-Reactive Protein 2.90 H Total Protein Albumin Arterial Blood Glucose Coronavirus (PCR) SARS-CoV-2 IgG Ab 02/11/20 02/11/20 02/11/20 03:42 03:42 03:42 WBC 3.0 L RBC Hgb Hct MCHC 35 H Plt Count 109 L Lymph % (Auto) 38.3 H [place] % (Auto) 15.2 H Lymph # (Auto) Seg Neutrophils % Seg Neuts % (Manual) Lymphocytes % (Manual) Seg Neutrophils # 1.4 L Seg Neutrophils # Man Lymphocytes # (Manual) POC ABG pO2 ABG Sodium ABG Potassium ABG Glucose Sodium Potassium 3.3 L Chloride Carbon Dioxide BUN 6 L Glucose 107 H Calcium Ferritin 231.3 H ALT Lactate Dehydrogenase C-Reactive Protein Total Protein Albumin Arterial Blood Glucose Coronavirus (PCR) SARS-CoV-2 IgG Ab 02/12/20 02/13/20 02/13/20 08:30 06:02 06:02 WBC RBC Hgb Hct MCHC Plt Count Lymph % (Auto) [place] % (Auto) Lymph # (Auto) Seg Neutrophils % Seg Neuts % (Manual) Lymphocytes % (Manual) Seg Neutrophils # Seg Neutrophils # Man Lymphocytes # (Manual) POC ABG pO2 ABG Sodium ABG Potassium ABG Glucose Sodium Potassium Chloride Carbon Dioxide BUN Glucose 104 H Calcium Ferritin 245.0 H ALT Lactate Dehydrogenase C-Reactive Protein 2.80 H Total Protein Albumin Arterial Blood Glucose Coronavirus (PCR) SARS-CoV-2 IgG Ab 02/14/20 02/16/20 02/16/20 07:20 11:09 11:09 WBC RBC Hgb Hct MCHC Plt Count 103 L Lymph % (Auto) [place] % (Auto) Lymph # (Auto) Seg Neutrophils % Seg Neuts % (Manual) Lymphocytes % (Manual) Seg Neutrophils # Seg Neutrophils # Man Lymphocytes # (Manual) POC ABG pO2 ABG Sodium ABG Potassium ABG Glucose Sodium Potassium 3.3 L Chloride 96.4 L Carbon Dioxide 35 H BUN Glucose 104 H 124 H Calcium 8.3 L Ferritin ALT Lactate Dehydrogenase C-Reactive Protein Total Protein 6.2 L Albumin 3.3 L Arterial Blood Glucose Coronavirus (PCR) SARS-CoV-2 IgG Ab 11/02/16/20 02/17/20 11:09 11:09 17:00 WBC 11.2 H RBC Hgb 14.6 H Hct 43.8 H MCHC Plt Count 124 L Lymph % (Auto) [place] % (Auto) Lymph # (Auto) Seg Neutrophils % Seg Neuts % (Manual) 93.0 H Lymphocytes % (Manual) 3.0 L Seg Neutrophils # Seg Neutrophils # Man 10.4 H Lymphocytes # (Manual) 0.3 L POC ABG pO2 ABG Sodium ABG Potassium ABG Glucose Sodium Potassium Chloride Carbon Dioxide BUN Glucose Calcium Ferritin 352.2 H ALT Lactate Dehydrogenase 253 H C-Reactive Protein 8.90 H Total Protein Albumin Arterial Blood Glucose Coronavirus (PCR) SARS-CoV-2 IgG Ab 02/17/20 02/18/20 02/18/20 22:20 07:31 07:31 WBC RBC Hgb Hct MCHC Plt Count Lymph % (Auto) [place] % (Auto) Lymph # (Auto) Seg Neutrophils % Seg Neuts % (Manual) Lymphocytes % (Manual) Seg Neutrophils # Seg Neutrophils # Man Lymphocytes # (Manual) POC ABG pO2 79.9 L ABG Sodium 134.4 L ABG Potassium 3.0 L ABG Glucose 253 H Sodium Potassium Chloride Carbon Dioxide 34 H BUN Glucose 171 H Calcium Ferritin 465.7 H ALT Lactate Dehydrogenase C-Reactive Protein 7.10 H Total Protein Albumin 3.4 L Arterial Blood Glucose 253 H Coronavirus (PCR) SARS-CoV-2 IgG Ab 02/19/20 02/19/20 02/20/20 05:15 05:15 04:07 WBC 14.3 H 12.6 H RBC Hgb 14.4 H Hct MCHC Plt Count Lymph % (Auto) 6.6 L 7.6 L [place] % (Auto) Lymph # (Auto) 0.9 L 1.0 L Seg Neutrophils % 89.5 H 86.6 H Seg Neuts % (Manual) Lymphocytes % (Manual) Seg Neutrophils # 12.8 H 10.9 H Seg Neutrophils # Man Lymphocytes # (Manual) POC ABG pO2 ABG Sodium ABG Potassium ABG Glucose Sodium Potassium 3.5 L Chloride Carbon Dioxide BUN 23 H Glucose 163 H Calcium Ferritin ALT 61 H Lactate Dehydrogenase C-Reactive Protein Total Protein Albumin 3.0 L Arterial Blood Glucose Coronavirus (PCR) SARS-CoV-2 IgG Ab 02/20/20 02/20/20 02/21/20 04:07 04:07 08:30 WBC 13.6 H RBC 5.28 H Hgb 15.2 H Hct 46.5 H MCHC Plt Count Lymph % (Auto) 6.4 L [place] % (Auto) Lymph # (Auto) 0.9 L Seg Neutrophils % 90.0 H Seg Neuts % (Manual) Lymphocytes % (Manual) Seg Neutrophils # 12.2 H Seg Neutrophils # Man Lymphocytes # (Manual) POC ABG pO2 ABG Sodium ABG Potassium ABG Glucose Sodium Potassium Chloride Carbon Dioxide BUN 21 H Glucose 192 H Calcium Ferritin ALT 69 H Lactate Dehydrogenase C-Reactive Protein Total Protein 5.7 L Albumin 3.2 L Arterial Blood Glucose Coronavirus (PCR) SARS-CoV-2 IgG Ab Reactive A 02/21/20 02/22/20 02/22/20 08:30 06:46 06:46 WBC 14.5 H RBC Hgb 14.4 H Hct MCHC Plt Count Lymph % (Auto) [place] % (Auto) Lymph # (Auto) Seg Neutrophils % Seg Neuts % (Manual) 91.0 H Lymphocytes % (Manual) 7.0 L Seg Neutrophils # Seg Neutrophils # Man 13.2 H Lymphocytes # (Manual) 1.0 L POC ABG pO2 ABG Sodium ABG Potassium ABG Glucose Sodium Potassium 3.5 L Chloride 97.8 L Carbon Dioxide 33 H 34 H BUN 20 H 19 H Glucose 230 H 186 H Calcium Ferritin ALT Lactate Dehydrogenase C-Reactive Protein Total Protein 5.4 L Albumin 3.0 L 3.1 L Arterial Blood Glucose Coronavirus (PCR) SARS-CoV-2 IgG Ab 02/22/20 02/23/20 02/23/20 Unknown 14:16 14:16 WBC 16.5 H RBC 5.07 H Hgb 14.8 H Hct 43.5 H MCHC Plt Count Lymph % (Auto) [place] % (Auto) Lymph # (Auto) Seg Neutrophils % Seg Neuts % (Manual) 87.0 H Lymphocytes % (Manual) 10.0 L Seg Neutrophils # Seg Neutrophils # Man 14.4 H Lymphocytes # (Manual) POC ABG pO2 ABG Sodium ABG Potassium ABG Glucose Sodium 133 L Potassium Chloride 93.1 L Carbon Dioxide 31 H BUN 25 H Glucose 240 H Calcium Ferritin ALT Lactate Dehydrogenase C-Reactive Protein Total Protein 5.9 L Albumin 3.2 L Arterial Blood Glucose Coronavirus (PCR) Positive A SARS-CoV-2 IgG Ab 02/24/20 02/24/20 05:57 05:57 WBC 13.2 H RBC Hgb Hct MCHC Plt Count Lymph % (Auto) 6.0 L [place] % (Auto) Lymph # (Auto) 0.8 L Seg Neutrophils % 89.3 H Seg Neuts % (Manual) Lymphocytes % (Manual) Seg Neutrophils # 11.8 H Seg Neutrophils # Man Lymphocytes # (Manual) POC ABG pO2 ABG Sodium ABG Potassium ABG Glucose Sodium 136 L Potassium Chloride Carbon Dioxide 36 H BUN 22 H Glucose 230 H Calcium Ferritin ALT Lactate Dehydrogenase C-Reactive Protein Total Protein 5.5 L Albumin 2.9 L Arterial Blood Glucose Coronavirus (PCR) SARS-CoV-2 IgG Ab
--- NOTE | 2020-02-24 11:56 | Progress Note ---
Assessment and Plan Cultures: SARS CoV2 PCR positive as an outpatient Assessment: 59 years old female with history of asthma admitted on 02/11/2020 due to a week history of fever, shortness of breath, cough, loss of smell, generalized malaise: #COVID-19 pneumonia b/l #Acute hypoxic respiratory failure: hypoxia requiring nasal cannula now. Improving. #Thrombocytopenia: improved Recommendations: -Continue steroids as per pulmonary -Completed remdesivir -Monitor inflammatory markers - ferritin, Ddimer, CRP -Continue anticoagulation per System Protocol -COVID IgG positive, not a candidate for Covid convalescent plasma -Leukocytosis likely secondary to steroids. Infectious disease will sign off. Please call with questions. Alex Maradiaga MD [facility] O: [phone] F: [phone] Subjective Date of service: 02/24/20 Principal diagnosis: COVID pneumonia Interval history: Afebrile, white count at 13.2. Currently on 3 L nasal cannula. Objective - Exam Narrative Exam: Physical exam deferred due to PPE conservation strategy. Please refer to primary team's note. - Constitutional Vitals: Vital Signs Temp Pulse Resp BP Pulse Ox 98 F 109 H 20 118/79 95 02/24/20 04:47 02/24/20 09:37 02/24/20 08:28 02/24/20 09:37 02/24/20 08:32 Temperature -Last 24 Hours Temperature 98 F Temperature 98.8 F Temperature 97.9 F Temperature 97.9 F - Labs CBC & Chem 7: 02/24/20 05:57 02/24/20 05:57 Labs: Abnormal lab results 02/23/20 02/23/20 02/24/20 Range/Units 14:16 14:16 05:57 WBC 16.5 H 13.2 H (4.5-11.0) K/mm3 RBC 5.07 H (3.65-5.03) M/mm3 Hgb 14.8 H (10.1-14.3) gm/dl Hct 43.5 H (30.3-42.9) % Lymph % (Auto) 6.0 L (13.4-35.0) % Lymph # (Auto) 0.8 L (1.2-5.4) K/mm3 Seg Neutrophils % 89.3 H (40.0-70.0) % Seg Neuts % (Manual) 87.0 H (40.0-70.0) % Lymphocytes % (Manual) 10.0 L (13.4-35.0) % Seg Neutrophils # 11.8 H (1.8-7.7) K/mm3 Seg Neutrophils # Man 14.4 H (1.8-7.7) K/mm3 Sodium 133 L (137-145) mmol/L Chloride 93.1 L (98-107) mmol/L Carbon Dioxide 31 H (22-30) mmol/L BUN 25 H (7-17) mg/dL Glucose 240 H (65-100) mg/dL Total Protein 5.9 L (6.3-8.2) g/dL Albumin 3.2 L (3.9-5) g/dL 02/24/20 Range/Units 05:57 WBC (4.5-11.0) K/mm3 RBC (3.65-5.03) M/mm3 Hgb (10.1-14.3) gm/dl Hct (30.3-42.9) % Lymph % (Auto) (13.4-35.0) % Lymph # (Auto) (1.2-5.4) K/mm3 Seg Neutrophils % (40.0-70.0) % Seg Neuts % (Manual) (40.0-70.0) % Lymphocytes % (Manual) (13.4-35.0) % Seg Neutrophils # (1.8-7.7) K/mm3 Seg Neutrophils # Man (1.8-7.7) K/mm3 Sodium 136 L (137-145) mmol/L Chloride (98-107) mmol/L Carbon Dioxide 36 H (22-30) mmol/L BUN 22 H (7-17) mg/dL Glucose 230 H (65-100) mg/dL Total Protein 5.5 L (6.3-8.2) g/dL Albumin 2.9 L (3.9-5) g/dL
--- NOTE | 2020-02-24 12:06 | Progress Note ---
Assessment and Plan Assessment and plan: -- COVID-19 PNA Solu-Medrol taper from tomorrow Completed remdesivir ID and pulmonology recommendations appreciated Continue to monitor inflammatory makers Airborne and contact isolation Ascorbic acid and zinc sulphate Prone positioning advised --Acute respiratory failure with hypoxia Continue oxygen supplementation Lasix as needed COVID-19 treatment --Essential (primary) hypertension Continue to monitor blood pressure closely --Morbid obesity due to excess calories BMI 54.8 Discussed lifestyle modification-healthy diet and weight management And medically stable -- DVT prophylaxis SQH Lovenox 02/12. Slight improvement noted. ID recommendations appreciated 02/13-. Plan to get a walk test patient desaturated she was placed on oxygen. 02/15. Patient remains on high oxygen-8 L. ID consulted as patient will need remdesivir. Pulmonology consulted as well. She denies any chest pain or palpitations. Elevated D-dimer noted. Ultrasound lower extremity Dopplers ordered. 02/16. Remains on high oxygen. Pulmonology advised recommendations appreciated. Ultrasound lower extremity negative for DVT. Awaiting a.m. labs 02/17. Had increased work of breathing yesterday so she was transferred to the [facility] on BiPAP. Lasix 40 mg IV ordered this morning. Still on Solu-Medrol and remdesivir. ID and pulmonology following 02/18. On high flow nasal cannula with sats in the 90s. Still on Solu-Medrol and remdesivir. Labs reviewed. Continue to monitor 02/19. States her breathing is better. Now on 70% oxygen. On steroids. She has antibodies to COVID-19 so does not qualify for convalescent plasma. ID and pulmonology on board 02/20. On 50% oxygen and 20L. Feels better today. Labs reviewed. 02/21. Significantly improved. On 5L oxygen. Taper steroids tomorrow. Pulm recs appreciated. She requested for a repeat COVID-19 test before she gets tra nsferred. Repeat test is still positive. 02/22. On 3L oxygen. Taper steroids. Pulm recs appreciated. 02/24/2020. Patient has completed steroids and remdesivir. Continue to monitor inflammatory markers per ID recommendations. Continue anticoagulation. History Interval history: 59-year-old morbidly obese female with a medical history of asthma admitted with chief complaint of fever, shortness of breath, cough and loss of smell. Patient had tested positive for COVID-19 a day prior to presentation. While at home, her oxygen saturation fell to the 80s so she presented to the hospital for evaluation. Here in the ER, she was started on dexamethasone and admitted to the hospital. Hospitalist Physical - Constitutional Vitals: Temp Pulse Resp BP Pulse Ox 98 F 109 H 20 118/79 95 02/24/20 04:47 02/24/20 09:37 02/24/20 08:28 02/24/20 09:37 02/24/20 08:32 General appearance: Present: no acute distress, well-nourished - EENT Eyes: Present: PERRL, EOM intact ENT: hearing intact, clear oral mucosa, dentition normal - Neck Neck: Present: supple, normal ROM - Respiratory Respiratory effort: normal Respiratory: bilateral: CTA - Cardiovascular Rhythm: regular Heart Sounds: Present: S1 & S2. Absent: gallop, rub - Extremities Extremities: no ischemia, No edema, Full ROM - Abdominal General gastrointestinal: soft, non-tender, non-distended, normal bowel sounds - Integumentary Integumentary: Present: clear, warm, dry - Neurologic Neurologic: CNII-XII intact, moves all extremities HEART Score - HEART Score Troponin: Troponin T < 0.010 ng/mL (0.00-0.029) 02/11/20 07:44 Results - Labs CBC & Chem 7: 02/24/20 05:57 02/24/20 05:57 Labs: Laboratory Last Values WBC 13.2 K/mm3 (4.5-11.0) H 02/24/20 05:57 RBC 4.74 M/mm3 (3.65-5.03) 02/24/20 05:57 Hgb 13.4 gm/dl (10.1-14.3) 02/24/20 05:57 Hct 41.0 % (30.3-42.9) 02/24/20 05:57 MCV 87 fl (79-97) 02/24/20 05:57 MCH 28 pg (28-32) 02/24/20 05:57 MCHC 33 % (30-34) 02/24/20 05:57 RDW 13.5 % (13.2-15.2) 02/24/20 05:57 Plt Count 209 K/mm3 (140-440) 02/24/20 05:57 Lymph % (Auto) 6.0 % (13.4-35.0) L 02/24/20 05:57 [place] % (Auto) 4.6 % (0.0-7.3) 02/24/20 05:57 Eos % (Auto) 0.0 % (0.0-4.3) 02/24/20 05:57 Baso % (Auto) 0.1 % (0.0-1.8) 02/24/20 05:57 Lymph # (Auto) 0.8 K/mm3 (1.2-5.4) L 02/24/20 05:57 [place] # (Auto) 0.6 K/mm3 (0.0-0.8) 02/24/20 05:57 Eos # (Auto) 0.0 K/mm3 (0.0-0.4) 02/24/20 05:57 Baso # (Auto) 0.0 K/mm3 (0.0-0.1) 02/24/20 05:57 Add Manual Diff Complete 02/23/20 14:16 Total Counted 100 02/23/20 14:16 Seg Neutrophils % 89.3 % (40.0-70.0) H 02/24/20 05:57 Seg Neuts % (Manual) 87.0 % (40.0-70.0) H 02/23/20 14:16 Band Neutrophils % 0 % 02/23/20 14:16 Lymphocytes % (Manual) 10.0 % (13.4-35.0) L 02/23/20 14:16 Reactive Lymphs % (Man) 0 % 02/23/20 14:16 Monocytes % (Manual) 2.0 % (0.0-7.3) 02/23/20 14:16 Eosinophils % (Manual) 0 % (0.0-4.3) 02/23/20 14:16 Basophils % (Manual) 0 % (0.0-1.8) 02/23/20 14:16 Metamyelocytes % 0 % 02/23/20 14:16 Myelocytes % 1.0 % 02/23/20 14:16 Promyelocytes % 0 % 02/23/20 14:16 Blast Cells % 0 % 02/23/20 14:16 Nucleated RBC % Not Reportable 02/23/20 14:16 Seg Neutrophils # 11.8 K/mm3 (1.8-7.7) H 02/24/20 05:57 Seg Neutrophils # Man 14.4 K/mm3 (1.8-7.7) H 02/23/20 14:16 Band Neutrophils # 0.0 K/mm3 02/23/20 14:16 Lymphocytes # (Manual) 1.7 K/mm3 (1.2-5.4) 02/23/20 14:16 Abs React Lymphs (Man) 0.0 K/mm3 02/23/20 14:16 Monocytes # (Manual) 0.3 K/mm3 (0.0-0.8) 02/23/20 14:16 Eosinophils # (Manual) 0.0 K/mm3 (0.0-0.4) 02/23/20 14:16 Basophils # (Manual) 0.0 K/mm3 (0.0-0.1) 02/23/20 14:16 Metamyelocytes # 0.0 K/mm3 02/23/20 14:16 Myelocytes # 0.2 K/mm3 02/23/20 14:16 Promyelocytes # 0.0 K/mm3 02/23/20 14:16 Blast Cells # 0.0 K/mm3 02/23/20 14:16 WBC Morphology Not Reportable 02/23/20 14:16 Hypersegmented Neuts Not Reportable 02/23/20 14:16 Hyposegmented Neuts Not Reportable 02/23/20 14:16 Hypogranular Neuts Not Reportable 02/23/20 14:16 Smudge Cells Not Reportable 02/23/20 14:16 Toxic Granulation Not Reportable 02/23/20 14:16 Toxic Vacuolation Not Reportable 02/23/20 14:16 Dohle Bodies Not Reportable 02/23/20 14:16 Pelger-Huet Anomaly Not Reportable 02/23/20 14:16 Ashkan Rods Not Reportable 02/23/20 14:16 Platelet Estimate Consistent w auto 02/23/20 14:16 Clumped Platelets Not Reportable 02/23/20 14:16 Plt Clumps, EDTA Not Reportable 02/23/20 14:16 Large Platelets Not Reportable 02/23/20 14:16 Giant Platelets Not Reportable 02/23/20 14:16 Platelet Satelliting Not Reportable 02/23/20 14:16 Plt Morphology Comment Not Reportable 02/23/20 14:16 RBC Morphology Not Reportable 02/23/20 14:16 Dimorphic RBCs Not Reportable 02/23/20 14:16 Polychromasia Not Reportable 02/23/20 14:16 Hypochromasia Not Reportable 02/23/20 14:16 Poikilocytosis Not Reportable 02/23/20 14:16 Anisocytosis Not Reportable 02/23/20 14:16 Microcytosis Not Reportable 02/23/20 14:16 Macrocytosis Not Reportable 02/23/20 14:16 Spherocytes Not Reportable 02/23/20 14:16 Pappenheimer Bodies Not Reportable 02/23/20 14:16 Sickle Cells Not Reportable 02/23/20 14:16 Target Cells Not Reportable 02/23/20 14:16 Tear Drop Cells Not Reportable 02/23/20 14:16 Ovalocytes Not Reportable 02/23/20 14:16 Helmet Cells Not Reportable 02/23/20 14:16 [place] Bodies Not Reportable 02/23/20 14:16 [place] Rings Not Reportable 02/23/20 14:16 [place] Cells Not Reportable 02/23/20 14:16 Bite Cells Not Reportable 02/23/20 14:16 Crenated Cell Not Reportable 02/23/20 14:16 Elliptocytes Not Reportable 02/23/20 14:16 Acanthocytes (Spur) Not Reportable 02/23/20 14:16 Rouleaux Not Reportable 02/23/20 14:16 Hemoglobin C Crystals Not Reportable 02/23/20 14:16 Schistocytes Few 02/23/20 14:16 Malaria parasites Not Reportable 02/23/20 14:16 Hossein Bodies Not Reportable 02/23/20 14:16 Hem Pathologist Commnt No 02/23/20 14:16 D-Dimer 149.43 ng/mlDDU (0-234) 02/16/20 11:09 ABG pH 7.435 (7.320-7.450) 02/17/20 22:20 POC ABG pCO2 41.4 mmHg (32.0-48.0) 02/17/20 22:20 POC ABG pO2 79.9 mmHg (83-108) L 02/17/20 22:20 POC ABG HCO3 27.2 02/17/20 22:20 POC ABG Base Excess 2.7 02/17/20 22:20 ABG Hemoglobin 14.8 (12.0-17.5) 02/17/20 22:20 ABG Oxyhemoglobin 95.6 (94-98) 02/17/20 22:20 ABG Methemoglobin 0 (0.0-1.5) 02/17/20 22:20 ABG Sodium 134.4 mmol/L (136.0-145.0) L 02/17/20 22:20 ABG Potassium 3.0 mmol/L (3.40-4.50) L 02/17/20 22:20 ABG Chloride 99.0 mmol/L (98-107) 02/17/20 22:20 ABG Glucose 253 mg/dL (65-95) H 02/17/20 22:20 Carboxyhemoglobin 0.5 (0.5-1.5) 02/17/20 22:20 FiO2 100 02/17/20 22:20 Sodium 136 mmol/L (137-145) L 02/24/20 05:57 Potassium 3.8 mmol/L (3.6-5.0) 02/24/20 05:57 Chloride TNR 02/24/20 05:57 Carbon Dioxide 36 mmol/L (22-30) H 02/24/20 05:57 Anion Gap 7 mmol/L 02/24/20 05:57 BUN 22 mg/dL (7-17) H 02/24/20 05:57 Creatinine 0.7 mg/dL (0.6-1.2) 02/24/20 05:57 Estimated GFR > 60 ml/min 02/24/20 05:57 BUN/Creatinine Ratio 31 % 02/24/20 05:57 Glucose 230 mg/dL (65-100) H 02/24/20 05:57 Calcium 8.8 mg/dL (8.4-10.2) 02/24/20 05:57 Ferritin 465.7 ng/mL (10.0-200.0) H 02/18/20 07:31 Total Bilirubin 0.40 mg/dL (0.1-1.2) 02/24/20 05:57 AST 11 units/L (5-40) 02/24/20 05:57 ALT 37 units/L (7-56) 02/24/20 05:57 Alkaline Phosphatase 46 units/L (35-129) 02/24/20 05:57 Lactate Dehydrogenase 253 units/L (91-180) H 02/16/20 11:09 Troponin T < 0.010 ng/mL (0.00-0.029) 02/11/20 07:44 C-Reactive Protein 7.10 mg/dL (0.00-1.30) H 02/18/20 07:31 NT-Pro-B Natriuret Pep 75.85 pg/mL (0-900) 02/19/20 05:15 Total Protein 5.5 g/dL (6.3-8.2) L 02/24/20 05:57 Albumin 2.9 g/dL (3.9-5) L 02/24/20 05:57 Albumin/Globulin Ratio 1.1 % 02/24/20 05:57 Procalcitonin < 0.05 ng/mL (<0.15) 02/11/20 08:12 Arterial Blood Glucose 253 mg/dL (65-95) H 02/17/20 22:20 Arterial Blood Ionized Calcium 4.6 mg/dL (4.6-5.3) 02/17/20 22:20 Coronavirus (PCR) Positive (Negative) A 02/22/20 Unknown SARS-CoV-2 IgG Ab Reactive (NonReactive) A 02/20/20 04:07 [place]/IV: Voiding Method Toilet IV Catheter Type [Right Wrist] INT / Saline Lock IV Catheter Type [Left Hand] INT / Saline Lock IV Catheter Type [Right INT / Saline Lock Forearm] IV Catheter Type [Left Forearm INT / Saline Lock ] Active Medications - Current Medications Current Medications: Generic Name Dose Route Start Last Admin Trade Name Freq PRN Reason Stop Dose Admin Acetaminophen 650 mg 02/11/20 03:04 02/24/20 09:37 Tylenol PO 650 mg Q6H PRN Administration Pain, Mild (1-3) Al Hydrox/Mg Hydrox/Simethicone 15 ml 02/11/20 03:04 Alum-Mag Hydrox-Simeth 849-110-70ne/5ml PO Q4H PRN Indigestion Amlodipine Besylate 10 mg 02/11/20 10:00 02/24/20 09:37 Amlodipine PO 10 mg QDAY DIMAS Administration Arformoterol Tartrate 15 mcg 02/16/20 11:00 02/24/20 08:27 Brovana Nebu IH 15 mcg Q12HRT DIMAS Administration Ascorbic Acid 500 mg 02/11/20 10:00 02/24/20 09:37 Vitamin C PO 500 mg BID DIMAS Administration Benzonatate 100 mg 02/11/20 03:11 Tessalon Perles PO Q8HR PRN Nasal Congestion Budesonide 0.5 mg 02/16/20 11:00 02/24/20 08:27 Pulmicort IH 0.5 mg Q12HRT DIMAS Administration Diphenhydramine HCl 25 mg 02/13/20 16:20 02/21/20 21:29 Benadryl PO 25 mg QHS PRN Administration Sleep Enoxaparin Sodium 40 mg 02/11/20 10:00 02/24/20 09:36 Enoxaparin SUB-Q 40 mg QDAY@1000 DIMAS Administration Protocol Lidocaine HCl 15 ml 02/18/20 23:00 02/24/20 08:21 Magic Mouthwash PO 15 ml TID DIMAS Administration Meclizine HCl 25 mg 02/11/20 03:11 Antivert PO Q8H PRN Vertigo Methylprednisolone Sodium Succinate 60 mg 02/23/20 06:00 02/24/20 05:39 Solu-Medrol IV 60 mg Q8HR DIMAS Administration Ondansetron HCl 4 mg 02/11/20 03:04 02/15/20 01:04 Zofran IV 4 mg Q4H PRN Administration Nausea And Vomiting Zinc Sulfate 220 mg 02/11/20 10:00 02/24/20 09:37 Zinc Sulfate PO 220 mg QDAY DIMAS Administration Nutrition/Malnutrition Assess - Dietary Evaluation Nutrition/Malnutrition Findings: Nutrition Notes Start: 02/18/20 14:20 Freq: Status: Active Protocol: Document 02/22/20 14:09 LP (Rec: 02/22/20 14:13 LP [id number]) Nutrition Notes Initial or Follow up Reassessment Current Diagnosis Hypertension,Respiratory Failure Other Pertinent Diagnosis COVID+ Current Diet Cardiac Labs/Tests Reviewed Pertinent Medications Reviewed Height 5 ft 8 in Weight 158 kg [place] Body Weight (kg) 63.63 BMI 52.9 Weight Status Obese Subjective/Other Information Pt did not answer phone. Noted consuming 75-100% of meals. Percent of energy/protein needs met: 96%/96% GI Symptoms None Food Allergy No Current % PO Good (75-100%) Minimum of two criteria No physical signs of malnutrition #1 Nutrition Diagnosis Inadequate oral intake As Evidenced by Signs and Symptoms Pt consuming 75-100% of meals Diagnosis Progress(for reassessment Improved documentation) Is patient on ventilator? No Is Patient Ambulatory and/or Out of Bed No REE-([place]-confined to bed) 2647.968 Kcal/Kg value to use for calculation 11 Approximate Energy Requirements Using 1738 kcal/Kg Calculation Used for Recommendations Kcal/kg Additional Notes Protein: 0.8-1.0 g/kg AdBW of 110.8kg (89-111g) Fluid: 1 ml/kcal Nutrition Intervention Change Diet Order: Continue cardiac diet Goal #1 Meet 75% of energy and protein needs with PO Anticipated Discharge Needs: Cardiac diet Follow-Up By: 02/29/20 Additional Comments Follow for stable intakes
[2020-02-25] MEDS: methylPREDNISolone Sod Succinate 125 MG/2 ML INJ IV SCH (06:12)
[2020-02-25] MEDS: BUDESONIDE 0.5 MG/2 ML NEBU IH SCH (08:10)
[2020-02-25] MEDS: ARFORMOTEROL 15 MCG/2 ML NEBU IH SCH (08:10)
[2020-02-25] MEDS ORDERED: methylPREDNISolone Sod Succinate 125 MG/2 ML INJ IV SCH (08:32)
--- NOTE | 2020-02-25 08:32 | Progress Note ---
Assessment and Plan 59 y/o morbidly obese female admitted with acute respiratory failure secondary to COVID 19 pneumonia and possible asthma exacerbation. 1. Will decrease steroids today. 2. Will need walk test prior to discharge to asses home oxygen needs if any. 3. Continue wean oxygen as tolerated 4. Hopeful discharge soon in the next 24-48 hours. Subjective Date of service: 02/25/20 Principal diagnosis: COVID pneumonia Interval history: Still on 3 liters NC, no weaning as of yesterday. Good sats. Objective Vital Signs - 12hr 02/24/20 02/24/20 02/24/20 20:44 20:48 22:00 Temperature Pulse Rate Pulse Rate [ 90 Bilateral Throughout] Pulse Rate [ 80 From Monitor] Respiratory 22 Rate Respiratory 20 Rate [Bilateral Throughout] Blood Pressure O2 Sat by Pulse 97 95 Oximetry 02/24/20 02/24/20 02/25/20 23:02 23:11 04:57 Temperature 97.8 F 97.7 F Pulse Rate 95 H 72 74 Pulse Rate [ Bilateral Throughout] Pulse Rate [ From Monitor] Respiratory 19 24 20 Rate Respiratory Rate [Bilateral Throughout] Blood Pressure 136/75 144/79 O2 Sat by Pulse 92 97 99 Oximetry 02/25/20 02/25/20 08:21 08:22 Temperature Pulse Rate Pulse Rate [ 82 Bilateral Throughout] Pulse Rate [ From Monitor] Respiratory Rate Respiratory 17 Rate [Bilateral Throughout] Blood Pressure O2 Sat by Pulse 93 Oximetry CBC and BMP: 02/24/20 05:57 02/24/20 05:57 ABG, PT/INR, D-dimer: ABG ABG pH 7.435 (7.320-7.450) 02/17/20 22:20 POC ABG pCO2 41.4 mmHg (32.0-48.0) 02/17/20 22:20 POC ABG pO2 79.9 mmHg (83-108) L 02/17/20 22:20 POC ABG HCO3 27.2 02/17/20 22:20 PT/INR, D-dimer D-Dimer 149.43 ng/mlDDU (0-234) 02/16/20 11:09 Abnormal lab findings: Abnormal Labs 02/11/20 02/11/20 02/11/20 00:45 00:45 03:42 WBC 3.7 L RBC Hgb Hct MCHC Plt Count 113 L Lymph % (Auto) 45.2 H [place] % (Auto) 13.9 H Lymph # (Auto) Seg Neutrophils % Seg Neuts % (Manual) Lymphocytes % (Manual) Seg Neutrophils # 1.5 L Seg Neutrophils # Man Lymphocytes # (Manual) POC ABG pO2 ABG Sodium ABG Potassium ABG Glucose Sodium Potassium 3.4 L Chloride Carbon Dioxide BUN 6 L Glucose 114 H 106 H Calcium Ferritin ALT Lactate Dehydrogenase C-Reactive Protein 2.90 H Total Protein Albumin Arterial Blood Glucose Coronavirus (PCR) SARS-CoV-2 IgG Ab 02/11/20 02/11/20 02/11/20 03:42 03:42 03:42 WBC 3.0 L RBC Hgb Hct MCHC 35 H Plt Count 109 L Lymph % (Auto) 38.3 H [place] % (Auto) 15.2 H Lymph # (Auto) Seg Neutrophils % Seg Neuts % (Manual) Lymphocytes % (Manual) Seg Neutrophils # 1.4 L Seg Neutrophils # Man Lymphocytes # (Manual) POC ABG pO2 ABG Sodium ABG Potassium ABG Glucose Sodium Potassium 3.3 L Chloride Carbon Dioxide BUN 6 L Glucose 107 H Calcium Ferritin 231.3 H ALT Lactate Dehydrogenase C-Reactive Protein Total Protein Albumin Arterial Blood Glucose Coronavirus (PCR) SARS-CoV-2 IgG Ab 02/12/20 02/13/20 02/13/20 08:30 06:02 06:02 WBC RBC Hgb Hct MCHC Plt Count Lymph % (Auto) [place] % (Auto) Lymph # (Auto) Seg Neutrophils % Seg Neuts % (Manual) Lymphocytes % (Manual) Seg Neutrophils # Seg Neutrophils # Man Lymphocytes # (Manual) POC ABG pO2 ABG Sodium ABG Potassium ABG Glucose Sodium Potassium Chloride Carbon Dioxide BUN Glucose 104 H Calcium Ferritin 245.0 H ALT Lactate Dehydrogenase C-Reactive Protein 2.80 H Total Protein Albumin Arterial Blood Glucose Coronavirus (PCR) SARS-CoV-2 IgG Ab 02/14/20 02/16/20 02/16/20 07:20 11:09 11:09 WBC RBC Hgb Hct MCHC Plt Count 103 L Lymph % (Auto) [place] % (Auto) Lymph # (Auto) Seg Neutrophils % Seg Neuts % (Manual) Lymphocytes % (Manual) Seg Neutrophils # Seg Neutrophils # Man Lymphocytes # (Manual) POC ABG pO2 ABG Sodium ABG Potassium ABG Glucose Sodium Potassium 3.3 L Chloride 96.4 L Carbon Dioxide 35 H BUN Glucose 104 H 124 H Calcium 8.3 L Ferritin ALT Lactate Dehydrogenase C-Reactive Protein Total Protein 6.2 L Albumin 3.3 L Arterial Blood Glucose Coronavirus (PCR) SARS-CoV-2 IgG Ab 02/16/20 02/16/20 02/17/20 11:09 11:09 17:00 WBC 11.2 H RBC Hgb 14.6 H Hct 43.8 H MCHC Plt Count 124 L Lymph % (Auto) [place] % (Auto) Lymph # (Auto) Seg Neutrophils % Seg Neuts % (Manual) 93.0 H Lymphocytes % (Manual) 3.0 L Seg Neutrophils # Seg Neutrophils # Man 10.4 H Lymphocytes # (Manual) 0.3 L POC ABG pO2 ABG Sodium ABG Potassium ABG Glucose Sodium Potassium Chloride Carbon Dioxide BUN Glucose Calcium Ferritin 352.2 H ALT Lactate Dehydrogenase 253 H C-Reactive Protein 8.90 H Total Protein Albumin Arterial Blood Glucose Coronavirus (PCR) SARS-CoV-2 IgG Ab 02/17/20 02/18/20 02/18/20 22:20 07:31 07:31 WBC RBC Hgb Hct MCHC Plt Count Lymph % (Auto) [place] % (Auto) Lymph # (Auto) Seg Neutrophils % Seg Neuts % (Manual) Lymphocytes % (Manual) Seg Neutrophils # Seg Neutrophils # Man Lymphocytes # (Manual) POC ABG pO2 79.9 L ABG Sodium 134.4 L ABG Potassium 3.0 L ABG Glucose 253 H Sodium Potassium Chloride Carbon Dioxide 34 H BUN Glucose 171 H Calcium Ferritin 465.7 H ALT Lactate Dehydrogenase C-Reactive Protein 7.10 H Total Protein Albumin 3.4 L Arterial Blood Glucose 253 H Coronavirus (PCR) SARS-CoV-2 IgG Ab 02/19/20 02/19/20 02/20/20 05:15 05:15 04:07 WBC 14.3 H 12.6 H RBC Hgb 14.4 H Hct MCHC Plt Count Lymph % (Auto) 6.6 L 7.6 L [place] % (Auto) Lymph # (Auto) 0.9 L 1.0 L Seg Neutrophils % 89.5 H 86.6 H Seg Neuts % (Manual) Lymphocytes % (Manual) Seg Neutrophils # 12.8 H 10.9 H Seg Neutrophils # Man Lymphocytes # (Manual) POC ABG pO2 ABG Sodium ABG Potassium ABG Glucose Sodium Potassium 3.5 L Chloride Carbon Dioxide BUN 23 H Glucose 163 H Calcium Ferritin ALT 61 H Lactate Dehydrogenase C-Reactive Protein Total Protein Albumin 3.0 L Arterial Blood Glucose Coronavirus (PCR) SARS-CoV-2 IgG Ab 02/20/20 02/20/20 02/21/20 04:07 04:07 08:30 WBC 13.6 H RBC 5.28 H Hgb 15.2 H Hct 46.5 H MCHC Plt Count Lymph % (Auto) 6.4 L [place] % (Auto) Lymph # (Auto) 0.9 L Seg Neutrophils % 90.0 H Seg Neuts % (Manual) Lymphocytes % (Manual) Seg Neutrophils # 12.2 H Seg Neutrophils # Man Lymphocytes # (Manual) POC ABG pO2 ABG Sodium ABG Potassium ABG Glucose Sodium Potassium Chloride Carbon Dioxide BUN 21 H Glucose 192 H Calcium Ferritin ALT 69 H Lactate Dehydrogenase C-Reactive Protein Total Protein 5.7 L Albumin 3.2 L Arterial Blood Glucose Coronavirus (PCR) SARS-CoV-2 IgG Ab Reactive A 02/21/20 02/22/20 02/22/20 08:30 06:46 06:46 WBC 14.5 H RBC Hgb 14.4 H Hct MCHC Plt Count Lymph % (Auto) [place] % (Auto) Lymph # (Auto) Seg Neutrophils % Seg Neuts % (Manual) 91.0 H Lymphocytes % (Manual) 7.0 L Seg Neutrophils # Seg Neutrophils # Man 13.2 H Lymphocytes # (Manual) 1.0 L POC ABG pO2 ABG Sodium ABG Potassium ABG Glucose Sodium Potassium 3.5 L Chloride 97.8 L Carbon Dioxide 33 H 34 H BUN 20 H 19 H Glucose 230 H 186 H Calcium Ferritin ALT Lactate Dehydrogenase C-Reactive Protein Total Protein 5.4 L Albumin 3.0 L 3.1 L Arterial Blood Glucose Coronavirus (PCR) SARS-CoV-2 IgG Ab 02/22/20 02/23/20 02/23/20 Unknown 14:16 14:16 WBC 16.5 H RBC 5.07 H Hgb 14.8 H Hct 43.5 H MCHC Plt Count Lymph % (Auto) [place] % (Auto) Lymph # (Auto) Seg Neutrophils % Seg Neuts % (Manual) 87.0 H Lymphocytes % (Manual) 10.0 L Seg Neutrophils # Seg Neutrophils # Man 14.4 H Lymphocytes # (Manual) POC ABG pO2 ABG Sodium ABG Potassium ABG Glucose Sodium 133 L Potassium Chloride 93.1 L Carbon Dioxide 31 H BUN 25 H Glucose 240 H Calcium Ferritin ALT Lactate Dehydrogenase C-Reactive Protein Total Protein 5.9 L Albumin 3.2 L Arterial Blood Glucose Coronavirus (PCR) Positive A SARS-CoV-2 IgG Ab 02/24/20 02/24/20 05:57 05:57 WBC 13.2 H RBC Hgb Hct MCHC Plt Count Lymph % (Auto) 6.0 L [place] % (Auto) Lymph # (Auto) 0.8 L Seg Neutrophils % 89.3 H Seg Neuts % (Manual) Lymphocytes % (Manual) Seg Neutrophils # 11.8 H Seg Neutrophils # Man Lymphocytes # (Manual) POC ABG pO2 ABG Sodium ABG Potassium ABG Glucose Sodium 136 L Potassium Chloride Carbon Dioxide 36 H BUN 22 H Glucose 230 H Calcium Ferritin ALT Lactate Dehydrogenase C-Reactive Protein Total Protein 5.5 L Albumin 2.9 L Arterial Blood Glucose Coronavirus (PCR) SARS-CoV-2 IgG Ab
[2020-02-25] MEDS ORDERED: methylPREDNISolone Sod Succinate 40 MG/1 ML INJ IV SCH (09:00)
--- NOTE | 2020-02-25 09:32 | Discharge Summary ---
Providers - Providers Date of Admission: 02/11/20 14:00 Date of discharge: 02/25/20 Attending physician: BIRGIT EDMONDSON 02/11/20 02:32 Consult to Physician [CONS] Routine Comment: Consulting Provider: MANDIE BLACKMON Physician Instructions: Reason For Exam: pui. covid 02/16/20 10:45 Consult to Physician [CONS] Routine Comment: Consulting Provider: RM CHURCH Physician Instructions: Reason For Exam: COVID-19 with hypoxia 02/16/20 10:46 Consult to Physician [CONS] Routine Comment: Consulting Provider: LETICIA VALDEZ Physician Instructions: Reason For Exam: COVID-19 with respiratory failure Primary care physician: GEORGETTE KUMAR Hospitalization Reason for admission: sob Condition: Critical Hospital course: 59-year-old morbidly obese female with a medical history of asthma admitted with chief complaint of fever, shortness of breath, cough and loss of smell. Chao walker had tested positive for COVID-19 a day prior to presentation. While at home, her oxygen saturation fell to the 80s so she presented to the hospital for evaluation. In the ER, she was started on dexamethasone and admitted to the hospital. The patient was admitted with diagnosis of COVID-19 pneumonia, acute hypoxic respiratory failure, morbid obesity and hypertension. The dexamethasone was changed to Solu-Medrol with steroids tapered. The patient was treated with remdesivir which was completed during hospitalization. Inflammatory markers were monitored. Patient received supplemental oxygen which was later weaned down and patient returned back to her baseline respiratory status. Hospital course: 02/12. Slight improvement noted. ID recommendations appreciated 02/13-. Plan to get a walk test patient desaturated she was placed on oxygen. 02/15. Patient remains on high oxygen-8 L. ID consulted as patient will need remdesivir. Pulmonology consulted as well. She denies any chest pain or palpitations. Elevated D-dimer noted. Ultrasound lower extremity Dopplers ordered. 02/16. Remains on high oxygen. Pulmonology advised recommendations appreciated. Ultrasound lower extremity negative for DVT. Awaiting a.m. labs 02/17. Had increased work of breathing yesterday so she was transferred to the [facility] on BiPAP. Lasix 40 mg IV ordered this morning. Still on Solu-Medrol and remdesivir. ID and pulmonology following 02/18. On high flow nasal cannula with sats in the 90s. Still on Solu-Medrol and remdesivir. Labs reviewed. Continue to monitor 02/19. States her breathing is better. Now on 70% oxygen. On steroids. She has antibodies to COVID-19 so does not qualify for convalescent plasma. ID and pulmonology on board 02/20. On 50% oxygen and 20L. Feels better today. Labs reviewed. 02/21. Significantly improved. On 5L oxygen. Taper steroids tomorrow. Pulm recs appreciated. She requested for a repeat COVID-19 test before she gets transferred. Repeat test is still positive. 02/22. On 3L oxygen. Taper steroids. Pulm recs appreciated. 02/24/2020. Patient has completed steroids and remdesivir. Continue to monitor inflammatory markers per ID recommendations. Continue anticoagulation. 02/25/2020. Patient will have exercise pulse oximetry test to determine if she will need home oxygen. Patient will be discharged home with or without oxygen based on that testing. Dedicated discharge time 35 minutes. Disposition: [id number] TO HOME OR SELFCARE Time spent for discharge: 35 - Discharge Diagnoses (1) Acute respiratory failure with hypoxia Status: Acute (2) COVID-19 Status: Acute (3) Essential (primary) hypertension Status: Acute (4) Hypertension Status: Acute (5) Hypoxia Status: Acute (6) Morbid obesity due to excess calories Status: Acute Core Measure Documentation - Palliative Care Palliative Care/ Comfort Measures: Not Applicable - Core Measures Any of the following diagnoses?: none Exam - Constitutional Vitals: Temp Pulse Resp BP Pulse Ox 97.7 F 82 17 144/79 93 02/25/20 04:57 02/25/20 08:21 02/25/20 08:21 02/25/20 04:57 02/25/20 08:22 General appearance: Present: no acute distress, well-nourished - EENT Eyes: Present: PERRL ENT: hearing intact, clear oral mucosa - Neck Neck: Present: supple, normal ROM - Respiratory Respiratory effort: normal Respiratory: bilateral: CTA - Cardiovascular Heart Sounds: Present: S1 & S2. Absent: rub, click - Extremities Extremities: pulses symmetrical, No edema Peripheral Pulses: within normal limits - Abdominal General gastrointestinal: Present: soft, non-tender, non-distended, normal bowel sounds Female genitourinary: Present: normal - Integumentary Integumentary: Present: clear, warm, dry - Musculoskeletal Musculoskeletal: gait normal, strength equal bilaterally - Psychiatric Psychiatric: appropriate mood/affect, intact judgment & insight - Neurologic Neurologic: CNII-XII intact, moves all extremities Plan Activity: advance as tolerated Weight Bearing Status: Weight Bear as Tolerated Diet: regular Follow up with: GEORGETTE KUMAR DO [Primary Care Provider] - 7 Days CONNOR FARAH MD [Staff Physician] - 7 Days Prescriptions: amLODIPine 10 mg PO QDAY #40 tablet Meclizine [Antivert] 25 mg PO Q8H PRN #12 tablet PRN Reason: Vertigo diphenhydrAMINE [Benadryl CAP] 25 mg PO QHS PRN #10 capsule PRN Reason: Sleep Arformoterol Nebu [Brovana Nebu] 15 mcg IH Q12HRT 30 Days ml Budesonide [Pulmicort Respules] 0.5 mg IH Q12HRT 30 Days nebu Benzonatate [Tessalon Perles] 100 mg PO Q8HR PRN #12 capsule PRN Reason: Nasal Congestion Ascorbic Acid [Vitamin C] 500 mg PO BID #60 tablet Zinc Sulfate 220 mg PO QDAY #30 capsule
[2020-02-25] MEDS: ENOXAPARIN 40 MG/0.4 ML INJ SUB-Q SCH (10:31)
[2020-02-25] MEDS: ZINC SULFATE 220 MG CAP PO SCH (10:32)
[2020-02-25] MEDS: ASCORBIC ACID 500 MG TAB PO SCH (10:32)
[2020-02-25] MEDS: MAGIC MOUTHWASH 30ML PO SCH (10:32)
[2020-02-25] MEDS: amLODIPine 10 MG TAB PO SCH (10:38)
[2020-02-25 10:39] VITALS: BP 135/72
== END 2020-02-25 14:30 | disposition home or self-care (01) | DRG 177 ==
LOC: ED 00:06 → 3A 03:01 → OBSVTOIN 14:00 → IMCU 02-18 01:34 → 3A 02-23 15:36
PROVIDERS: ADMIT Internal Medicine Geriatric Medicine; ATTEND Hospitalist
PROC: 5A09357 Assistance with Respiratory Ventilation, Less than 24 Consecutive Hours, Continuous Positive Airway Pressure (ICD-10-PCS; principal; 2020-02-11)
PROC: 5A09357 Assistance with Respiratory Ventilation, Less than 24 Consecutive Hours, Continuous Positive Airway Pressure (ICD-10-PCS; 2020-02-15)
PROC: 5A09357 Assistance with Respiratory Ventilation, Less than 24 Consecutive Hours, Continuous Positive Airway Pressure (ICD-10-PCS; 2020-02-16)
PROC: XW033E5 Introduction of Remdesivir Anti-infective into Peripheral Vein, Percutaneous Approach, New Technology Group 5 (ICD-10-PCS; 2020-02-16)
PROC: 5A09557 Assistance with Respiratory Ventilation, Greater than 96 Consecutive Hours, Continuous Positive Airway Pressure (ICD-10-PCS; 2020-02-18)
DX: U07.1 COVID-19 (principal); J12.89 Other viral pneumonia; J96.01 Acute respiratory failure with hypoxia; Z68.43 Body mass index [BMI] 50.0-59.9, adult; E66.01 Morbid (severe) obesity due to excess calories; I10 Essential (primary) hypertension; D69.6 Thrombocytopenia, unspecified; M19.90 Unspecified osteoarthritis, unspecified site; Z98.51 Tubal ligation status; Z79.899 Other long term (current) drug therapy
CPT/HCPCS: 36415; 71045; 80048; 80053; 82728; 82805; 82947; 83615; 83880; 84145; 84484; 85007; 85025; 85027; 85379; 86140; 90471; 93005; 93970; 94640; 94644; 94660; 94760; 96374; 96375; G0378; J0456; J0696; J1100; J1650; J1940; J2270; J2405; J2920; J2930; J7030; J7050; J8540; U0003

== ENCOUNTER 2020-03-08 10:40 | Outpatient (CLI) | payer BC ==
[2020-03-08 11:01] LABS: Hematocrit 38.4 % (30.3-42.9); Hemoglobin 12.7 gm/dl (10.1-14.3); Mean Corpuscular HGB Conc 33 % (30-34); Mean Corpuscular Volume 88 fl (79-97); Red Blood Count 4.36 M/mm3 (3.65-5.03); Red Cell Distribution Width 14.2 % (13.2-15.2)
[2020-03-08 11:10] LABS: Platelet Count 96 K/mm3 (140-440)
[2020-03-08 11:23] LABS: Alanine Aminotransferase 30 units/L (7-56); Albumin 3.3 g/dL (3.9-5); Blood Urea Nitrogen 13 mg/dL (7-17); Calcium 8.8 mg/dL (8.4-10.2); Hemolysis Index 8
[2020-03-08 11:24] LABS: BUN/Creatinine Ratio 19
== END 2020-03-08 10:41 | disposition home or self-care (01) ==
LOC: LAB 10:40
PROVIDERS: ATTEND Internal Medicine Hematology & Oncology
DX: U07.1 COVID-19 (principal)
CPT/HCPCS: 36415; 80053; 83615; 84145; 85027; 85379; 86140

== ENCOUNTER 2020-03-16 08:13 | Outpatient (CLI) | payer BC ==
[2020-03-16 10:07] LABS: Hematocrit 39.8 % (30.3-42.9); Hemoglobin 13.1 gm/dl (10.1-14.3); Mean Corpuscular HGB Conc 33 % (30-34); Mean Corpuscular Volume 88 fl (79-97); Platelet Count 227 K/mm3 (140-440); Red Blood Count 4.52 M/mm3 (3.65-5.03); Red Cell Distribution Width 14.9 % (13.2-15.2)
[2020-03-16 12:08] LABS: Anisocytosis 1+; Band Neutrophils # (Manual) 0.1 K/mm3; Platelet Estimate Consistent w Auto; Total Cells Counted 100
[2020-03-19 13:09] LABS: Heparin-Induced Platelet Antib Negative (Negative); Unfractionated Heparin Negative (Negative)
== END 2020-03-16 08:14 | disposition home or self-care (01) ==
LOC: LAB 08:13
PROVIDERS: ATTEND Internal Medicine Hematology & Oncology
DX: D69.6 Thrombocytopenia, unspecified (principal)
CPT/HCPCS: 36415; 82607; 83615; 85007; 85025; 85379; 85384; 86022

== ENCOUNTER 2020-03-16 16:43 | Observation (INO) | payer BC ==
[2020-03-16] MEDS ORDERED: ASPIRIN 325 MG TAB PO ONE (16:48)
--- NOTE | 2020-03-16 17:23 | XRay Report ---
CHEST 1 VIEW INDICATION / CLINICAL INFORMATION: MAIN. COMPARISON: 02/16/2020 FINDINGS: SUPPORT DEVICES: None. HEART / MEDIASTINUM: No significant abnormality. LUNGS / PLEURA: Minimal bibasilar airspace disease No pneumothorax. ADDITIONAL FINDINGS: No significant additional findings. IMPRESSION: Previously seen airspace disease on 02/16/2020 has nearly completely resolved. Minimal bibasilar airs pace disease is seen on today's exam Signer Name: Pernell Zaidi MD FACR Signed: 03/16/2020 5:19 PM Workstation Name: [id number]
[2020-03-16 17:26] LABS: Basophils # (Auto) 0.1 K/mm3 (0.0-0.1); Basophils % (Auto) 0.9 % (0.0-1.8); Eosinophils % (Auto) 0.3 % (0.0-4.3); Hematocrit 40.8 % (30.3-42.9); Hemoglobin 13.5 gm/dl (10.1-14.3); Lymphocytes # (Auto) 1.5 K/mm3 (1.2-5.4); Lymphocytes % (Auto) 21.9 % (13.4-35.0); Mean Corpuscular HGB Conc 33 % (30-34); Mean Corpuscular Volume 89 fl (79-97); Monocytes # (Auto) 0.3 K/mm3 (0.0-0.8); Monocytes % (Auto) 4.6 % (0.0-7.3); Platelet Count 275 K/mm3 (140-440); Red Cell Distribution Width 14.8 % (13.2-15.2)
[2020-03-16 17:51] LABS: Blood Urea Nitrogen 20 mg/dL (7-17)
[2020-03-16 17:52] LABS: BUN/Creatinine Ratio 25; Calcium 9.1 mg/dL (8.4-10.2); Hemolysis Index 78
--- NOTE | 2020-03-17 00:36 | Emergency Department Report ---
ED Chest Pain HPI - General Chief Complaint: Chest Pain Stated Complaint: POSS COVID/SOB PUI?: Yes Time Seen by Provider: 03/17/20 00:21 Source: patient Mode of arrival: Ambulatory Limitations: No Limitations - History of Present Illness Initial Comments: Patient is a 59-year-old female that presents emergency room with complaints of chest pain. Patient states her chest pain started 3 days ago. Patient states her chest pain is worsening. Patient states her chest pain is substernal and nonradiating. Patient states the chest pain is a pressure and is an 8 out of 10. Patient states she also has shortness of breath but her shortness of breath has been going on since February 10, 2020. Patient states that her chest pain and shortness of breath are better with rest and worse with exertion. Patient states she was Diagnosed with COVID-19 on February 10, 2020 and was admitted February 11, 2020. Patient states she was in the hospital for 2 weeks and discharged on 1126. Patient states that she was admitted because of Covid pneumonia and hypoxia. Patient states she was then referred to a commissioned fire officer and the commissioned fire officer checked her D-dimer 4 days ago and it was 600. Patient states she had a D-dimer checked today and it was 1600. Patient states her commissioned fire officer and told her to come to the emergency room for evaluation since her symptoms and D-dimer are worsening. Patient denies fever and chills. Patient states she still has a mild cough. Patient denies diarrhea and nausea and vomiting. Patient states she is on high-dose prednisone from her commissioned fire officer. Patient states she has a past medical history of hypertension, asthma and sleep apnea. MD Complaint: chest pain -: Sudden Onset: during rest Pain Location: substernal Severity: severe Severity scale (0 -10): 8 Quality: heaviness, pressure Consistency: constant Improves With: rest Worsens With: exertion re: dyspnea. denies: nausea, vomting, diaphoresis, sense of impending doom Other Symptoms: cough. denies: fever, syncope, rash, acid taste in mouth, leg swelling, palpitations, burping Treatments Prior to Arrival: none Aspirin use within the Past 7 Days: (1) Yes - Related Data On Oral Contraceptives: No Home Medications Medication Instructions Recorded Confirmed Last Taken Cholecalciferol (Vitamin D3) 50,000 unit PO QWEEK 02/11/20 02/11/20 Unknown [Vitamin D3 50,000UNIT CAP] Ibuprofen [Motrin 800 MG tab] 800 mg PO Q8HR PRN 02/11/20 02/11/20 Unknown Olmesartan/Hydrochlorothiazide 1 each PO QDAY 02/11/20 02/11/20 Unknown [Olmesartan-Hctz 40-25 mg Tab] oxyCODONE /ACETAMINOPHEN [Percocet 1 tab PO Q6HR PRN 02/11/20 02/11/20 Unknown 5/325 mg] Previous Rx's Medication Instructions Recorded Last Taken Type ALBUTEROL Inhaler(NF) [VENTOLIN 2 puff IH Q4H PRN #1 inha 12/01/17 Unknown Rx Inhaler(NF)] Antacid [Alum-Mag Hydrox-Simeth 15 ml PO Q4H PRN oral.liqd 02/25/20 Unknown Rx [id number]] Arformoterol Nebu [Brovana Nebu] 15 mcg IH Q12HRT 30 Days ml 02/25/20 Unknown Rx Ascorbic Acid [Vitamin C] 500 mg PO BID #60 tablet 02/25/20 Unknown Rx Benzonatate [Tessalon Perles] 100 mg PO Q8HR PRN #12 capsule 02/25/20 Unknown Rx Budesonide [Pulmicort Respules] 0.5 mg IH Q12HRT 30 Days nebu 02/25/20 Unknown Rx Meclizine [Antivert] 25 mg PO Q8H PRN #12 tablet 02/25/20 Unknown Rx Nystas/Diphen/Xyl Visc/Mylanta 15 ml PO TID oral.liqd 02/25/20 Unknown Rx [Magic Mouthwash] Zinc Sulfate 220 mg PO QDAY #30 capsule 02/25/20 Unknown Rx amLODIPine 10 mg PO QDAY #40 tablet 02/25/20 Unknown Rx diphenhydrAMINE [Benadryl CAP] 25 mg PO QHS PRN #10 capsule 02/25/20 Unknown Rx predniSONE [Deltasone] 20 mg PO QDAY #24 tab 02/25/20 Unknown Rx Allergies Allergy/AdvReac Type Severity Reaction Status Date / Time No Known Allergies Allergy Verified 04/06/19 13:48 Heart Score - HEART Score History: Moderately suspicious EKG: Non-specific Age: 45-65 Risk factors: 1-2 risk factors Troponin: < normal limit HEART Score: 4 ED Review of Systems ROS: Stated complaint: POSS COVID/SOB Other details as noted in HPI Constitutional: denies: chills, fever Eyes: denies: eye pain, eye discharge, vision change ENT: denies: ear pain, throat pain Respiratory: cough, shortness of breath, SOB with exertion, SOB at rest. denies: wheezing Cardiovascular: chest pain. denies: palpitations Endocrine: no symptoms reported Gastrointestinal: denies: abdominal pain, nausea, diarrhea Genitourinary: denies: urgency, dysuria, discharge Musculoskeletal: denies: back pain, joint swelling, arthralgia Skin: denies: rash, lesions Neurological: denies: headache, weakness, paresthesias Psychiatric: denies: anxiety, depression Hematological/Lymphatic: denies: easy bleeding, easy bruising ED Past Medical Hx - Past Medical History Previous Medical History?: Yes Hx Hypertension: Yes Hx Arthritis: Yes Hx Asthma: Yes Additional medical history: anemia, sleep apnea, low vit d., back pain/injury,vertigo. obesity - Surgical History Past Surgical History?: Yes Additional Surgical History: lap band 2011& tubal ligation - Family History Family history: no significant - Social History Smoking Status: Never Smoker Substance Use Type: None - Medications Home Medications: Home Medications Medication Instructions Recorded Confirmed Last Taken Type ALBUTEROL Inhaler(NF) [VENTOLIN 2 puff IH Q4H PRN #1 inha 12/01/17 02/11/20 Unknown Rx Inhaler(NF)] Cholecalciferol (Vitamin D3) 50,000 unit PO QWEEK 02/11/20 02/11/20 Unknown History [Vitamin D3 50,000UNIT CAP] Ibuprofen [Motrin 800 MG tab] 800 mg PO Q8HR PRN 02/11/20 02/11/20 Unknown History Olmesartan/Hydrochlorothiazide 1 each PO QDAY 02/11/20 02/11/20 Unknown History [Olmesartan-Hctz 40-25 mg Tab] oxyCODONE /ACETAMINOPHEN [Percocet 1 tab PO Q6HR PRN 02/11/20 02/11/20 Unknown History 5/325 mg] Antacid [Alum-Mag Hydrox-Simeth 15 ml PO Q4H PRN oral.liqd 02/25/20 Unknown Rx [id number]/[id number]] Arformoterol Nebu [Brovana Nebu] 15 mcg IH Q12HRT 30 Days ml 02/25/20 Unknown Rx Ascorbic Acid [Vitamin C] 500 mg PO BID #60 tablet 02/25/20 Unknown Rx Benzonatate [Tessalon Perles] 100 mg PO Q8HR PRN #12 capsule 02/25/20 Unknown Rx Budesonide [Pulmicort Respules] 0.5 mg IH Q12HRT 30 Days nebu 02/25/20 Unknown Rx Meclizine [Antivert] 25 mg PO Q8H PRN #12 tablet 02/25/20 Unknown Rx Nystas/Diphen/Xyl Visc/Mylanta 15 ml PO TID oral.liqd 02/25/20 Unknown Rx [Magic Mouthwash] Zinc Sulfate 220 mg PO QDAY #30 capsule 02/25/20 Unknown Rx amLODIPine 10 mg PO QDAY #40 tablet 02/25/20 Unknown Rx diphenhydrAMINE [Benadryl CAP] 25 mg PO QHS PRN #10 capsule 02/25/20 Unknown Rx predniSONE [Deltasone] 20 mg PO QDAY #24 tab 02/25/20 Unknown Rx ED Physical Exam - General Limitations: No Limitations General appearance: alert, in no apparent distress - Head Head exam: Present: atraumatic, normocephalic - Eye Eye exam: Present: normal appearance - ENT ENT exam: Present: mucous membranes moist - Neck Neck exam: Present: normal inspection - Respiratory Respiratory exam: Present: normal lung sounds bilaterally. Absent: respiratory distress, chest wall tenderness - Cardiovascular Cardiovascular Exam: Present: regular rate, normal rhythm. Absent: systolic murmur, diastolic murmur, rubs, gallop - GI/Abdominal GI/Abdominal exam: Present: soft, normal bowel sounds - Extremities Exam Extremities exam: Present: normal inspection - Back Exam Back exam: Present: normal inspection - Neurological Exam Neurological exam: Present: alert, oriented X3 - Psychiatric Psychiatric exam: Present: normal affect, normal mood - Skin Skin exam: Present: warm, dry, intact, normal color. Absent: rash ED Course Vital Signs 03/16/20 03/17/20 03/17/20 16:47 00:24 00:26 Temperature 98.0 F Pulse Rate 125 H 79 74 Respiratory 20 15 20 Rate Blood Pressure 202/96 Blood Pressure 171/100 [Left] O2 Sat by Pulse 100 98 96 Oximetry 03/17/20 03/17/20 03/17/20 00:30 00:31 00:33 Temperature Pulse Rate 89 Respiratory 15 Rate Blood Pressure 150/82 Blood Pressure 150/82 [Left] O2 Sat by Pulse 97 97 Oximetry 03/17/20 00:46 Temperature Pulse Rate 79 Respiratory 14 Rate Blood Pressure 136/67 Blood Pressure [Left] O2 Sat by Pulse 98 Oximetry - Reevaluation(s) Reevaluation #1: Patient is still short of breath. Patient's oxygen is 92%. Patient will be placed on 2 L. .I discussed all results with patient. I discussed plan of care with patient. Patient agrees with plan of care and admission. Patient to be admitted to the hospitalist service. 03/17/20 02:57 - Consultations Consultation #1: Hospitalist consulted for admission. Hospitalist to admit patient. 03/17/20 02:57 KASI score - Kasi Score Age > 65: (0) No Aspirin use within the Past 7 Days: (1) Yes 3 or more CAD Risk Factors: (0) No 2 or more Angina events in past 24 hrs: (1) Yes Known CAD with more than 50% Stenosis: (0) No Elevated Cardiac Markers: (0) No ST Deviation Greater than 0.5mm: (0) No KASI Score: 2 ED Medical Decision Making - Lab Data Result diagrams: 03/16/20 17:06 03/16/20 17:06 - EKG Data -: EKG Interpreted by Sc EKG shows normal: sinus rhythm, axis, intervals, QRS complexes, ST-T waves Rate: tachycardia - Radiology Data Radiology results: report reviewed CTA CHEST WITH IV CONTRAST INDICATION: Chest pain. Shortness of breath. TECHNIQUE: Axial CT images were obtained through the chest after injection of IV contrast. Coronal oblique 2- D reconstruction images were produced. 3 plane MIP reconstruction images were produced at an [facility]. All CTs at this facility utilize dose reduction techniques including automated exposure control, iterative reconstruction and weight based dosing when appropriate to reduce patient radiation dose to as low as reasonable achievable. COMPARISON: Chest radiograph, 03/16/2020 FINDINGS: No filling defects are visualized within the central or segmental pulmonary arteries to suggest pulmonary embolism. The heart is normal in size. The thoracic aorta is normal in caliber. Evaluation of the lung parenchyma demonstrates diffuse bilateral interstitial thickening with faint bilateral groundglass densities. Limited imaging of the upper abdomen demonstrates no evidence of acute ab normality. There has been previous gastric banding procedure. Bones and soft tissues: Evaluation of bony structures demonstrates no evidence of acute bony abnormality. Soft tissue structures appear grossly normal. IMPRESSION: 1. No evidence of pulmonary embolism. 2. Interstitial thickening with diffuse bilateral groundglass opacities. Findings are suggestive of mild pulmonary edema. Alternatively, atypical viral infectious process could have this appearance. - Medical Decision Making Patient is a 59-year-old female that presents emergency room with complaints of shortness of breath, JUDGE, chest pain. Patient had an elevated D-dimer as an outpatient and was greater than 1600. Patient's commissioned fire officer sent to the emergency room for evaluation. Patient had labs done which were essentially unremarkable. Patient had a CTA done which was negative for PE but showed pulmonary edema. Patient admitted to the hospital service for further evaluation and treatment. Patient found to be hypoxic and placed on 2 L of oxygen. - Differential Diagnosis SLB, JUDGE, chest pain, ACS, PE, CHF Critical Care Time: Yes Critical care time in (mins) excluding proc time.: 35 Critical care attestation.: If time is entered above; I have spent that time in minutes in the direct care of this critically ill patient, excluding procedure time. Critical Care Time: 35 minutes ED Disposition Clinical Impression: SOB (shortness of breath), Hypoxia, JUDGE (dyspnea on exertion), Elevated d-dimer Chest pain Qualifiers: Chest pain type: unspecified Qualified Code(s): R07.9 - Chest pain, unspecified Pulmonary edema Qualifiers: Chronicity: acute Qualified Code(s): J81.0 - Acute pulmonary edema Disposition: TO HOME OR SELFCARE Is pt being admited?: Yes Does the pt Need Aspirin: No Condition: Critical Instructions: Chest Pain (ED), Pulmonary Edema (ED) Time of Disposition: 02:59
--- NOTE | 2020-03-17 02:42 | Cat Scan Report ---
CTA CHEST WITH IV CONTRAST INDICATION: Chest pain. Shortness of breath. TECHNIQUE: Axial CT images were obtained through the chest after injection of IV contrast. Coronal oblique 2-D reconstruction images were produced. 3 plane MIP reconstruction images were produced at an [employer] workstation. All CTs at this facility utilize dose reduction techniques including automated expos ure control, iterative reconstruction and weight based dosing when appropriate to reduce patient radi ation dose to as low as reasonable achievable. COMPARISON: Chest radiograph, 03/16/2020 FINDINGS: No filling defects are visualized within the central or segmental pulmonary arteries to suggest pulmo nary embolism. The heart is normal in size. The thoracic aorta is normal in caliber. Evaluation of th e lung parenchyma demonstrates diffuse bilateral interstitial thickening with faint bilateral groundg lass densities. Limited imaging of the upper abdomen demonstrates no evidence of acute abnormality. There has been pr evious gastric banding procedure. Bones and soft tissues: Evaluation of bony structures demonstrates no evidence of acute bony abnormal ity. Soft tissue structures appear grossly normal. IMPRESSION: 1. No evidence of pulmonary embolism. 2. Interstitial thickening with diffuse bilateral groundglass opacities. Findings are suggestive of m ild pulmonary edema. Alternatively, atypical viral infectious process could have this appearance. Signer Name: Dolly Garcia MD Signed: 03/17/2020 2:38 AM Workstation Name: [id number]
[2020-03-17] MEDS ORDERED: ACETAMINOPHEN 325 MG TAB PO PRN (04:09)
[2020-03-17] MEDS ORDERED: NITROGLYCERIN 0.4 MG TAB SUBL SL PRN (04:09)
[2020-03-17] MEDS ORDERED: DOCUSATE SODIUM 100 MG CAP PO PRN (04:09)
[2020-03-17] MEDS ORDERED: traMADol 50 MG TAB PO PRN (04:09)
[2020-03-17] MEDS ORDERED: MORPHINE 2 MG/1 ML INJ IV PRN (04:09)
--- NOTE | 2020-03-17 04:24 | History and Physical Report ---
History of Present Illness Date of examination: 03/17/20 Date of admission: 03/17/20 02:56 Chief complaint: chest pain and shortness of breath History of present illness: Patient is a 59-year-old female -seen in ED at bedside. patient has hx of hypertension, asthma, tubal ligation, bariatric surgery for weight loss and recent covid 19 infection. She presents to emergency room with complaints of chest pain. Patient states her chest pain started 3 days ago-she describes her chest pain as chest tightness. Patient states the chest pain/tightness worsen and she decided to come to ED. Patient states her chest pain is substernal and nonradiating. Patient states the chest pain is a pressure and is an 8 out of 10. At the time of this assessment, patient states the shortness of breath has been going on since February 10, 2020 when she had covid 19, but is getting better. She denies tobacco and illicit drug use, but admits occasional alcoholic drink. Per Ed no te-Patient had a D-dimer checked today and it was 1600. Patient states her chef de froid told her to come to the emergency room for evaluation since her symptoms and D-dimer are worsening ED work up shows: WBC 7.0, hemoglobin 13.5, Cr 0.8, serum glucose 207, [id number] and potassium 4.1 CTA of the chest-shows; 1. No evidence of pulmonary embolism. 2. Interstitial thickening with diffuse bilateral groundglass opacities. Findings are suggestive of mild pulmonary edema. Alternatively, atypical viral infectious process could have this appearance. Past History Past Medical History: hypertension, hyperlipidemia, other (Covid 19 infection 1 month ago) Past Surgical History: Other (Tubal ligation and bariatric surgery) Family history: hypertension (father htn and dm) Medications and Allergies Allergies Allergy/AdvReac Type Severity Reaction Status Date / Time No Known Allergies Allergy Verified 04/06/19 13:48 Home Medications Medication Instructions Recorded Confirmed Last Taken Type ALBUTEROL Inhaler(NF) [VENTOLIN 2 puff IH Q4H PRN #1 inha 12/01/17 02/11/20 Unknown Rx Inhaler(NF)] Cholecalciferol (Vitamin D3) 50,000 unit PO QWEEK 02/11/20 02/11/20 Unknown History [Vitamin D3 50,000UNIT CAP] Ibuprofen [Motrin 800 MG tab] 800 mg PO Q8HR PRN 02/11/20 02/11/20 Unknown History Olmesartan/Hydrochlorothiazide 1 each PO QDAY 02/11/20 02/11/20 Unknown History [Olmesartan-Hctz 40-25 mg Tab] oxyCODONE /ACETAMINOPHEN [Percocet 1 tab PO Q6HR PRN 02/11/20 02/11/20 Unknown History 5/325 mg] Antacid [Alum-Mag Hydrox-Simeth 15 ml PO Q4H PRN oral.liqd 02/25/20 Unknown Rx [id number]/5Ml] Arformoterol Nebu [Brovana Nebu] 15 mcg IH Q12HRT 30 Days ml 02/25/20 Unknown Rx Ascorbic Acid [Vitamin C] 500 mg PO BID #60 tablet 02/25/20 Unknown Rx Benzonatate [Tessalon Perles] 100 mg PO Q8HR PRN #12 capsule 02/25/20 Unknown Rx Budesonide [Pulmicort Respules] 0.5 mg IH Q12HRT 30 Days nebu 02/25/20 Unknown Rx Meclizine [Antivert] 25 mg PO Q8H PRN #12 tablet 02/25/20 Unknown Rx Nystas/Diphen/Xyl Visc/Mylanta 15 ml PO TID oral.liqd 02/25/20 Unknown Rx [Magic Mouthwash] Zinc Sulfate 220 mg PO QDAY #30 capsule 02/25/20 Unknown Rx amLODIPine 10 mg PO QDAY #40 tablet 02/25/20 Unknown Rx diphenhydrAMINE [Benadryl CAP] 25 mg PO QHS PRN #10 capsule 02/25/20 Unknown Rx predniSONE [Deltasone] 20 mg PO QDAY #24 tab 02/25/20 Unknown Rx Active Meds: Active Medications Acetaminophen (Acetaminophen 325 Mg Tab) 650 mg PO Q6H PRN PRN Reason: Pain, Mild (1-3) Aspirin (Aspirin 81 Mg Tab Chew) 81 mg PO QDAY [facility] Docusate Sodium (Docusate Sodium 100 Mg Cap) 100 mg PO BID PRN PRN Reason: Constipation Furosemide (Furosemide 40 Mg/4 Ml Inj) 40 mg IV BID@0600,1800 [facility] Morphine Sulfate (Morphine 2 Mg/1 Ml Inj) 2 mg IV Q5MIN PRN PRN Reason: Chest Pain unrelieved by NTG Nitroglycerin (Nitroglycerin 0.4 Mg Tab Subl) 0.4 mg SL .Q5MIN PRN PRN Reason: Chest Pain Pantoprazole Sodium (Pantoprazole 40 Mg Tab) 40 mg PO DAILY [facility] Sodium Chloride (Sodium Chloride 0.9% 10 Ml Flush Syringe) 10 ml IV PRN PRN PRN Reason: LINE FLUSH Tramadol HCl (Tramadol 50 Mg Tab) 50 mg PO Q4H PRN PRN Reason: Pain, Moderate (4-6) Review of Systems Constitutional: fatigue, weakness Ears, nose, mouth and throat: no epistaxis Breasts: no discharge Cardiovascular: chest pain, shortness of breath, dyspnea on exertion, high blood pressure Respiratory: shortness of breath, other (pulmonary edema ) Gastrointestinal: no melena Genitourinary Female: no dysmenorrhea Rectal: no pain Musculoskeletal: no neck stiffness Integumentary: no boils, no blisters Neurological: no seizures Psychiatric: no disorientation, no hallucinations Endocrine: fatigue Hematologic/Lymphatic: no lymphadenopathy Exam - Constitutional Vitals: Temp Pulse Resp BP Pulse Ox 98.0 F 79 14 136/67 98 03/16/20 16:47 03/17/20 00:46 03/17/20 00:46 03/17/20 00:46 03/17/20 00:46 General appearance: Present: mild distress, obese - EENT Eyes: Present: PERRL ENT: hearing intact, clear oral mucosa - Neck Neck: Present: supple, normal ROM - Respiratory Respiratory effort: normal, other (shortness of breath-pulmonary edema on chest x-ray) Respiratory: bilateral: CTA - Cardiovascular Heart Sounds: Present: S1 & S2. Absent: rub, click - Extremities Extremities: pulses symmetrical, No edema Peripheral Pulses: within normal limits - Abdominal General gastrointestinal: Present: soft, non-tender, non-distended, normal bowel sounds Female genitourinary: Present: normal - Integumentary Integumentary: Present: clear, warm, dry - Musculoskeletal Musculoskeletal: gait normal, strength equal bilaterally - Psychiatric Psychiatric: appropriate mood/affect, intact judgment & insight - Neurologic Neurologic: CNII-XII intact, moves all extremities - Allied Health Allied health notes reviewed: nursing HEART Score - HEART Score EKG: Non-specific Age: 45-65 Risk factors: 1-2 risk factors Troponin: Troponin T < 0.010 ng/mL (0.00-0.029) 03/16/20 23:36 Troponin: < normal limit Results - Labs CBC & Chem 7: 03/16/20 17:06 03/16/20 17:06 Labs: Abnormal lab results 03/16/20 03/16/20 Range/Units 17:06 17:06 Seg Neutrophils % 72.3 H (40.0-70.0) % BUN 20 H (7-17) mg/dL Glucose 207 H (65-100) mg/dL Assessment and Plan - Patient Problems (1) Chest pain Current Visit: Yes Status: Acute Qualifiers: Chest pain type: unspecified Qualified Code(s): R07.9 - Chest pain, unspecified Plan to address problem: K 9 Handler/ Deputy consult Cardio-protective measure ASA, statin, diuretic and oxygen supplement Sublinqual nitrite and Morphine PRN for pain EKG and monitor troponine, check HGA1c and lipid profile ECHO-f/u with result (2) Pulmonary edema Current Visit: Yes Status: Acute Qualifiers: Chronicity: acute Qualified Code(s): J81.0 - Acute pulmonary edema Plan to address problem: ? cause Likley 2/2 to CHF/infection ECHO ordered-f/u with result Continue diuretics and empiric abx with azithromycin K 9 Handler/ Deputy consulted CTA of the chest: No evidence of pulmonary embolism, diffuse bilateral groundglass opacities, mild pulmonary edema. Alternatively, atypical viral infectious process. (3) Acute respiratory failure with hypoxia Current Visit: No Status: Acute Plan to address problem: likely 2/2 to Pulmonary edema Patient with Hx of asthma-no wheezing on auscultation-PRN bronchodilator and oxygen supplement Monitor ABG-added empiric abx (4) Essential (primary) hypertension Current Visit: No Status: Acute Plan to address problem: Monitor blood pressure resume home BP med Adjust BP med PRN PRN hydralazine (5) Elevated d-dimer Current Visit: Yes Status: Acute Plan to address problem: CTA of the chest negative for PE but showed mild pumonary edema Will check Bilateral Leg US -r/o DVT Pt was positive for Covid 19 1 month ago Repeat covid test negative (6) DVT prophylaxis Current Visit: No Status: Acute Plan to address problem: Lovenox (7) Advance care planning Current Visit: No Status: Acute Plan to address problem: patient is full code
[2020-03-17] MEDS ORDERED: ALBUTEROL 2.5 MG/3 ML NEBU IH PRN (04:56)
[2020-03-17] MEDS: FUROSEMIDE 40 MG/4 ML INJ IV SCH ×2 (05:48→17:22)
[2020-03-17 06:30] LABS: Basophils % (Auto) 0.3 % (0.0-1.8); Eosinophils % (Auto) 0.6 % (0.0-4.3); Hematocrit 40.8 % (30.3-42.9); Hemoglobin 13.6 gm/dl (10.1-14.3); Lymphocytes % (Auto) 38.7 % (13.4-35.0); Mean Corpuscular HGB Conc 33 % (30-34); Mean Corpuscular Volume 89 fl (79-97); Monocytes # (Auto) 0.7 K/mm3 (0.0-0.8); Platelet Count 252 K/mm3 (140-440); Red Blood Count 4.59 M/mm3 (3.65-5.03)
[2020-03-17 06:45] LABS: INR 1.01 (0.87-1.13)
[2020-03-17 07:39] LABS: Blood Urea Nitrogen 14 mg/dL (7-17); Calcium 9.1 mg/dL (8.4-10.2); Chol/HDL Ratio 3.31 %; HDL Cholesterol 72 mg/dL (40-59); Hemolysis Index 4; LDL Cholesterol,Direct 159 mg/dL (50-130)
[2020-03-17 07:43] LABS: BUN/Creatinine Ratio 20
[2020-03-17 08:44] LABS: Bilirubin,Urine NEG (Negative); Blood,Urine NEG (Negative); Color,Urine Colorless (Yellow); Protein,Urine <15 mg/dL mg/dL (Negative); RBC,Urine < 1.0 /HPF (0.0-6.0); Urobilinogen,Urine < 2.0 mg/dL (<2.0); WBC,Urine < 1.0 /HPF (0.0-6.0)
[2020-03-17] MEDS ORDERED: MECLIZINE 25 MG TAB PO PRN (08:56)
[2020-03-17] MEDS ORDERED: ALUM-MAG HYDROXIDE-SIMETHICONE 200-200-20MG/5ML ORAL LIQD 30 ML PO PRN (08:56)
[2020-03-17] MEDS ORDERED: BENZONATATE 100 MG CAP PO PRN (08:56)
[2020-03-17] MEDS ORDERED: AZITHROMYCIN 250 MG TAB PO SCH (10:00)
[2020-03-17] MEDS ORDERED: HYDROCHLOROTHIAZIDE PO SCH (10:00)
[2020-03-17] MEDS ORDERED: NON-FORMULARY EACH (Cholecalciferol (Vitamin D3) [Vitamin D3 50,000unit Cap] 1,250 MCG Cap PO SCH (10:00)
[2020-03-17] MEDS ORDERED: [UNRECOGNIZED DRUG - OTHER] PO SCH (10:00)
[2020-03-17] MEDS ORDERED: predniSONE 20 MG TAB PO SCH ×2 (10:00→10:01)
[2020-03-17] MEDS ORDERED: OLMESARTAN PO SCH (10:00)
--- NOTE | 2020-03-17 10:04 | Event Note ---
Date: 03/17/20 Additional information Patient seen and examined today reports that she came to the hospital due to elevated D-dimer a CTA has been done and is negative VQ scan is pending. She reports that since discharge from the hospital she has been having shortness of breath with any exertional activity. She did report some improvement with the Lasix today. Unfortunately she has not checked her oxygen while ambulating at home. Plan we will reassess for additional Lasix We will obtain pulmonary and ID consultation and cardiology consultation We will obtain exercise oximetry on room air to establish a baseline and establish possible need of home O2. Weight loss counseling provided in detail for morbid obesity. Anticipate discharge in 24 to 48 hours depending on patient's improvement
--- NOTE | 2020-03-17 10:06 | Consultation ---
History of Present Illness Consult date: 03/17/20 Consult reason: chest pain History of present illness: This is a 59-year old woman who was was treated at this hospital in January for respiratory failure secondary to COVID 19 pneumonia. Since discharge patient reports shortness of breath with minimal exertion. On yesterday her PCP ordered a labs which showed an elevated d-dimer of 1687 and referred to the ED for evaluation. Chest x-ray reports minimal bibasilar airspace disease when compared to previous. CT scan of the chest showed low probability for PE. An ECG done is normal sinus rhythm. No acute ST or T wave changes. Patient has no prior cardiac history. In 2017 she had a negative exercise treadmill test and normal left ventricular systolic function, ejection fraction 55-60% by echocardiogram. Past History Past Medical History: hypertension, hyperlipidemia, other (Covid 19 infection 1 month ago. Asthma, Sleep apnea) Past Surgical History: Other (Tubal ligation and bariatric surgery) Family history: hypertension (father htn and dm) Medications and Allergies Allergies Allergy/AdvReac Type Severity Reaction Status Date / Time No Known Allergies Allergy Verified 04/06/19 13:48 Home Medications Medication Instructions Recorded Confirmed Last Taken Type ALBUTEROL Inhaler(NF) [VENTOLIN 2 puff IH Q4H PRN #1 inha 12/01/17 02/11/20 Unknown Rx Inhaler(NF)] Cholecalciferol (Vitamin D3) 50,000 unit PO QWEEK 02/11/20 02/11/20 Unknown History [Vitamin D3 50,000UNIT CAP] Ibuprofen [Motrin 800 MG tab] 800 mg PO Q8HR PRN 02/11/20 02/11/20 Unknown History Olmesartan/Hydrochlorothiazide 1 each PO QDAY 02/11/20 02/11/20 Unknown History [Olmesartan-Hctz 40-25 mg Tab] oxyCODONE /ACETAMINOPHEN [Percocet 1 tab PO Q6HR PRN 02/11/20 02/11/20 Unknown History 5/325 mg] Antacid [Alum-Mag Hydrox-Simeth 15 ml PO Q4H PRN oral.liqd 02/25/20 Unknown Rx [id number]/5Ml] Arformoterol Nebu [Brovana Nebu] 15 mcg IH Q12HRT 30 Days ml 02/25/20 Unknown Rx Ascorbic Acid [Vitamin C] 500 mg PO BID #60 tablet 02/25/20 Unknown Rx Benzonatate [Tessalon Perles] 100 mg PO Q8HR PRN #12 capsule 02/25/20 Unknown Rx Budesonide [Pulmicort Respules] 0.5 mg IH Q12HRT 30 Days nebu 02/25/20 Unknown Rx Meclizine [Antivert] 25 mg PO Q8H PRN #12 tablet 02/25/20 Unknown Rx Nystas/Diphen/Xyl Visc/Mylanta 15 ml PO TID oral.liqd 02/25/20 Unknown Rx [Magic Mouthwash] Zinc Sulfate 220 mg PO QDAY #30 capsule 02/25/20 Unknown Rx amLODIPine 10 mg PO QDAY #40 tablet 02/25/20 Unknown Rx diphenhydrAMINE [Benadryl CAP] 25 mg PO QHS PRN #10 capsule 02/25/20 Unknown Rx predniSONE [Deltasone] 20 mg PO QDAY #24 tab 02/25/20 Unknown Rx Active Meds: Active Medications Acetaminophen (Acetaminophen 325 Mg Tab) 650 mg PO Q6H PRN PRN Reason: Pain, Mild (1-3) Al Hydrox/Mg Hydrox/Simethicone (Alum-Mag Hydroxide-Simethicone [id number]/5ml Oral Liqd 30 Ml) 15 ml PO Q4H PRN PRN Reason: Indigestion Albuterol (Albuterol 2.5 Mg/3 Ml Nebu) 2.5 mg IH Q4HRT PRN PRN Reason: Shortness Of Breath Amlodipine Besylate (Amlodipine 10 Mg Tab) 10 mg PO QDAY [facility] Arformoterol Tartrate (Arformoterol 15 Mcg/2 Ml Nebu) 15 mcg IH Q12HRT [facility] Ascorbic Acid (Ascorbic Acid 500 Mg Tab) 500 mg PO BID [facility] Aspirin (Aspirin 81 Mg Tab Chew) 81 mg PO QDAY [facility] Atorvastatin Calcium (Atorvastatin 40 Mg Tab) 40 mg PO QHS [facility] Azithromycin (Azithromycin 250 Mg Tab) 500 mg PO QDAY [facility]; Protocol Benzonatate (Benzonatate 100 Mg Cap) 100 mg PO Q8HR PRN PRN Reason: Nasal Congestion/COUGH Budesonide (Budesonide 0.5 Mg/2 Ml Nebu) 0.5 mg IH Q12HRT [facility] Docusate Sodium (Docusate Sodium 100 Mg Cap) 100 mg PO BID PRN PRN Reason: Constipation Enoxaparin Sodium (Enoxaparin 40 Mg/0.4 Ml Inj) 40 mg SUB-Q BID [facility]; Protocol Furosemide (Furosemide 40 Mg/4 Ml Inj) 40 mg IV BID@0600,1800 [facility] Last Admin: 03/17/20 05:48 Dose: 40 mg Documented by: Lidocaine HCl (Magic Mouthwash 30ml) 15 ml PO TID [facility] Losartan Potassium (Losartan 50 Mg Tab) 100 mg PO QDAY [facility] Meclizine HCl (Meclizine 25 Mg Tab) 25 mg PO Q8H PRN PRN Reason: Vertigo Miscellaneous Medication (Cholecalciferol (Vitamin D3) [Vitamin D3 50,000unit Cap]) 50,000 unit PO QWEEK [facility] Morphine Sulfate (Morphine 2 Mg/1 Ml Inj) 2 mg IV Q5MIN PRN PRN Reason: Chest Pain unrelieved by NTG Nitroglycerin (Nitroglycerin 0.4 Mg Tab Subl) 0.4 mg SL .Q5MIN PRN PRN Reason: Chest Pain Pantoprazole Sodium (Pantoprazole 40 Mg Tab) 40 mg PO DAILY [facility] Sodium Chloride (Sodium Chloride 0.9% 10 Ml Flush Syringe) 10 ml IV PRN PRN PRN Reason: LINE FLUSH Tramadol HCl (Tramadol 50 Mg Tab) 50 mg PO Q4H PRN PRN Reason: Pain, Moderate (4-6) Zinc Sulfate (Zinc Sulfate 220 Mg Cap) 220 mg PO QDAY [facility] Review of Systems Cardiovascular: dyspnea on exertion, no chest pain, no palpitations, no edema Physical Examination Vital Signs Temp Pulse Resp BP Pulse Ox 98.0 F 125 H 20 202/96 100 03/16/20 16:47 03/16/20 16:47 03/16/20 16:47 03/16/20 16:47 03/16/20 16:47 General appearance: no acute distress HEENT: Positive: PERRL Neck: Positive: trachea midline Cardiac: Positive: Reg Rate and Rhythm Results 03/17/20 05:38 03/17/20 05:38 Coagulation 03/17/20 Range/Units 05:38 PT 13.2 (12.2-14.9) Sec. INR 1.01 (0.87-1.13) Lipids 03/17/20 Range/Units 05:38 Triglycerides 61 (2-149) mg/dL Cholesterol 239 H (50-199) mg/dL HDL Cholesterol 72 H (40-59) mg/dL Cholesterol/HDL Ratio 3.31 % CBC 03/16/20 03/17/20 Range/Units 17:06 05:38 WBC 7.0 7.7 (4.5-11.0) K/mm3 RBC 4.60 4.59 (3.65-5.03) M/mm3 Hgb 13.5 13.6 (10.1-14.3) gm/dl Hct 40.8 40.8 (30.3-42.9) % Plt Count 275 252 (140-440) K/mm3 Lymph # (Auto) 1.5 3.0 (1.2-5.4) K/mm3 Ida # (Auto) 0.3 0.7 (0.0-0.8) K/mm3 Eos # (Auto) 0.0 0.0 (0.0-0.4) K/mm3 Baso # (Auto) 0.1 0.0 (0.0-0.1) K/mm3 Comprehensive Metabolic Panel 03/16/20 03/17/20 Range/Units 17:06 05:38 Sodium 137 137 (137-145) mmol/L Potassium 4.1 3.6 (3.6-5.0) mmol/L Chloride 100.7 98.8 (98-107) mmol/L Carbon Dioxide 27 31 H (22-30) mmol/L BUN 20 H 14 (7-17) mg/dL Creatinine 0.8 0.7 (0.6-1.2) mg/dL Glucose 207 H 93 (65-100) mg/dL Calcium 9.1 9.1 (8.4-10.2) mg/dL Assessment and Plan - Patient Problems (1) JUDGE (dyspnea on exertion) Current Visit: Yes Status: Acute Plan to address problem: Will repeat an echocardiogram for LVEF reassessment.
[2020-03-17] MEDS: amLODIPine 10 MG TAB PO SCH (10:52)
[2020-03-17] MEDS: ASPIRIN 81 MG TAB CHEW PO SCH (10:53)
[2020-03-17] MEDS: PANTOPRAZOLE 40 MG TAB PO SCH (10:53)
[2020-03-17] MEDS: ASCORBIC ACID 500 MG TAB PO SCH ×2 (10:53→21:39)
[2020-03-17] MEDS: ZINC SULFATE 220 MG CAP PO SCH (10:53)
[2020-03-17] MEDS: LOSARTAN 50 MG TAB PO SCH (10:53)
[2020-03-17] MEDS: ENOXAPARIN 40 MG/0.4 ML INJ SUB-Q SCH ×2 (10:54→21:40)
--- NOTE | 2020-03-17 11:49 | Consultation ---
History of Present Illness - Reason for Consult Consult date: 03/17/20 Shortness of breath, recent COVID-19 Requesting physician: EVELYN CUMMINGS - History of Present Illness 59 years old female with history of morbid obesity, bariatric surgery, asthma, recent COVID-19 and acute hypoxemic respiratory failure on 02/11/2020, discharged home on 02/25/2020, readmitted on secondary to worsening shortness of breath and dyspnea on exertion associated with chest tightness. Patient denies any fever, chills, nausea, vomiting. Chest pain is like a pressure, 8 out of 10 in intensity. During recent admission patient was treated with steroids and remdesivir. She was SARS-CoV-2 IgG positive so she did not receive Covid convalescent plasma. She has seen pulmonary as an outpatient and was placed on prednisone taper starting on 80 mg once a day to be tapered weekly, she is c urrently taking 60 mg once a day. On arrival, CTA of the chest shows no pulmonary embolism, interstitial thickening with diffuse bilateral groundglass opacity. Review of Systems: positive in bold print General: fever, chills, malaise Cutaneous: rash, pruritus Head: headaches or injury Eyes: changes in vision, eye pain, double vision Ears: ear pain, ear discharge, ringing or hearing loss Nose: nose bleeding, stuffiness Mouth & throat: bleeding gums, horseness, no dental problems, or swollen glands Neck: no pain, node enlargement/lumps, tyroid enlargement or tenderness Respiratory: SOB, cough, JUDGE, wheezing, sputum, hemoptysis, pleuritic chest pain Cardiovascular: chest pain, leg edema, cyanosis, JUDGE, orthopnea Musculoskeletal: edema, deformities, pain Gastrointestinal: nausea, vomiting, hematemesis, diarrhea, constipation, melena, bright red blood in stools, fecal incontinence, jaundice Genitourinary/Reproductive: frequent urination, dysuria, hematuria, incontinence Neurogical: seizures, headaches, weakness, paresthesias, loss of speech or vision; memory loss, vertigo, tremors, numbness Psychiatric: stable mood; excessive anxiety, sadness or moodiness Past History Past Medical History: hypertension, hyperlipidemia, other (Covid 19 infection 1 month ago. Asthma, Sleep apnea) Past Surgical History: Other (Tubal ligation and bariatric surgery) Family history: hypertension (father htn and dm) Medications and Allergies Allergies Allergy/AdvReac Type Severity Reaction Status Date / Time No Known Allergies Allergy Verified 04/06/19 13:48 Home Medications Medication Instructions Recorded Confirmed Last Taken Type ALBUTEROL Inhaler(NF) [VENTOLIN 2 puff IH Q4H PRN #1 inha 12/01/17 02/11/20 Unknown Rx Inhaler(NF)] Cholecalciferol (Vitamin D3) 50,000 unit PO QWEEK 02/11/20 02/11/20 Unknown History [Vitamin D3 50,000UNIT CAP] Ibuprofen [Motrin 800 MG tab] 800 mg PO Q8HR PRN 02/11/20 02/11/20 Unknown History Olmesartan/Hydrochlorothiazide 1 each PO QDAY 02/11/20 02/11/20 Unknown History [Olmesartan-Hctz 40-25 mg Tab] oxyCODONE /ACETAMINOPHEN [Percocet 1 tab PO Q6HR PRN 02/11/20 02/11/20 Unknown History 5/325 mg] Antacid [Alum-Mag Hydrox-Simeth 15 ml PO Q4H PRN oral.liqd 02/25/20 Unknown Rx [id number]/5Ml] Arformoterol Nebu [Brovana Nebu] 15 mcg IH Q12HRT 30 Days ml 02/25/20 Unknown Rx Ascorbic Acid [Vitamin C] 500 mg PO BID #60 tablet 02/25/20 Unknown Rx Benzonatate [Tessalon Perles] 100 mg PO Q8HR PRN #12 capsule 02/25/20 Unknown Rx Budesonide [Pulmicort Respules] 0.5 mg IH Q12HRT 30 Days nebu 02/25/20 Unknown Rx Meclizine [Antivert] 25 mg PO Q8H PRN #12 tablet 02/25/20 Unknown Rx Nystas/Diphen/Xyl Visc/Mylanta 15 ml PO TID oral.liqd 02/25/20 Unknown Rx [Magic Mouthwash] Zinc Sulfate 220 mg PO QDAY #30 capsule 02/25/20 Unknown Rx amLODIPine 10 mg PO QDAY #40 tablet 02/25/20 Unknown Rx diphenhydrAMINE [Benadryl CAP] 25 mg PO QHS PRN #10 capsule 02/25/20 Unknown Rx predniSONE [Deltasone] 20 mg PO QDAY #24 tab 02/25/20 Unknown Rx Active Meds: Active Medications Acetaminophen (Acetaminophen 325 Mg Tab) 650 mg PO Q6H PRN PRN Reason: Pain, Mild (1-3) Al Hydrox/Mg Hydrox/Simethicone (Alum-Mag Hydroxide-Simethicone [id number]/5ml Oral Liqd 30 Ml) 15 ml PO Q4H PRN PRN Reason: Indigestion Albuterol (Albuterol 2.5 Mg/3 Ml Nebu) 2.5 mg IH Q4HRT PRN PRN Reason: Shortness Of Breath Amlodipine Besylate (Amlodipine 10 Mg Tab) 10 mg PO QDAY [facility] Last Admin: 03/17/20 10:52 Dose: 10 mg Documented by: Arformoterol Tartrate (Arformoterol 15 Mcg/2 Ml Nebu) 15 mcg IH Q12HRT [facility] Ascorbic Acid (Ascorbic Acid 500 Mg Tab) 500 mg PO BID [facility] Last Admin: 03/17/20 10:53 Dose: 500 mg Documented by: Aspirin (Aspirin 81 Mg Tab Chew) 81 mg PO QDAY [facility] Last Admin: 03/17/20 10:53 Dose: 81 mg Documented by: Atorvastatin Calcium (Atorvastatin 40 Mg Tab) 40 mg PO QHS [facility] Azithromycin (Azithromycin 250 Mg Tab) 500 mg PO QDAY [facility]; Protocol Last Admin: 03/17/20 10:53 Dose: 500 mg Documented by: Benzonatate (Benzonatate 100 Mg Cap) 100 mg PO Q8HR PRN PRN Reason: Nasal Congestion/COUGH Budesonide (Budesonide 0.5 Mg/2 Ml Nebu) 0.5 mg IH Q12HRT [facility] Docusate Sodium (Docusate Sodium 100 Mg Cap) 100 mg PO BID PRN PRN Reason: Constipation Enoxaparin Sodium (Enoxaparin 40 Mg/0.4 Ml Inj) 40 mg SUB-Q BID [facility]; Protocol Last Admin: 03/17/20 10:54 Dose: 40 mg Documented by: Ergocalciferol (Ergocalciferol (Vit D2) 50,000 Unit Cap) 50,000 unit PO Sa [facility] Furosemide (Furosemide 40 Mg/4 Ml Inj) 40 mg IV BID@0600,1800 [facility] Last Admin: 03/17/20 05:48 Dose: 40 mg Documented by: Lidocaine HCl (Magic Mouthwash 30ml) 15 ml PO TID [facility] Losartan Potassium (Losartan 50 Mg Tab) 100 mg PO QDAY [facility] Last Admin: 03/17/20 10:53 Dose: 100 mg Documented by: Meclizine HCl (Meclizine 25 Mg Tab) 25 mg PO Q8H PRN PRN Reason: Vertigo Morphine Sulfate (Morphine 2 Mg/1 Ml Inj) 2 mg IV Q5MIN PRN PRN Reason: Chest Pain unrelieved by NTG Nitroglycerin (Nitroglycerin 0.4 Mg Tab Subl) 0.4 mg SL .Q5MIN PRN PRN Reason: Chest Pain Pantoprazole Sodium (Pantoprazole 40 Mg Tab) 40 mg PO DAILY [facility] Last Admin: 03/17/20 10:53 Dose: 40 mg Documented by: Prednisone (Prednisone 20 Mg Tab) 40 mg PO QDAY [facility] Stop: 03/21/20 10:01 Prednisone (Prednisone 20 Mg Tab) 20 mg PO QDAY [facility] Stop: 03/25/20 10:01 Sodium Chloride (Sodium Chloride 0.9% 10 Ml Flush Syringe) 10 ml IV PRN PRN PRN Reason: LINE FLUSH Tramadol HCl (Tramadol 50 Mg Tab) 50 mg PO Q4H PRN PRN Reason: Pain, Moderate (4-6) Zinc Sulfate (Zinc Sulfate 220 Mg Cap) 220 mg PO QDAY [facility] Last Admin: 03/17/20 10:53 Dose: 220 mg Documented by: Physical Examination - Physical Exam Narrative exam: General appearance: Alert in NAD pleasant obese Eyes: anicteric sclerae, moist conjunctivae; no lid-lag; PERRLA HENT: Normocephalic, Atraumatic; normal external ears, nares open, oropharynx clear Neck: supple, tracheal midline, no JVD Lungs: Diminished breath sound bilaterally CV: RRR no murmur Abdomen: Soft, non-tender; no masses or hepatosplenomegaly Extremities: no edema, no cyanosis Skin: No rash. Psych: no agitated Neuro: alert and oriented x 3. Moving all extermities - Constitutional Vitals: Vital Signs Temp Pulse Resp BP Pulse Ox 98.8 F 81 20 150/72 97 03/17/20 07:40 03/17/20 10:53 03/17/20 07:40 03/17/20 10:53 03/17/20 07:40 Temperature -Last 24 Hours Temperature 98.8 F Temperature 97.4 F Temperature 98.0 F Results - Labs CBC & Chem 7: 03/17/20 05:38 03/17/20 05:38 Labs: Abnormal lab results 03/16/20 03/16/20 03/17/20 Range/Units 17:06 17:06 05:38 Lymph % (Auto) 38.7 H (13.4-35.0) % Long % (Auto) 9.0 H (0.0-7.3) % Seg Neutrophils % 72.3 H (40.0-70.0) % Carbon Dioxide (22-30) mmol/L BUN 20 H (7-17) mg/dL Glucose 207 H (65-100) mg/dL Hemoglobin A1c (4-6) % Cholesterol (50-199) mg/dL LDL Cholesterol Direct (50-130) mg/dL HDL Cholesterol (40-59) mg/dL 03/17/20 03/17/20 Range/Units 05:38 05:38 Lymph % (Auto) (13.4-35.0) % Long % (Auto) (0.0-7.3) % Seg Neutrophils % (40.0-70.0) % Carbon Dioxide 31 H (22-30) mmol/L BUN (7-17) mg/dL Glucose (65-100) mg/dL Hemoglobin A1c 6.8 H (4-6) % Cholesterol 239 H (50-199) mg/dL LDL Cholesterol Direct 159 H (50-130) mg/dL HDL Cholesterol 72 H (40-59) mg/dL Assessment and Plan Cultures: Blood cultures no growth today Assessment: 59 years old female with history of morbid obesity, bariatric surgery, asthma, recent COVID-19 and acute hypoxemic respiratory failure on 02/11/2020, discharged home on 02/25/2020, readmitted on secondary to worsening shortness of breath and dyspnea on exertion associated with chest tightness: #Respiratory failure: Initial sats dropped to 86%. Patient was on 2 L, now on room air. Patient with recent COVID-19 with severe pneumonia treated with remdesivir, steroids, discharged on 02/21/2020 seen as an outpatient by pulmonary placed on another course of tapered steroids. Noted worsening ferriti n from 231 is up to 465, worsening D-dimer which was normal initially, now 1697. CRP is better. CTA showing no pulmonary embolism but interstitial thickening with diffuse bilateral groundglass opacities. This is likely post COVID-19 cytokine storm versus early pulmonary fibrosis. Doubt bacterial pneumonia since no fever, however will cover for hospital-acquired pneumonia for now. Other possibilities -CHF, pulmonary hypertension. Recommendations: -Obtain 6-minute walking test -Start cefepime 2 g IV every 8 hours -Start vancomycin with PK consult -Obtain procalcitonin/BNP -Obtain pulmonary consult -Obtain transthoracic echo eval EF ?pulm HTN -Continue steroids per pulmonary -Obtain lower extremity ultrasound to rule out DVT Will follow. Grace Jay MD Infectious Diseases [facility] M [phone] O [phone]
[2020-03-17] MEDS ORDERED: VANCOMYCIN PHARMACY TO DOSE IV SCH (13:00)
--- NOTE | 2020-03-17 13:02 | Consultation ---
History of Present Illness Consult date: 03/17/20 Requesting physician: EVELYN CUMMINGS Reason for consult: dyspnea, chest pain History of present illness: 59 y/o morbidly obese female, known to me as I saw her on last admit and she just followed up in the office with me either last or Saturday who presents with chest pain. She had an elevated D-Dimer so she had a CTA. This was negative for PE. I instructed her that if she ever had chest pain to come to the ED as there would be concern for VTE. She is now admitted to the telemetry floor. Past History Past Medical History: hypertension, hyperlipidemia, other (Covid 19 infection 1 month ago. Asthma, Sleep apnea) Past Surgical History: Other (Tubal ligation and bariatric surgery) Family history: hypertension (father htn and dm) Medications and Allergies Allergies Allergy/AdvReac Type Severity Reaction Status Date / Time No Known Allergies Allergy Verified 04/06/19 13:48 Home Medications Medication Instructions Recorded Confirmed Last Taken Type ALBUTEROL Inhaler(NF) [VENTOLIN 2 puff IH Q4H PRN #1 inha 12/01/17 03/17/20 Unknown Rx Inhaler(NF)] Cholecalciferol (Vitamin D3) 50,000 unit PO QWEEK 02/11/20 03/17/20 Unknown History [Vitamin D3 50,000UNIT CAP] Olmesartan/Hydrochlorothiazide 1 each PO QDAY 02/11/20 03/17/20 Unknown History [Olmesartan-Hctz 40-25 mg Tab] Ascorbic Acid [Vitamin C] 500 mg PO BID #60 tablet 02/25/20 03/17/20 Unknown Rx Zinc Sulfate 220 mg PO QDAY #30 capsule 02/25/20 03/17/20 Unknown Rx diphenhydrAMINE [Benadryl CAP] 25 mg PO QHS PRN #10 capsule 02/25/20 03/17/20 Unknown Rx Active Meds: Active Medications Acetaminophen (Acetaminophen 325 Mg Tab) 650 mg PO Q6H PRN PRN Reason: Pain, Mild (1-3) Al Hydrox/Mg Hydrox/Simethicone (Alum-Mag Hydroxide-Simethicone [id number]/5ml Oral Liqd 30 Ml) 15 ml PO Q4H PRN PRN Reason: Indigestion Albuterol (Albuterol 2.5 Mg/3 Ml Nebu) 2.5 mg IH Q4HRT PRN PRN Reason: Shortness Of Breath Amlodipine Besylate (Amlodipine 10 Mg Tab) 10 mg PO QDAY [facility] Last Admin: 03/17/20 10:52 Dose: 10 mg Documented by: Arformoterol Tartrate (Arformoterol 15 Mcg/2 Ml Nebu) 15 mcg IH Q12HRT [facility] Ascorbic Acid (Ascorbic Acid 500 Mg Tab) 500 mg PO BID [facility] Last Admin: 03/17/20 10:53 Dose: 500 mg Documented by: Aspirin (Aspirin 81 Mg Tab Chew) 81 mg PO QDAY [facility] Last Admin: 03/17/20 10:53 Dose: 81 mg Documented by: Atorvastatin Calcium (Atorvastatin 40 Mg Tab) 40 mg PO QHS [facility] Benzonatate (Benzonatate 100 Mg Cap) 100 mg PO Q8HR PRN PRN Reason: Nasal Congestion/COUGH Budesonide (Budesonide 0.5 Mg/2 Ml Nebu) 0.5 mg IH Q12HRT [facility] Docusate Sodium (Docusate Sodium 100 Mg Cap) 100 mg PO BID PRN PRN Reason: Constipation Enoxaparin Sodium (Enoxaparin 40 Mg/0.4 Ml Inj) 40 mg SUB-Q BID [facility]; Protocol Last Admin: 03/17/20 10:54 Dose: 40 mg Documented by: Ergocalciferol (Ergocalciferol (Vit D2) 50,000 Unit Cap) 50,000 unit PO Sa [facility] Furosemide (Furosemide 40 Mg/4 Ml Inj) 40 mg IV BID@0600,1800 [facility] Last Admin: 03/17/20 05:48 Dose: 40 mg Documented by: Cefepime HCl (Cefepime/Ns 2 Gm/100 Ml) 2 gm in 100 mls @ 200 mls/hr IV Q8HR [facility]; Protocol Vancomycin HCl 2,000 mg/ (Sodium Chloride) 540 mls @ 250 mls/hr IV Q12H [facility] Lidocaine HCl (Magic Mouthwash 30ml) 15 ml PO TID [facility] Losartan Potassium (Losartan 50 Mg Tab) 100 mg PO QDAY [facility] Last Admin: 03/17/20 10:53 Dose: 100 mg Documented by: Meclizine HCl (Meclizine 25 Mg Tab) 25 mg PO Q8H PRN PRN Reason: Vertigo Morphine Sulfate (Morphine 2 Mg/1 Ml Inj) 2 mg IV Q5MIN PRN PRN Reason: Chest Pain unrelieved by NTG Nitroglycerin (Nitroglycerin 0.4 Mg Tab Subl) 0.4 mg SL .Q5MIN PRN PRN Reason: Chest Pain Pantoprazole Sodium (Pantoprazole 40 Mg Tab) 40 mg PO DAILY [facility] Last Admin: 03/17/20 10:53 Dose: 40 mg Documented by: Prednisone (Prednisone 20 Mg Tab) 40 mg PO QDAY [facility] Stop: 03/21/20 10:01 Prednisone (Prednisone 20 Mg Tab) 20 mg PO QDAY [facility] Stop: 03/25/20 10:01 Sodium Chloride (Sodium Chloride 0.9% 10 Ml Flush Syringe) 10 ml IV PRN PRN PRN Reason: LINE FLUSH Tramadol HCl (Tramadol 50 Mg Tab) 50 mg PO Q4H PRN PRN Reason: Pain, Moderate (4-6) Zinc Sulfate (Zinc Sulfate 220 Mg Cap) 220 mg PO QDAY [facility] Last Admin: 03/17/20 10:53 Dose: 220 mg Documented by: Physical Examination Vital signs: Vital Signs Temp Pulse Resp BP Pulse Ox 98.0 F 125 H 20 202/96 100 03/16/20 16:47 03/16/20 16:47 03/16/20 16:47 03/16/20 16:47 03/16/20 16:47 Results - Laboratory Findings CBC and BMP: 03/17/20 05:38 03/17/20 05:38 PT/INR, D-dimer PT 13.2 Sec. (12.2-14.9) 03/17/20 05:38 INR 1.01 (0.87-1.13) 03/17/20 05:38 Abnormal lab findings: Abnormal Labs 03/16/20 03/16/20 03/17/20 17:06 17:06 05:38 Lymph % (Auto) 38.7 H [place] % (Auto) 9.0 H Seg Neutrophils % 72.3 H Carbon Dioxide BUN 20 H Glucose 207 H Hemoglobin A1c Cholesterol LDL Cholesterol Direct HDL Cholesterol 03/17/20 03/17/20 05:38 05:38 Lymph % (Auto) [place] % (Auto) Seg Neutrophils % Carbon Dioxide 31 H BUN Glucose Hemoglobin A1c 6.8 H Cholesterol 239 H LDL Cholesterol Direct 159 H HDL Cholesterol 72 H Assessment and Plan 59 y/o female, obese with asthma, admitted with chest pain. 1. Given negative PE study, very happy about this. However that does not rule out all possible embolism. She has had negative trops so far, need to review EKG. May need to consider stress test. No real need for V/Q scan unless you are concerned about chronic thromboembolic disease. If I am not mistaken, I had placed her on a steroid taper to help with persistent dyspnea which it appears IMS has continued which i appreciate. The changes seen on CTA are likely chronic from COVID unless there is an elevated BNP, then edema is not unreasonable. Agree with echo. Will continue to follow.
[2020-03-17] MEDS: CEFEPIME/NS 2 GM/100 ML 2 GM/100 ML BAG IV SCH ×2 (13:29→21:43)
[2020-03-17] MEDS: MAGIC MOUTHWASH 30ML PO SCH ×2 (13:30→21:38)
--- NOTE | 2020-03-17 14:39 | Vascular Lab Report ---
DUPLEX DOPPLER LOWER EXTREMITY VEINS, BILATERAL INDICATION / CLINICAL INFORMATION: elevated d-dimer. TECHNIQUE: Duplex doppler imaging was performed through the veins of both lower extremities using venous katey deyanira and other maneuvers. COMPARISON: None available. FINDINGS: RIGHT COMMON FEMORAL VEIN: Negative. RIGHT FEMORAL VEIN: Negative. RIGHT POPLITEAL VEIN: Negative. RIGHT CALF VEINS: Negative. LEFT COMMON FEMORAL VEIN: Negative. LEFT FEMORAL VEIN: Negative. LEFT POPLITEAL VEIN: Negative. LEFT CALF VEINS: Negative. ADDITIONAL FINDINGS: None. IMPRESSION: 1. No sonographic evidence for DVT in either lower extremity. Signer Name: Ranjeet Quinonez MD Signed: 03/17/2020 2:35 PM Workstation Name: [id number]
[2020-03-17] MEDS: VANCOMYCIN 2,000 MG in SODIUM CHLORIDE 0.9% 500 ML 500 ML IV SCH (15:30)
[2020-03-17] MEDS: ARFORMOTEROL 15 MCG/2 ML NEBU IH SCH (20:18)
[2020-03-17] MEDS: BUDESONIDE 0.5 MG/2 ML NEBU IH SCH (20:18)
[2020-03-18] MEDS: VANCOMYCIN 2,000 MG in SODIUM CHLORIDE 0.9% 500 ML 500 ML IV SCH (04:20)
[2020-03-18] MEDS: FUROSEMIDE 40 MG/4 ML INJ IV SCH (06:30)
[2020-03-18] MEDS: CEFEPIME/NS 2 GM/100 ML 2 GM/100 ML BAG IV SCH (06:30)
[2020-03-18 08:32] VITALS: BP 132/79
[2020-03-18] MEDS: MAGIC MOUTHWASH 30ML PO SCH (08:47)
[2020-03-18] MEDS: BUDESONIDE 0.5 MG/2 ML NEBU IH SCH (09:22)
[2020-03-18] MEDS: ARFORMOTEROL 15 MCG/2 ML NEBU IH SCH (09:23)
--- NOTE | 2020-03-18 09:59 | Progress Note ---
Assessment and Plan Respiratory failure CT of the chest negative pulmonary embolism. lingering pulmonary symptoms likely due to post viral pneumonia inflammatory changes. Cardiac tests in 2017: normal LVEF 55% by echo negative ETT Recommend: Patient is planned for discharge today. An echocardiogram can be done as an outpatient. Patient will follow up in our office within 5-7 days. Subjective Date of service: 03/18/20 Interval history: Patient appears well, no distress noted. No cardiac complaints. Objective Vital Signs Temp Pulse Pulse Pulse Resp Resp BP 03/18/20 08:27 97.8 F 107 H 18 132/79 03/18/20 05:09 98.5 F 92 H 18 138/78 03/17/20 21:18 99.1 F 95 H 18 116/73 03/17/20 20:24 112 H 18 03/17/20 20:00 95 H 18 03/17/20 19:30 104 H 03/17/20 16:46 98.3 F 101 H 18 128/79 03/17/20 15:47 03/17/20 12:34 98 H 03/17/20 11:54 97.9 F 109 H 20 140/70 03/17/20 10:53 81 150/72 03/17/20 10:52 81 150/72 Pulse Ox 03/18/20 08:27 95 03/18/20 05:09 96 03/17/20 21:18 91 03/17/20 20:24 99 03/17/20 20:00 91 03/17/20 19:30 03/17/20 16:46 91 03/17/20 15:47 95 03/17/20 12:34 03/17/20 11:54 88 03/17/20 10:53 03/17/20 10:52 - Physical Examination General: No Apparent Distress HEENT: Positive: PERRL Neck: Positive: trachea midline Cardiac: Positive: Reg Rate and Rhythm
[2020-03-18] MEDS ORDERED: predniSONE 20 MG TAB PO SCH (10:00)
--- NOTE | 2020-03-18 10:01 | Discharge Summary ---
Providers - Providers Date of Admission: 03/17/20 02:56 Attending physician: EVELYN CUMMINGS MD 03/17/20 Consult to Cardiac Rehabilitation [CONS] Routine Reason For Exam: Phase I 03/17/20 04:09 Consult to Cardiology [CONS] Routine Consulting Provider: LUIS EDUARDO MORAES Reason For Exam: chest pain Consult to Case Management [CONS] Routine Services Needed at Discharge: Cleaning Manager Notified:: case therapist 03/17/20 08:51 Consult to Physician [CONS] Routine Comment: Consulting Provider: MANDIE BLACKMON Physician Instructions: Reason For Exam: shortness of breath, recent covid 03/17/20 08:55 Consult to Physician [CONS] Routine Comment: Consulting Provider: LETICIA VALDEZ Physician Instructions: Reason For Exam: shortenss of breath 03/17/20 08:56 Consult to Physician [CONS] Routine Comment: Consulting Provider: SHAYNE ESCOBAR Physician Instructions: Reason For Exam: chest pain [facility] Reason for admission: Chest pain Condition: Stable Hospital course: lizz is a 59-year-old female -seen in ED at bedside. patient has hx of hypertension, asthma, tubal ligation, bariatric surgery for weight loss and recent covid 19 infection. She presents to emergency room with complaints of chest pain. Patient states her chest pain started 3 days ago-she describes her chest pain as chest tightness. Patient states the chest pain/tightness worsen and she decided to come to ED. Patient states her chest pain is substernal and nonradiating. Patient states the chest pain is a pressure and is an 8 out of 10. At the time of this assessment, patient states the shortness of breath has been going on since February 10, 2020 when she had covid 19, but is getting better. She denies tobacco and illicit drug use, but admits occasional alcoholic drink. Per Ed note-Patient had a D-dimer checked today and it was 1600. Patient states her furnace maintenance told her to come to the emergency room for evaluation since her symptoms and D-dimer are worsening ED work up shows: WBC 7.0, hemoglobin 13.5, Cr 0.8, serum glucose 207, [id number] and potassium 4.1 CTA of the chest-shows; 1. No evidence of pulmonary embolism. 2. Interstitial thickening with diffuse bilateral groundglass opacities. Findings are suggestive of mild pulmonary edema. Alternatively, atypical viral infectious process could have this appearance. Patient was seen by vb net programmer and infectious disease physician. Plans as noted below by them. Respiratory failure CT of the chest negative pulmonary embolism. normal LVEF 55% by echo 2017. Recommend: Echocardiogram for left ventricular function and valvular function assessment. Otherwise conservative cardiac management.59-year-old woman treated last month for acute COVID-19 pneumonia, manifested by marked respiratory insufficiency. She returns to the hospital with lingering pulmonary symptoms likely due to post viral pneumonia inflammatory changes. Work-up here with a chest x-ray and a CT of the chest are both negative for acute pulmonary infiltrates or acute pulmonary embolism. ECG is a sinus rhythm with borderline inferior Q waves, no ST or T wave changes of ischemia, no change from previous ECGs. The patient is currently on the telemetry floor, looks and feels well, undergoing work-up and management by internal medicine and infectious disease. With regards to the cardiovascular standpoint, we will order an echocardiogram for left ventricular function and valvular function assessment. Otherwise conservative cardiac management. 59 years old female with history of morbid obesity, bariatric surgery, asthma, recent COVID-19 and acute hypoxemic respiratory failure on 02/11/2020, discharged home on 02/25/2020, readmitted on secondary to worsening shortness of breath and dyspnea on exertion associated with chest tightness: #Respiratory failure: Initial sats dropped to 86%. Patient was on 2 L, now on room air. Patient with recent COVID-19 with severe pneumonia treated with remdesivir, steroids, discharged on 02/21/2020 seen as an outpatient by pulmonary placed on another course of tapered steroids. Noted worsening ferritin from 231 is up to 465, worsening D-dimer which was normal initially, now 1697. CRP is better. CTA showing no pulmonary embolism but interstitial thickening with diffuse bilateral groundglass opacities. This is likely post COVID-19 cytokine storm versus early pulmonary fibrosis. Doubt bacterial pneumonia since no fever, however will cover for hospital-acquired pneumonia for now. Other possibilities -CHF, pulmonary hypertension. Recommendations: -Obtain 6-minute walking test -Start cefepime 2 g IV every 8 hours -Start vancomycin with PK consult -Obtain procalcitonin/BNP -Obtain pulmonary consult -Obtain transthoracic echo eval EF ?pulm HTN -Continue steroids per pulmonary -Obtain lower extremity ultrasound to rule out DVT Patient was also evaluated by furnace maintenance who recommended possible a stress test which cardiology reviewed and did not feel the patient needed a stress test. Also recommended that the patient complete the prescribed prednisone. Following discussion with them and patient improvement today we determined that the patient should continue on anticoagulation for recommended. Of time. She is clinically improved and stable for discharge and will follow with appropriate consultants prior to discharge. She will also have echocardiogram outpatient this has been discussed with the patient in detail. Imaging studies of CTA of the chest did not show any pulmonary embolism. (1) Chest pain secondary to costochondritis (2) Pulmonary edema (3) Acute respiratory failure with hypoxia (4) Essential (primary) hypertension (5) Elevated d-dimer Likely due to COVID-19 ( Disposition: DC-01 TO HOME OR SELFCARE Time spent for discharge: 35 mins Core Measure Documentation - Palliative Care Palliative Care/ Comfort Measures: Not Applicable - Core Measures Any of the following diagnoses?: none Exam - Physical Exam Narrative exam: VITAL SIGNS: Reviewed. GENERAL: The patient appears normally developed, morbidly obese vital signs as documented. HEAD: No signs of head trauma. EYES: Pupils are equal. Extraocular motions intact. EARS: Hearing grossly intact. MOUTH: Oropharynx is normal. NECK: No adenopathy, no JVD. CHEST: Chest with clear breath sounds bilaterally. No wheezes, rales, or rhonchi. CARDIAC: Regular rate and rhythm. S1 and S2, without murmurs, gallops, or rubs. VASCULAR: No Edema. Peripheral pulses normal and equal in all extremities. ABDOMEN: Soft, non tender and non distended. No rebound or guarding, and no masses palpated. Bowel Sounds normal. MUSCULOSKELETAL: Good range of motion of all major joints. Extremities without clubbing, cyanosis or edema. NEUROLOGIC EXAM: Alert and oriented x 3 No focal sensory or strength deficits. Speech normal. Follows commands. PSYCHIATRIC: Mood normal. SKIN: detail exam as documented in skin assessment - Constitutional Vitals: Temp Pulse Resp BP Pulse Ox 97.8 F 107 H 18 132/79 95 03/18/20 08:27 03/18/20 08:27 03/18/20 08:27 03/18/20 08:27 03/18/20 08:27 Plan Activity: advance as tolerated, fall precautions Diet: low fat Special Instructions: record daily weights, record daily BP diary Additional Instructions: Please complete prednisone taper as previously ordered by your pulmonary doctor. Also continue all isolation precautions as recommened by CDC Follow up with: CAS PACHECO MD [Primary Care Provider] - 7 Days LETICIA VALDEZ MD [Staff Physician] - 7 Days LUIS EDUARDO MORAES MD [Staff Physician] - 7 Days MANDIE BLACKMON MD [Staff Physician] - 7 Days Prescriptions: AtorvaSTATin [Lipitor] 40 mg PO QHS #30 tablet Apixaban [Eliquis] 2.5 mg PO DAILY #30 tablet
--- NOTE | 2020-03-18 11:09 | Progress Note ---
Assessment and Plan Cultures: Blood cultures no growth today MRSA culture negative Assessment: 59 years old female with history of morbid obesity, bariatric surgery, asthma, recent COVID-19 and acute hypoxemic respiratory failure on 02/11/2020, discharged home on 02/25/2020, readmitted on secondary to worsening shortness of breath and dyspnea on exertion associated with chest tightness: #Respiratory failure: Initial sats dropped to 86%. Patient was on 2 L, now on room air. Patient with recent COVID-19 with severe pneumonia treated with remdesivir, steroids, discharged on 02/21/2020 seen as an outpatient by pulmonary placed on another course of tapered steroids. Noted worsening ferritin from 231 is up to 465, worsening D-dimer which was normal initially, now 1697. CRP is better. CTA showing no pulmonary embolism but interstitial thickening with diffuse bilateral groundglass opacities. This is likely post COVID-19 cytokine storm versus early pulmonary fibrosis. Doubt bacterial pneumonia since no fever, normal procalcitonin. Other possibilities -CHF, pulmonary hypertension. BNP normal. No respiratory ultrasound no DVT. Recommendations: -Obtain 6-minute walking test -Stop antibiotics -Obtain transthoracic echo eval EF ?pulm HTN -pending -Cardiology evaluation due to chest pain -Continue steroids per pulmonary -Obtain lower extremity ultrasound to rule out DVT will sign off please call us with any question Grace Jay MD Infectious Diseases Assistant [employer] [facility] M [phone] O [phone] Subjective Date of service: 03/18/20 Principal diagnosis: Shortness of breath Interval history: Patient reports she is feeling good, shortness of breath improved, no chest pain, she is on room air. Objective - Exam Narrative Exam: General appearance: Alert in NAD pleasant obese Eyes: anicteric sclerae, moist conjunctivae; no lid-lag; PERRLA HENT: Normocephalic, Atraumatic; normal external ears, nares open, oropharynx clear Neck: supple, tracheal midline, no JVD Lungs: Diminished breath sound bilaterally CV: RRR no murmur Abdomen: Soft, non-tender; no masses or hepatosplenomegaly Extremities: no edema, no cyanosis Skin: No rash. Psych: no agitated Neuro: alert and oriented x 3. Moving all extermities - Constitutional Vitals: Vital Signs Temp Pulse Resp BP Pulse Ox 97.8 F 107 H 18 132/79 95 03/18/20 08:27 03/18/20 08:27 03/18/20 08:27 03/18/20 08:27 03/18/20 08:27 Temperature -Last 24 Hours Temperature 97.8 F Temperature 98.5 F Temperature 99.1 F Temperature 98.3 F Temperature 97.9 F - Labs CBC & Chem 7: 03/17/20 05:38 03/17/20 05:38
--- NOTE | 2020-03-18 11:10 | Progress Note ---
Assessment and Plan 59 y/o female, obese with asthma, admitted with chest pain. 03/18/2020: No objection to discharge. Please finish steroid taper that I prescribed from my office. Follow up with me as scheduled previously. 1. Given negative PE study, very happy about this. However that does not rule out all possible embolism. She has had negative trops so far, need to review EKG. May need to consider stress test. No real need for V/Q scan unless you are concerned about chronic thromboembolic disease. If I am not mistaken, I had placed her on a steroid taper to help with persistent dyspnea which it appears IMS has continued which i appreciate. The changes seen on CTA are likely chronic from COVID unless there is an elevated BNP, then edema is not unreasonable. Agree with echo. Will continue to follow. Subjective Date of service: 03/18/20 Interval history: Spoke with IMS, patient being discharged today. Remains on room air and did now qualify for home O2. Objective Vital Signs - 12hr 03/18/20 03/18/20 05:09 08:27 Temperature 98.5 F 97.8 F Pulse Rate 92 H 107 H Respiratory 18 18 Rate Blood Pressure 138/78 132/79 O2 Sat by Pulse 96 95 Oximetry CBC and BMP: 03/17/20 05:38 03/17/20 05:38 ABG, PT/INR, D-dimer: PT/INR, D-dimer PT 13.2 Sec. (12.2-14.9) 03/17/20 05:38 INR 1.01 (0.87-1.13) 03/17/20 05:38 Abnormal lab findings: Abnormal Labs 03/16/20 03/16/20 03/17/20 17:06 17:06 05:38 Lymph % (Auto) 38.7 H [place] % (Auto) 9.0 H Seg Neutrophils % 72.3 H Carbon Dioxide BUN 20 H Glucose 207 H Hemoglobin A1c Cholesterol LDL Cholesterol Direct HDL Cholesterol 03/17/20 03/17/20 05:38 05:38 Lymph % (Auto) [place] % (Auto) Seg Neutrophils % Carbon Dioxide 31 H BUN Glucose Hemoglobin A1c 6.8 H Cholesterol 239 H LDL Cholesterol Direct 159 H HDL Cholesterol 72 H
[2020-03-18] MEDS: amLODIPine 10 MG TAB PO SCH (11:30)
[2020-03-18] MEDS: LOSARTAN 50 MG TAB PO SCH (11:30)
[2020-03-18] MEDS: ASCORBIC ACID 500 MG TAB PO SCH (11:31)
[2020-03-18] MEDS: PANTOPRAZOLE 40 MG TAB PO SCH (11:31)
[2020-03-18] MEDS: ASPIRIN 81 MG TAB CHEW PO SCH (11:31)
[2020-03-18] MEDS: ZINC SULFATE 220 MG CAP PO SCH (11:32)
[2020-03-18] MEDS: ENOXAPARIN 40 MG/0.4 ML INJ SUB-Q SCH (11:32)
[2020-03-19] MEDS ORDERED: ERGOCALCIFEROL (VIT D2) 50,000 UNIT CAP PO SCH (10:00)
[2020-03-22] MEDS ORDERED: predniSONE 20 MG TAB PO SCH (10:00)
== END 2020-03-18 13:22 | disposition home or self-care (01) ==
LOC: ED 16:43 → 4A 03-17 02:56 → EEVIPCON 03-17 02:56
PROVIDERS: ADMIT Internal Medicine Geriatric Medicine; ATTEND Internal Medicine
DX: J96.01 Acute respiratory failure with hypoxia (principal); R07.89 Other chest pain; J81.0 Acute pulmonary edema; I10 Essential (primary) hypertension; R74.8 Abnormal levels of other serum enzymes; M94.0 Chondrocostal junction syndrome [Tietze]; E78.5 Hyperlipidemia, unspecified; Z98.84 Bariatric surgery status; Z98.51 Tubal ligation status; Z79.82 Long term (current) use of aspirin
CPT/HCPCS: 36415; 71046; 71275; 80048; 80061; 81001; 83036; 83880; 84145; 84484; 85025; 85610; 87040; 93005; 93970; 94640; 94660; 96365; 96366; 96367; 96368; 96372; 96375; 96376; 99291; A9270; G0378; J0692; J1650; J1940; J3370; J7040; J7512; Q9967; 87641

== ENCOUNTER 2020-04-04 08:21 | Outpatient (CLI) | payer BC | END 2020-04-04 08:22 | disposition home or self-care (01) | LOC: ECHO 08:21 | PROVIDERS: ATTEND Internal Medicine Cardiovascular Disease | DX: I10 Essential (primary) hypertension (principal) | CPT/HCPCS: 93306 ==

== ENCOUNTER 2020-04-12 11:00 | Outpatient (CLI) | payer BC | END 2020-04-12 11:01 | disposition home or self-care (01) | LOC: SLR 11:00 | PROVIDERS: ATTEND Internal Medicine Critical Care Medicine | DX: G47.33 Obstructive sleep apnea (adult) (pediatric) (principal); I10 Essential (primary) hypertension; J44.9 Chronic obstructive pulmonary disease, unspecified | CPT/HCPCS: 95810 ==

== ENCOUNTER 2020-05-03 11:00 | Outpatient (CLI) | payer BC | END 2020-05-04 11:00 | disposition home or self-care (01) | LOC: SLR 11:00 | PROVIDERS: ATTEND Internal Medicine Critical Care Medicine | DX: G47.33 Obstructive sleep apnea (adult) (pediatric) (principal) | CPT/HCPCS: 95811 ==

== ENCOUNTER 2020-06-22 09:17 | Outpatient (CLI) | payer BC ==
--- NOTE | 2020-06-22 10:20 | XRay Report ---
CHEST 2 VIEWS INDICATION / CLINICAL INFORMATION: COUGH. COMPARISON: 03/16/2020 FINDINGS: SUPPORT DEVICES: None. HEART / MEDIASTINUM: No significant abnormality. LUNGS / PLEURA: No significant pulmonary or pleural abnormality. No pneumothorax. ADDITIONAL FINDINGS: No significant additional findings. IMPRESSION: 1. No acute findings. Signer Name: Garrison Hall MD Signed: 06/22/2020 10:16 AM Workstation Name: [id number]
--- NOTE | 2020-06-22 10:47 | Mammography Report ---
DIGITAL SCREENING MAMMOGRAM WITH CAD, 06/22/2020 CLINICAL INFORMATION / INDICATION: Routine screening mammography. SCREENING MAMMOGRAM TECHNIQUE: Digital bilateral 2D mammography was obtained in the craniocaudal and mediolateral obliqu e projections. This examination was interpreted with the benefit of Computer-Aided Detection analysis . COMPARISON: 06/30/13 through 05/06/19. FINDINGS: Breast Density: The breasts are almost entirely fatty. No dominant mass, suspicious calcifications, or architectural distortion in either breast. IMPRESSION: No mammographic evidence of malignancy. Follow up recommendation: Routine yearly BI-RADS Category 1: Negative. A "normal" or negative report should not discourage follow up or biopsy of a clinically significant f inding. A written summary of these findings will be mailed to the patient. The patient will be entered into a mammography reporting system which will generate a reminder letter for the patient's next appointmen t at the appropriate interval. The [employer] recommends yearly mammograms starting at age 40 and continuing as l yeimy as a woman is in good health. Breast MRI is recommended for women with an approximate 20-25% or greater lifetime risk of breast cancer, including women with a strong family history of breast or ova christiano cancer or who have been treated for Hodgkin's disease. Signer Name: Jaxson Ashraf MD Signed: 06/22/2020 10:42 AM Workstation Name: [id number]
[2020-06-22 10:59] LABS: Hematocrit 43.7 % (30.3-42.9); Hemoglobin 14.6 gm/dl (10.1-14.3); Mean Corpuscular HGB Conc 34 % (30-34); Mean Corpuscular Volume 88 fl (79-97); Platelet Count 163 K/mm3 (140-440); Red Blood Count 4.95 M/mm3 (3.65-5.03); Red Cell Distribution Width 13.4 % (13.2-15.2)
[2020-06-22 11:19] LABS: Alanine Aminotransferase 15 units/L (7-56); Albumin 3.8 g/dL (3.9-5); Blood Urea Nitrogen 11 mg/dL (7-17); Chol/HDL Ratio 4.23 %; HDL Cholesterol 43 mg/dL (40-59); Hemolysis Index 7; LDL Cholesterol,Direct 136 mg/dL (50-130)
[2020-06-22 11:20] LABS: BUN/Creatinine Ratio 16
[2020-06-22 16:04] LABS: Total Cells Counted 100
[2020-06-22 16:05] LABS: RBC Morphology Normal
== END 2020-06-22 09:18 | disposition home or self-care (01) ==
LOC: XRAY 09:17 → LAB 09:17 → XRAY 09:18
PROVIDERS: ATTEND Internal Medicine Hematology & Oncology
DX: Z12.31 Encounter for screening mammogram for malignant neoplasm of breast (principal); R05 Cough; R06.02 Shortness of breath
CPT/HCPCS: 36415; 71046; 77067; 80053; 80061; 82306; 83036; 84145; 85007; 85025; 85379; 86140